=== PATIENT | female | born 1965 | race Caucasian/White ===

== ENCOUNTER → 2017-11-01 14:53 | Outpatient (CLI) | payer OTHER, SELFPAY ==
[2017-11-04 17:01] LABS: HPV APTIMA, High Risk Negative (Negative)
== END ==
PROVIDERS: Visit Provider Nurse Practitioner Women's Health
DX: Z12.4 Encounter for screening for malignant neoplasm of cervix (principal)
CPT/HCPCS: 88175; G0145

== ENCOUNTER → 2017-11-01 18:21 | Outpatient (CLI) | payer OTHER, SELFPAY | PROVIDERS: Family Provider Family Medicine; PCP Family Medicine; Visit Provider Nurse Practitioner Women's Health | DX: R30.0 Dysuria (principal) | CPT/HCPCS: 87086; 87088; 87186 ==

== ENCOUNTER → 2017-11-22 16:03 | Outpatient (CLI) | payer OTHER, SELFPAY ==
--- NOTE | 2017-11-22 16:06 | HPBI_ITS ---
MAMMOGRAPHY - BILATERAL SCREENING REASON FOR EXAM: Female, 52 years old. Routine annual screening examination. PERTINENT HISTORY: Non-contributory. TECHNIQUE: Digital bilateral breast whit (3D mammographic acquisition) in the CC and MLO projections. 2-D mediolateral oblique (MLO) and craniocaudad (CC) views of both breasts were obtained. CAD: Full Field Digital Mammography with Computer Added Detection was performed. COMPARISON: Comparison is made with prior outside examination dated March 26, 2016. FINDINGS: Breast Composition: The breasts are heterogeneously dense, which may obscure small masses. There are no dominant masses or suspicious calcifications. No other significant abnormalities are identified. There has been no significant change since the prior study. HPBI/SCREENING MAMM (CAD), BILAT IMPRESSION: Stable bilateral screening mammogram. Yearly follow-up mammogram recommended. (A) ASSESSMENT CATEGORY: BIRADS Category 1: Negative. A letter regarding these results will be sent to the patient by the facility within 30 days. Approximately 10% of breast cancers are not detected by mammography. A normal mammogram should not delay biopsy of a clinically suspicious abnormality. [id number] Electronically Signed: Nathaniel Burrell MD at 8:37 EDT Tel [phone], Service support ,
== END ==
PROVIDERS: Family Provider Family Medicine; PCP Family Medicine; Visit Provider Nurse Practitioner Women's Health
DX: Z12.31 Encounter for screening mammogram for malignant neoplasm of breast (principal)
CPT/HCPCS: 77063; 77067

== ENCOUNTER → 2018-08-19 | Outpatient (CLI) | payer OTHER, SELFPAY ==
[2018-07-28 16:22] VITALS: BMI 28.3
[2018-08-19 17:51] LABS: Absolute Neutrophil Count 3.9 X10^3/uL (2.0-7.7); Basophil# 0.04 X10^3/uL; Basophil% 0.6 % (0-1); Eosinophil# 0.51 X10^3/uL; Eosinophils% 7.3 % (0-5); Hematocrit 38.9 % (37-47); Hemoglobin 12.5 g/dl (12.0-15.0); Lymphocyte % 28.8 % (19-41); Mean Corp Hgb Conc 32.1 g/gl (32-36); Mean Corpuscular Hgb 28.3 pg (27.0-32.0); Mean Corpuscular Volume 88.2 fL (81-99); Mean Platelet Vol. 8.8 fl (6.2-12.0); Monocyte# 0.48 X10^3/uL; Monocyte% 6.9 % (0-10); Neutrophil # 3.91 X10^3/uL (2.7-7.7); Neutrophil % 56.4 % (47-70); Platelet Count 295 K/mm3 (150-450); RBC Distribution Width CV 12.6 % (11.6-14.6); RBC Distribution Width SD 40.2 fl (35.1-43.9); Red Blood Count 4.41 M/mm3 (4.2-5.4); White Blood Count 6.9 K/mm3 (4.4-11.0)
[2018-08-19 17:55] LABS: Vitamin D,25 Hydroxy 19.2 ng/mL (29.95-100.01)
[2018-08-19 17:58] LABS: ALB/GLOB Ratio 1.1 RATIO (0.9-2.4); AST(SGOT) 13 U/L (15-37); Alanine Aminotransfer ALT/SGPT 23 U/L (13-56); Albumin, Serum 3.9 g/dL (3.2-5.0); Alkaline Phosphatase 75 U/L (45-117); Anion Gap 6 (5-15); BUN 25 mg/dL (7-18); BUN/Creat Ratio 29.8 RATIO (10-20); Calcium,Total 8.8 mg/dL (8.5-10.1); Chloride 105 mmol/L (98-107); Creatinine, Serum 0.84 mg/dL (0.55-1.02); EST Glomerular Filtration Rate 76 mL/min (>60); Est Glom Filt Rate - Afr Amer 92 mL/min (>60); Globulin 3.5 g/dL (2.2-4.2); Glucose 93 mg/dL (74-106); Potassium 4.1 mmol/L (3.5-5.1); Protein, Total 7.4 g/dL (6.4-8.2); Sodium Level 141 mmol/L (136-145); Thyroid Stim Hormone (TSH) 0.96 uIU/mL (0.358-3.74)
[2018-08-19 18:02] LABS: POSITIVE COUNT NO; POSITIVE DIFFERENTIAL NO; POSITIVE MORPHOLOGY NO
== END | disposition home or self-care (01) ==
LOC: MTLAB 16:11
PROVIDERS: Family Provider Family Medicine; PCP Family Medicine; Referring Provider Family Medicine; Visit Provider Family Medicine
DX: R53.81 Other malaise (principal); R53.83 Other fatigue
CPT/HCPCS: 36415; 80053; 82306; 84443; 85025

== ENCOUNTER → 2019-03-20 09:59 | Outpatient (CLI) | payer OTHER, SELFPAY ==
[2018-07-28 16:22] VITALS: BMI 28.3
--- NOTE | 2019-03-20 10:03 | BI_ITS ---
MAMMOGRAPHY - BILATERAL SCREENING REASON FOR EXAM: Female, 53 years old. Routine annual screening examination. PERTINENT HISTORY: Non-contributory. TECHNIQUE: Digital bilateral breast dina (3D mammographic acquisition) in the CC and MLO projections. 2-D mediolateral oblique (MLO) and craniocaudad (CC) views of both breasts were obtained. CAD: Full Field Digital Mammography with Computer Added Detection was performed. COMPARISON: Comparison is made with prior study dated November 22, 2017. FINDINGS: Breast Composition: The breasts are heterogeneously dense, which may obscure small masses. There are no dominant masses or suspicious calcifications. No other significant abnormalities are identified. There has been no significant change since the prior study. BI/SCREEN MAMM (CAD) W/DINA BILAT IMPRESSION: Stable bilateral screening mammogram. Yearly follow-up mammogram recommended. (A) ASSESSMENT CATEGORY: BIRADS Category 1: Negative. A letter regarding these results will be sent to the patient by the facility within 30 days. Approximately 10% of breast cancers are not detected by mammography. A normal mammogram should not delay biopsy of a clinically suspicious abnormality. [id number] Electronically Signed: Nathaniel Burrell, at 11:19 EDT , Service support ,
== END ==
PROVIDERS: Family Provider Family Medicine; PCP Family Medicine; Referring Provider Nurse Practitioner Women's Health; Visit Provider Nurse Practitioner Women's Health
DX: Z12.31 Encounter for screening mammogram for malignant neoplasm of breast (principal)
CPT/HCPCS: 77063; 77067

== ENCOUNTER → 2020-04-10 15:20 | Outpatient (CLI) | payer OTHER, SELFPAY ==
[2018-07-28 16:22] VITALS: BMI 28.3
--- NOTE | 2020-04-10 15:25 | BI_ITS ---
MAMMOGRAPHY - BILATERAL SCREENING REASON FOR EXAM: Female, 54 years old. Routine annual screening examination. PERTINENT HISTORY: Non-contributory. TECHNIQUE: Digital bilateral breast dina (3D mammographic acquisition) in the CC and MLO projections. 2-D mediolateral oblique (MLO) and craniocaudad (CC) views of both breasts were obtained. CAD: Full Field Digital Mammography with Computer Added Detection was performed. COMPARISON: Comparison is made with prior examination dated 03/20/2019 and 11/22/2017. FINDINGS: Breast Composition: The breasts are heterogeneously dense, which may obscure small masses. There are no dominant masses or suspicious calcifications. No other significant abnormalities are identified. There has been no significant change since the prior study. BI/SCREEN MAMM (CAD) W/DINA BILAT IMPRESSION: Stable bilateral screening mammogram. Yearly follow-up mammogram recommended. (A) ASSESSMENT CATEGORY: BIRADS Category 1: Negative. A letter regarding these results will be sent to the patient by the facility within 30 days. Approximately 10% of breast cancers are not detected by mammography. A normal mammogram should not delay biopsy of a clinically suspicious abnormality. [id number] Electronically Signed: Nathaniel Burrell, at 8:28 EDT , Service support ,
== END ==
PROVIDERS: PCP Family Medicine; Referring Provider Nurse Practitioner Women's Health; Visit Provider Nurse Practitioner Women's Health
DX: Z12.31 Encounter for screening mammogram for malignant neoplasm of breast (principal)
CPT/HCPCS: 77063; 77067

== ENCOUNTER → 2020-05-27 09:31 | Outpatient (CLI) | payer OTHER, SELFPAY ==
[2020-05-27 08:52] VITALS: BMI 28.3
[2020-05-27 10:36] LABS: NATERA MAILED SPECIMEN
== END ==
PROVIDERS: PCP Family Medicine; Referring Provider Obstetrics & Gynecology; Visit Provider Obstetrics & Gynecology
DX: Z12.11 Encounter for screening for malignant neoplasm of colon (principal); Z83.71 Family history of colonic polyps
CPT/HCPCS: 36415

== ENCOUNTER → 2022-02-11 | Outpatient (CLI) | payer OTHER, SELFPAY ==
[2022-02-11 12:43] LABS: Vitamin D,25 Hydroxy 33.3 ng/mL
[2022-02-11 12:53] LABS: Anion Gap 7 (5-15); BUN 21 mg/dL (7-18); BUN/Creat Ratio 25.4 RATIO (10-20); Calcium,Total 9.2 mg/dL (8.5-10.1); Chloride 107 mmol/L (98-107); Cholesterol 209 mg/dL (200); Creatinine, Serum 0.83 mg/dL (0.55-1.02); EST Glomerular Filtration Rate 76 mL/min (>60); Est Glom Filt Rate - Afr Amer 92 mL/min (>60); Glucose 89 mg/dL (74-106); High Density Lipoprotein 74 mg/dL; Potassium 4.1 mmol/L (3.5-5.1); Sodium Level 140 mmol/L (136-145); Thyroid Stim Hormone (TSH) 0.75 uIU/mL (0.358-3.74); Triglycerides 53 mg/dL; Very Low Density Lipoprotein 11 mg/dL (5-40)
== END | disposition home or self-care (01) ==
LOC: MTLAB 09:39
PROVIDERS: PCP Family Medicine; Referring Provider Nurse Practitioner Family; Visit Provider Nurse Practitioner Family
DX: Z13.1 Encounter for screening for diabetes mellitus (principal); Z13.220 Encounter for screening for lipoid disorders; E55.9 Vitamin D deficiency, unspecified; R53.83 Other fatigue
CPT/HCPCS: 36415; 80048; 80061; 82306; 84443

== ENCOUNTER → 2022-02-13 | Outpatient (CLI) | payer OTHER, SELFPAY ==
--- NOTE | 2022-02-13 14:01 | BI_ITS ---
MAMMOGRAPHY - BILATERAL SCREENING REASON FOR EXAM: Female, 56 years old. Routine annual screening examination. PERTINENT HISTORY: Non-contributory. TECHNIQUE: Digital bilateral breast dina (3D mammographic acquisition) in the CC and MLO projections. 2-D mediolateral oblique (MLO) and craniocaudad (CC) views of both breasts were obtained. CAD: Full Field Digital Mammography with Computer Added Detection was performed. COMPARISON: Comparison is made with prior examination dated 04/10/2020 and 03/20/2019. FINDINGS: Breast Composition: The breasts are heterogeneously dense, which may obscure small masses. There are no dominant masses or suspicious calcifications. Stable small benign-appearing bilateral axillary lymph nodes. No other significant abnormalities are identified. There has been no significant change since the prior study. BI/SCRN MAMM (CAD)W/DINA BILAT IMPRESSION: Stable bilateral screening mammogram. Yearly follow-up mammogram recommended. (A) ASSESSMENT CATEGORY: BIRADS Category 2: Benign. A letter regarding these results will be sent to the patient by the facility within 30 days. Approximately 10% of breast cancers are not detected by mammography. A normal mammogram should not delay biopsy of a clinically suspicious abnormality. [id number] Electronically Signed: Nathaniel Burrell MD at 16:21 EDT ,
== END | disposition home or self-care (01) ==
LOC: OPBI 13:59
PROVIDERS: PCP Family Medicine; Referring Provider Nurse Practitioner Family; Visit Provider Nurse Practitioner Family
DX: Z12.31 Encounter for screening mammogram for malignant neoplasm of breast (principal)
CPT/HCPCS: 77063; 77067

== ENCOUNTER 2023-02-25 10:37 | Day surgery (SDC) | payer BC, SELFPAY ==
[2023-02-25] VITALS (7 sets, daily range): BP systolic 93–120; BP diastolic 60–73; PULSE 60–73; RESP 16; TEMP 36.6; O2SAT 94–100; BMI 27.7
[2023-02-25] MEDS: Lactated Ringers 1,000 ML 15 ML IV (10:55)
--- NOTE | 2023-02-25 11:31 | PCM.HP.STD ---
[facility] - General General Date of Admission: 02/25/23 Date of Service: 02/25/23 Chief Complaint: Screening colonoscopy HPI Narrative ELKIN AMBRIZ, is a 57 F who presents today for screening colonoscopy. She has a strong family history of colon cancer in her father and grandfather. She is never had a colonoscopy in the past. She is not a abdominal pain. No any cramping. Is not any chest pain or shortness of breath. She does not have any lower GI bleeding. All other 16 review systems are negative except as per body mentioned [facility]. [facility] Medical History Encounter for screening for malignant neoplasm of stomach Non-smoker Post-menopausal Smoker Home Medications multivitamin 1 tab PO DAILY 12/15/22 [History Last Taken Unknown] turmeric 400 mg capsule 400 mg PO DAILY 02/24/23 [History Last Taken Unknown] vitamin B complex 1 tab PO DAILY 02/24/23 [History Last Taken Unknown] Allergy/AdvReac Type Severity Reaction Status Date / Time No Known Allergies Allergy Verified 02/25/23 10:48 Family History (Updated 12/15/22 @ 09:56 by Jyoti Mata) Father Colon cancer Grandfather Colon cancer Surgical History (Updated 02/24/23 @ 09:07 by Lesly Paulson) History of meniscectomy of right knee Social History Smoking Status: Never smoker alcohol intake: never substance use type: does not use caffeine: Yes what type of physical activity do you participate in: walking frequency: 1-2 times per week seatbelt use: always do you feel safe at home: Yes additional social history: [facility] Review of Systems ROS Unobtainable: other Constitutional Constitutional: Denies fatigue, fever(s), poor appetite, weight gain or weight loss ENT HEENT: Denies mouth lesions Cardiovascular Cardiovascular: Denies abdominal bloating, abdominal edema or abdominal pain Respiratory/Chest Respiratory/Chest: Denies change in mental status, change in phlegm color, chest congestion or chest tightness Gastrointestinal Gastrointestinal: Denies belching, bloating, change in bowel habits, change in stool character, chewing difficulty, coffee ground emesis, constipation, cramping, diarrhea, dyspepsia, dysphagia, early satiety, excessive flatus, fecal incontinence, heartburn, hematemesis, hematochezia, hemorrhoids, loose stools, melena, nausea, odynophagia, rectal bleeding, tenesmus, vomiting or weight changes Genitourinary Genitourinary: Denies abdominal discomfort, burning urination or itching Musculoskeletal Musculoskeletal: Reports as per HPI; Denies muscle weakness or myalgias Integumentary Integumentary: Denies jaundice Neurologic Neurologic: Denies lack of coordination or weakness Psychiatric Psychiatric: Denies confusion, depression, memory loss, mood swings, paranoia or suicidal ideation Endocrine Endocrinology: Denies systems reviewed and no addt'l complaints, except as documented Hematologic/Lymphatic Hematologic/Lymphatic: Denies anemia, easy bleeding, easy bruising or lymphadenopathy Allergic/Immunologic Allergic/Immunologic: Denies systems reviewed and no addt'l complaints, except as documented Vital Signs Vital Signs Vital Signs: 02/25/23 10:49 02/25/23 10:49 Temperature 97.8 F Temperature Source Temporal Pulse Rate 73 Respiratory Rate 16 Respiratory Pattern Normal Blood Pressure 120/73 Blood Pressure Mean 88 Blood Pressure Source Monitor Blood Pressure Position Sitting Blood Pressure Location Left Arm Pulse Ox 99 Oxygen Delivery Method Room Air Weight Weight: 156 lb 8.451 oz Body Mass Index (BMI) 27.7 Physical Exam Const alert General Appearance: cooperative Orientation / Consciousness: oriented to person HEENT hearing grossly normal bilaterally Head and Scalp: normal to inspection Face and Sinus: face symmetric Nose: external nose normal Mouth: oral and palatal mucosa normal Eyes conjunctivae normal General Eye: normal appearance of both eyes Neck full ROM General: normal visual inspection Lymph Lymphatic: no lymphadenopathy noted Chest inspection of chest normal and palpation of chest normal Chest: symmetrical chest wall rise Resp normal respiratory effort Effort and Inspection: able to speak in complete sentences Cardio regular rate GI non-distended Percussion: normal to percussion Rectal Exam: deferred Neuro Speech: speech normal Gait (Neuro): normal gait Assessment & Plan Assessment/Plan (1) Family history of colon cancer requiring screening colonoscopy: PLAN: She was explained alternatives, risk, benefits clinically not withstanding bleeding, infection, sepsis, perforation, need for emergent surgery . She will have an ASA of 2.
--- NOTE | 2023-02-25 11:57 | OP.COLON_ITS ---
Patient Name: Christine Rachel Procedure Date: 02/25/2023 11:31 AM Date of : 1965 Age: 57 Procedure: Colonoscopy Indications: Screening for colorectal malignant neoplasm Providers: Jung Camarillo DO Referring MD: Didi Cueto Medicines: Monitored Anesthesia Care Patient Profile: This is a 57 year old female. Refer to note in patient chart for documentation of history and physical. Last Colonoscopy: none. The patient's first colonoscopy is today. Complications: No immediate complications. Procedure: Pre-Anesthesia Assessment: - Prior to the procedure, a History and Physical was performed, and patient medications and allergies were reviewed. The risks and benefits of the procedure and the sedation options and risks were discussed with the patient. All questions were answered and informed consent was obtained. Patient identification and proposed procedure were verified by the physician. Mental Status Examination: alert and oriented. Airway Examination: normal oropharyngeal airway and neck mobility. Respiratory Examination: clear to auscultation. CV Examination: normal. Prophylactic Antibiotics: The patient does not require prophylactic antibiotics. Prior Anticoagulants: The patient has taken no previous anticoagulant or antiplatelet agents. After reviewing the risks and benefits, the patient was deemed in satisfactory condition to undergo the procedure. The anesthesia plan was to use minimal sedation / analgesia (anxiolysis). Immediately prior to administration of medications, the patient was re-assessed for adequacy to receive sedatives. The heart rate, respiratory rate, oxygen saturations, blood pressure, adequacy of pulmonary ventilation, and response to care were monitored throughout the procedure. The physical status of the patient was re-assessed after the procedure. After I obtained informed consent, the scope was passed under direct vision. Throughout the procedure, the patient's blood pressure, pulse, and oxygen saturations were monitored continuously. The colonoscope was introduced through the anus and advanced to the cecum, identified by appendiceal orifice and ileocecal valve. The colonoscopy was performed without difficulty. The patient tolerated the procedure well. The quality of the bowel preparation was good. Scope In: 11:42:41 AM Scope Withdrawal Time 0 hours 7 minutes 3 seconds Scope Out: 11:53:01 AM Total Procedure Duration Time 0 hours 10 minutes 20 seconds Findings: Hemorrhoids were found on perianal exam. Non-bleeding internal hemorrhoids were found during retroflexion. The hemorrhoids were moderate and Grade II (internal hemorrhoids that prolapse but reduce spontaneously). The entire examined colon appeared normal on direct and retroflexion views. Impression: - Hemorrhoids found on perianal exam. - Non-bleeding internal hemorrhoids. - The entire examined colon is normal on direct and retroflexion views. - No specimens collected. Recommendation: - Discharge patient to home. - Resume previous diet. - Continue present medications. - Repeat colonoscopy in 5 years for surveillance. Procedure Code(s): --- Professional --- G0121, Colorectal cancer screening; colonoscopy on individual not meeting criteria for high risk CPT copyright 2017 [employer]. All rights reserved. The codes documented in this report are preliminary and upon inpatient coder review may be revised to meet current compliance requirements. Jung Camarillo DO 02/25/2023 11:56:58 AM This report has been signed electronically. Number of Addenda: 0 Note Initiated On: 02/25/2023 11:31 AM
--- NOTE | 2023-02-25 11:58 | OP.CCLET_ITS ---
02/25/2023 Didi Cueto [address] [place] [address] Re : Colonoscopy procedure for Christine Rachel Dear Dr. Cueto This procedure was performed on February. My impressions and recommendations are as follows: Impressions : - Hemorrhoids found on perianal exam. - Non-bleeding internal hemorrhoids. - The entire examined colon is normal on direct and retroflexion views. - No specimens collected. Recommendations : - Discharge patient to home. - Resume previous diet. - Continue present medications. - Repeat colonoscopy in 5 years for surveillance. My findings are described in the full procedure note, which is enclosed. If I can be of further assistance, please feel free to contact me at . Sincerely, Jung Camarillo, 02/25/2023 11:56:58 AM This report has been signed electronically.
== END 2023-02-25 12:34 | disposition home or self-care (01) ==
LOC: EN 10:41 → AC 10:41
PROVIDERS: PCP Family Medicine; Referring Provider Family Medicine; Visit Provider Internal Medicine Gastroenterology
PROC: 0DJD8ZZ Inspection of Lower Intestinal Tract, Via Natural or Artificial Opening Endoscopic (ICD-10-PCS; CPT 45378; principal; 2023-02-25 11:25)
DX: Z12.11 Encounter for screening for malignant neoplasm of colon (principal); K64.1 Second degree hemorrhoids; M99.03 Segmental and somatic dysfunction of lumbar region; M99.04 Segmental and somatic dysfunction of sacral region; Z80.0 Family history of malignant neoplasm of digestive organs
CPT/HCPCS: 45378; J7120; J2405

== ENCOUNTER → 2023-10-13 | Outpatient (CLI) | payer BC, SELFPAY ==
[2023-10-18 16:09] LABS: HPV APTIMA, High Risk Negative (Negative)
== END | disposition home or self-care (01) ==
LOC: LABSPEC 11:38
PROVIDERS: PCP Family Medicine; Referring Provider Nurse Practitioner Women's Health; Visit Provider Nurse Practitioner Women's Health
DX: Z12.4 Encounter for screening for malignant neoplasm of cervix (principal)
CPT/HCPCS: 87624; 88175; G0145

== ENCOUNTER → 2023-10-29 | Outpatient (CLI) | payer BC, SELFPAY ==
--- NOTE | 2023-10-29 10:10 | BI_ITS ---
MAMMOGRAPHY - BILATERAL SCREENING REASON FOR EXAM: Female, 57 years old. Routine annual screening examination. PERTINENT HISTORY: Non-contributory. TECHNIQUE: Digital bilateral breast dina (3D mammographic acquisition) in the CC and MLO projections. 2-D mediolateral oblique (MLO) and craniocaudad (CC) views of both breasts were obtained. CAD: Full Field Digital Mammography with Computer Added Detection was performed. COMPARISON: Comparison is made with prior study dated February 13, 2022 and April 10, 2020. FINDINGS: Breast Composition: The breasts are heterogeneously dense, which may obscure small masses. There are no dominant masses or suspicious calcifications. No other significant abnormalities are identified. There has been no significant change since the prior study. BI/SCRN MAMM (CAD)W/DINA BILAT IMPRESSION: Stable bilateral screening mammogram. Yearly follow-up mammogram recommended. (A) ASSESSMENT CATEGORY: BIRADS Category 1: Negative. A letter regarding these results will be sent to the patient by the facility within 30 days. Approximately 10% of breast cancers are not detected by mammography. A normal mammogram should not delay biopsy of a clinically suspicious abnormality. [id number] Electronically Signed: Nathaniel Burrell MD at 11:17 EST ,
--- OUTSIDE RECORDS SUMMARY | 2023-10-29 10:32 | XMS RPT_ITS | CCD ---
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 Name Role Phone Unavailable Primary Care Provider UnavailDIDI Verma Referring Unavailable DIDI JACQUES Attending Unavailable Problems Active Problems Problem Classification Problem Date Documented Da te Episodic/Chronic Malaise and fatigue (3 sources) Malaise and fatigue; Translations: [Other malaise] Onset: 07-02-2023 07-01-2023 Episodic Other bone disease and musculoskeletal deformities (1 source) Segmental and somatic dysfunction; Translations: [Segmental and somatic dysfunction of abdomen and other regions] Onset: 07-01-2023 07-01-2023 Episodic Other non-traumatic joint disorders (1 source) Pain in bilateral lower legs; Translations: [Pain in right knee] 07-01-2023 Episodic Other non-traumatic joint disorders (1 source) Pain in right knee; Translations: [Arthralgia of both lower legs] Onset: 07-02-2023 Episodic Other non-traumatic joint disorders (1 source) Pain in left knee; Translations: [Arthralgia of both lower legs] Onset: 07-02-2023 Episodic Other nutritional; endocrine; and metabolic disorders (1 source) Body mass index 25-29 - overweight; Translations: [Overweight] 07-01-2023 Episodic Other nutritional; endocrine; and metabolic disorders (1 source) Overweight; Translations: [Overweight (BMI 25.0-29.9)] Onset: 07-02-2023 Episodic Other screening for suspected conditions (not mental disorders or infectious disease) (10 sources) Patient encounter status; Translations: [Encounter for screening for nutritional disorder] Onset: 07-02-2023 07-01-2023 Episodic Past or Other Problems Problem Classification Problem Date Documented Da te Episodic/Chronic Residual codes; unclassified (1 source) Family history of cancer of colon; Translations: [Family history of malignant neoplasm of digestive organs] Onset: 03-24-2023 07-01-2023 Episodic Results Test Name Value Interpretation Reference Range Facil ity Vital Signs Date Time Vital Sign Value Performing Clinician James dawson 07-01-2023 08:00-0400 Body height 160.7 cm Didi Jacques APRN.CNP Work Phone: [facility] 07-01-2023 08:00-0400 Body weight 74.39 kg Didi Jacques APRN.SYSTEMATIC THEOLOGY PROFESSOR Work Phone: [facility] 07-01-2023 08:00-0400 Diastolic blood pressure 75 mm[Hg] Didi Jacques APRN.SYSTEMATIC THEOLOGY PROFESSOR Work Phone: [facility] 07-01-2023 08:00-0400 Heart rate 75 /min Didi Jacques APRN.SYSTEMATIC THEOLOGY PROFESSOR Work Phone: [facility] 07-01-2023 08:00-0400 Respiratory rate 16 /min Didi Jacques APRN.SYSTEMATIC THEOLOGY PROFESSOR Work Phone: [facility] 07-01-2023 08:00-0400 SaO2% (BldA) [Mass fraction] 98 % Didi Jacques APRN.SYSTEMATIC THEOLOGY PROFESSOR Work Phone: [facility] 07-01-2023 08:00-0400 Systolic blood pressure 110 mm[Hg] Didi Jacques APRN.SYSTEMATIC THEOLOGY PROFESSOR Work Phone: [facility] Encounters Encounter Date Encounter Type Care Provider Facility Start: 07-02-2023 End: 07-03-2023 ambulatory DIDI JACQUES Facility:[facility] Start: 07-01-2023 End: 07-01-2023 ambulatory DIDI JACQUES Facility:[facility] Start: 07-01-2023 End: 07-01-2023 Patient encounter procedure Didi Jacques APRN.CNP Work Phone: OB/Gynecology Procedures Date Procedure Procedure Detail Performing Clinician Start: 03-26-2016 Lipid 1996 panel - S sulaiman or Plasma Didi Jacques APRN.CNP Work Phone: Plan of Treatment Date Care Activity Detail Author Start: 07-01-2023 End: 09-30-2023 25-hydroxyvitamin D3 [Mass/volume] in Serum or Plasma VITAMIN D 25 HYDROXY Lab Routine Encounter for vitamin deficiency screening Overweight (BMI 25.0-29.9) Malaise and fatigue Expected: 07/01/2023, Expires: 09/30/2023 [facility] Work Phone: Payers Date Payer Category Payer Unknown [employer]IGHAT ELIZABETH PPO [id number] 2023-Present [phone] [address] [place] [address] PPO [id number] 2023 Unknown [id number] Social History Date Type Detail Facility Start: 03-23-2014 Tobacco smoking stat [facility] Never smoked tobacco [facility] Work Phone: Start: 03-23-2014 Tobacco use and exposure Smokeless tobacco non-user [facility] Work Phone: Start: 07-01-2023 Alcohol intake Current non-dr manager technology of alcohol (finding) [facility] Start: 07-01-2023 History of Social function [facility] Start: 07-01-2023 Tobacco use panel [facility] Start: 1965 Sex Assigned At Not on file [facility] Progress note 07-01-2023 Note Date & Type Note Facility 07-01-2023 Note HNO ID: [id number] Author: Didi Jacques APRN.SYSTEMATIC THEOLOGY PROFESSOR Service: ? Author Type: Nurse Practitioner Type: Progress Notes Filed: 07/01/2023 11:17 AM Note Text: Christine Rachel is a 57 year old female with obesity who presents for an initial evaluation of overweight/obesity to treat and prevent co-morbidities and is interested in behavioral . Motivation for seeking treatment for the disease of overweight/obesity : wants to feel better about self and health. Can not lose weight since menopause despite exercise modifying diet Goal weight: 140-145 Lowest recall weight: 140 Highest recall weight: 165 Patient identified barriers to weight loss: none Weight History: She reports no family history of obesity and late adulthood weight gain. She states her weight gain is related to the following factors, including onset of menopause about 7 years ago. - Last Wt 07/01/23 : 164 lb (74.4 kg) 5% weight loss = 156 lbs, 10% weight loss = 148 lbs WEIGHT GRAPH: Diet/Nutrition overview: Awake - 0600 0630 Macha green tea plain B - skip S - none L - 1200 16 oz coconut milk with protein shake mix or Chobani SFyogurt with berries S - after school 1600 cheese or pretzels or apple - grazes before dinner so she tries to go for walk instead D - 6-8 pm protein, vegetable good variety, sometimes starchy veg or rice. Dessert if eating out S - 8 pm if early dinner - popcorn or glass of semi-sweet red wine twice a month Fluids - coconut milk with protein powder, green tea, water with lemon, SF sparkling water Bedtime - 2300 Quality of diet: 24hr recall suggests healthy diet. Characterization of diet:Structured, evening snacking, and skip meals. Income Tax Expert of impaired eating habits:lack of satiety and boredom Eating Disorder no Cravings: cheese and sometimes sugary food but tries to limit to a few dark chocolate chips Sleep: Duration: 6-7 hours. MELLISSA NO ; CPAP NO Stress:yes , Cause:Work Obesity Related Comorbidities: Prior Weight Loss Surgery:No PAST MEDICAL HISTORY Diagnosis Date NEGATIVE MEDICAL HISTORY PAST SURGICAL HISTORY Procedure Laterality Date KNEE SURGERY HX Left 2019 LIG/TRNSXJ FLP TUBE ABDL/VAG APPR UNI/BI 09/13/1998 Tubal ligation FAMILY HISTORY Problem Relation Age of Onset Hypertension Mother Osteoporosis Mother Colon Polyps Father Colon Cancer Paternal Grandfather Social History Tobacco Use Smoking status: Never Smokeless tobacco: Never Vaping Use Vaping Use: Never used Substance Use Topics Alcohol use: No Drug use: No Medications: None Weight Promoting Medications: None Diet/weight loss History: Past weight loss attempts? commercial diets, self-directed, and exercise program. Atkins diet, Caloric restriction, Diet pills, Exercise/increased activity, Keto, Low Carbohydrate diet, MyFitnessPal, Noom, Self-directed diets such as fasting, and Weight watchers Exercise: Regular exercise: yes walks 4 miles a day Strength/resistance exercise:yes Barriers to regular exercise? 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 Weight Circumference: 35.75 in GENERAL: Female in NAD. Gluteo-femoral adiposity. SKIN: acanthosis nigricans no, Skin tags: yes Hirsutism: no HEENT: PERRL, No supraclavicular adiposity. No dorsal adiposity. RESPIRATORY: CBTA CARDIAC: RRR ABDOMEN: Protuberant ; EXTREMITIES: peripheral edema: no Results: reviewed with the patient Results Only on 06/01/2023 Component Date Value Ref Range Status Toy Designer 06/01/2023 In process Value:Provider VICKI your patient CHRISTINE RACHEL has been assigned their Jessica program. The date to complete this order is 07-01-2023 The Jessica program is: [facility] WHAT TO EXPECT AT YOUR APPOINTMENT The patient access code to view the Jessica program is: [id number] To view the Jessica program go to: [email or web address] Impression: Christine Rachel is a 57 year old Female with Overweight (Pre-obesity) (Body mass index is 28.82 kg/m?.) who has adult onset obesity with gradual weight gain despite several weight loss attempts. The causes of her obesity are multifactorial, biological, psychological and social and environmental. Specific factors include hormone changes (more content not included)... [facility] History of Present illness Narrative 07-01-2023 Didi Jacques, KALLIE.SYSTEMATIC THEOLOGY PROFESSOR - 07/01/2023 8:00 AM EDT Note Date & Type Note Facility 07-01-2023 History of Presen t illness Narrative Images from the original note were not included. Christine Rachel is a 57 year old female with obesity who presents for an initial evaluation of overweight/obesity to treat and prevent co-morbidities and is interested in behavioral . Motivation for seeking treatment for the disease of overweight/obesity : wants to feel better about self and health. Can not lose weight since menopause despite exercise modifying diet Goal weight: 140-145 Lowest recall weight: 140 Highest recall weight: 165 Patient identified barriers to weight loss: none Weight History: She reports no family history of obesity and late adulthood weight gain. She states her weight gain is related to the following factors, including onset of menopause about 7 years ago. - Last Wt 07/01/23 : 164 lb (74.4 kg) 5% weight loss = 156 lbs, 10% weight loss = 148 lbs WEIGHT GRAPH: Diet/Nutrition overview: Awake - 0600 0630 Macha green tea plain B - skip S - none L - 1200 16 oz coconut milk with protein shake mix or Chobani SFyogurt with berries S - after school 1600 cheese or pretzels or apple - grazes before dinner so she tries to go for walk instead D - 6-8 pm protein, vegetable good variety, sometimes starchy veg or rice. Dessert if eating out S - 8 pm if early dinner - popcorn or glass of semi-sweet red wine twice a month Fluids - coconut milk with protein powder, green tea, water with lemon, SF sparkling water Bedtime - 2300 Quality of diet: 24hr recall suggests healthy diet. Characterization of diet:Structured, evening snacking, and skip meals. Income Tax Expert of impaired eating habits:lack of satiety and boredom Eating Disorder no Cravings: cheese and sometimes sugary food but tries to limit to a few dark chocolate chips Sleep: Duration: 6-7 hours. MELLISSA NO ; CPAP NO Stress:yes , Cause:Work Obesity Related Comorbidities: Prior Weight Loss Surgery:No PAST MEDICAL HISTORY Diagnosis Date NEGATIVE MEDICAL HISTORY PAST SURGICAL HISTORY Procedure Laterality Date KNEE SURGERY HX Left 2019 LIG/TRNSXJ FLP TUBE ABDL/VAG APPR UNI/BI 09/13/1998 Tubal ligation FAMILY HISTORY Problem Relation Age of Onset Hypertension Mother Osteoporosis Mother Colon Polyps Father Colon Cancer Paternal Grandfather Social History Tobacco Use Smoking status: Never Smokeless tobacco: Never Vaping Use Vaping Use: Never used Substance Use Topics Alcohol use: No Drug use: No Medications: None Weight Promoting Medications: None Diet/weight loss History: Past weight loss attempts? commercial diets, self-directed, and exercise program. Atkins diet, Caloric restriction, Diet pills, Exercise/increased activity, Keto, Low Carbohydrate diet, MyFitnessPal, Noom, Self-directed diets such as fasting, and Weight watchers Exercise: Regular exercise: yes walks 4 miles a day Strength/resistance exercise:yes Barriers to regular exercise? 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 Obesity ROS/ FHx GEN: Fatigue:no CV: h/o palpitations/cardiac arrhythmia, Chest pain: no HTN: no PULM: Asthma:no GI: GERD:no ; Gallstones:no ; Fatty liver disease:no Pancreatitis: no MSK: Joint Pain:yes : Nephrolithiasis: no Symptoms of PCOS: no NEURO: Migraines/OLIVARES: no; H/o seizures: no Glaucoma:no; Cataracts no Symptoms of or History of pseudotumor cerebri:no Family or personal History of MEN2 or Medullary thyroid cancer: no PE BP 110/75 Pulse 75 Resp 16 Ht 5' 3.25 (1.607 m) Wt 164 lb (74.4 kg) LMP 01/22/2016 (Within Days) SpO2 98% BMI 28.82 kg/m Weight Circumference: 35.75 in GENERAL: Female in NAD. Gluteo-femoral adiposity. SKIN: acanthosis nigricans no, Skin tags: yes Hirsutism: no HEENT: PERRL, No supraclavicular adiposity. No dorsal adiposity. RESPIRATORY: CBTA CARDIAC: RRR ABDOMEN: Protuberant ; EXTREMITIES: peripheral edema: no Results: reviewed with the patient Results Only on 06/01/2023 Component Date Value Ref Range Status Toy Designer 06/01/2023 In process Value:Provider VICKI your patient CHRISTINE RACHEL has been assigned their Jessica program. The date to complete this order is 07-01-2023 The Jessica program is: [facility] WHAT TO EXPECT AT YOUR APPOINTMENT The patient access code to view the Jessica program is: [id number] To view the Jessica program go to: [email or web address] Impression: Christine Rachel is a 57 year old Female with Overweight (Pre-obesity) (Body mass index is 28.82 kg/m .) who has adult onset obesity with gradual weight gain despite several weight loss attempts. The causes of her obesity are multifactorial, biological, psychological and social and environmental. Specific factors include hormone changes with menopause and sluggish metabolism. She has no significant weight-related medical comorbidities which increase her cardiovascular mortality risk. There are no additional metabolic obesity complications. Regarding her lifestyle, as above, she has no significant behavioral contributors; her physical activity is regular. Overall, it is clear that her quality of life is mildly compromised by her weight. It is likely a combination of weight loss therapies will be needed. She appears motivated today. 1. Malaise and fatigue - ICD9: 780.79, ICD10: R53.81, R53.83 (primary diagnosis) - VITAMIN D 25 HYDROXY - CBC - TSH BLD 2. Arthralgia of both lower legs - ICD9: 719.46, ICD10: M25.561, M25.562 - COMP METABOLIC PANEL - CBC 3. Encounter for vitamin deficiency screening - ICD9: V77.99, ICD10: Z13.21 - VITAMIN D 25 HYDROXY 4. Screening for diabetes mellitus - ICD9: V77.1, ICD10: Z13.1 - INSULIN ASSAY BLOOD - HGB A1C 5. Screening for deficiency anemia - ICD9: V78.1, ICD10: Z13.0 - CBC - COMP METABOLIC PANEL 6. Screening cholesterol level - ICD9: V77.91, ICD10: Z13.220 - LIPID PANEL BASIC 7. Screening for thyroid disorder - ICD9: V77.0, ICD10: Z13.29 - TSH BLD 8. Overweight (BMI 25.0-29.9) - ICD9: 278.02, ICD10: E66.3 - VITAMIN D 25 HYDROXY - INSULIN ASSAY BLOOD - HGB A1C - CBC - LIPID PANEL BASIC - COMP METABOLIC PANEL - TSH BLD Plan: -- Based on the severity and resistance of the obesity/overweight with co-morbidities, I believe a behavioral intervention is the best and most appropriate director long term care therapeutic option. -- We discussed several strategies to track food intake and increase mindfulness around eating while will decrease calorie intake. She was counseled on the following: Eating primarily whole foods. Limit carbs, especially processed carbs. Do not drink your calories 30 grams of protein for breakfast decreases your hunger during the day by up to 40 % Premier Protein or generic 30 gm protein 1 gm sugar Walk for 15 minutes immediately a meal. - Recommended whole food low-carb diet with 30 g of protein 3 times a day and 30 g of carbs at lunch and dinner only. Given tracking log. - Given 15 gram carb whole food and protein suggestion list. - Given protein snack ideas -- Encouraged the patient to continue her physical activity. Although cardiovascular exercise is most beneficial for weight loss initially, we discussed healthy muscle from a combination of resistance training and cardiovascular exercise is the best jail plan. An overall goal of 150-200 minutes per week of exercise has been effective in weight loss and maintenance. -- Reviewed that monitoring weight daily and food intake can have a positive impact on overall weight loss and maintenance of weight loss. Activity tracking can be used to stay on target for exercise however should not be used to reward oneself -- follow-up visit in 4 weeks for management of above interventions Didi Jacques APRN.BETTINA I spent a total of 75 minutes on the date of the service which included preparing to see the patient, [id number] patient care, completing clinical documentation, obtaining and/or reviewing separately obtained history, performing a medically appropriate examination, counseling and educating the patient/family/caregiver, and ordering medications, tests, or procedures. documented in this encounter [facility] Instructions 07-01-2023 Patient Instructions Note Date & Type Note Facility 07-01-2023 Instructions Didi Jacques APRN.CNP - 07/01/2023 7:49 AM EDT Weight Management: You have taken the initiative to become a healthier version of yourself and to decrease the risks that come with the diagnosis of obesity or being overweight. We are happy to help you along this journey but know this is a lifetime commitment to yourself. Losing just 3-10 % of your body weight can decrease your risks of many other serious diseases like diabetes, heart disease, osteoarthritis, hypertension, cancer and so many others. During this time you will have triumphs, setbacks and plateaus- your body will fight against you but we are here to give you the tools and the resources to continue to reach your goals. We recommend during this time that you track your weight daily or at least five times per week as well as tracking your nutrition. You may track your activity but do not use hitting your fitness goals as a reward system as this can derail your success. We recommend weekly physical activity of 150-200 min/week-although physical exercise can help with maintaining weight loss it adds only a little benefit for jail weight loss success. However, exercise can have many other benefits including improving mental health and cardiovascular health. Do not feel overwhelmed- we will discuss this more at your visits. Our time will be limited with each visit but we will try to touch on factors that are important to you and to your overall goals. We will try to set a goal at the end of each visit and then decide on what we want to accomplish with your upcoming visits. On your After Visit Summary (AVS), we will provide you with information that may be useful during this journey so please remember to read the information given. Check your AVS a few days after your appointment because we may have added more information specifically for you. Remember that if you are placed on medications, they are tools that can help you succeed but you must put in the work. Your nutrition will be the main factor. There are medications that work well for some and not for others- so it may take time to find the right combination for your body's needs. Please remember that factors such as other health co-morbidities one might have, as well as insurance coverage, will play a factor in determining which medications you can take. Most of the newer medications that are all the craze ,injectables, may not be covered or will only be covered if you fail months of oral medications- so please be patient with the process. It would be beneficial for you to determine what your insurance covers as far as Anti-Obesity Medications (AOMs), Nutritional Counseling, behavioral intervention and weight loss surgery. Please call your health insurance prior to your first appointment and write down coverage for each of those therapies. Most importantly, remember that ultimately our goal is to help you get to a healthier weight which will decrease your overall health risks. We will work together as a team and try to reach your personalized goals as well. We appreciate that you have entrusted us with your health and know that we are committed to this process with you. Obesity Obesity is a disease that affects nearly one-third of the adult [place] population (approximately 60 million). The number of overweight and obese Americans has continued to increase since 1959, a trend that is not slowing down. Today, 64.5 percent of adult Americans (about 127 million) are categorized as being overweight or obese. Each year, obesity causes at least 300,000 excess deaths in the [place] and healthcare costs of [place] adults with obesity amount to approximately $100 billion. (AOA) Obesity is a complex, multi-factorial chronic disease involving: Environmental (social and cultural) The tendency toward obesity is a result of our environment: lack of physical activity along with high-calorie, low-cost foods. Home, work, school, and even the community can inhibit a healthy lifestyle. Genetic (Hereditary plays a large role in determining how susceptible people are to overweight and obesity). Genes also influence how the body cristobal calories for energy and stores fat. Physiologic, metabolic, behavioral (eating too many calories while not getting enough exercise) and psychological components. It is the second leading cause of preventable in the [place] Behavioral changes brought on by economic development, modernization and urbanization have been linked to the rise in global obesity. Calculating BMI Body Mass Index (BMI) is a measurement tool used to determine excess body weight. Overweight is defined as a BMI of 25 or more, obesity is 30 or more, and severe obesity is 40 or more. You can visit www.nhlbi.nih.gov to estimate your BMI. Obesity Related Health Conditions The morbidity and mortality risk from being overweight is proportional to its degree. Individuals with morbid obesity, therefore, have the highest risk for developing numerous illnesses that often reduce mobility and quality of life due to their excess weight. In particular, type 2 diabetes, gallbladder disease and osteoarthritis have been found to increase concurrently with higher BMI. Premature , a 20-year shorter life span, has also been found in individuals with morbid obesity. All of the systems that make the body function are affected by morbid obesity. Type 2 diabetes Gallbladder disease and gallstones Liver disease Osteoarthritis, a disease in which the joints deteriorate. This is possibly the result of excess weight on the joints. Gout, another disease affecting the joints Pulmonary (breathing) problems, including sleep apnea in which a person can stop breathing for a short time during sleep Reproductive problems in women, including menstrual irregularities and infertility Gastroesophageal reflux/heartburn Hypertension Heart Disease Depression Psychological disorders/social impairments Urinary Stress Incontinence Obesity is also linked to higher rates of certain types of cancer. Obese men are more likely than non-obese men to from cancer of the colon, rectum, or prostate. Obese women are more likely than non-obese women to from cancer of the gallbladder, breast, uterus, cervix, or ovaries [email or web address] Nutrition - Eat primarily whole foods. Limit carbs, especially processed carbs. - Do not drink your calories - 30 grams of protein for breakfast decreases your hunger during the day by up to 40 % Premier Protein or generic 30 gm protein 1 gm sugar - Walk for 15 minutes immediately a meal. Sincerely, Ngozi Hernandez MD, FACOG & Didi Jacques CNP - Whole food low-carb diet with 30 g of protein 3 times a day and 30 g of carbs at lunch and dinner only. Meals - protein is a goal and carbohydrates are a limit. Snacks - all protein or more protein than carbs Use tracking log as a worksheet and bring with you to your next appointment. Protein - no carbs Egg 1 large - 6g Egg white 1 large 3.6g 3 oz is approximately the size of a deck of cards and equals 21 g protein Beef, Chicken, [place], Pork, Lock 1 oz 7g Fish, Tuna Fish 1 oz 7g Seafood (Crabmeat, Shrimp, Lobster) 1 oz 6g Protein shakes (read labels) Premier Protein or generic [employer] Equate, Aldi Elevate, Me[employer] High Performance- 30g protein & 1g carb - meal replacement Premier Protein plant protein powder - 25 gm protein, 0 suger/2 carb Vanilla and chocolate (not a meal replacement) Fairlife 30 gram protein - 30g protein & 3g carb BOOST Glucose Control Max 30g Protein Nutritional Drink - 30g protein & 1 carb - meal replacement Slimfast High Protein - 20g protein & 1g carb Ensure Max Protein Nutrition Shake 30g protein & 2 carb Protein AND carbs Beef/[place] Jerky 1 oz dried 10-15g protein - check carb count, can be high if sugar added Slim Vin - 6 gm protein and 4 net carb Great Value original turkey sausage sticks - 7 gm protein and 2 gm carb Imitation Crab Meat 1 oz - 2g protein & 4g carb Milk, skim 2% or 1% 8 oz - 8g protein & 12g carb Georgian yogurt Full Fat Georgian Yogurt 1 cup - 20.4g protein & 9.1g carb 2% Georgian Yogurt 1 cup - 22.7g protein & 9.1g carb 0% (fat-free) Georgian Yogurt - 1 cup 24g protein & 9.3g carb :ratio, KETO Friendly Dairy Snack 1 single svg - 15g protein & 2g carb :ratio Protein 1 single svg - 25g protein & 8g carb Dannon Light + Fit 1 single csvg - 12g protein & 9g carb Two Good Lowfat Georgian Yogurt, [place], Lower Sugar - 12g protein & 2g carb Oikos Triple Zero Georgian Nonfat Yogurt 1 single svg - 15g protein & 7g carb Cheese each oz Brie 5.9g protein & 0.1g carb Cheddar Cheese 7g protein & 0.4g carb Mozzarella Cheese 6.3g protein & 0.6g carb Hong Cheese 6.7g protein & 0.7g carb Parmesan Cheese 10g protein & 0.9g carb Cream Cheese 1.7g protein & 1.2g carb Feta 4g protein & 1.2g carb [place] Citizen Cheese 7.6g protein & 1.5g carb Tyler s Low Fat Cottage Cheese 1/2cup 12g protein & 4g carb Legumes Lentils cup 9g protein & 20g carb Webb beans cup 7g protein & 20g carb Kidney, Black, [place], Cannellini beans cup 8g protein & 20g carb Soybeans 1/2 c 14g protein & 8.5g carb Peanut butter, natural 2 Tbsp 7-8g protein & 4g net carbs, 190 calories [place] milk, unsweetened 8 oz 1g protein & 2g carb Soy milk 8 oz 3.5g protein & 1.6g carb Tofu 1/2 cup 10g protein & 2.3g carb Nuts and Seeds per oz Pumpkin Seeds - 6.9g protein & 5g carb Almonds - 5.9g protein & 6.1g carb [place] Seeds - 5.8g protein & 5.6g carb Pistachios - 5.8g protein & 7.8g carb Cashews - 5.1g protein & 9.2g carb Walnuts - 4.3g protein & 3.8g carb Hazelnuts - 4.2g protein & 4.7g carb Magazine Nuts - 4.0g protein & 3.4g carb Pecans - 2.6g protein & 3.9g carb Peanuts - 7g protein & 4.6g carb <15 gram carb fruit options Berries have the lowest sugar content 1/2 cup diced honeydew melon - 8 carbs 1/2 cup diced watermelon - 6 carbs One half medium grapefruit - 10.5 carbs 1 medium orange -15.5 carbs 1 medium peach -14.5 carbs 1/2 cup fresh cranberries - 6.5 carbs 1 medium plum -7.5 carbs 1/2 cup raspberries -7.5 carbs 1 medium Cat -9 carbs 1/2 cup fresh pineapple -11 carbs 1 medium nectarine - 15 carbs 1/2 cup blueberries - 11 carbs - may actually help you lose weight 1 medium kiwi without skin - 11 carbs 1/2 cup fresh cherries -11 carbs 1 medium tangerine -12 carbs 1/2 cup sliced cheri -14 carbs 1/2 medium banana 1/2 c grapes 1/2 medium apple - 12.5 carbs 1/2 c strawberries - 12.7 carbs 5 (FIVE) gram carb vegetable options 1 cup raw OR cup cooked: Asparagus Cabbage Spinach Peppers Green beans Carrots Tomato [place] Posey sprouts Cauliflower Lettuce Snap peas Broccoli Eggplant Zucchini Turnips Spaghetti squash 15 gram carb vegetable options cup cooked green peas cup cooked corn or hominy corn on the cob, large (5 oz) cup cooked sweet potato, plain cup cooked potato, plain 1 small potato or sweet potato 1 cup winter squash (pumpkin, acorn, butternut) 1 cup marinara or pasta sauce - check label cup tomato juice cup tomato puree Beans, Seeds, Nuts cup cooked beans (kidney, mock, red, green, etc.) cup cooked lentils cup baked beans 4 tablespoons nut butter 30 High Protein Snack Ideas 1. Jerky 2. [place] mix without or minimal dried fruit 3. [place] roll-ups 4. Georgian yogurt 5. Veggies and yogurt dip 6. Tuna 7. Hard-boiled eggs 8. Peanut butter celery sticks 9. No-bake energy bites 10. Cheese slices/ Cheese Stick 11. Handful of almonds 12. Roasted chickpeas 13. Hummus and veggies 14. Cottage Cheese 15. Celery/fruit with peanut butter 16. Beef sticks (Grass-fed, natural ingredients) 17. Protein bars 18. Canned [place] 19. Alexandro pudding 20. Homemade granola - rolled oats, nuts, and a little sweetener - 1/4 cup serving 21. Pumpkin seeds 22. Nut butter 23. Protein shakes 24. Edamame 25. Avocado and chicken salad 26. Fruit and nut bars - natural ingredients without added sugar. 27. Lentil salad 28. Overnight oatmeal 29. Egg muffins 30. Leftover protein or lunch meat documented in this encounter [facility] Evaluation note Note Date & Type Note Facility documented in this encounter [facility] Summary Purpose Family History No Family History Records Found Advance Directives No Advanced Directives Records Found Additional Source Comments Source Comments (unrecognize d section and content) In the event this informatio n is protected by the Federal Confidentiality of Alcohol and Drug Abuse Patient Records regulations: The Federal rules restrict any use of the information to criminally investigate or prosecute any alcohol or drug abuse patient.[facility] Reason for Visit (unrecogniz ed section and content) INFORMATION SOURCE (unrecogn ized section and content) FOR RECORDS PERTAINING TO PATIENTS WHO ARE OR HAVE BEEN ENROLLED IN A CHEMICAL DEPENDENCY/SUBSTANCEABUSE PROGRAM, SOME INFORMATION MAY BE OMITTED. This clinical summary was aggregated from multiple sources. Caution should be exercised in using it in the provision of clinical care. This summary normalizes information from multiple sources, and as a consequence, information in this document may materially change the coding, format and clinical context of patient data. In addition, data may be omitted in some cases. CLINICAL DECISIONS SHOULD BE BASED ON THE PRIMARY CLINICAL RECORDS. [facility]. provides no warranty or guarantee of the accuracy or completeness of information in this document.
== END | disposition home or self-care (01) ==
LOC: OPBI 10:09
PROVIDERS: PCP Family Medicine; Referring Provider Nurse Practitioner Women's Health; Visit Provider Nurse Practitioner Women's Health
DX: Z12.31 Encounter for screening mammogram for malignant neoplasm of breast (principal)
CPT/HCPCS: 77063; 77067

== ENCOUNTER → 2023-11-29 | Outpatient (CLI) | payer BC, SELFPAY ==
--- NOTE | 2023-11-29 08:01 | VDLE_ITS ---
Reason For Study: BLE Pain RIGHT LEFT CFV is compressible, spontaneous, phasic, CFV is compressible, spontaneous, phasic, competent and demonstrates normal competent, and demonstrates normal augmentation. augmentation. FV is compressible, spontaneous, phasic, FV is compressible, spontaneous, phasic, competent and demonstrates normal competent and demonstrates normal augmentation. augmentation. POP V is compressible, spontaneous, phasic, POP V is compressible, spontaneous, phasic, competent and demonstrates normal competent and demonstrates normal augmentation. augmentation. T/P Trunk is compressible. T/P Trunk is compressible. PTV is compressible. PTV is compressible. RT PerV is compressible. LT PerV is compressible. SFJ is competent and measures 0.44 cm. SFJ is INCOMPETENT and measures 0.87 cm. GSV proximal thigh measures 0.32 x 0.31 cm. GSV proximal thigh measures 0.67 x 0.70 cm. GSV at knee measures 0.26 x 0.29 cm. GSV at knee measures 0.53 x 0.56 cm. GSV is competent throughout. GSV INCOMPETENT throughout for greater than SSV proximal calf is competent and measures 0.5 seconds. 0.23 x 0.22 cm. GSV appears to branch into varicosities at Procedure prox calf / knee. Exam performed in department. SSV proximal calf is competent and measures This is a venous duplex using B-mode, color 0.24 x 0.26 cm. flow and spectral Doppler. The exam was diagnostic. VL/Venous Duplex US - Rufino Extrem Interpretation Summary Deep veins of the bilateral lower extremities are patent and compressible segme ntally. There is no evidence of bilateral lower extremity deep vein thrombosis. The bilateral great saphenous veins appear patent and compressible segmentally. Positive for reflux in the left saphenofemoral junction, great saphenous vein t hroughout Ordering Physician: Pauline Vo Referring Physician: Didi An Performed By: Ludwin, Issac, RVT
== END | disposition home or self-care (01) ==
PROVIDERS: PCP Family Medicine; Referring Provider Physician Assistant; Visit Provider Physician Assistant
DX: I87.2 Venous insufficiency (chronic) (peripheral) (principal); I83.92 Asymptomatic varicose veins of left lower extremity
CPT/HCPCS: 93970

== ENCOUNTER → 2025-03-12 | Outpatient (CLI) | payer OTHER, SELFPAY ==
--- NOTE | 2025-03-12 13:45 | BI_ITS ---
EXAM: SCRN MAMM (CAD)W/DINA BILAT DATE: 03/12/2025 CLINICAL HISTORY: F, Age 59 y/o , BREAST CANCER SCREENING TECHNIQUE: SCRN MAMM (CAD)W/DINA BILAT COMPARISON: Prior exam(s) dated 10/29/2023, 02/13/2022, 04/10/2020. FINDINGS: TISSUE DENSITY: There are scattered areas of fibroglandular density. Bilateral Breast Mammographic Findings: No significant masses, calcifications or other abnormalities are identified. BI/SCRN MAMM (CAD)W/DINA BILAT IMPRESSION: There is no mammographic evidence of malignancy. OVERALL FINAL ASSESSMENT BI-RADS 1: NEGATIVE. RECOMMEND ANNUAL MAMMOGRAPHIC SCREENING. RECOMMENDATION: Routine annual follow-up in 1 Year A letter with findings and recommendations will be mailed to the patient. Reading Location: [id number]
== END | disposition home or self-care (01) ==
LOC: OPBI 13:44
PROVIDERS: PCP Family Medicine; Referring Provider Nurse Practitioner Women's Health; Visit Provider Nurse Practitioner Women's Health
DX: Z12.31 Encounter for screening mammogram for malignant neoplasm of breast (principal)
CPT/HCPCS: 77063; 77067

== ENCOUNTER 2025-04-19 09:30 | Day surgery (SDC) | payer OTHER, SELFPAY ==
[2025-04-18 11:55] VITALS: BMI 26.7
[2025-04-19 09:51] LABS: Hematocrit 38.8 % (37-47); Hemoglobin 12.9 g/dL (12.0-15.0); Mean Corp Hgb Conc 33.2 g/dL (32-36); Mean Corpuscular Volume 87.8 fL (81-99); Mean Platelet Vol. 8.3 fl (6.2-12.0); Platelet Count 287 K/mm3 (150-450); RBC Distribution Width CV 12.5 % (11.6-14.6); RBC Distribution Width SD 40.1 fl (35.1-43.9); Red Blood Count 4.42 M/mm3 (4.2-5.4); White Blood Count 5.6 K/mm3 (4.4-11.0)
--- NOTE | 2025-04-19 10:28 | HP.PCM_ITS ---
HPI - General HPI Narrative ELKIN AMBRIZ, is a 59 F who presents with painful left lower extremity varicose veins. She has had these left lower extremity varicose veins for a little over 30 years. She notes they started during one of her pregnancies and then just have continued to worsen over the years. The most prominent varicosity is on the medial lower leg and she states she has persistent aching and burning pain through this area. She also notes lower extremity edema in the left leg which is particularly bad at the end of the day and worse on warm days. 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 She has tried nonmeasured compression in the past without much benefit. She has never had any prior venous interventions. She denies any known VTE. She does not have any bothersome varicosities on the right leg, just some spider veins. She denies any pelvic, abdominal, buttock or varicosities, hematuria, dyspareunia. Otherwise, she has no significant medical history. [facility], [facility] Medical History Post-menopausal Smoker Non-smoker Encounter for screening for malignant neoplasm of stomach Home Medications ?Medication ?Instructions ?Recorded ?Last Taken ?Type multivitamin 1 tab PO DAILY 12/15/22 Unkn own History turmeric 400 mg capsule 400 mg PO DAILY 02/24/23 Unk nown History vitamin B complex 1 tab PO DAILY 02/24/23 Unkn own History ascorbic acid (vitamin C) 500 mg 500 mg PO QDAY Unknown History tablet cholecalciferol (vitamin D3) 125 125 mcg PO QDAY 03/06 Unknown History mcg (5,000 unit) capsule phentermine 37.5 mg capsule 37.5 mg PO QDAY 03/06/25 U nknown History Allergy/AdvReac Type Severity Reaction Status Date / Time No Known Allergies Allergy Verified 03/06/25 14:52 Family History Father Colon cancer Grandfather Colon cancer Other Asthma Cancer Surgical History History of meniscectomy of right knee Social History Smoking Status: Never smoker alcohol intake: never substance use type: does not use caffeine: Yes what type of physical activity do you participate in: walking frequency: 1-2 times per week seatbelt use: always do you feel safe at home: Yes additional social history: [employer] Constitutional Constitutional: Denies chills, fever(s), frequent falls, lethargy or weakness Eyes Eyes: Denies blind spots, change in vision or loss of vision ENT HEENT: Denies bleeding gums, hoarseness or sore throat Cardiovascular Cardiovascular: Denies abdominal pain, bluish discoloration of hand/feet, chest pain with activity, claudication, cold extremities, cyanosis, dyspnea on exertion, erythema on extremities, irregular heart rhythm, leg edema, leg ulcers, numbness in extremities or weakness in extremities Respiratory/Chest Respiratory/Chest: Denies cough, excessive phlegm production, shortness of breath at rest, shortness of breath with exertion or wheezing Gastrointestinal Gastrointestinal: Denies anorexia, change in stool character, constipation, diarrhea, melena or rectal bleeding Genitourinary Genitourinary: Denies dysuria or hematuria Musculoskeletal Musculoskeletal: Denies abnormal gait Integumentary Integumentary: Reports other Details: ; Denies erythema, non-healing lesions or wounds Neurologic Neurologic: Denies abnormal speech, focal weakness, headache(s), loss of vision, numbness, paresthesias or sensory deficit Hematologic/Lymphatic Hematologic/Lymphatic: Denies easy bleeding, easy bruising or lymphadenopathy Vital Signs Vital Signs Vital Signs: Weight Weight: 151 lb Body Mass Index (BMI) 26.7 Physical Exam Const alert, oriented x3, no apparent distress and healthy appearing General Appearance: cooperative; Negative for combative or lethargic Orientation / Consciousness: awake Exam Limitations: no limitations HEENT Head and Scalp: normocephalic and atraumatic Eyes EOMs intact bilaterally General Eye: normal appearance of both eyes Neck full ROM General: trachea midline Resp normal respiratory effort and no use of accessory muscles Effort and Inspection: Negative for labored, stridor or audible wheezes Cardio regular rate and regular rhythm Back/Spine Cervical Spine: cervical ROM normal Extremity full ROM, normal capillary refill and no clubbing, cyanosis or edema Skin no rashes or lesions noted and no wounds Neuro oriented x3, CN's II-XII intact bilaterally, no focal motor deficits and no sensory deficits noted Psych thought process normal, cooperative, affect normal, speech normal and activity/motor behavior normal Results Lab / Micro Data 04/19/25 09:34 04/19/25 09:34 Labs: Laboratory Results - last 24 hr 04/19/25 09:34: WBC 5.6, RBC 4.42, Hgb 12.9, Hct 38.8, MCV 87.8, MCH 29.2, MCHC 33.2, RDW Std Deviation 40.1, RDW Coeff of Karyn 12.5, Plt Count 287, MPV 8.3 Assessment & Plan Assessment/Plan (1) Varicose veins of left lower extremity with pain: PLAN: -GSV chemical ablation
[2025-04-19 10:42] LABS: Anion Gap 8 (5-15); BUN 22 mg/dL (4-19); BUN/Creat Ratio 27.0 RATIO (10-20); Calcium,Total 9.3 mg/dL (7.6-11.0); Carbon Dioxide 26.0 mmol/L (21.0-32.0); Chloride 107 mmol/L (98-108); Estimated Creatinine Clearance 72.06 ml/min (50-250); Glucose 97 mg/dL (70-99); Potassium 4.3 mmol/L (3.3-5.1)
--- OUTSIDE RECORDS SUMMARY | 2025-04-19 10:48 | XMS RPT_ITS | CCD ---
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 Didi Cueto Primary Care Provider Dr. Didi Cueto Referring Provider Hal DIRECTOR LIFE SALES, DIRECTOR LIFE SALES-C Tere Attending Provider [phone] CHAN Vo Attending Provider [phone] Didi Cueto Primary Care Provider Dr. Didi Cueto Referring Provider Hal DIRECTOR LIFE SALES, DIRECTOR LIFE SALES-C Tere Attending Provider [phone] CHAN Vo Attending Provider [phone] Brett White Attending Provider [phone] Didi Cueto Primary Care Provider Dr. Didi Cueto MD Primary Care Provider Dr. Didi Cueto MD Referring Provider Pauline Nagy Attending Provider [phone] DIDI CUETO Primary Care Unavailable JACQUES, DIDI Referring Unavailable JOLLIFF, DIDI SARAH Primary Care Unavailable JACQUES, DIDI Attending Unavailable JOLLIFF, DIDI SARAH Primary Care Unavailable JACQUES, DIDI Attending Unavailable JOLLIFF, DIDI SARAH Primary Care Unavailable JACQUES, DIDI Attending Unavailable JOLLIFF, DIDI SARAH Primary Care Unavailable JACQUES, DIDI Attending Unavailable JOLLIFF, DIDI SARAH Primary Care Unavailable JOLLIFF, DIDI SARAH Primary Care Unavailable JACQUES, DIDI Attending Unavailable Hal DIRECTOR LIFE SALES-C, Tere Attending Provider [phone] Hal DIRECTOR LIFE SALES-CTere Referring Provider Didi Cueto Referring Unavailable Didi Cueto Primary Care Unavailable Pauline Vo Attending Unavailable Tere Hong NP Referring Unavailable Tere Hong NP Attending Unavailable Didi Cueto Primary Care Unavailable Brett White Referring Unavailable Brett White Attending Unavailable Didi Cueto Primary Care Unavailable Medications Current Medications Medication Drug Class(es) Dates Sig (Normalized) Sig (Original) ascorbic acid/vit B12/zinc (VITAMIN C-VITAMIN P40-GJSB ORAL) (4 sources) ascorbic acid/vi t B12/zinc (VITAMIN C-VITAMIN Q05-CTRQ ORAL) Take by mouth once daily. Active Multivitamin preparation (3 sources) Start: 12-15-2022 take 1 tablet by mouth once daily Multivitamin Active 1 TABLET PO DAILY December 15, 2022 12:00am Start: 12-15-2022 take 1 tablet by erick th once daily Multivitamin Active 1 TABLET PO DAILY December 14, 2022 11:00pm Multivitamin tablet (2 sources) Start: 12-15-2022 Multivitamin t ablet Active 1 {tbl} PO DAILY December 15, 2022 12:00am Turmeric extract (9 sources) Start: 02-24-2023 take 1 capsule by mouth once daily Turmeric 400 mg Capsule Active 400 mg PO DAILY February 24, 2023 12:00am Start: 02-24-2023 take 400 mg by mouth once lili y Turmeric Active 400 MG PO DAILY February 24, 2023 12:00am Start: 02-24-2023 take 400 mg by mouth once lili y Turmeric Active 400 MG PO DAILY February 23, 2023 11:00pm TURMERIC ORAL Ta ke by mouth once daily. Active Vitamin B Complex (3 sources) Start: 02-24-2023 take 1 tablet by erick th once daily Vitamin B Complex Active 1 TABLET PO DAILY February 24, 2023 12:00am Start: 02-24-2023 take 1 tablet by mouth once da glen Vitamin B Complex Active 1 TABLET PO DAILY February 23, 2023 11:00pm VITAMIN B COMPLEX ORAL (8 sources) Start: 02-24-2023 VITAMIN B COMP ABELINO ORAL Take by mouth. 02/24/2023 Active Start: 02-24-2023 VITAMIN B COMP ABELINO ORAL Take by mouth. 0 02/24/2023 Active Comment on above: Take by mouth. Vitamin B Complex Tablet (2 sources) Start: 02-24-2023 Vitamin B Comp abelino Tablet Active 1 {tbl} PO DAILY February 24, 2023 12:00am Completed/Discontinued Medications Medication Drug Class(es) Dates Sig (Normalized) Sig (Original) ascorbic acid 500 mg oral tablet (2 sources) Vitamin C Start: 03-06-2025 take 1 tablet by mouth once daily Ascorbic Acid (Vitamin C) 500 mg tablet Discontinued 500 mg PO daily March 06, 2025 12:00am cholecalciferol 0.125 mg oral capsule (7 sources) Vitamin D Start: 03-06-2025 take 1 capsule by mouth once daily Cholecalciferol (Vitamin D3) 125 mcg (5,000 unit) capsule Discontinued 125 ug PO daily March 06, 2025 12:00am Cholecalciferol, Vitamin D3, (VITAMIN D-3) 50 mcg (2,000 unit) cap Take by mouth. Active phentermine hydrochloride 37.5 mg oral capsule (14 sources) Sympathomimetic Amine Anorectic Start: 03-06-2025 take 1 capsule by mouth once daily 30 minutes after breakfast Phentermine 37.5 mg capsule Discontinued 37.5 mg PO daily March 06, 2025 12:00am must administer 30 minutes before or 1-2 hours after breakfast Start: 06-15-2024 End: 06-09-2025 take 1 tablet by mouth once daily before breakfast Phentermine HCl 37.5 mg tablet Indications: IFG (impaired fasting glucose) , Elevated LDL cholesterol level , Overweight (BMI 25.0-29.9) Take 1 tablet by mouth daily before breakfast for 90 days. Patient should start on December 11, 2024. 90 tablet 12/11/2024 03/07/2025 Discontinued Start: 03-15-2024 End: 06-13-2024 take 1 tablet by mouth once daily before breakfast Phentermine HCl 37.5 mg tablet Indications: IFG (impaired fasting glucose) , Elevated LDL cholesterol level , Overweight (BMI 25.0-29.9) Take 1 tablet by mouth daily before breakfast for 90 days. 90 tablet 0 03/15/2024 06/13/2024 Active Start: 12-15-2023 End: 07-01-2024 take 1 tablet by mouth once daily before breakfast Phentermine HCl 37.5 mg tablet Indications: IFG (impaired fasting glucose) , Elevated LDL cholesterol level , Overweight (BMI 25.0-29.9) Take 1 tablet by mouth daily before breakfast for 60 days. 60 tablet 0 01/13/2024 03/13/2024 Active Comment on above: Take 1 tablet by erick th daily before breakfast for 30 days. sulfamethoxazole 800 mg / trimethoprim 160 mg oral tablet (5 sources) Dihydrofolate Reductase Inhibitor Antibacterial, Sulfonamide Antimicrobial Start: 11-02-2017 End: 11-07-2017 Sulfamethoxazole-Trime thoprim 800-160 mg tablet Discontinued 1 {tbl} PO TWICE A DAY 10 5 0 November 02, 2017 1:00am November 06, 2017 1:00am November 07, 2017 1:07am Start: 11-02-2017 End: 11-07-2017 take 1 tablet by mouth twice daily Sulfamethoxazole-Trimethoprim Discontinu ed 1 TABLET PO TWICE A DAY 10 5 November 02, 2017 1:00am November 07, 2017 1:07am Problems Active Problems Problem Classification Problem Date Documented Da te Episodic/Chronic Disorders of lipid metabolism (17 sources) Raised low density lipoprotein cholesterol; Translations: [Pure hypercholesterolemia , unspecified] Onset: 12-15-2023 12-15-2023 Chronic Malaise and fatigue (1 source) Malaise and fatigue; Translations: [Other malaise] 07-01-2023 Episodic Menopausal disorders (8 sources) Atrophic vaginitis; Translations: [Postmenopausal atrophic vaginitis] 10-13-2023 Chronic Comment on above: denies SX Other aftercare (2 sources) Surgical follow-up; Translations: [Encounter for surgical aftercare following surgery on the circulatory system] 12-21-2023 Episodic Other bone disease and musculoskeletal deformities (20 sources) Segmental and somatic dysfunction; Translations: [Segmental and somatic dysfunction of lumbar region] Onset: 07-01-2023 07-01-2023 Episodic Other diseases of veins and lymphatics (4 sources) Vascular insufficiency; Translations: [Venous insufficiency (chronic) (peripheral)] 11-02-2023 Episodic Other diseases of veins and lymphatics (2 sources) Venous insufficiency (chronic) (peripheral); Translations: [Venous (peripheral) insufficiency, unspecified] 11-02-2023 Episodic Other non-traumatic joint disorders (16 sources) Pain in bilateral lower legs; Translations: [Pain in right knee] Onset: 12-15-2023 07-01-2023 Episodic Other nutritional; endocrine; and metabolic disorders (17 sources) Body mass index 25-29 - overweight; Translations: [Overweight] Onset: 12-15-2023 07-01-2023 Episodic Other nutritional; endocrine; and metabolic disorders (1 source) Overweight in adulthood with body mass index of 25 or more but less than 30; Translations: [Body mass index (BMI) 28.0-28.9, adult] 09-12-2024 Episodic Other screening for suspected conditions (not mental disorders or infectious disease) (16 sources) Patient encounter status; Translations: [Encounter for screening for nutritional disorder] Onset: 03-14-2025 07-01-2023 Episodic Other upper respiratory infections (5 sources) Acute pharyngitis; Translations: [Acute pharyngitis, unspecified] 10-30-2022 Episodic Residual codes; unclassified (15 sources) Family history of cancer of colon; Translations: [Family history of malignant neoplasm of digestive organs] Onset: 03-24-2023 07-01-2023 Episodic Comment on above: negative Empower david ting Spondylosis; intervertebral disc disorders; other back problems (6 sources) Lumbar radiculitis; Translations: [Radiculopathy, lumbar region] 07-12-2018 Episodic Varicose veins of lower extremity (12 sources) Asymptomatic varicose veins of left lower extremity; Translations: [Varicose veins of left lower leg] Onset: 04-03-2025 10-13-2023 Episodic Past or Other Problems Problem Classification Problem Date Documented Da te Episodic/Chronic Diabetes mellitus without complication (17 sources) Impaired fasting glycemia; Translations: [Impaired fasting glucose] Onset: 12-15-2023 12-14-2023 Episodic Other non-traumatic joint disorders (1 source) Pain in right knee; Translations: [Arthralgia of both lower legs] Onset: 12-15-2023 Episodic Other non-traumatic joint disorders (1 source) Pain in left knee; Translations: [Arthralgia of both lower legs] Onset: 12-15-2023 Episodic Other nutritional; endocrine; and metabolic disorders (1 source) Body mass index (BMI) 28.0-28.9, adult; Translations: [Body mass index (BMI) of 28.0-28.9 in adult] Onset: 11-30-2024 Episodic Other nutritional; endocrine; and metabolic disorders (1 source) Overweight; Translations: [Overweight (BMI 25.0-29.9)] Onset: 12-15-2023 Episodic Results Test Name Value Interpretation Reference Range Facility Breast imaging reportOrdered By: Devora Urias on 03-12-2025 Study report [facility] Imaging Services [address] [place] [address] SCRN MAMM (CAD)W/DINA BILAT MR#: [id number] Acct: [id number] Name: CHRISTINE RACHEL Rep #: [id number] : 1965 F 59 From: Karin Urias MD PCP: Dr. Didi Cueto MD Status: [facility] Study:SCRN MAMM (CAD)W/DINA BILAT Date of Exa m: 03/12/25 Exam# [id number] Ordering Dr: Tere Hong DIRECTOR LIFE SALES DIRECTOR LIFE SALES-C EXAM: SCRN MAMM (CAD)W/DINA BILAT DATE: 03/12/2025 CLINICAL HISTORY: F, Age 59 y/o , BREAST CANCER SCREENING TECHNIQUE: SCRN MAMM (CAD)W/DINA BILAT COMPARISON: Prior exam(s) dated 10/29/2023, 02/13/2022, 04/10/2020. FINDINGS: TISSUE DENSITY: There are scattered areas of fibroglandular density. Bilateral Breast Mammographic Findings: No significant masses, calcifications or other abnormalities are identified. BI/SCRN MAMM (CAD)W/DINA BILAT IMPRESSION: There is no mammographic evidence of malignancy. OVERALL FINAL ASSESSMENT BI-RADS 1: NEGATIVE. RECOMMEND ANNUAL MAMMOGRAPHIC SCREENING. RECOMMENDATION: Routine annual follow-up in 1 Year A letter with findings and recommendations will be mailed to the patient. Reading Location: [id number] CC: DIRECTOR LIFE SALES-C Tere Hong; Dr. Didi Cueto MD ~ Sales Representative [employer] Service: Signed [facility] SCRN MAMM (CAD)W/DINA BILATo n 03-12-2025 SCRN MAMM (CAD)W/DINA BILAT [facility] Imaging Services [address] [address] SCRN MAMM (CAD)W/DINA BILAT MR#: [id number] Acct: [id number] Name: CHRISTINE RACHEL Rep #: [id number] : 1965 F 59 From: Devora Urias MD PCP: Dr. Didi Cueto MD Status: REG CLI Study: SCRN MAMM (CAD)W/DINA BILAT Date of Exam: 02/13 Exam# [id number] Ordering Dr: Tere Hong NP DIRECTOR LIFE SALES -C EXAM: SCRN MAMM (CAD)W/DINA BILAT DATE: 03/12/2025 CLINICAL HISTORY: F, Age 59 y/o , BREAST CANCER SCREENING TECHNIQUE: SCRN MAMM (CAD)W/DINA BILAT COMPARISON: Prior exam(s) dated 10/29/2023, 02/13/2022, 04/10/2020. FINDINGS: TISSUE DENSITY: There are scattered areas of fibroglandular density. Bilateral Breast Mammographic Findings: No significant masses, calcifications or other abnormalities are identified. BI/SCRN MAMM (CAD)W/DINA BILAT IMPRESSION: There is no mammographic evidence of malignancy. OVERALL FINAL ASSESSMENT BI-RADS 1: NEGATIVE. RECOMMEND ANNUAL MAMMOGRAPHIC SCREENING. RECOMMENDATION: Routine annual follow-up in 1 Year A letter with findings and recommendations will be mailed to the patient. Reading Location: [facility] CC: STACEY Hong; Dr. Didi Cueto MD Sales Representative [employer] Service: Signed Normal [facility] CNOVon 03-08-2025 CNOV Office Visit (OBGYWM ) KATINACHRISTINE ([id number]) 1965 F Date Time Provider Department 03/08/25 11:00 AM DIDI JACQUES During your visit today, we recorded the following information about you: Pulse Blood pressure Weight 90/minute 102/76 67.1 kg Didi Jacques APRN.[facility] 03/08/2025 11:47 AM Addendum - Continue phentermine 37.5 mg once daily: take the full dose at 9 AM on an empty stomach; prescription has been sent to your pharmacy. - Aim to eat dinner by 6 PM to reduce late-night hunger. - When you have a snack like a half banana or a sugar-free popsicle, include at least 15 grams of complete protein to balance the carbs. Good options are: Half a protein shake (~15 g protein) A protein bar with >=15 g protein (e.g., a [place] bar) Roasted soybeans snack or hemp seeds (3 Tbsp = 10 g complete protein) - Keep [id number] proteins in your fridge--hard-boiled eggs, cottage cheese, high-protein yogurts, cheese sticks, or cube cheese. - Continue your morning routine: walking 4 miles at least 5 days a week and drinking your matcha-protein shake breakfast to stay full. - Plan to resume kettlebell or other strength/resistance training soon to help maintain muscle mass as you age. - Drink plenty of water throughout the day--especially when working outside--to stay well hydrated. - Aim for at least 7 hours of sleep each night. - Labs and vital signs reviewed: 03/05 fasting labs: glucose 93 mg/dL, BUN 25 mg/dL (likely from dehydration), creatinine 0.78 mg/dL, eGFR 89 mL/min Today?s blood pressure 102/76 mm Hg, heart rate 90 bpm - Before your next visit, repeat a fasting basic metabolic panel while well hydrated to recheck kidney function. - Follow up in 3 months to assess phentermine results, review updated labs, and discuss adding topiramate if cravings persist. - Whole food balanced protein, controlled carbohydrate nutrition plan - 30 g of protein 3 times a day and up to 30 g of carbs at lunch and dinner only. 1st meal of the day- 30g protein with limit of 2 gm carbohydrates. Premier Protein or generic 30 gm protein 1 gm sugar 2. 2-3 eggs and some unbreaded meat and/or cheese. 3. 2-3 eggs and 1/2 of protein shake or one of the yogurts below: :ratio, KETO Friendly Dairy Snack 1 single svg - 15g protein AND 2g carb Two Good Lowfat Surinamese Yogurt, Lower Sugar - 12g protein AND 2g carb No fruit, vegetables, bread, grain, other brands of yogurt, Smoothies, etc. Lunch and dinner - 30 gm protein is the goal with less than 30 gm carbohydrates All snacks and meals - all protein or more protein than carbs Protein - no carbs Egg 1 large - 6g Egg white 1 large 3.6g 3 oz is approximately the size of a deck of cards and equals 21 g protein so 4 oz is 28 gm protein Beef, Chicken, Pruden, Pork, Lock 1 oz 7g Fish, Tuna Fish 1 oz 7g (Starkist tuna packet 2.6 oz 17 gm protein) Seafood (Crabmeat, Shrimp, Lobster) 1 oz 6g Protein shakes (read labels) Premier Protein or generic [employer] Equate, Me[employer] High Performance- 30g protein AND 1g carb - meal replacement Premier Protein powder or generic- 30 g protein, 1g carb Fairlife 30 gram protein - 30g protein AND 3g carb BOOST Glucose Control Max 30g Protein Nutritional Drink - 30g protein AND 1 carb - meal replacement Slimfast High Protein - 20g protein AND 1g carb Ensure Max Protein Nutrition Shake 30g protein AND 2 carb OWYN plant based 100 % vegan no dairy, soy, wheat/gluten 32g protein 0 net carb (not a meal replacement) Premier Protein plant protein powder - 25g protein, 0 sugar/2g carb Vanilla and chocolate (not a meal replacement) Protein AND carbs Beef/Pruden Jerky 1 oz dried 10-15g protein - check carb count, can be high if sugar added Slim Vin - 6 gm protein and 4 net carb Great Value original turkey sausage sticks - 7 gm protein and 2 gm carb [place] (at [facility]) Original smoked sausage sticks - 8 gm protein and 0 carb Imitation Crab Meat 1 oz - 2g protein AND 4g carb Milk, skim 2% or 1% 8 oz - 8g protein AND 12g carb Fairlife 2% milk 8 oz -13g protein AND 6g carb Surinamese yogurt Full Fat Surinamese Yogurt 1 cup - 20.4g protein AND 9.1g carb 2% Surinamese Yogurt 1 cup - 22.7g protein AND 9.1g carb 0% (fat-free) Surinamese Yogurt - 1 cup 24g protein AND 9.3g carb Aldi Protein Surinamese yogurt single svg - 13/g15g protein AND 7g carb Chobani Zero Sugar single svg: - 12g protein AND 5g carb Dannon Surinamese Light + Fit 1 single svg - 12g protein AND 9g carb Oikos Pro single svg - 20g protein AND 8g carb Oikos Triple Zero Surinamese Nonfat Yogurt 1 single svg - 15g protein AND 7g carb :ratio, KETO Friendly Dairy Snack 1 single svg - 15g protein AND 2g carb :ratio Protein 1 single svg - 25g protein AND 8g carb Two Good Lowfat Surinamese Yogurt, Peterson, Lower Sugar - 12g protein AND 2g carb Yoplait Protein (more content not included)... Normal [facility] MR/BMS.Seun 03-06-2025 MR/BMS.Ruthy [facility] Vascular Surgery [address] [place] [address] OFFICE VISIT Date of Service: 03/06/25 MR#: [id number] Acct: [id number] Name: CHRISTINE RACHEL Rep #: [id number] : 1965 Provider: CHAN Anderson Age/Sex: 59/F Location: [facility] Status: Signed Intake Vital Signs 10/13/23 09:08 03/06/25 14:51 Height 5 ft 3 in Weight: 151 lb BP 116/77 Blood Pressure Location Lt brachial Position Sitting Respiration 16 Pulse 77 Pulse Source Monitor Temp 98.6 F Temp Source Temporal Pulse Oximetry (%) 99 Oxygen Delivery Method room air Intake Visit Reasons: 1 Y FU Chief Complaint: varicose vein Is patient in pain?: No Allergies No Known Allergies Allergy (Verified 03/06/25 14:52) Medications ???Medication ???Instructions ???Recorded ???Confirmed ???Type multivitamin 1 tab PO DAILY 12/15/22 03/06/25 H istory turmeric 400 mg capsule 400 mg PO DAILY 02/24/23 03/06/25 History vitamin B complex 1 tab PO DAILY 02/24/23 03/06/25 H istory ascorbic acid (vitamin C) 500 mg 500 mg PO QDAY 03/06/25 03/06/25 H istory tablet cholecalciferol (vitamin D3) 125 125 mcg PO QDAY 03/06/25 03/06/25 History mcg (5,000 unit) capsule phentermine 37.5 mg capsule 37.5 mg PO QDAY 03/06/25 03/06/25 History Is last menstrual period known: No Post menopausal: Yes Patient : No Have you fallen in the past year?: Yes PFSH Medical History Post-menopausal Smoker Non-smoker Encounter for screening for malignant neoplasm of stomach Surgical History History of meniscectomy of right knee Family History Father Colon cancer Grandfather Colon cancer Other Asthma Cancer Social History Smoking Status: Never smoker alcohol intake: never substance use type: does not use caffeine: Yes what type of physical activity do you participate in: walking frequency: 1-2 times per week seatbelt use: always do you feel safe at home: Yes additional [place] [facility] [place] HPI HPI: CHRISTINE RACHEL, is a 59 F who presents to the office today for follow-up regarding painful varicose veins of her LLE which have in the past been refractory to conservative management measures including measured compression, leg elevation at times of rest, and routine exercise. Last year, we had planned for chemical adhesive ablation of her L saphenous vein; however, her insurance at the time denied to cover this procedure so did not proceed. She returns now to reconsider procedure, she has new insurance coverage. She reports continued and worsening symptoms of aching, burning pain along her LLE varicosities; she feels she has a few new varicosities as well. She has continued to wear her compression stockings, remains quite active, and does try to elevate her legs as much as possible when resting but these symptoms persist. She has had an episode of what sounds like phlebitis more recently as well. No prior known history of VTE. She denies any other significant changes to her health in the interval since her last visit. ROS General General: Yes weight change; No appetite, fatigue, colon cancer, breast cancer or weakness HEENT HEENT: No difficulty swallowing, eye injury, eye surgery, swollen glands or hoarseness Endo Endocrine: No thyroid disease, diabetes mellitus, thyroid cancer, Hair loss, heat intolerance or cold intolerance Skin Skin: No rash or changing moles Musc Musculoskeletal: No back problems, arthritis, rheumatoid arthritis, gout or joint pain Cardio Cardiovascular: No murmur, pacemaker, heart disease, atrial fibrillation, high blood pressure, heart attack, heart stent, palpitations, shortness of breath with exertion or chest pain Psych Psychiatric: No depression, anxiety or hearing voices Resp Respiratory: No shortness of breath, No sleep apnea, No cough, No COPD, No asthma, No emphysema and No wheezing Gastro Gastrointestinal: No abdominal pain, No nausea or vomiting, No diarrhea, No constipation, No blood in stool, No acid reflux, No hemorrhoids, No ulcers, No gallbladder problem and No black,tarry stools Lobito Hematologic: No blood thinners, No blood disorders, No bleeding, No anemia and No blood clots Neuro Neurologic: No system reviewed and no additional complaints, except as documented, No as per HPI, No abnormal gait, No abnormal hearing, No abnormal movements, No abnormal speech, No behavioral changes, Yes burning sensations, No confusion, No convulsions, No disequilibrium, No dizziness, No localized weakness, No frequent falls, No headache(s), No lack (more content not included)... Normal [facility] Comprehensive metabolic 2000 panelOrdered By: Lorene Loyola on 03-05-2025 Albumin [Mass/Vol] 4.3 g/dL 3.9 - 4.9 g/dL [facility] ALP [Catalytic activity/Vol] 80 U/L 34 - 123 U/L [facility] ALT [Catalytic activity/Vol] 11 U/L 7 - 38 U/L [facility] Anion gap [Moles/Vol] 13 mmol/L 8 - 15 mmol/L [facility] AST [Catalytic activity/Vol] 15 U/L 13 - 35 U/L [facility] Bilirubin [Mass/Vol] 0.4 mg/dL 0.2 - 1 .3 mg/dL [facility] Calcium [Mass/Vol] 9.4 mg/dL 8.5 - 10. 2 mg/dL [facility] Chloride [Moles/Vol] 105 mmol/L 98 - 10 7 mmol/L [facility] CO2 [Moles/Vol] 23 mmol/L 22 - 30 mmol/L [facility] Creatinine [Mass/Vol] 0.78 mg/dL 0.58 - 0.96 mg/dL [facility] GFR/1.73 sq M.predicted among non-blacks MDRD (S/P/Bld) [Vol rate/Area] 89 mL/min/{1.73_m2} - PINF [facility] Comment on above: Estimated Glomerular Filtration Rate (eGFR) is calculated using the 2020 CKD-EPI creatinine equation. This equation utilizes serum creatinine, sex, and age as parameters. The creatinine assay has traceable calibration to isotope dilution-mass spectrometry. Refer to KDIGO guidelines for clinical interpretation. In patients with unstable renal function, e.g. those with acute kidney injury, the eGFR may not accurately reflect actual GFR. Glucose [Mass/Vol] 93 mg/dL 74 - 99 mg/dL [facility] Comment on above: The [place] Di[employer] s Association (ADA) provides guidance for cutoff values for fasting glucose and random glucose. The ADA defines fasting as no caloric intake for at least 8 hours. Fasting plasma glucose results between 100 to 125 mg/dL indicate increased risk for diabetes (prediabetes). Fasting plasma glucose results greater than or equal to 126 mg/dL meet the criteria for diagnosis of diabetes. In the absence of unequivocal hyperglycemia, results should be confirmed by repeat testing. In a patient with classic symptoms of hyperglycemia or hyperglycemic crisis, random plasma glucose results greater than or equal to 200 mg/dL meet the criteria for diagnosis of diabetes. Reference: Standards of Medical Care in Diabetes 2016, [place] [employer]. Diabetes Care. 2016.39(Suppl 1). Interpretation and review of laboratory results Abnormal [facility] Potassium [Moles/Vol] 4.4 mmol/L 3.7 - 5.1 mmol/L [facility] Protein [Mass/Vol] 7 g/dL 6.3 - 8.0 g/dL [facility] Sodium [Moles/Vol] 141 mmol/L 136 - 144 mmol/L [facility] Urea nitrogen [Mass/Vol] 25 mg/dL High 7 - 21 mg/dL [facility] Comprehensive metabolic 2000 panelon 03-05-2025 Albumin [Mass/Vol] 4.3 g/dL Normal 3.9-4.9 [facility] Comment on above: Order Comment: Speci men Type: BLOOD SPECIMENOrdering Facility: [facility] Address: [address] [place] [address] Performed By: #### 2 4323-8 ####[facility] [id number] [place] [address] [place] ALP [Catalytic activity/Vol] 80 U/L Normal 34-123 [facility] Comment on above: Order Comment: Speci men Type: BLOOD SPECIMENOrdering Facility: [facility] Address: [address] [place] [address] Performed By: #### 2 4323-8 ####[facility] [id number] [place] [address] [place] ALT [Catalytic activity/Vol] 11 U/L Normal 7-38 [facility] Comment on above: Order Comment: Speci men Type: BLOOD SPECIMENOrdering Facility: [facility] Address: [address] [place] [address] Performed By: #### 2 4323-8 ####[facility] [id number] [place] [address] [place] Anion gap [Moles/Vol] 13 mmol/L Normal 8-15 [facility] Comment on above: Order Comment: Speci men Type: BLOOD SPECIMENOrdering Facility: [facility] Address: [address] [id number] Performed By: #### 2 4323-8 ####[facility] ILSA MILLTOWNCLIA [id number] [place] [address] [place] AST [Catalytic activity/Vol] 15 U/L Normal 13-35 [facility] Comment on above: Order Comment: Speci men Type: BLOOD SPECIMENOrdering Facility: [facility] Address: [address] [place] [address] Performed By: #### 2 4323-8 ####[facility] [id number] [place] [address] [place] Bilirubin [Mass/Vol] 0.4 mg/dL Normal 0.2-1.3 [facility] Comment on above: Order Comment: Speci men Type: BLOOD SPECIMENOrdering Facility: [facility] Address: [address] [place] [address] Performed By: #### 2 4323-8 ####[facility] SYSTEM[facility]CL[facility] [id number] [place] [address] [place] Calcium [Mass/Vol] 9.4 mg/dL Normal 8.5-10.2 [facility] Comment on above: Order Comment: Speci men Type: BLOOD SPECIMENOrdering Facility: [facility] Address: [address] [place] [address] Performed By: #### 2 4323-8 ####[facility] MILLTOWNCLIA [id number] [place] [address] [place] Chloride [Moles/Vol] 105 mmol/L Normal 98-107 [facility] Comment on above: Order Comment: Speci men Type: BLOOD SPECIMENOrdering Facility: [facility] Address: [address] [place] [address] Performed By: #### 2 4323-8 ####[facility] MILLWNCLIA [id number] [place] [address] [place] CO2 [Moles/Vol] 23 mmol/L Normal 22-30 [facility] Comment on above: Order Comment: Julieti men Type: BLOOD SPECIMENOrdering Facility: [facility] Address: [address] [place] [address] Performed By: #### 2 4323-8 ####[facility] [id number] [place] [address] [place] Creatinine [Mass/Vol] 0.78 mg/dL Normal 0.58-0.96 [facility] Comment on above: Order Comment: Speci men Type: BLOOD SPECIMENOrdering Facility: [facility] Address: [address] [place] [address] Performed By: #### 2 4323-8 ####[facility] [id number] [place] [address] [place] Creatinine and Glomerular filtration rate.predicted panel (S/P/Bld) 89 mL/min/1.73m??? Normal >=60 [facility] Comment on above: Order Comment: Julieti amparo Type: BLOOD SPECIMENOrdering Facility: [facility] Address: [address] [place] [address] Result Comment: Elodia mated Glomerular Filtration Rate (eGFR) is calculated using the 2020 CKD-EPI creatinine equation. This equation utilizes serum creatinine, sex, and age as parameters. The creatinine assay has traceable calibration to isotope dilution-mass spectrometry. Refer to KDIGO guidelines for clinical interpretation. In patients with unstable renal function, e.g. those with acute kidney injury, the eGFR may not accurately reflect actual GFR. Performed By: #### 2 4323-8 ####[facility] JACKSONVILLENCLIA [id number] [place] [address] [place] Glucose [Mass/Vol] 93 mg/dL Normal 74-99 [facility] Comment on above: Order Comment: Julieti men Type: BLOOD SPECIMENOrdering Facility: [facility] Address: [address] [id number] Result Comment: The [place] Diabetes Association (ADA) provides guidance for cutoff values for fasting glucose and random glucose. The ADA defines fasting as no caloric intake for at least 8 hours. Fasting plasma glucose results between 100 to 125 mg/dL indicate increased risk for diabetes (prediabetes). Fasting plasma glucose results greater than or equal to 126 mg/dL meet the criteria for diagnosis of diabetes. In the absence of unequivocal hyperglycemia, results should be confirmed by repeat testing. In a patient with classic symptoms of hyperglycemia or hyperglycemic crisis, random plasma glucose results greater than or equal to 200 mg/dL meet the criteria for diagnosis of diabetes. Reference: Standards of Medical Care in Diabetes 2016, [place] [employer]. Diabetes Care. 2016.39(Suppl 1). Performed By: #### 2 4323-8 ####[facility] [id number] [place] [address] [place] Potassium [Moles/Vol] 4.4 mmol/L Normal 3.7-5.1 [facility] Comment on above: Order Comment: Speci men Type: BLOOD SPECIMENOrdering Facility: [facility] Address: [address] [place] [address] Performed By: #### 2 4323-8 ####[facility] [id number] [place] [address] [place] Protein [Mass/Vol] 7.0 g/dL Normal 6.3-8.0 [facility] Comment on above: Order Comment: Speci men Type: BLOOD SPECIMENOrdering Facility: [facility] Address: [address] [id number] Performed By: #### 2 4323-8 ####[facility] [id number] [place] [address] [place] Sodium [Moles/Vol] 141 mmol/L Normal 136-144 [facility] Comment on above: Order Comment: Speci men Type: BLOOD SPECIMENOrdering Facility: [facility] Address: [address] [id number] Performed By: #### 2 4323-8 ####[facility] ILSA CHAWLAWNCARNALDOA [id number] [address] [place] Urea nitrogen [Mass/Vol] 25 mg/dL High 7-21 [facility] Comment on above: Order Comment: Speci men Type: BLOOD SPECIMENOrdering Facility: [facility] Address: [address] [place] [address] Performed By: #### 2 4323-8 ####[facility] ILSA KIMBALLNCLIA [id number] [address] [facility] CNOVon 11-30-2024 CNOV Office Visit (OBGYWM ) CHRISTINE RACHEL ([id number]) 1965 F Date Time Provider Department 11/30/24 3:30 PM DIDI JACQUES During your visit today, we recorded the following information about you: Pulse Blood pressure Weight 76/minute 121/79 67.6 kg Didi Jacques APRN.SPLITTING MACHINE OPERATOR 11/30/2024 7:41 PM Signed Some documentation from previous visit of 10/24/2024 was copied and pasted, documentation has been reviewed and edited as necessary for today's visit. Patient Summary: Christine is a 59 year old Female who presents for follow-up evaluation of obesity/weight management to treat and prevent related co-morbidities. In our previous visits we have discussed lifestyle intervention including a nutrition recommendations and physical activity optimization. Her last office visit was 5 weeks ago. Assessment/plan from last visit: - Phentermine 37.5 mg - 1/2 am and 1/2 around 10 CMP - did not have drawn Interval History PT specifies the following items as new or significant updates since the last appointment: Still at [employer] - getting frustrated Weight loss since last visit 2 lbs for total of 15 lbs Date: Weight: BMI: Medications: 11/30/2024 149 lb 26.19 10/24/2024 151 lb 26.54 06/15/2024 147 lb 25.83 03/15/2024 148 lb 26.01 Loss of 10% 01/13/2024 152 lb 26.71 12/15/2023 161 lb 28.44 phentermine 37.5 mg 07/01/2023 164 lb 28.82 WC 35.75 in [place] body weight: 116 lb 12.6 oz (53 kg) Adjusted ideal body weight: 130 lb 14 oz (59.4 kg) Weight promoting medications: None AOM med Phentermine 37.5 mg Benefit: decreased hunger and increased fullness SE: wakes up sometimes during the night, dry mouth Previous Diet (initial appointment): Awake - 0600 0630 Macha green tea plain B - skip S - none L - 1200 16 oz coconut milk with protein shake mix or Chobani SF yogurt with berries S - after school 1600 [...] lemon, SF sparkling water Bedtime - 2300 Dietary changes: Awake - 0600 0630 Macha green tea plain B - SKIP L - 11 am 30 gm protein shake S- 1530-4 pm 3-4 days a week -Protein bar IQ bar 12 gm protein and cheese OR almonds OR meat and/or cheese and/or berries D - 8 pm protein, veg - asparagus, broccoli or salad with oil and vinegar dressing S - 2130-10 pm occasional Protein pudding or occasional SF dark chocolate and/or almonds Fluids - all SF Bedtime - 2300 Current Barriers: stress eating and grazing if at home Exercise: slightly decreased walks - walks 4-5 days/week, [employer] classes when in session Stress: increased, 2 kids getting next year, one in [place] and one in [place] ; 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 PAST MEDICAL HISTORY Diagnosis Date Arthralgia of both lower legs 12/15/2023 Elevated LDL cholesterol level 12/15/2023 Family history of malignant neoplasm of colon 03/24/2023 IFG (impaired fasting glucose) 12/15/2023 Segmental and somatic dysfunction 07/01/2023 Current Outpatient Medications Medication Sig Dispense Refill ascorbic acid/vit B12/zinc (VITAMIN C-VITAMIN O83-PYSP ORAL) Take by mouth once daily. Phentermine HCl 37.5 mg tablet Take 1 tablet by mouth daily before breakfast for 90 days. 90 tablet 0 TURMERIC ORAL Take by mouth once daily. Cholecalciferol, Vitamin D3, (VITAMIN D-3) 50 mcg (2,000 unit) cap Take by mouth. VITAMIN B COMPLEX ORAL Take by mouth. No current facility-administered medications for this visit. 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 Results: recent labs reviewed with the patient. Latest Ref Rng AND Units 07/02/2023 CMP Sodium 136 - 144 mmol/L 138 Potassium 3.7 - 5.1 mmol/L 4.1 Chloride 97 - 105 mmol/L 106 CO2 22 - 30 mmol/L 24 Glucose 74 - 99 mg/dL 100 BUN 7 - 21 mg/dL 23 Creatinine 0.58 - 0.96 mg/dL 0.77 EGFR >=60 mL/min/1.73m? 91 Protein, Total 6.3 - 8.0 g/dL 6.4 Albumin 3.9 - 4.9 g/dL 4.3 Calcium 8.5 - 10.2 mg/dL 9.1 Bilirubin, Total 0.2 - 1.3 mg/dL 0.2 AST 13 - 35 U/L 13 ALT 7 - 38 U/L 11 Alkaline Phosphatase 34 - 123 U/L 82 Latest Ref Rng AND Units 07/02/2023 CBC WBC 3.70 - 11.00 k/uL 5.33 RBC 3.90 - 5.20 m/uL 4.46 Hemoglobin 11.5 - 15.5 g (more content not included)... Normal [facility] CNOVon 10-24-2024 CNOV Office Visit (OBGYWM ) CHRISTINE RACHEL ([id number]) 1965 F Date Time Provider Department 10/24/24 4:00 PM DIDI JACQUES During your visit today, we recorded the following information about you: Pulse Blood pressure Weight 82/minute 120/81 68.5 kg Didi Jacques APRN.SPLITTING MACHINE OPERATOR 10/24/2024 5:07 PM Signed Some documentation from previous visit of 06/15/2024 was copied and pasted, documentation has been reviewed and edited as necessary for today's visit. Patient Summary: Christine is a 58 year old Female who presents for follow-up evaluation of obesity/weight management to treat and prevent related co-morbidities. In our previous visits we have discussed lifestyle intervention including a nutrition recommendations and physical activity optimization. Her last office visit was 4 months ago. Assessment/plan from last visit: - Phentermine 37.5 mg - 09/14 am and 09/14 around 10 Interval History PT specifies the following items as new or significant updates since the last appointment: Fell off a little around Janes with holiday eating - weight 152 lbs after [place]. Able to get back to balanced protein eating plan easily but unable to lose weight. Weight loss since last visit +4 lbs Date: Weight: BMI: Medications: 10/24/2024 151 lb 26.54 06/15/2024 147 lb 25.83 03/15/2024 148 lb 26.01 Loss of 10% 01/13/2024 152 lb 26.71 12/15/2023 161 lb 28.44 phentermine 37.5 mg 07/01/2023 164 lb 28.82 WC 35.75 in [place] body weight: 116 lb 12.6 oz (53 kg) Adjusted ideal body weight: 130 lb 14 oz (59.4 kg) Weight promoting medications: None AOM med Phentermine 37.5 mg Benefit: decreased hunger and increased fullness SE: wakes up sometimes during the night, dry mouth Previous Diet (initial appointment): Awake - 0600 0630 [place]a green tea plain B - skip S - none L - 1200 16 oz coconut milk with protein shake mix or Chobani SF yogurt with berries S - after school 1600 [...] lemon, SF sparkling water Bedtime - 2300 Dietary changes: Awake - 0600 0630 [place]a green tea plain B - SKIP S - 11 am 30 gm protein shake L - 1:30 pm Protein bar IQ bar 12 gm protein or sometimes meat/cheese sometimes in low-carb wrap or lettuce S - sometimes meat and cheese and sometimes berries D - 6-8 pm protein, veg - asparagus, broccoli or salad with oil and vinegar dressing S - 9 pm Protein pudding or occasional dark chocolate and/or almonds Fluids - all SF Bedtime - 2300 Current Barriers: grazing/irregular meal patterns and inadequate sleep duration Exercise: slightly decreased walks - walks 2-3 days/week, [employer] classes again 2 days/wk Stress: increased, 2 kids getting next year, one in [place] and one in [place] ; 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 PAST MEDICAL HISTORY Diagnosis Date Arthralgia of both lower legs 12/15/2023 Elevated LDL cholesterol level 12/15/2023 Family history of malignant neoplasm of colon 03/24/2023 IFG (impaired fasting glucose) 12/15/2023 Segmental and somatic dysfunction 07/01/2023 Current Outpatient Medications Medication Sig Dispense Refill ascorbic acid/vit B12/zinc (VITAMIN C-VITAMIN G69-TTOP ORAL) Take by mouth once daily. Phentermine HCl 37.5 mg tablet Take 1 tablet by mouth daily before breakfast for 90 days. 90 tablet 0 TURMERIC ORAL Take by mouth once daily. Cholecalciferol, Vitamin D3, (VITAMIN D-3) 50 mcg (2,000 unit) cap Take by mouth. VITAMIN B COMPLEX ORAL Take by mouth. No current facility-administered medications for this visit. 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 Results: recent labs reviewed with the patient. Latest Ref Rng AND Units 07/02/2023 CMP Sodium 136 - 144 mmol/L 138 Potassium 3.7 - 5.1 mmol/L 4.1 Chloride 97 - 105 mmol/L 106 CO2 22 - 30 mmol/L 24 Glucose 74 - 99 mg/dL 100 BUN 7 - 21 mg/dL 23 Creatinine 0.58 - 0.96 mg/dL 0.77 EGFR >=60 mL/min/1.73m? 91 Protein, Total 6.3 - 8.0 g/dL 6.4 Albumin 3.9 - 4.9 g/dL 4.3 Calcium 8.5 - 10.2 mg/dL 9.1 Bilirubin, Total 0.2 - 1.3 mg/dL 0.2 AST 13 - 35 U/L 13 ALT 7 - 38 U/L 11 Alkaline Phosphatase 34 - 123 U/ (more content not included)... Normal [facility] 09-12-2024 CNNURSE Nurse Visit (OBGYWM) CHRISTINE RACHEL ([id number]) 1965 F Date Time Provider Department 09/12/24 11:00 AM NURSE NIGHT CLERK AUDITOR [facility] OBGYWM During your visit today, we recorded the following information about you: Pulse Blood pressure Weight 90/minute 114/74 69.4 kg Val Guadalupe RN 09/12/2024 12:57 PM Signed Patient presents for weight and BP check for Phentermine refill. See vital tab for results. Denies any unwanted side effects. Next weight management appointment is on 10/24/24. KEDAR Chang Deidre, MD 09/12/2024 12:57 PM Signed Pt has met requirement to stay on phentermine. Pt to follow up with AG upon her return. Allergies As of Date: 09/12/2024 (No Known Allergies) Date Reviewed: 09/12/2024 Reviewed by: Val Guadalupe RN - Fully Assessed Reason for Visit: Weight Check [196] BP Check [142] Cmt: Primary Visit Diagnosis:Body mass index (BMI) of 28.0-28.9 in adult [Z68.28] Other Visit Diagnoses:IFG (impaired fasting glucose) [R73.01] Elevated LDL cholesterol level [E78.00] Overweight (BMI 25.0-29.9) [E66.3] Order(s):Phentermine HCl 37.5 mg tabletTake 1 tablet by mouth daily before breakfast for 90 days.Disp: 90 tabletRfl: 0 Prescriptions as of 09/12/2024 - ascorbic acid/vit B12/zinc (VITAMIN C-VITAMIN U62-JHFW ORAL) Take by mouth once daily. - Phentermine HCl 37.5 mg tablet Take 1 tablet by mouth daily before breakfast for 90 days. - TURMERIC ORAL Take by mouth once daily. - Cholecalciferol, Vitamin D3, (VITAMIN D-3) 50 mcg (2,000 unit) cap Take by mouth. - VITAMIN B COMPLEX ORAL Take by mouth. Problem List As Of Date 09/12/2024 Noted Resolved Segmental and somatic dysfunction [M99.09] 07/01/2023 Diagnosed: 07/01/2023 Family history of malignant neoplasm of colon [*03/24/2023 Diagnosed: 07/01/2023 IFG (impaired fasting glucose) [R73.01] 12/15/2023 Elevated LDL cholesterol level [E78.00] 12/15/2023 Arthralgia of both lower legs [M25.561, M25.562]12/15/2023 Overweight (BMI 25.0-29.9) [E66.3] 12/15/2023 Prescriptions ordered this encounter Disp Refills Start End PHENTERMINE 37.5 MG TABLET 90 t* 0 09/12/2024 12/11/2024 Cmt: BMI 26.89 Route: ORAL Sig: Take 1 tablet by mouth daily before breakfast for 90 days. Medications Discontinued During This Encounter Prescriptions - Phentermine HCl 37.5 mg tablet (Discontinued) Take 1 tablet by mouth daily before breakfast for 90 days. Encounter Status:Closed by NGOZI CAICEDO on 09/12/24 [facility] ANNETTAOValexandra 06-15-2024 [facility] Office Visit (DIMASGYWM ) TREY RACHELIE Kimmie ([id number]) 1965 F Date Time Provider Department 06/15/24 4:00 PM DIDI JACQUES During your visit today, we recorded the following information about you: Pulse Respiration Blood pressure Weight 89/minute 16/minute 128/64 66.7 kg Didi Jacques APRN.CNP 06/15/2024 7:37 PM Signed Some documentation from previous visit of 03/15/2024 was copied and pasted, documentation has been reviewed and edited as necessary for today's visit. Patient Summary: Christine is a 58 year old Female who presents for follow-up evaluation of obesity/weight management to treat and prevent related co-morbidities. In our previous visits we have discussed lifestyle intervention including a nutrition recommendations and physical activity optimization. Her last office visit was 3 months ago. Assessment/plan from last visit: - Phentermine 37.5 mg at 07 Interval History PT specifies the following items as new or significant updates since the last appointment: Was at [place]-[employer] for a few weeks and then gained a couple of pounds when she started [employer] classes again - Hungrier in the evenings Weight loss since last visit 1 lbs for total of 17 lbs Date: Weight: BMI: 06/15/2024 147 lb 25.83 03/15/2024 148 lb 26.01 Loss of 10% 01/13/2024 152 lb 26.71 12/15/2023 161 lb 28.44 phentermine 37.5 mg 07/01/2023 164 lb 28.82 WC 35.75 in [place] body weight: 116 lb 12.6 oz (53 kg) Adjusted ideal body weight: 130 lb 14 oz (59.4 kg) Weight promoting medications: None AOM med Phentermine 37.5 mg Benefit: decreased hunger and increased fullness SE: wakes up sometimes during the night, dry mouth Previous Diet (initial appointment): Awake - 599 0630 [place]a green tea plain B - skip S - none L - 1200 16 oz coconut milk with protein shake mix or Chobani SF yogurt with berries S - after school 1600 [...] lemon, SF sparkling water Bedtime - 2300 Dietary changes: Awake - 0600 0630 Macha green tea plain B - 8-9 am 30 gm protein shake S - none WE - sometimes cheese or turkey stick L - 1130-during week/1-2 pm WE- meat/cheese sometimes in low-carb wrap or lettuce S - none D - 6-8 pm protein, veg - asparagus, broccoli or salad with oil and vinegar dressing S - 9 pm Protein pudding or occasional dark chocolate and/or pistachios Fluids - all SF Bedtime - 2300 Current Barriers: food cravings - chocolate but less so Exercise: increased walks - walks 4 miles a day or classes, started [employer] classes again 2 days/wk Stress: increased, 2 kids getting next year, one in [place] and one in [place] ; 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 CrCl cannot be calculated (Patient's most recent lab result is older than the maximum 180 days allowed.). PAST MEDICAL HISTORY Diagnosis Date Arthralgia of both lower legs 12/15/2023 Elevated LDL cholesterol level 12/15/2023 Family history of malignant neoplasm of colon 03/24/2023 IFG (impaired fasting glucose) 12/15/2023 Segmental and somatic dysfunction 07/01/2023 Current Outpatient Medications Medication Sig Dispense Refill Phentermine HCl 37.5 mg tablet Take 1 tablet by mouth daily before breakfast for 90 days. 90 tablet 0 VITAMIN B COMPLEX ORAL Take by mouth. No current facility-administered medications for this visit. 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 Results: recent labs reviewed with the patient. Latest Ref Rng AND Units 07/02/2023 CMP Sodium 136 - 144 mmol/L 138 Potassium 3.7 - 5.1 mmol/L 4.1 Chloride 97 - 105 mmol/L 106 CO2 22 - 30 mmol/L 24 Glucose 74 - 99 mg/dL 100 BUN 7 - 21 mg/dL 23 Creatinine 0.58 - 0.96 mg/dL 0.77 EGFR >=60 mL/min/1.73m? 91 Protein, Total 6.3 - 8.0 g/dL 6.4 Albumin 3.9 - 4.9 g/dL 4.3 Calcium 8.5 - 10.2 mg/dL 9.1 Bilirubin, Total 0.2 - 1.3 mg/dL 0.2 AST 13 - 35 U/L 13 ALT 7 - 38 U/L 11 Alkaline Phosphatase 34 - 123 U/L 82 Latest Ref Rng AND Units 07/02/2023 CBC WBC 3.70 - 11.00 k/uL 5.33 RBC 3.90 - 5.20 m/uL 4.46 Hemoglobin 11.5 - 15.5 g/dL 12.9 Hematocrit 36.0 - 46.0 % 38.3 MCV 80.0 - 100.0 fL 85.9 MCH 26.0 - 34.0 pg 28.9 MCHC 30.5 - 36.0 g/dL 33.7 RDW-CV 11.5 - 15.0 % 12.2 Platelet Count 150 - 400 k/uL 267 MPV 9.0 - 12.7 fL 8.5 Cholesterol, Total (mg/dL) Date Value 07/02/2023 1 (more content not included)... Normal [facility] CNOVon 03-15-2024 CNOV Office Visit (OBGYWM ) CHRISTINE RACHEL ([id number]) 1965 F Date Time Provider Department 03/15/24 9:30 AM DIDI JACQUES During your visit today, we recorded the following information about you: Pulse Blood pressure Weight 83/minute 100/60 67.1 kg Didi Jacques APRN.CNP 03/15/2024 11:07 AM Signed Some documentation from previous visit of 01/13/2024 was copied and pasted, documentation has been reviewed and edited as necessary for today's visit. Patient Summary: Christine is a 58 year old Female who presents for follow-up evaluation of obesity/weight management to treat and prevent related co-morbidities. In our previous visits we have discussed lifestyle intervention including a nutrition recommendations and physical activity optimization. Her last office visit was 2 months ago. Assessment/plan from last visit: Whole food balanced protein low-carb nutrition Phentermine 37.5 mg at 07 Interval History PT specifies the following items as new or significant updates since the last appointment: Feeling good but wishes she would lose weight faster Set-point for 3 weeks Weight loss since last visit 4 lbs for total of 16 lbs 03/15/2024 148 lb BMI 26.01 Loss of 10% 01/13/2024 152 lb BMI 26.71 12/15/2023 161 lb BMI 28.44 phentermine 37.5 mg 07/01/2023 164 lb BMI 28.82 WC 35.75 in [place] body weight: 116 lb 12.6 oz (53 kg) Adjusted ideal body weight: 130 lb 14 oz (59.4 kg) Weight promoting medications: None AOM med Phentermine 37.5 mg Benefit: decreased hunger and increased fullness SE: wakes up sometimes during the night, dry mouth Previous Diet (initial appointment): Awake - 0600 0630 [place] green tea plain B - skip S - none L - 1200 16 oz coconut milk with protein shake mix or Chobani SF yogurt with berries S - after school 1600 [...] lemon, SF sparkling water Bedtime - 2300 Dietary changes: Awake - 0600 0630 [place]a green tea plain B - 8-9 am 30 gm protein shake S - none L - 1 pm - meat/cheese sometimes in low-carb wrap or lettuce and watermelon eating over 1-2 hours S - none D - 6-8 pm protein, veg - asparagus, broccoli or salad with oil and vinegar dressing S - popcorn or pistachios Fluids - all SF Bedtime - 2300 Current Barriers:salty crunchy craving, snack in evenings Exercise: stable walks - walks 4 miles a day or classes Stress: increased, 2 kids getting next year, one in [place] and one in [place] ; 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 CrCl cannot be calculated (Patient's most recent lab result is older than the maximum 180 days allowed.). PAST MEDICAL HISTORY Diagnosis Date Arthralgia of both lower legs 12/15/2023 Elevated LDL cholesterol level 12/15/2023 Family history of malignant neoplasm of colon 03/24/2023 IFG (impaired fasting glucose) 12/15/2023 Segmental and somatic dysfunction 07/01/2023 Current Outpatient Medications Medication Sig Dispense Refill VITAMIN B COMPLEX ORAL Take by mouth. No current facility-administered medications for this visit. 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 Results: recent labs reviewed with the patient. Latest Ref Rng AND Units 07/02/2023 CMP Sodium 136 - 144 mmol/L 138 Potassium 3.7 - 5.1 mmol/L 4.1 Chloride 97 - 105 mmol/L 106 CO2 22 - 30 mmol/L 24 Glucose 74 - 99 mg/dL 100 BUN 7 - 21 mg/dL 23 Creatinine 0.58 - 0.96 mg/dL 0.77 EGFR >=60 mL/min/1.73m? 91 Protein, Total 6.3 - 8.0 g/dL 6.4 Albumin 3.9 - 4.9 g/dL 4.3 Calcium 8.5 - 10.2 mg/dL 9.1 Bilirubin, Total 0.2 - 1.3 mg/dL 0.2 AST 13 - 35 U/L 13 ALT 7 - 38 U/L 11 Alkaline Phosphatase 34 - 123 U/L 82 Latest Ref Rng AND Units 07/02/2023 CBC WBC 3.70 - 11.00 k/uL 5.33 RBC 3.90 - 5.20 m/uL 4.46 Hemoglobin 11.5 - 15.5 g/dL 12.9 Hematocrit 36.0 - 46.0 % 38.3 MCV 80.0 - 100.0 fL 85.9 MCH 26.0 - 34.0 pg 28.9 MCHC 30.5 - 36.0 g/dL 33.7 RDW-CV 11.5 - 15.0 % 12.2 Platelet Count 150 - 400 k/uL 267 MPV 9.0 - 12.7 fL 8.5 Cholesterol, Total (mg/dL) Date Value 07/02/2023 188 03/26/2016 188 HDL Cholesterol (mg/dL) Date Value 07/02/2023 71 03/26/2016 75 LDL Cholesterol (mg/dL) Date Value 07/02/2023 108 03/26/2016 102 Triglyceride (mg/dL) Date Value 07/02/2023 43 03/26/2016 55 CrCl cannot be calculated (Patient's most recent lab result is older than the (more content not included)... Normal [facility] Cervical or vaginal specimen microscopic examination by liquid based cytology (reportOrdered By: Tere Hong on 10-13-2023 Cytology report Cyto stain.thin prep Doc (Cvx/Vag) Comment . [facility] Comment on above: Criteria not met, HP V Genotype not performed.Performed at: [facility] [id number] [place], [place] [id number] Director: Serg Escamilla MD, Phone: [phone] at: [address] [id number] Director: Veronica Garcia MD, Phone: [phone] at: =[address] [id number] Director: Veronica aGrcia MD, Phone: [phone] Cervical or vagninal specime n microscopic examination by cytology stain (reported asOrdered By: Tere Hong on 10-13-2023 Cytology report Cyto stain Doc (Cvx/Vag) Comment . [facility] Comment on above: The Pap smear is a s creening test designed to aid in thedetection of premalignant and malignant conditions of theuterine cervix. It is not a diagnostic procedure andshould not be used as the sole means of detecting cervicalcancer. Both false-positive and false-negative reports dooccur. Detection in cervical specim en of any of human papilloma virus (HPV) 16, 18, 31, 33,Ordered By: Tere Hong on 10-13-2023 HPV 16+18+31+33+35+39+45+51 +52+56+58+59+66+68 DNA Probe+sig amp Ql (Cvx) Negative Negative [facility] Comment on above: This nucleic acid am plification test detects fourteen high-risk HPV types (16,18,31,33,35,39,45,51,52,56,58,59,66,68)without differentiation. Laboratory - CytologyOrdered By: Tere Hong on 10-13-2023 Solutions Analyst Cyto stain Nom (Cvx/Vag) [ID] Comment . [facility] Comment on above: Concepcion Simon, Cytotec hnologist ([facility]) Laboratory - Miscellaneous t estsOrdered By: Tere Hong on 10-13-2023 Service comment (Unsp spec) [Interp] . . [facility] No Panel InformationOrdered By: Tere Hong on 10-13-2023 Pap Smear QC Review Comment . [facility] Comment on above: Dank Albarado totechnologist ([facility]) Thin prep Papanicolaou smear with manual screeningOrdered By: Tere Hong on 10-13-2023 Thin prep Papanicolaou smear with manual screening Comment . [facility] Comment on above: NEGATIVE FOR INTRAEP ITHELIAL LESION OR MALIGNANCY.THIS SPECIMEN WAS RESCREENED PART OF OUR LABORATORY SPECIALIST PROGRAM. This liquid based Th inPrep(R) pap test was screened withthe use of an image guided system. Basophil percentageon 2021 Chloride [Moles/Vol] 107 mmol/L 98-107 [facility] Work Phone: Cholesterol [Mass/Vol] 209 mg/dL <200 [facility] Work Phone: Comment on above: <200 mg/dL Desirable 200-240 mg/dL Borderline >240 mg/dL High Risk Glucose [Mass/Vol] 89 mg/dL 74-106 [facility] Work Phone: Potassium [Moles/Vol] 4.1 mmol/L 3.5-5.1 [facility] Work Phone: Sodium [Moles/Vol] 140 mmol/L 136-145 [facility] Work Phone: Triglyceride [Mass/Vol] 53 mg/dL [facility] Work Phone: Comment on above: The drugs N-Acetylcy steine and Metamizole may falsely depress this assay.Serum Triglycerides Reference Interval Normal <150 mg/dL Borderline high 150 - 199 mg/dL High 200 - 499 mg/dL Very High > or = 500 mg/dL Laboratory - Chemistry and C hemistry - challengeon 02-11-2022 CO2 [Moles/Vol] 26.0 mmol/L 21.0-32.0 [facility] Work Phone: Urea nitrogen/Creatinine [Mass ratio] 25.4 mg/mg 10-20 [facility] Work Phone: No Panel Informationon 02-11 Estimated GFR (MDRD) Amer 92 mL/min >60 [facility] Work Phone: Comment on above: GFR Calc Estimated GFR (MDRD) Non-Af Amer 76 mL/min >60 [facility] Work Phone: Comment on above: Non- GFR Calc Thyroid Stimulating Hormone (TSH) 0.75 uIU/mL 0.358-3.74 [facility] Work Phone: Vitamin D 25-Hydroxy 33.3 ng/mL [facility] Work Phone: Comment on above: Vitamin D 25(OH) Sta tus Range Deficiency <20 ng/mL (50nmol/L) Insufficiency 20 - 30 ng/mL (50 - 75 nmol/L) Sufficiency 30 - 100 ng/mL (75 - 250 nmol/L) Toxicity >100 ng/mL (>250 nmol/L) Serum or plasma calcium andressa urement (mass/volume)on 02-11-2022 Calcium [Mass/Vol] 9.2 mg/dL 8.5-10.1 [facility] Work Phone: Serum or plasma cholesterol in HDL measurement (mass/volume)on 02-11-2022 Cholesterol in HDL [Mass/Vol] 74 mg/dL [facility] Work Phone: Comment on above: The drugs N-Acetylcy steine and Metamizole may falsely depress this assay. Reference Range HDL <40 mg/dL Low HDL Cholesterol HDL >or= 60 mg/dL High HDL Cholesterol Serum or plasma cholesterol in VLDL measurement (mass/volume)on 02-11-2022 Cholesterol in VLDL [Mass/Vol] 11 mg/dL 5-40 [facility] Work Phone: Serum or plasma creatinine m easurement (mass/volume)on 02-11-2022 Creatinine [Mass/Vol] 0.83 mg/dL 0.55-1.02 [facility] Work Phone: Comment on above: The validity of the calculated GFR & GFRAA in patients over 70 years has not been determined. Clinical correlation is essential. Serum or plasma low density lipoprotein (LDL) cholesterol measurement (mass/volume)on 02-11-2022 Cholesterol in LDL [Mass/Vol] 124 mg/dL 0-130 [facility] Work Phone: Serum or plasma urea nitroge n measurement (mass/volume)on 02-11-2022 Urea nitrogen [Mass/Vol] 21 mg/dL 7-18 [facility] Work Phone: Thin prep Papanicolaou smear with manual screeningon 02-11-2022 Thin prep Papanicolaou smear with manual screening 7 5-15 [facility] Work Phone: Vital Signs Date Time Vital Sign Value Performing Clinician James dawson 03-08-2025 10:54-0400 Body mass index (BMI) [Ratio] 26.01 kg/m2 Didi Jacques APRN.[facility] Work Phone: [facility] 03-08-2025 10:54-0400 Body weight 67.13 kg Didi Jacques APRN.SPLITTING MACHINE OPERATOR Work Phone: [facility] 03-08-2025 10:54-0400 Diastolic blood pressure 76 mm[Hg] Didi Jacques APRN.SPLITTING MACHINE OPERATOR Work Phone: [facility] 03-08-2025 10:54-0400 Heart rate 90 /min Didi Jacques APRN.SPLITTING MACHINE OPERATOR Work Phone: [facility] 03-08-2025 10:54-0400 SaO2% (BldA) [Mass fraction] 98 % Didi Jacques APRN.[facility] Work Phone: [facility] 03-08-2025 10:54-0400 Systolic blood pressure 102 mm[Hg] Didi Jacques APRN.SPLITTING MACHINE OPERATOR Work Phone: [facility] 03-06-2025 14:51-0400 Body temperature 98.6 [degF] Dr. Didi Cueto MD Work Phone: [facility] 03-06-2025 14:51-0400 Body weight 68.[address] Didi Cueto MD Work Phone: [facility] 03-06-2025 14:51-0400 Diastolic blood pressure 77 mm[Hg] Dr. iDdi Cueto MD Work Phone: [facility] 03-06-2025 14:51-0400 Heart rate 77 /min Dr. Didi Cueto MD Work Phone: [facility] 03-06-2025 14:51-0400 Respiratory rate 16 /min Dr. Didi Cueto MD Work Phone: [facility] 03-06-2025 14:51-0400 SaO2% (BldA) [Mass fraction] 99 % Dr. Didi Cueto MD Work Phone: [facility] 03-06-2025 14:51-0400 Systolic blood pressure 116 mm[Hg] Dr. Didi Cueto MD Work Phone: [facility] 11-30-2024 15:39-0400 Body mass index (BMI) [Ratio] 26.19 kg/m2 Didi Jacques APRN.SPLITTING MACHINE OPERATOR Work Phone: [facility] 11-30-2024 15:39-0400 Body weight 67.59 kg Didi Jacques APRN.SPLITTING MACHINE OPERATOR Work Phone: [facility] 11-30-2024 15:39-0400 Diastolic blood pressure 79 mm[Hg] Didi Jacques APRN.SPLITTING MACHINE OPERATOR Work Phone: [facility] 11-30-2024 15:39-0400 Heart rate 76 /min Didi Jacques APRN.SPLITTING MACHINE OPERATOR Work Phone: [facility] 11-30-2024 15:39-0400 SaO2% (BldA) [Mass fraction] 98 % Didi Jacques APRN.SPLITTING MACHINE OPERATOR Work Phone: [facility] 11-30-2024 15:39-0400 Systolic blood pressure 121 mm[Hg] Didi Jacques APRN.SPLITTING MACHINE OPERATOR Work Phone: [facility] 10-24-2024 15:55-0500 Body mass index (BMI) [Ratio] 26.54 kg/m2 Didi Jacques APRN.SPLITTING MACHINE OPERATOR Work Phone: [facility] 10-24-2024 15:55-0500 Body weight 68.49 kg Didi Jacques APRN.SPLITTING MACHINE OPERATOR Work Phone: [facility] 10-24-2024 15:55-0500 Diastolic blood pressure 81 mm[Hg] Didi Jacques APRN.SPLITTING MACHINE OPERATOR Work Phone: [facility] 10-24-2024 15:55-0500 Heart rate 82 /min Didi Jacques APRN.SPLITTING MACHINE OPERATOR Work Phone: [facility] 10-24-2024 15:55-0500 SaO2% (BldA) [Mass fraction] 99 % Didi Jacques APRN.SPLITTING MACHINE OPERATOR Work Phone: [facility] 10-24-2024 15:55-0500 Systolic blood pressure 120 mm[Hg] Didi Jacques APRN.SPLITTING MACHINE OPERATOR Work Phone: [facility] 09-12-2024 11:11-0500 Body mass index (BMI) [Ratio] 26.89 kg/m2 Nurse Wstr Work Phone: [facility] 09-12-2024 11:11-0500 Body weight 69.4 kg Nurse Wstr Work Phone: [facility] 09-12-2024 11:11-0500 Diastolic blood pressure 74 mm[Hg] Nurse Wstr Work Phone: [facility] 09-12-2024 11:11-0500 Heart rate 90 /min Nurse Wstr Work Phone: [facility] 09-12-2024 11:11-0500 SaO2% (BldA) [Mass fraction] 97 % Nurse Wstr Work Phone: [facility] 09-12-2024 11:11-0500 Systolic blood pressure 114 mm[Hg] Nurse Wstr Work Phone: [facility] 06-15-2024 15:56-0400 Body mass index (BMI) [Ratio] 25.83 kg/m2 Didi Jacques APRN.SPLITTING MACHINE OPERATOR Work Phone: [facility] 06-15-2024 15:56-0400 Body weight 66.68 kg Didi Jacques APRN.SPLITTING MACHINE OPERATOR Work Phone: [facility] 06-15-2024 15:56-0400 Diastolic blood pressure 64 mm[Hg] Didi Jacques APRN.SPLITTING MACHINE OPERATOR Work Phone: [facility] 06-15-2024 15:56-0400 Heart rate 89 /min Didi Jacques APRN.SPLITTING MACHINE OPERATOR Work Phone: [facility] 06-15-2024 15:56-0400 Respiratory rate 16 /min Didi Jacques APRN.SPLITTING MACHINE OPERATOR Work Phone: [facility] 06-15-2024 15:56-0400 SaO2% (BldA) [Mass fraction] 97 % Didi Jacques APRN.SPLITTING MACHINE OPERATOR Work Phone: [facility] 06-15-2024 15:56-0400 Systolic blood pressure 128 mm[Hg] Didi Jacques APRN.SPLITTING MACHINE OPERATOR Work Phone: [facility] 03-15-2024 09:32-0400 Body mass index (BMI) [Ratio] 26.01 kg/m2 Didi Jacques APRN.SPLITTING MACHINE OPERATOR Work Phone: [facility] 03-15-2024 09:32-0400 Body weight 67.13 kg Didi Jacques APRN.SPLITTING MACHINE OPERATOR Work Phone: [facility] 03-15-2024 09:32-0400 Diastolic blood pressure 60 mm[Hg] Didi Jacques APRN.SPLITTING MACHINE OPERATOR Work Phone: [facility] 03-15-2024 09:32-0400 Heart rate 83 /min Didi Jacques APRN.SPLITTING MACHINE OPERATOR Work Phone: [facility] 03-15-2024 09:32-0400 SaO2% (BldA) [Mass fraction] 97 % Didi Jacques APRN.SPLITTING MACHINE OPERATOR Work Phone: [facility] 03-15-2024 09:32-0400 Systolic blood pressure 100 mm[Hg] Didi Jacques APRN.SPLITTING MACHINE OPERATOR Work Phone: [facility] 01-13-2024 16:02-0400 Body mass index (BMI) [Ratio] 26.71 kg/m2 Didi Jacques APRN.SPLITTING MACHINE OPERATOR Work Phone: [facility] 01-13-2024 16:02-0400 Body weight 68.95 kg Didi Jacques APRN.SPLITTING MACHINE OPERATOR Work Phone: [facility] 01-13-2024 16:02-0400 Diastolic blood pressure 70 mm[Hg] Didi Jacques APRN.SPLITTING MACHINE OPERATOR Work Phone: [facility] 01-13-2024 16:02-0400 Heart rate 72 /min Didi Jacques APRN.SPLITTING MACHINE OPERATOR Work Phone: [facility] 01-13-2024 16:02-0400 SaO2% (BldA) [Mass fraction] 96 % Didi Jacques APRN.SPLITTING MACHINE OPERATOR Work Phone: [facility] 01-13-2024 16:02-0400 Systolic blood pressure 92 mm[Hg] Didi Jacques APRN.SPLITTING MACHINE OPERATOR Work Phone: [facility] 12-15-2023 09:34-0400 Body weight 73.39 kg Didi Jacques APRN.SPLITTING MACHINE OPERATOR Work Phone: [facility] 12-15-2023 09:34-0400 Diastolic blood pressure 82 mm[Hg] Didi Jacques APRN.SPLITTING MACHINE OPERATOR Work Phone: [facility] 12-15-2023 09:34-0400 Heart rate 70 /min Didi Jacques APRN.SPLITTING MACHINE OPERATOR Work Phone: [facility] 12-15-2023 09:34-0400 SaO2% (BldA) [Mass fraction] 96 % Didi Jacques APRN.SPLITTING MACHINE OPERATOR Work Phone: [facility] 12-15-2023 09:34-0400 Systolic blood pressure 120 mm[Hg] Didi Jacques APRN.SPLITTING MACHINE OPERATOR Work Phone: [facility] 11-02-2023 15:19-0500 Body temperature 98.4 [degF] Dr. Didi Cueto Work Phone: [facility] 11-02-2023 15:19-0500 Body weight 75.[address] Didi Cueto Work Phone: [facility] 11-02-2023 15:19-0500 Diastolic blood pressure 74 mm[Hg] Dr. Didi Cueto Work Phone: [facility] 11-02-2023 15:19-0500 Heart rate 82 /min Dr. Didi Cueto Work Phone: [facility] 11-02-2023 15:19-0500 Respiratory rate 16 /min Dr. Didi Cueto Work Phone: [facility] 11-02-2023 15:19-0500 SaO2% (BldA) [Mass fraction] 96 % Dr. Didi Cueto Work Phone: [facility] 11-02-2023 15:19-0500 Systolic blood pressure 110 mm[Hg] Dr. Didi Cueto Work Phone: [facility] 10-13-2023 09:08-0500 Body height 160.[address] Didi Cueto Work Phone: [facility] 10-13-2023 09:02-0500 Body mass index (BMI) [Ratio] 29 kg/m2 Dr. Didi Cueto Work Phone: [facility] 10-13-2023 09:02-0500 Body weight 74.[address] Didi Cueto Work Phone: [facility] 10-13-2023 09:02-0500 Diastolic blood pressure 72 mm[Hg] Dr. Didi Cueto Work Phone: [facility] 10-13-2023 09:02-0500 Systolic blood pressure 112 mm[Hg] Dr. Didi Cueto Work Phone: [facility] 07-01-2023 08:00-0400 Body height 160.7 cm Didi Jacques APRN.SPLITTING MACHINE OPERATOR Work Phone: [facility] 07-01-2023 08:00-0400 Body weight 74.39 kg Didi Jacques APRN.SPLITTING MACHINE OPERATOR Work Phone: [facility] 07-01-2023 08:00-0400 Diastolic blood pressure 75 mm[Hg] Didi Jacques APRN.SPLITTING MACHINE OPERATOR Work Phone: [facility] 07-01-2023 08:00-0400 Heart rate 75 /min Didi Jacques APRN.SPLITTING MACHINE OPERATOR Work Phone: [facility] 07-01-2023 08:00-0400 Respiratory rate 16 /min Didi Jacques APRN.SPLITTING MACHINE OPERATOR Work Phone: [facility] 07-01-2023 08:00-0400 SaO2% (BldA) [Mass fraction] 98 % Didi Jacques APRN.SPLITTING MACHINE OPERATOR Work Phone: [facility] 07-01-2023 08:00-0400 Systolic blood pressure 110 mm[Hg] Didi Jacques APRN.SPLITTING MACHINE OPERATOR Work Phone: [facility] Encounters Encounter Date Encounter Type Care Provider Facility Start: 03-12-2025 End: 03-12-[address] Didi Cueto MD Work Phone: -[facility]patient [facility] Start: 03-12-2025 End: 03-12-2025 Patient encounter procedure Tere Hong DIRECTOR [employer] -[facility] Work Phone: Start: 03-12-2025 End: 03-12-2025 ambulatory Tere Hong DIRECTOR [employer] Facility:[facility] Start: 03-08-2025 End: 03-08-2025 Patient encounter procedure Didi Jacques APRN.SPLITTING MACHINE OPERATOR Work Phone: OB/Gynecology Comment on above: IFG (impaired fastin g glucose) (Primary Dx); Elevated LDL cholesterol level; Arthralgia of both lower legs; Overweight (BMI 25.0-29.9) Start: 03-08-2025 End: 03-08-2025 ambulatory DIDI CUETO Facility:[facility] Start: 03-06-2025 End: 03-06-2025 Patient encounter procedure Pauline GILES -[facility] Work Phone: Start: 03-06-2025 End: 03-06-[address] Didi Cueto MD Work Phone: [facility] Work Phone: Start: 03-05-2025 End: 03-05-2025 ambulatory DIDI CUETO Facility:[facility] Start: 11-30-2024 End: 11-30-2024 ambulatory DIDI JACQUES Facility:[facility] Start: 11-30-2024 End: 11-30-2024 Patient encounter procedure Didi Jacques APRN.SPLITTING MACHINE OPERATOR Work Phone: OB/Gynecology Comment on above: IFG (impaired fastin g glucose) (Primary Dx); Elevated LDL cholesterol level; Arthralgia of both lower legs; Overweight (BMI 25.0-29.9) Start: 10-24-2024 End: 10-24-2024 ambulatory DIDI JACQUES Facility:[facility] Start: 10-24-2024 End: 10-24-2024 Patient encounter procedure Didi Jacques APRN.SPLITTING MACHINE OPERATOR Work Phone: OB/Gynecology Comment on above: IFG (impaired fastin g glucose) (Primary Dx); Elevated LDL cholesterol level; Arthralgia of both lower legs; Overweight (BMI 25.0-29.9) Start: 09-12-2024 End: 09-12-2024 ambulatory DIDI CUETO Facility:[facility] Start: 09-12-2024 End: 09-12-2024 Nursing evaluation of patient and report Nurse As[address] [facility] Work Phone: OB/Gynecology Comment on above: Body mass index (BMI ) of 28.0-28.9 in adult (Primary Dx); IFG (impaired fasting glucose); Elevated LDL cholesterol level; Overweight (BMI 25.0-29.9) Start: 06-15-2024 End: 06-15-2024 ambulatory DIDI JACQUES Facility:[facility] Start: 06-15-2024 End: 06-15-2024 Patient encounter procedure Didi Jacques APRN.CNP Work Phone: OB/Gynecology Comment on above: IFG (impaired fastin g glucose) (Primary Dx); Elevated LDL cholesterol level; Arthralgia of both lower legs; Overweight (BMI 25.0-29.9) Start: 03-15-2024 End: 03-15-2024 ambulatory DIDI JACQUES Facility:[facility] Start: 03-15-2024 End: 03-15-2024 Office outpatient visit 25 minutes Didi Jacques APRN.CNP Work Phone: OB/Gynecology Comment on above: IFG (impaired fastin g glucose) (Primary Dx); Elevated LDL cholesterol level; Arthralgia of both lower legs; Overweight (BMI 25.0-29.9) Start: 01-13-2024 End: 01-13-2024 Office outpatient visit 25 minutes Didi Jacques APRN.CNP Work Phone: OB/Gynecology Comment on above: IFG (impaired fastin g glucose) (Primary Dx); Elevated LDL cholesterol level; Arthralgia of both lower legs; Overweight (BMI 25.0-29.9) Start: 12-15-2023 End: 12-15-2023 Patient encounter procedure Didi Jacques APRN.CNP Work Phone: OB/Gynecology Comment on above: IFG (impaired fastin g glucose) (Primary Dx); Elevated LDL cholesterol level; Arthralgia of both lower legs; Overweight (BMI 25.0-29.9) Start: 11-29-2023 Non-patient / Non-visit Dr. Adonis Cueto Work Phone: [facility] [place] Start: 11-29-2023 End: 11-29-[address] Didi Cueto Work Phone: [facility] Work Phone: Start: 11-29-2023 End: 11-29-[address] Didi Cueto Work Phone: [facility]Cardiovascular Services Work Phone: Start: 11-02-2023 End: 11-02-[address] Didi Cueto Work Phone: [facility] Work Phone: Start: 10-29-2023 End: 10-29-[address] Didi Cueto Work Phone: [facility] Work Phone: Start: 10-29-2023 End: 10-29-[address] Didi Cueto Work Phone: [facility]-Outpatient Breast Imaging Work Phone: Start: 10-13-2023 End: 10-13-[address] Didi Cueto Work Phone: [facility] Work Phone: Start: 10-13-2023 End: 10-13-[address] Didi Cueto Work Phone: [facility]-Laboratory, Specimen Work Phone: Start: 10-13-2023 End: 10-13-[address] Didi Cueto Work Phone: [facility] Work Phone: Start: 07-01-2023 End: 07-01-2023 Patient encounter procedure Didi Jacques APRN.SPLITTING MACHINE OPERATOR Work Phone: OB/Gynecology Comment on above: Malaise and fatigue (Primary Dx); Arthralgia of both lower legs; Encounter for vitamin deficiency screening; Screening for diabetes mellitus; Screening for deficiency anemia; Screening cholesterol level; Screening for thyroid disorder; Overweight (BMI 25.0-29.9) Start: 02-13-2022 End: 02-13-2022 Patient encounter procedure [facility] Start: 02-11-2022 End: 02-11-2022 Patient encounter procedure [facility] [place] Procedures Date Procedure Procedure Detail Performing Clinician Start: 03-12-2025 Screening mammography Cuba Cueto MD Work Phone: Start: 10-29-2023 Screening mammography Cuba Cueto Work Phone: Start: 07-02-2023 Lipid 1996 panel - S sulaiman or Plasma Didi Jacques APRN.SPLITTING MACHINE OPERATOR Work Phone: Start: 02-13-2022 Screening mammography Start: 03-26-2016 Lipid 1996 panel - S sulaiman or Plasma Didi Jacques APRN.SPLITTING MACHINE OPERATOR Work Phone: Plan of Treatment Date Care Activity Detail Author Start: 07-02-2028 Lipid panel Lipid Screening [facility] Start: 03-05-2028 Diabetes Screening Diabetes Screenin [facility] Start: 07-02-2026 Diabetes Screening Diabetes Screenin [facility] Start: 06-08-2025 End: 06-08-2025 Patient encounter procedure 06/08/2025 11:00 AM EDT Office Visit OB/Gynecology [address] [place] [id number] Didi Jacques APRN.[facility] [address] [place] [address] WT MGT OB/Gynecology Comment on above: WT MGT Start: 05-14-2025 Influenza vaccination Influenz a Vaccine (Season Ended) [facility] Start: 04-19-2025 ambulatory Ambulatory Facility:[facility] Start: 03-08-2025 End: 03-08-2025 Patient encounter procedure 03/08/2025 11:00 AM EDT Office Visit OB/Gynecology [address] [place] [id number] Jacques, Didi, SUPERVISOR [employer].SPLITTING MACHINE OPERATOR [address] [place] [address] WT MGT 3 MONTH FOLLOW UP OB/Gynecology Comment on above: WT MGT 3 MONTH FOLLO W UP Start: 11-30-2024 End: 11-30-2024 Patient encounter procedure 11/30/2024 3:30 PM EDT Office Visit OB/Gynecology [address] [place] [address] Didi Jacques SUPERVISOR [employer].SPLITTING MACHINE OPERATOR [address] [place] [address] WT MGMT f/up OB/Gynecology Comment on above: WT MGMT f/up Start: 10-24-2024 End: 10-24-2024 Patient encounter procedure 10/24/2024 4:00 PM EST Office Visit OB/Gynecology [address] [place] [address] Didi Jacques, SUPERVISOR [employer].SPLITTING MACHINE OPERATOR [address] [place] [address] WT MGMT f/up OB/Gynecology Comment on above: WT MGMT f/up Start: 10-24-2024 End: 01-23-2025 Comprehensive metabolic 2000 panel - Serum or Plasma COMPREHENSIVE METABOLIC PANEL Lab Routine IFG (impaired fasting glucose) Overweight (BMI 25.0-29.9) Expected: 10/24/2024, Expires: 01/23/2025 [facility] Work Phone: Comment on above: Expected: 10/24/2024 , Expires: 01/23/2025 Start: 09-07-2024 End: 09-07-2024 Nursing evaluation of patient and report 09/07/2024 9:00 AM EST Nurse Visit OB/Gynecology [address] [place], [place] [id number] Wstr, Nurse As[address] [facility] [address] [place] [id number] Phentermine OB/Gynecology Comment on above: Phentermine Start: 06-15-2024 End: 06-15-2024 Patient encounter procedure 06/15/2024 4:00 PM EDT Office Visit OB/Gynecology [address] [place] [address] Didi Jacques APRN.SPLITTING MACHINE OPERATOR [address] [place] [address] wt mgmt f/u OB/Gynecology Comment on above: wt mgmt f/u Start: 05-14-2024 Covid-19 Vaccine ( season) Covid-19 Vaccine () [facility] Start: 05-14-2024 Influenza vaccination [facility] Start: 03-15-2024 End: 03-15-2024 Patient encounter procedure 03/15/2024 9:30 AM EDT Office Visit OB/Gynecology [address] [place] [address] Didi Jacques, SUPERVISOR [employer].SPLITTING MACHINE OPERATOR [address] [place] [address] 2 month follow up OB/Gynecology Comment on above: 2 month follow up Start: 10-13-2023 Patient referral [facility] Work Phone: Start: 10-13-2023 Liquid based cervica l cytology screening [facility] Start: 09-13-2023 Behavioral Health Screening Behavioral Health Screening [facility] Start: 07-01-2023 End: 09-30-2023 25-hydroxyvitamin D3 [Mass/volume] in Serum or Plasma VITAMIN D 25 HYDROXY Lab Routine Encounter for vitamin deficiency screening Overweight (BMI 25.0-29.9) Malaise and fatigue Expected: 07/01/2023, Expires: 09/30/2023 [facility] Work Phone: Comment on above: Expected: 07/01/2023 , Expires: 09/30/2023 Start: 07-01-2023 End: 09-30-2023 CBC panel - Blood by Automated count CBC Lab Routine Screening for deficiency anemia Overweight (BMI 25.0-29.9) Malaise and fatigue Arthralgia of both lower legs Expected: 07/01/2023, Expires: 09/30/2023 [facility] Work Phone: Comment on above: Expected: 07/01/2023 , Expires: 09/30/2023 Start: 07-01-2023 End: 09-30-2023 Comprehensive metabolic 2000 panel - Serum or Plasma COMP METABOLIC PANEL Lab Routine Screening for deficiency anemia Overweight (BMI 25.0-29.9) Arthralgia of both lower legs Expected: 07/01/2023, Expires: 09/30/2023 [facility] Work Phone: Comment on above: Expected: 07/01/2023 , Expires: 09/30/2023 Start: 07-01-2023 End: 09-30-2023 Hemoglobin A1c in Blood HGB A1C Lab Routine Screening for diabetes mellitus Overweight (BMI 25.0-29.9) Expected: 07/01/2023, Expires: 09/30/2023 [facility] Work Phone: Comment on above: Expected: 07/01/2023 , Expires: 09/30/2023 Start: 07-01-2023 End: 09-30-2023 Insulin [Units/volume] in Serum or Plasma INSULIN ASSAY BLOOD Lab Routine Screening for diabetes mellitus Overweight (BMI 25.0-29.9) Expected: 07/01/2023, Expires: 09/30/2023 [facility] Work Phone: Comment on above: Expected: 07/01/2023 , Expires: 09/30/2023 Start: 07-01-2023 End: 09-30-2023 Lipid 1996 panel - Serum or Plasma LIPID PANEL BASIC Lab Routine Screening cholesterol level Overweight (BMI 25.0-29.9) Expected: 07/01/2023, Expires: 09/30/2023 [facility] Work Phone: Comment on above: Expected: 07/01/2023 , Expires: 09/30/2023 Start: 07-01-2023 End: 09-30-2023 Thyrotropin [Units/volume] in Serum or Plasma TSH BLD Lab Routine Screening for thyroid disorder Overweight (BMI 25.0-29.9) Malaise and fatigue Expected: 07/01/2023, Expires: 09/30/2023 [facility] Work Phone: Comment on above: Expected: 07/01/2023 , Expires: 09/30/2023 Start: 05-14-2023 Covid-19 Vaccine () Covid-19 Vaccine () [facility] Start: 05-14-2023 Influenza vaccination Influenza Vacc ine (#1) [facility] Start: 09-13-2022 Depression Assessment Depression Ass essment [facility] Start: 03-26-2021 Lipid 1996 panel - S sulaiman or Plasma Lipid Screening [facility] Start: 03-26-2019 Diabetes Screening Diabetes Screenin g [facility] Start: 03-23-2019 HPV Testing HPV Testing [facility] Start: 03-23-2019 Pap Testing Pap Testing [facility] Start: 03-23-2019 Screening for malign ant neoplasm of cervix [facility] Start: 11-15-2017 Pneumococcal Vaccine : 50+ (1 of 1 - PCV) Pneumococcal Vaccine: 50+ (1 of 1 - PCV) [facility] Start: 11-15-2017 Shingrix Vaccine (1 of 2) Shingrix Vaccine (1 of 2) [facility] Start: 03-26-2017 Mammography Mammogram Screening [facility] Start: 03-26-2017 Screening for malign ant neoplasm of breast Mammogram Screening [facility] Start: 11-15-2012 Cologuard (FIT-DNA) Cologuard (FIT-D NA) [facility] Start: 11-15-2012 Colonoscopy Colonoscopy [facility] Start: 11-15-2012 Colorectal Cancer Screening Colorectal Cancer Screening [facility] Start: 11-15-[address] [facility] Start: 11-15-2012 Fecal Occult Blood Fecal Occult Bloo d [facility] Start: 11-15-2012 Screening for malign ant neoplasm of colon [facility] Start: 11-15-2012 Sigmoidoscopy Sigmoidoscopy [facility] Start: 11-15-1986 Hepatitis B Vaccine (1 of 3 - + 3-dose series) Hepatitis B Vaccine (1 of 3 - 19+ 3-dose series) [facility] Start: 11-15-1986 Urine microalbumin profile DTaP,Tdap,Td Vaccine (1 - Tdap) [facility] Start: 11-15-1985 Anxiety Screening Anxiety Screening [facility] Start: 11-15-1985 Depression Screening Depression Scre ening [facility] Start: 11-15-1985 Hepatitis C Screening Hepatitis C [facility] Start: 11-15-1985 Hepatitis C screening Hepatitis C [facility] Start: 11-15-1985 HIV Screening HIV Screening [facility] Start: 11-15-1985 HIV screening HIV Screening [facility] Start: 05-18-1968 Covid-19 Vaccine (#1) Covid-19 Vacci ne (#1) [facility] Start: 1965 Hepatitis B Vaccine (1 of 3 - 3-dose series) Hepatitis B Vaccine (1 of 3 - 3-dose series) [facility] MG Breast - bilatera l Screening [facility] Path report.final Dx Spec [facility] Patient referral [facility] Work Phone: US.doppler Lower extremity vein [facility] US.doppler Lower extremity vessels [facility] Payers Date Payer Category Payer Self-pay [id number] 2025 Private Health Insurance MMO SUP [employer] PPO [id number] 2025 Unknown [id number] 2023 Blue Cross Blue Shield BLUE ACCE PPO [id number] 2023 Unknown NIGHAT DELACRUZ ACCE SS PPO [id number] 2023-Present [phone] [id number] [place] [id number] PPO [id number] 2023 Unknown [id number] Private Health Insurance 0 Unknown SELF PAY INSURANCE [id number] Unknown [id number] Unknown [id number] Unknown [id number] Social History Date Type Detail Facility Start: 05-27-2020 End: 11-02-2023 Tobacco smoking status NHIS Unknown if ever smoked [facility] Start: 1965 Sex Assigned At Female W [facility] Start: 03-23-2014 End: 12-14-2023 Tobacco smoking status NHIS Never smoked tobacco [facility] Work Phone: Start: 03-23-2014 Tobacco use and exposure Smokeless tobacco non-user [facility] Work Phone: Start: 07-01-2023 End: 03-08-2025 Alcohol intake Current non-drinker of alcohol (finding) [facility] Start: 07-01-2023 End: 12-15-2023 History of Social function [facility] Start: 07-01-2023 End: 12-15-2023 Tobacco use panel [facility] Start: 1965 Sex Assigned At Not on file C [facility] National Score (1-100), lower number is lower risk 61 [facility] Goals Date Patient Goal Desired Activity /State Functional Status Date Assessment Result Facility 03-23-2014 Are you deaf, or do you have serious difficulty hearing No 03/23/2014 1:56 PM Deborah Miller Ma [facility] 03-23-2014 Are you blind, or do you have serious difficulty seeing, even when wearing glasses No 03/23/2014 1:56 PM Deborah Miller Ma [facility] 03-23-2014 Do you have serious difficulty walking or climbing stairs No 03/23/2014 1:56 PM Deborah Miller Ma [facility] 03-23-2014 Do you have difficul ty dressing or bathing No 03/23/2014 1:56 PM Deborah Miller Ma [facility] 03-23-2014 Because of a physica l, mental, or emotional condition, do you have difficulty doing errands alone such as visiting a physician's office or shopping No 03/23/2014 1:56 PM Deborah Miller Ma [facility] Mental Status Date Assessment Result Facility 03-23-2014 Because of a physica l, mental, or emotional condition, do you have serious difficulty concentrating, remembering, or making decisions No 03/23/2014 1:56 PM Deborah Miller Ma [facility] Clinical Notes 07-01-2023 to 03-08-2025 Didi Jacques APRN.SPLITTING MACHINE OPERATOR - 03/08/2025 11:00 AM EDTPatient Instructions Note Date & Type Note Facility 03-08-2025 History of Present illness Narrative Images from the original note were not included. Some documentation from previous visit of 11/30/2024 was copied and pasted, documentation has been reviewed and edited as necessary for today's visit. Patient Summary: Christine is a 59 year old Female who presents for follow-up evaluation of obesity/weight management to treat and prevent related co-morbidities. In our previous visits we have discussed lifestyle intervention including a nutrition recommendations and physical activity optimization. Her last office visit was 3 months ago. Assessment/plan from last visit: - Phentermine 37.5 mg - 04-21 effective in controlling appetite throughout the day. Interval History PT specifies the following items as new or significant updates since the last appointment: - Experienced a temporary weight gain to 151-152 lbs after a wedding on January 20 due to relaxed eating habits and increased snacking, particularly in the evenings. - Has since resumed her weight loss regimen and is back on track with her diet and exercise. - Reports that snacking between meals increased her cravings for food. - Denies waking up hungry in the morning. - Interested in exploring additional medication options for weight management, such as topiramate. Weight loss since last visit 1 lbs for total of 16 lbs Date: Weight: BMI: Medications: 03/08/2025 148 lb 26.01 11/30/2024 149 lb 26.19 10/24/2024 151 lb 26.54 06/15/2024 147 lb 25.83 03/15/2024 148 lb 26.01 Loss of 10% 01/13/2024 152 lb 26.71 12/15/2023 161 lb 28.44 phentermine 37.5 mg 07/01/2023 164 lb 28.82 WC 35.75 in [place] body weight: 116 lb 12.6 oz (53 kg) Adjusted ideal body weight: 130 lb 14 oz (59.4 kg) Weight promoting medications: None AOM med Phentermine 37.5 mg Benefit: decreased hunger and increased fullness SE: wakes up sometimes during the night, dry mouth Previous Diet (initial appointment): Awake - 0600 0630 Macha green tea plain B - skip S - none L - 1200 16 oz coconut milk with protein shake mix or Chobani SF yogurt with berries S - after school 1600 [...] lemon, SF sparkling water Bedtime - 2300 Dietary changes: Awake - 0630 - Breakfast: Matcha green tea with a 30g vanilla protein shake around 9 AM. - Lunch: Rolled-up turkey and cheese with watermelon around 1 PM. - Afternoon Snack: Cheese and fruit (watermelon, blueberries, raspberries, cantaloupe) around 4 PM. - Dinner: Meat and low-carb vegetables (zucchini, broccoli, salad) around 6 PM; occasionally includes potatoes or brown rice. - Evening Snack: Sugar-free popsicle or half a frozen banana with nuts (almonds, walnuts, pumpkin seeds) around 8-9 PM. - Reports that adding protein to snacks helps curb cravings. - Interested in incorporating more protein-rich foods into her diet, such as hard-boiled eggs and high-protein yogurt. Fluids - all SF Bedtime - 2300 Current Barriers: early dinners Exercise - Walks 4 miles every morning, 5-7 days a week. - Engages in gardening activities, including weeding and hoeing. - Not currently participating in kettlebell classes but plans to resume in the future. - Reports taking 12,000-15,000 steps per day. Stress - Reports a temporary decrease in stress levels after completing a wedding and cleaning out her room. - Anticipates an increase in stress levels due to an upcoming wedding in April, for which she is responsible for the mccarthy. 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 Sleep - Reports getting 6 hours of sleep per night, with occasional nights of disrupted sleep. - Generally feels well-rested in the morning. CrCl cannot be calculated (Unknown ideal weight.). PAST MEDICAL HISTORY Diagnosis Date Arthralgia of both lower legs 12/15/2023 Elevated LDL cholesterol level 12/15/2023 Family history of malignant neoplasm of colon 03/24/2023 IFG (impaired fasting glucose) 12/15/2023 Segmental and somatic dysfunction 07/01/2023 Current Outpatient Medications Medication Sig Dispense Refill Phentermine HCl 37.5 mg tablet Take 1 tablet by mouth daily before breakfast for 90 days. Patient should start on December 11, 2024. 90 tablet 0 ascorbic acid/vit B12/zinc (VITAMIN C-VITAMIN X43-BTQU ORAL) Take by mouth once daily. TURMERIC ORAL Take by mouth once daily. Cholecalciferol, Vitamin D3, (VITAMIN D-3) 50 mcg (2,000 unit) cap Take by mouth. VITAMIN B COMPLEX ORAL Take by mouth. No current facility-administered medications for this visit. 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 Latest Ref Rng & Units 07/02/2023 03/05/2025 CMP Sodium 136 - 144 mmol/L 138 141 Potassium 3.7 - 5.1 mmol/L 4.1 4.4 Chloride 98 - 107 mmol/L 106 105 CO2 22 - 30 mmol/L 24 23 Glucose 74 - 99 mg/dL 100 93 BUN 7 - 21 mg/dL 23 25 Creatinine 0.58 - 0.96 mg/dL 0.77 0.78 EGFR >=60 mL/min/1.73m 91 89 Protein, Total 6.3 - 8.0 g/dL 6.4 7.0 Albumin 3.9 - 4.9 g/dL 4.3 4.3 Calcium 8.5 - 10.2 mg/dL 9.1 9.4 Bilirubin, Total 0.2 - 1.3 mg/dL 0.2 0.4 AST 13 - 35 U/L 13 15 ALT 7 - 38 U/L 11 11 Alkaline Phosphatase 34 - 123 U/L 82 80 Latest Ref Rng & Units 07/02/2023 CBC WBC 3.70 - 11.00 k/uL 5.33 RBC 3.90 - 5.20 m/uL 4.46 Hemoglobin 11.5 - 15.5 g/dL 12.9 Hematocrit 36.0 - 46.0 % 38.3 MCV 80.0 - 100.0 fL 85.9 MCH 26.0 - 34.0 pg 28.9 MCHC 30.5 - 36.0 g/dL 33.7 RDW-CV 11.5 - 15.0 % 12.2 Platelet Count 150 - 400 k/uL 267 MPV 9.0 - 12.7 fL 8.5 Cholesterol, Total (mg/dL) Date Value 07/02/2023 188 03/26/2016 188 HDL Cholesterol (mg/dL) Date Value 07/02/2023 71 03/26/2016 75 LDL Cholesterol, Calculated (mg/dL) Date Value 07/02/2023 108 03/26/2016 102 Triglyceride (mg/dL) Date Value 07/02/2023 43 03/26/2016 55 CrCl cannot be calculated (Unknown ideal weight.). Hemoglobin A1C (%) Date Value 07/02/2023 5.3 Assessment/Plan: Christine Racehl is a 59 year old yo with Overweight (Pre-obesity) who presented today for follow up for supervised weight loss to treat and prevent related co-morbidities. 1. IFG (impaired fasting glucose) (R73.01) - Recent lab results show glucose level decreased from 100 mg/dL to 93 mg/dL. - Continue monitoring glucose levels; maintain current dietary and exercise regimen. 2. Elevated LDL cholesterol level (E78.00) - Emphasized the importance of whole foods in diet to help manage cholesterol levels. - Continue current dietary practices. 3. Arthralgia of both lower legs (M25.561) - No current complaints of pain. - Scheduled for vein treatment in March. 4. Overweight (BMI 25.0-29.9) (E66.3) - Current weight is 148 lbs with a BMI of 26.01, down from 164 lbs and a BMI of 28.82 in June 2023. - Continue phentermine 37.5 mg daily, taken around 9 AM. - Continue Whole food balanced protein low-carb nutrition. Given updated whole food lists - Discussed dietary habits; advised adding complete protein with evening snacks to manage cravings. - Educated on potential use of topiramate to decrease thoughts of food if late-night cravings persist; will consider after next visit in 3 months. - Encouraged continuation of current exercise routine: walking 4 miles, 5-7 days a week. - Advised to increase water intake to prevent dehydration. - CMP ordered to be drawn prior to next visit - PHENTERMINE 37.5 MG TABLET Patient has met the weight loss requirement of 5% TBW in initial 3 months using phentermine without any adverse side effects. Pt has responded well and would like to continue use for weight management. She understands that continued use is off label for salvage determiner management of weight control. The patient is currently enrolled in a diet and exercise program The patient has no known history of contraindications The patient is free from drug or ETHO abuse The patient is not or and is aware not to become while using this medication [place] was reviewed. PDMP website checked and validated. All prescriptions have been APPROPRIATELY filled. No suspicious activity was identified. Prescription instructions reviewed with patient as applicable. Potential red flag symptoms discussed with the patient. Reviewed appropriate action plan to take if red flag symptoms occur. Patient agreeable to treatment plan. Follow up 3 months Didi Jacques CNP Advanced Education from the [employer] Medical Decision Making: Problems: Moderate: 1+ chronic illnesses with change Data: Unique test(s) ordered: 1 Risk: Moderate: Drug management and Moderate risk from testing/treatment Medical Decision Making Level: 4 - Moderate documented in this encounter [facility] [facility] 03-08-2025 Note HNO ID: [id number] Author: DIDI JACQUES APRN.CNP Service: ? Author Type: Nurse Practitioner Type: Progress Notes Filed: 03/08/2025 19:09 Note Text: Some documentation from previous visit of 11/30/2024 was copied and pasted, documentation has been reviewed and edited as necessary for today's visit. Patient Summary: Christine is a 59 year old Female who presents for follow-up evaluation of obesity/weight management to treat and prevent related co-morbidities. In our previous visits we have discussed lifestyle intervention including a nutrition recommendations and physical activity optimization. Her last office visit was 3 months ago. Assessment/plan from last visit: - Phentermine 37.5 mg - 04-21 effective in controlling appetite throughout the day. Interval History PT specifies the following items as new or significant updates since the last appointment: - Experienced a temporary weight gain to 151-152 lbs after a wedding on January 20 due to relaxed eating habits and increased snacking, particularly in the evenings. - Has since resumed her weight loss regimen and is back on track with her diet and exercise. - Reports that snacking between meals increased her cravings for food. - Denies waking up hungry in the morning. - Interested in exploring additional medication options for weight management, such as topiramate. Weight loss since last visit 1 lbs for total of 16 lbs Date: Weight: BMI: Medications: 03/08/2025 148 lb 26.01 11/30/2024 149 lb 26.19 10/24/2024 151 lb 26.54 06/15/2024 147 lb 25.83 03/15/2024 148 lb 26.01 Loss of 10% 01/13/2024 152 lb 26.71 12/15/2023 161 lb 28.44 phentermine 37.5 mg 07/01/2023 164 lb 28.82 WC 35.75 in [place] body weight: 116 lb 12.6 oz (53 kg) Adjusted ideal body weight: 130 lb 14 oz (59.4 kg) Weight promoting medications: None AOM med Phentermine 37.5 mg Benefit: decreased hunger and increased fullness SE: wakes up sometimes during the night, dry mouth Previous Diet (initial appointment): Awake - 0600 0630 Macha green tea plain B - skip S - none L - 1200 16 oz coconut milk with protein shake mix or Chobani SF yogurt with berries S - after school 1600 [...] lemon, SF sparkling water Bedtime - 2300 Dietary changes: Awake - 0630 - Breakfast: Matcha green tea with a 30g vanilla protein shake around 9 AM. - Lunch: Rolled-up turkey and cheese with watermelon around 1 PM. - Afternoon Snack: Cheese and fruit (watermelon, blueberries, raspberries, cantaloupe) around 4 PM. - Dinner: Meat and low-carb vegetables (zucchini, broccoli, salad) around 6 PM; occasionally includes potatoes or brown rice. - Evening Snack: Sugar-free popsicle or half a frozen banana with nuts (almonds, walnuts, pumpkin seeds) around 8-9 PM. - Reports that adding protein to snacks helps curb cravings. - Interested in incorporating more protein-rich foods into her diet, such as hard-boiled eggs and high-protein yogurt. Fluids - all SF Bedtime - 2300 Current Barriers: early dinners Exercise - Walks 4 miles every morning, 5-7 days a week. - Engages in gardening activities, including weeding and hoeing. - Not currently participating in [employer] classes but plans to resume in the future. - Reports taking 12,000-15,000 steps per day. Stress - Reports a temporary decrease in stress levels after completing a wedding and cleaning out her room. - Anticipates an increase in stress levels due to an upcoming wedding in April, for which she is responsible for the mccarthy. 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 Sleep - Reports getting 6 hours of sleep per night, with occasional nights of disrupted sleep. - Generally feels well-rested in the morning. CrCl cannot be calculated (Unknown ideal weight.). PAST MEDICAL HISTORY Diagnosis Date Arthralgia of both lower legs 12/15/2023 Elevated LDL cholesterol level 12/15/2023 Family history of malignant neoplasm of colon 03/24/2023 IFG (impaired fasting glucose) 12/15/2023 Segmental and somatic dysfunction 07/01/2023 Current Outpatient Medications Medication Sig Dispense Refill Phentermine HCl 37.5 mg tablet Take 1 tablet by mouth daily before breakfast for 90 days. Patient should start on December 11, 2024. 90 tablet 0 ascorbic acid/vit B12/zinc (VITAMIN C-VITAMIN Y01-HHNT ORAL) Take by mouth once daily. TURMERIC ORAL Take by mouth once daily. Cholecalciferol, Vitamin D3, (VITAMIN D-3) 50 mcg (2,000 unit) cap Take by mouth. VITAMIN B COMPLEX ORAL Take by mouth. No (more content not included)... [facility] 03-07-2025 Instructions Didi Jacques APRN.SPLITTING MACHINE OPERATOR - 03/07/2025 8:06 PM EDT - Continue phentermine 37.5 mg once daily: take the full dose at 9 AM on an empty stomach; prescription has been sent to your pharmacy. - Aim to eat dinner by 6 PM to reduce late-night hunger. - When you have a snack like a half banana or a sugar-free popsicle, include at least 15 grams of complete protein to balance the carbs. Good options are: Half a protein shake (~15 g protein) A protein bar with >=15 g protein (e.g., a [place] bar) Roasted soybeans snack or hemp seeds (3 Tbsp = 10 g complete protein) - Keep [id number] proteins in your fridge--hard-boiled eggs, cottage cheese, high-protein yogurts, cheese sticks, or cube cheese. - Continue your morning routine: walking 4 miles at least 5 days a week and drinking your matcha-protein shake breakfast to stay full. - Plan to resume kettlebell or other strength/resistance training soon to help maintain muscle mass as you age. - Drink plenty of water throughout the day--especially when working outside--to stay well hydrated. - Aim for at least 7 hours of sleep each night. - Labs and vital signs reviewed: 03/05 fasting labs: glucose 93 mg/dL, BUN 25 mg/dL (likely from dehydration), creatinine 0.78 mg/dL, eGFR 89 mL/min Today s blood pressure 102/76 mm Hg, heart rate 90 bpm - Before your next visit, repeat a fasting basic metabolic panel while well hydrated to recheck kidney function. - Follow up in 3 months to assess phentermine results, review updated labs, and discuss adding topiramate if cravings persist. - Whole food balanced protein, controlled carbohydrate nutrition plan - 30 g of protein 3 times a day and up to 30 g of carbs at lunch and dinner only. 1st meal of the day- 30g protein with limit of 2 gm carbohydrates. Premier Protein or generic 30 gm protein 1 gm sugar 2. 2-3 eggs and some unbreaded meat and/or cheese. 3. 2-3 eggs and 1/2 of protein shake or one of the yogurts below: :ratio, KETO Friendly Dairy Snack 1 single svg - 15g protein & 2g carb Two Good Lowfat [place]e Yogurt, Lower Sugar - 12g protein & 2g carb No fruit, vegetables, bread, grain, other brands of yogurt, Smoothies, etc. Lunch and dinner - 30 gm protein is the goal with less than 30 gm carbohydrates All snacks and meals - all protein or more protein than carbs Protein - no carbs Egg 1 large - 6g Egg white 1 large 3.6g 3 oz is approximately the size of a deck of cards and equals 21 g protein so 4 oz is 28 gm protein Beef, Chicken, Pruden, Pork, Lock 1 oz 7g Fish, Tuna Fish 1 oz 7g (Starkist tuna packet 2.6 oz 17 gm protein) Seafood (Crabmeat, Shrimp, Lobster) 1 oz 6g Protein shakes (read labels) Premier Protein or generic [employer] Equate, [employer] High Performance- 30g protein & 1g carb - meal replacement Premier Protein powder or generic- 30 g protein, 1g carb Fairlife 30 gram protein - 30g protein & 3g carb BOOST Glucose Control Max 30g Protein Nutritional Drink - 30g protein & 1 carb - meal replacement Slimfast High Protein - 20g protein & 1g carb Ensure Max Protein Nutrition Shake 30g protein & 2 carb OWYN plant based 100 % vegan no dairy, soy, wheat/gluten 32g protein 0 net carb (not a meal replacement) Premier Protein plant protein powder - 25g protein, 0 sugar/2g carb Vanilla and chocolate (not a meal replacement) Protein AND carbs Beef/Pruden Jerky 1 oz dried 10-15g protein - check carb count, can be high if sugar added Slim Vin - 6 gm protein and 4 net carb Great Value original turkey sausage sticks - 7 gm protein and 2 gm carb Ruddy & Neri (at [facility]) Original smoked sausage sticks - 8 gm protein and 0 carb Imitation Crab Meat 1 oz - 2g protein & 4g carb Milk, skim 2% or 1% 8 oz - 8g protein & 12g carb Fairlife 2% milk 8 oz -13g protein & 6g carb Surinamese yogurt Full Fat [place] Yogurt 1 cup - 20.4g protein & 9.1g carb 2% Sur[place]amese Yogurt 1 cup - 22.7g protein & 9.1g carb 0% (fat-free) Surinamese Yogurt - 1 cup 24g protein & 9.3g carb Aldi Protein Surinamese yogurt single svg - 13/g15g protein & 7g carb Chobani Zero Sugar single svg: - 12g protein & 5g carb Dannon Surinamese Light + Fit 1 single svg - 12g protein & 9g carb Oikos Pro single svg - 20g protein & 8g carb Oikos Triple Zero Surinamese Nonfat Yogurt 1 single svg - 15g protein & 7g carb :ratio, KETO Friendly Dairy Snack 1 single svg - 15g protein & 2g carb :ratio Protein 1 single svg - 25g protein & 8g carb Two Good Lowfat [place]e Yogurt, Peterson, Lower Sugar - 12g protein & 2g carb Yoplait Protein 1 single svg 15g protein & 5g carb Dairy Free - [place] unsweetened [place]e almond/soy 15g protein & 3g carb Dairy Free - True Goodness by [facility] coconut-based yogurt alternative 1 g protein 1 g net carb 180 nick Drinkable yogurts: Chobani drinkable 15g, 20g and 30g protein & 18 carb (too many carbs for breakfast) Chobani Zero Sugar 10g protein 6g carbs 50 calories Oikos Pro drinkable yogurt 1 single svg - 23g protein & 8g carb :ratio Protein 26g protein 9g carb Cheese each oz Brie 5.9g protein & 0.1g carb Cheddar 7g protein & 0.4g carb Hong 6.7g protein & 0.7g carb Cream Cheese 1.7g protein & 1.2g carb [employer] Farms whipped Surinamese cream cheese (WM) 2 T 3g protein 2g carb Feta 4g protein & 1.2g carb Mozzarella 6.3g protein & 0.6g carb Parmesan 10g protein & 0.9g carb Australian 7.6g protein & 1.5g carb Cottage Cheese 1/2 c Breakstone 2% 13g protein 7g carb Whitney 2% 13g protein 5 g carb Good Culture 2% 14g protein 3g carb Lactaid 13g protein 5g carb Tyler s Low Fat 12g protein & 4g carb Legumes Lentils cup 9g protein & 20g carb Devine beans cup 7g protein & 20g carb Kidney, Black, [place], Cannellini beans cup 8g protein & 20g carb Chickpeas 1/2 c 6g protein & 15g carb Soybeans 1/2 c 14g complete protein & 8.5g carb [place] milk, unsweetened 8 oz 1g protein & 2g carb Soy milk 8 oz 3.5g protein & 1.6g carb Tofu 1/2 cup 10g protein & 2.3g carb Peanut butter, natural 2 Tbsp 7-8g protein & 4g net carbs, 190 calories PB2 powder 2 Tbsp 6g protein & 5g carb Nuts and Seeds per oz Almonds - 5.9g protein & 6.1g carb [place] Nuts - 4.0g protein & 3.4g carb Cashews - 5.1g protein & 9.2g carb Hazelnuts - 4.2g protein & 4.7g carb Hemp seeds/hearts 3 T/30 gms - 9.5 gm complete protein and 2.5 gm carb Peanuts - 7g protein & 4.6g carb Pecans - 2.6g protein & 3.9g carb Pistachios - 5.8g protein & 7.8g carb Pumpkin Seeds - 6.9g protein & 5g carb [place] Seeds - 5.8g protein & 5.6g carb Walnuts - 4.3g protein & 3.8g carb Edamame Beans (soybean) snack 1 pack 11 gm complete protein 2 carb 5 (FIVE) gram carb vegetable options 1 cup raw OR cup cooked: Asparagus Posey sprouts Beets Broccoli Brussel sprouts Cabbage Carrots Cauliflower Celery [place] Eggplant Green beans Lettuce Peppers Snap peas Spaghetti squash Spinach Tomato Turnips Zucchini 15 gram carb vegetable options cup cooked corn or hominy corn on the cob, large (5 oz) cup cooked green peas 4.3 gm complete protein cup cooked devine beans 1 small potato or sweet potato cup cooked potato, plain cup cooked sweet potato, plain 1 cup winter squash (pumpkin, acorn, butternut) 1 cup marinara or pasta sauce - check label cup tomato juice cup tomato puree Beans, Seeds, Nuts cup cooked beans (kidney, mock, red, green, etc.) cup cooked lentils cup baked beans 4 tablespoons nut butter <15 gram carb fruit options Berries have the lowest sugar content 1/2 medium apple - 12.5 carbs 1/2 medium avocado - 6.5 gm carbs 1/2 medium banana - 15 carbs 1/2 cup blueberries - 11 carbs - may actually help you lose weight 1/2 cup fresh cherries -11 carbs 1 medium Cat -9 carbs 1/2 cup fresh cranberries - 6.5 carbs 1/2 c grapes - 15 carbs 1/2 medium grapefruit - 10.5 carbs 1/2 cup diced honeydew melon - 8 carbs 1 medium kiwi without skin - 11 carbs 1/2 cup sliced cheri -14 carbs 1 medium nectarine - 15 carbs 1 medium orange -15.5 carbs 1 medium peach -14.5 carbs 1/2 cup fresh pineapple -11 carbs 1 medium plum -7.5 carbs 1 prune - 6 carbs 1/4 c raisins - 31.25 carbs 1/2 cup raspberries -7.5 carbs 1/2 c strawberries - 12.7 carbs 1 medium tangerine -12 carbs 1/2 cup diced watermelon - 6 carbs Grains Brown rice 1/2 c 5.5g protein 24 carb White long-grain rice 1/2 c 2g protein 22.5 carb Quinoa 1/2 c 4 gm complete protein 25 carb Oatmeal, old fashioned 1/2 c 5g protein 27g carb High Protein Snack Ideas 1. Jerky 2. Whiting mix without dried fruit 3. Pruden roll-ups 4. Surinamese yogurt 5. Veggies and yogurt dip 6. Tuna 7. Hard-boiled eggs 8. Peanut butter with celery 9. Cheese slices/ Cheese Stick 10. Handful of almonds, peanuts or walnuts 11. Cottage Cheese 12. Beef sticks 13. Protein bars 14. Canned Nitro 15. Pumpkin seeds 16. Nut butter 17. Protein shake or protein bar 18. Avocado and chicken salad 19. Egg muffins 20. Leftover protein or lunch meat 21. 1/2 c blended cottage cheese or Surinamese yogurt with dry ranch/Mrs. Dash/herb seasoning mix to make protein dip- add raw veg 22. 1/2 c blended cottage cheese with 1 Tbsp sugar-free dry cheesecake pudding mix 12g protein 10 carb 23. Pudding - 1 30 gm protein shake with 1/2 pkg sugar-free pudding 4 svgs - 7.8 gm protein, 5 carb each svg 24. SF Sunkist or Root Beer with 1-2 Tablespoons heavy whipping cream 25. Mini frozen dessert bites - layer protein yogurt, skinny syrup and crushed nuts and freeze 26. Edamame Beans (soybean) snack 1 pack (O Beans) 11 gm complete protein 2 carb documented in this encounter [facility] 03-06-2025 Evaluation note Diagnosis Onset Date Resolution Varicose veins of left lower extremity with pain acute March 06, 2025 2:32pm [facility] Work Phone: 1([phone]) 965-240303-20-2025 Instructions* Patient Instructions* Didi Jacques APRN.CNP - 11/30/2024 4:05 PM EDT Breakfast - casserole 9 x13 eggs, meat cheese Other meals - get more creative with veg/carbs - Whole food balanced protein, controlled carbohydrate nutrition plan - 30 g of protein 3 times a day and up to 30 g of carbs at lunch and dinner only. Breakfast - 30 gm protein with limit of 2 gm carbohydrates. Options include: Premier Protein or generic 30 gm protein 1 gm sugar or 5 eggs or 2-3 eggs and some unbreaded meat and/or cheese. No fruit,vegetables, bread, grain, yogurt, Smoothies, etc. Lunch and dinner - 30 gm protein is the goal with less than 30 gm carbohydrates Snacks - all protein or more protein than carbs Protein - no carbs Egg 1 large - 6g Egg white 1 large 3.6g 3 oz is approximately the size of a deck of cards and equals 21 g protein so 4 oz is 28 gm protein Beef, Chicken, Pruden, Pork, Lock 1 oz 7g Fish, Tuna Fish 1 oz 7g (Starkist tuna packet 2.6 oz 17 gm protein) Seafood (Crabmeat, Shrimp, Lobster) 1 oz 6g Protein shakes (read labels) Premier Protein or generic [employer] Equate, [employer] High Performance- 30g protein & 1g carb - meal replacement Premier Protein powder or generic- 30 gm protein, 1g carb Premier Protein plant protein powder - 25 gm protein, 0 sugar/2 carb Vanilla and chocolate (not a meal replacement) Fairlife 30 gram protein - 30g protein & 3g carb BOOST Glucose Control Max 30g Protein Nutritional Drink - 30g protein & 1 carb - meal replacement Slimfast High Protein - 20g protein & 1g carb Ensure Max Protein Nutrition Shake 30g protein & 2 carb Protein AND carbs Beef/Pruden Jerky 1 oz dried 10-15g protein - check carb count, can be high if sugar added Slim Vin - 6 gm protein and 4 net carb Great Value original turkey sausage sticks - 7 gm protein and 2 gm carb Ruddy [employer] Neri (at [employer]) Original smoked sausage sticks - 8 gm protein and 0 carb Imitation Crab Meat 1 oz - 2g protein & 4g carb Milk, skim 2% or 1% 8 oz - 8g protein & 12g carb Fairlife 2% milk 8 oz -13 g protein & 6g carb Surinamese yogurt Full Fat [place]e Yogurt 1 cup - 20.4g protein & 9.1g carb 2% [place]e Yogurt 1 cup - 22.7g protein & 9.1g carb 0% (fat-free) Surinamese Yogurt - 1 cup 24g protein & 9.3g carb Aldi Protein Sur[place]amese yogurt single svg - 13/g15g protein & 7g carb Chobani Zero Sugar single svg: - 12g protein & 5g carb Dannon Sur[place]e Light + Fit 1 single svg - 12g protein & 9g carb Oikos Pro single svg - 20g protein & 8g carb Oikos Triple Zero [place]e Nonfat Yogurt 1 single svg - 15g protein & 7g carb Oikos Pro drinkable yogurt 1 single svg - 23 g protein & 8 g carb :ratio, KETO Friendly Dairy Snack 1 single svg - 15g protein & 2g carb :ratio Protein 1 single svg - 25g protein & 8g carb Two Good Lowfat [place]e Yogurt, Peterson, Lower Sugar - 12g protein & 2g carb Yoplait Protein 1 single svg 15gm protein & 5gm carb Dairy Free - [place] unsweetened [place] almond/soy 15 gm protein & 3 gm carb Dairy Free - True Goodness by [employer] coconut-based yogurt alternative 1 gm protein 1 gm net carb 180 nick Cheese each oz Brie 5.9g protein & 0.1g carb Cheddar 7g protein & 0.4g carb Hong 6.7g protein & 0.7g carb Cream Cheese 1.7g protein & 1.2g carb Feta 4g protein & 1.2g carb Mozzarella 6.3g protein & 0.6g carb Parmesan 10g protein & 0.9g carb Australian 7.6g protein & 1.5g carb Cottage Cheese 1/2 c Breakstone 2% 13g protein 7g carb Whitney 2% 13g protein 5 g carb Good Culture 2% 14g protein 3g carb Tyler s Low Fat 12g protein & 4g carb Legumes Lentils cup 9g protein & 20g carb Devine beans cup 7g protein & 20g carb Kidney, Black, [place], Cannellini beans cup 8g protein & 20g carb Soybeans 1/2 c 14g complete protein & 8.5g carb [place] milk, unsweetened 8 oz 1g protein & 2g carb Soy milk 8 oz 3.5g protein & 1.6g carb Tofu 1/2 cup 10g protein & 2.3g carb Peanut butter, natural 2 Tbsp 7-8g protein & 4g net carbs, 190 calories PB2 powder 2 Tbsp 6g protein & 5g carb Nuts and Seeds per oz Almonds - 5.9g protein & 6.1g carb [place] Nuts - 4.0g protein & 3.4g carb Cashews - 5.1g protein & 9.2g carb Hazelnuts - 4.2g protein & 4.7g carb Hemp seeds/hearts 3 T/30 gms - 9.5 gm complete protein and 2.5 gm carb Peanuts - 7g protein & 4.6g carb Pecans - 2.6g protein & 3.9g carb Pistachios - 5.8g protein & 7.8g carb Pumpkin Seeds - 6.9g protein & 5g carb Hendry Seeds - 5.8g protein & 5.6g carb Walnuts - 4.3g protein & 3.8g carb Edamame Beans (soybean) snack 1 pack 11 gm complete protein 2 carb 5 (FIVE) gram carb vegetable options 1 cup raw OR cup cooked: Asparagus Posey sprouts Beets Broccoli Brussel sprouts Cabbage Carrots Cauliflower Celery [place] Eggplant Green beans Lettuce Peppers Snap peas Spaghetti squash Spinach Tomato Turnips Zucchini 15 gram carb vegetable options cup cooked corn or hominy corn on the cob, large (5 oz) cup cooked green peas 4.3 gm complete protein cup cooked devine beans 1 small potato or sweet potato cup cooked potato, plain cup cooked sweet potato, plain 1 cup winter squash (pumpkin, acorn, butternut) 1 cup marinara or pasta sauce - check label cup tomato juice cup tomato puree Beans, Seeds, Nuts cup cooked beans (kidney, mock, red, green, etc.) cup cooked lentils cup baked beans 4 tablespoons nut butter <15 gram carb fruit options Berries have the lowest sugar content 1/2 medium apple - 12.5 carbs 1/2 medium avocado - 6.5 gm carbs 1/2 medium banana - 15 carbs 1/2 cup blueberries - 11 carbs - may actually help you lose weight 1/2 cup fresh cherries -11 carbs 1 medium Cat -9 carbs 1/2 cup fresh cranberries - 6.5 carbs 1/2 c grapes - 15 carbs 1/2 medium grapefruit - 10.5 carbs 1/2 cup diced honeydew melon - 8 carbs 1 medium kiwi without skin - 11 carbs 1/2 cup sliced cheri -14 carbs 1 medium nectarine - 15 carbs 1 medium orange -15.5 carbs 1 medium peach -14.5 carbs 1/2 cup fresh pineapple -11 carbs 1 medium plum -7.5 carbs 1 prune - 6 carbs 1/4 c raisins - 31.25 carbs 1/2 cup raspberries -7.5 carbs 1/2 c strawberries - 12.7 carbs 1 medium tangerine -12 carbs 1/2 cup diced watermelon - 6 carbs Grains Brown rice 1/2 c 5.5g protein 24 carb White long-grain rice 1/2 c 2g protein 22.5 carb Quinoa 1/2 c 4 gm complete protein 25 carb Oatmeal, old fashioned 1/2 c 5g protein 27g carb High Protein Snack Ideas 1. Jerky 2. Whiting mix without dried fruit 3. Pruden roll-ups 4. Surinamese yogurt 5. Veggies and yogurt dip 6. Tuna 7. Hard-boiled eggs 8. Peanut butter with celery 9. Cheese slices/ Cheese Stick 10. Handful of almonds, peanuts or walnuts 11. Cottage Cheese 12. Beef sticks 13. Protein bars 14. Canned Nitro 15. Pumpkin seeds 16. Nut butter 17. Protein shakes 18. Avocado and chicken salad 19. Egg muffins 20. Leftover protein or lunch meat 21. 1/2 c blended cottage cheese or [place]inamese yogurt with dry ranch/Mrs. Dash/herb seasoning mix to make protein dip 22. 1/2 c blended cottage cheese with 1 Tbsp sugar-free dry cheesecake pudding mix 12g protein 10 carb 23. Pudding - 1 30 gm protein shake with 1/2 pkg sugar-free pudding 4 svgs - 7.8 gm protein, 5 carbeach svg 24. SF Sunkist or Root Beer with 1-2 Tablespoons heavy whipping cream 25. Mini frozen dessert bites - layer protein yogurt, skinny syrup and crushed nuts and freeze [facility] History of Present illness Narrative* Didi Jacques APRN.CNP - 11/30/2024 3:30 PM EDT Images from the original note were not included. Some documentation from previous visit of 10/24/2024 was copied and pasted, documentation has been reviewed and edited as necessary for today's visit. Patient Summary: Christine is a 59 year old Female who presents for follow-up evaluation of obesity/weight management to treat and prevent related co- morbidities. In our previous visits we have discussedlifestyle intervention including a nutrition recommendations and physical activity optimization. Her last office visit was 5 weeks ago. Assessment/plan from last visit: - Phentermine 37.5 mg - /2 am and 09/14 around 10 CMP - did not have drawn Interval History PT specifies the following items as new or significant updates since the last appointment: Still at set-point - getting frustrated Weight loss since last visit 2 lbs for total of 15 lbs Date: Weight: BMI: Medications: 11/30/2024 149 lb 26.19 10/24/2024 151 lb 26.54 06/15/2024 147 lb 25.83 03/15/2024 148 lb 26.01 Loss of 10% 01/13/2024 152 lb 26.71 12/15/2023 161 lb 28.44 phentermine 37.5 mg 07/01/2023 164 lb 28.82 WC 35.75 in [place] body weight: 116 lb 12.6 oz (53 kg) Adjusted ideal body weight: 130 lb 14 oz (59.4 kg) Weight promoting medications: None AOM med Phentermine 37.5 mg Benefit: decreased hunger and increased fullness SE: wakes up sometimes during the night, dry mouth Previous Diet (initial appointment): Awake - 0600 0630 [place] green tea plain B - skip S - none L - 1200 16 oz coconut milk with protein shake mix or Chobani SF yogurt with berries S - after school 1600 [...] lemon, SF sparkling water Bedtime - 2300 Dietary changes: Awake - 0600 0630 [place] green tea plain B - SKIP L - 11 am 30 gm protein shake S- 1530-4 pm 3-4 days a week -Protein bar IQ bar 12 gm protein and cheese OR almonds OR meat and/orcheese and/or berries D - 8 pm protein, veg - asparagus, broccoli or salad with oil and vinegar dressing S - 2130-10 pm occasional Protein pudding or occasional SF dark chocolate and/or almonds Fluids - all SF Bedtime - 2300 Current Barriers: stress eating and grazing if at home Exercise: slightly decreased walks - walks 4-5 days/week, kettle kaur classes when in session Stress: increased, 2 kids getting next year, one in [place] and one in [place] ; 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 PAST MEDICAL HISTORY Diagnosis Date Arthralgia of both lower legs 12/15/2023 Elevated LDL cholesterol level 12/15/2023 Family history of malignant neoplasm of colon 03/24/2023 IFG (impaired fasting glucose) 12/15/2023 Segmental and somatic dysfunction 07/01/2023 Current Outpatient Medications Medication Sig Dispense Refill ascorbic acid/vit B12/zinc (VITAMIN C-VITAMIN P09-UIMN ORAL) Take by mouth once daily. Phentermine HCl 37.5 mg tablet Take 1 tablet by mouth daily before breakfast for 90 days. 90 tablet0 TURMERIC ORAL Take by mouth once daily. Cholecalciferol, Vitamin D3, (VITAMIN D-3) 50 mcg (2,000 unit) cap Take by mouth. VITAMIN B COMPLEX ORAL Take by mouth. No current facility-administered medications for this visit. 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 Latest Ref Rng & Units 07/02/2023 CMP Sodium 136 - 144 mmol/L 138 Potassium 3.7 - 5.1 mmol/L 4.1 Chloride 97 - 105 mmol/L 106 CO2 22 - 30 mmol/L 24 Glucose 74 - 99 mg/dL 100 BUN 7 - 21 mg/dL 23 Creatinine 0.58 - 0.96 mg/dL 0.77 EGFR >=60 mL/min/1.73m 91 Protein, Total 6.3 - 8.0 g/dL 6.4 Albumin 3.9 - 4.9 g/dL 4.3 Calcium 8.5 - 10.2 mg/dL 9.1 Bilirubin, Total 0.2 - 1.3 mg/dL 0.2 AST 13 - 35 U/L 13 ALT 7 - 38 U/L 11 Alkaline Phosphatase 34 - 123 U/L 82 Latest Ref Rng & Units 07/02/2023 CBC WBC 3.70 - 11.00 k/uL 5.33 RBC 3.90 - 5.20 m/uL 4.46 Hemoglobin 11.5 - 15.5 g/dL 12.9 Hematocrit 36.0 - 46.0 % 38.3 MCV 80.0 - 100.0 fL 85.9 MCH 26.0 - 34.0 pg 28.9 MCHC 30.5 - 36.0 g/dL 33.7 RDW-CV 11.5 - 15.0 % 12.2 Platelet Count 150 - 400 k/uL 267 MPV 9.0 - 12.7 fL 8.5 Cholesterol, Total (mg/dL) Date Value 07/02/2023 188 03/26/2016 188 HDL Cholesterol (mg/dL) Date Value 07/02/2023 71 03/26/2016 75 LDL Cholesterol (mg/dL) Date Value 07/02/2023 108 03/26/2016 102 Triglyceride (mg/dL) Date Value 07/02/2023 43 03/26/2016 55 CrCl cannot be calculated (Patient's most recent lab result is older than the maximum 180 days allowed.). Hemoglobin A1C (%) Date Value 07/02/2023 5.3 Computed FIB-4 Calculation unavailable. One or more values for this score either were not found within the given timeframe or did not fit some other criterion. Assessment/Plan: Christine Rachel is a 59 year old yo with Overweight (Pre-obesity) who presented today for follow up for supervised weight loss to treat and prevent related co-morbidities. 1. IFG (impaired fasting glucose) - ICD9: 790.21, ICD10: R73.01 (primary diagnosis) - Whole food balanced protein low-carb nutrition - PHENTERMINE 37.5 MG TABLET 2. Elevated LDL cholesterol level - ICD9: 272.0, ICD10: E78.00 - Whole food balanced protein low-carb nutrition - PHENTERMINE 37.5 MG TABLET 3. Arthralgia of both lower legs - ICD9: 719.46, ICD10: M25.561, M25.562 - improving with weight loss - Whole food balanced protein low-carb nutrition 4. Overweight (BMI 25.0-29.9) - ICD9: 278.02, ICD10: E66.3 - Weight decreased - PHENTERMINE 37.5 MG TABLET Patient has met the weight loss requirement of 5% TBW in initial 3 months using phentermine withoutany adverse side effects. Pt has responded well and would like to continue use for weight management. She understands that continued use is off label for long-term management of weight control. The patient is currently enrolled in a diet and exercise program The patient has no known history of contraindications The patient is free from drug or ETHO abuse The patient is not or and is aware not to become while using this medication OARS was reviewed. PDMP website checked and validated. All prescriptions have been APPROPRIATELY filled. No suspicious activity was identified. - Continue Whole food balanced protein low-carb nutrition. Given updated whole food lists and snackidea list and discussed whole food options for snacking. Given ideas for whole food breakfast. - Continue to increase exercise and activity with a goal of 200 minutes/week. Add resistance training. Prescription instructions reviewed with patient as applicable. Potential red flag symptoms discussed with the patient. Reviewed appropriate action plan to take ifred flag symptoms occur. Patient agreeable to treatment plan. Follow up 3 months Didi Jacques CNP Advanced Education from the Obesity [employer] Medical Decision Making: Problems: Moderate: 1+ chronic illnesses with change Risk: Moderate: Drug management and Moderate risk from testing/treatment Medical Decision Making Level: 4 - Moderate documented in this encounterC[facility] NoteHNO ID: [id number] Author: DIDI JACQUES APRN.CNP Service: ? Author Type: Nurse Practitioner Type: Progress Notes Filed: 11/30/2024 19:41 Note Text: Some documentation from previous visit of 10/24/2024 was copied and pasted, documentation has been reviewed and edited as necessary for today's visit. Patient Summary: Christine is a 59 year old Female who presents for follow-up evaluation of obesity/weight management to treat and prevent related co-morbidities. In our previous visits we have discussed lifestyle intervention including a nutrition recommendations and physical activity optimization. Her last office visit was 5 weeks ago. Assessment/plan from last visit: - Phentermine 37.5 mg - / am and 09/14 around 10 CMP - did not have drawn Interval History PT specifies the following items as new or significant updates since the last appointment: Still at set-point - getting frustrated Weight loss since last visit 2 lbs for total of 15 lbs Date: Weight: BMI: Medications: 11/30/2024 149 lb 26.19 10/24/2024 151 lb 26.54 06/15/2024 147 lb 25.83 03/15/2024 148 lb 26.01 Loss of 10% 01/13/2024 152 lb 26.71 12/15/2023 161 lb 28.44 phentermine 37.5 mg 07/01/2023 164 lb 28.82 WC 35.75 in [place] body weight: 116 lb 12.6 oz (53 kg) Adjusted ideal body weight: 130 lb 14 oz (59.4 kg) Weight promoting medications: None AOM med Phentermine 37.5 mg Benefit: decreased hunger and increased fullness SE: wakes up sometimes during the night, dry mouth Previous Diet (initial appointment): Awake - 0600 0630 [place] green tea plain B - skip S - none L - 1200 16 oz coconut milk with protein shake mix or Chobani SF yogurt with berries S - after school 1600 [...] lemon, SF sparkling water Bedtime - 2300 Dietary changes: Awake - 0600 0630 [place] green tea plain B - SKIP L - 11 am 30 gm protein shake S- 1530-4 pm 3-4 days a week -Protein bar IQ bar 12 gm protein and cheese OR almonds OR meat and/or cheese and/or berries D - 8 pm protein, veg - asparagus, broccoli or salad with oil and vinegar dressing S - 2130-10 pm occasional Protein pudding or occasional SF dark chocolate and/or almonds Fluids - all SF Bedtime - 2300 Current Barriers: stress eating and grazing if at home Exercise: slightly decreased walks - walks 4-5 days/week, kettle kaur classes when in session Stress: increased, 2 kids getting next year, one in [place] and one in [place] ; 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 PAST MEDICAL HISTORY Diagnosis Date Arthralgia of both lower legs 12/15/2023 Elevated LDL cholesterol level 12/15/2023 Family history of malignant neoplasm of colon 03/24/2023 IFG (impaired fasting glucose) 12/15/2023 Segmental and somatic dysfunction 07/01/2023 Current Outpatient Medications Medication Sig Dispense Refill ascorbic acid/vit B12/zinc (VITAMIN C-VITAMIN L54-RYNX ORAL) Take by mouth once daily. Phentermine HCl 37.5 mg tablet Take 1 tablet by mouth daily before breakfast for 90 days. 90 tablet 0 TURMERIC ORAL Take by mouth once daily. Cholecalciferol, Vitamin D3, (VITAMIN D-3) 50 mcg (2,000 unit) cap Take by mouth. VITAMIN B COMPLEX ORAL Take by mouth. No current facility-administered medications for this visit. 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 Results: recent labs reviewed with the patient. Latest Ref Rng AND Units 07/02/2023 CMP Sodium 136 - 144 mmol/L 138 Potassium 3.7 - 5.1 mmol/L 4.1 Chloride 97 - 105 mmol/L 106 CO2 22 - 30 mmol/L 24 Glucose 74 - 99 mg/dL 100 BUN 7 - 21 mg/dL 23 Creatinine 0.58 - 0.96 mg/dL 0.77 EGFR >=60 mL/min/1.73m? 91 Protein, Total 6.3 - 8.0 g/dL 6.4 Albumin 3.9 - 4.9 g/dL 4.3 Calcium 8.5 - 10.2 mg/dL 9.1 Bilirubin, Total 0.2 - 1.3 mg/dL 0.2 AST 13 - 35 U/L 13 ALT 7 - 38 U/L 11 Alkaline Phosphatase 34 - 123 U/L 82 Latest Ref Rng AND Units 07/02/2023 CBC WBC 3.70 - 11.00 k/uL 5.33 RBC 3.90 - 5.20 m/uL 4.46 Hemoglobin 11.5 - 15.5 g/dL 12.9 Hematocrit 36.0 - 46.0 % 38.3 MCV 80.0 - 100.0 fL 85.9 MCH 26.0 - 34.0 pg 28.9 MCHC 30.5 - 36.0 g/dL 33.7 RDW-CV 11.5 - 15.0 % 12.2 Platelet Count 150 - 400 k/uL 267 MPV 9.0 - 12.7 fL 8.5 Cholesterol, Total (mg/ (more content not included)...[facility] 10-24-2024 Instructions* Patient Instructions* Didi Jacques APRN.SPLITTING MACHINE OPERATOR - 10/24/2024 4:30 PM EST [place] Protein Bar 28 gm protein 1 gm carb 150 calories - Whole food balanced protein, controlled carbohydrate nutrition plan - 30 g of protein 3 times a day and up to 30 g of carbs at lunch and dinner only. Breakfast - 30 gm protein with limit of 2 gm carbohydrates. Options include: Premier Protein or generic 30 gm protein 1 gm sugar or 5 eggs or 2-3 eggs and some unbreaded meat and/or cheese. No fruit,vegetables, bread, grain, yogurt, Smoothies, etc. Lunch and dinner - 30 gm protein is the goal with less than 30 gm carbohydrates Snacks - all protein or more protein than carbs Protein - no carbs Egg 1 large - 6g Egg white 1 large 3.6g 3 oz is approximately the size of a deck of cards and equals 21 g protein so 4 oz is 28 gm protein Beef, Chicken, Pruden, Pork, Lock 1 oz 7g Fish, Tuna Fish 1 oz 7g (Starkist tuna packet 2.6 oz 17 gm protein) Seafood (Crabmeat, Shrimp, Lobster) 1 oz 6g Protein shakes (read labels) Premier Protein or generic [facility] Equate, [facility] High Performance- 30g protein & 1g carb - meal replacement Premier Protein powder or generic- 30 gm protein, 1g carb Premier Protein plant protein powder - 25 gm protein, 0 sugar/2 carb Vanilla and chocolate (not a meal replacement) Fairlife 30 gram protein - 30g protein & 3g carb BOOST Glucose Control Max 30g Protein Nutritional Drink - 30g protein & 1 carb - meal replacement Slimfast High Protein - 20g protein & 1g carb Ensure Max Protein Nutrition Shake 30g protein & 2 carb Protein AND carbs Beef/Pruden Jerky 1 oz dried 10-15g protein - check carb count, can be high if sugar added Slim Vin - 6 gm protein and 4 net carb Great Value original turkey sausage sticks - 7 gm protein and 2 gm carb Ruddy [employer] Neri (at [employer]) Original smoked sausage sticks - 8 gm protein and 0 carb Imitation Crab Meat 1 oz - 2g protein & 4g carb Milk, skim 2% or 1% 8 oz - 8g protein & 12g carb Fairlife 2% milk 8 oz -13 g protein & 6g carb Surinamese yogurt Full Fat [place]amese Yogurt 1 cup - 20.4g protein & 9.1g carb 2% Surinamese Yogurt 1 cup - 22.7g protein & 9.1g carb 0% (fat-free) Surinamese Yogurt - 1 cup 24g protein & 9.3g carb Aldi Protein Surinamese yogurt single svg - 15g protein & 7g carb Chobani Zero Sugar single svg: - 12g protein & 5g carb Dannon Surinamese Light + Fit 1 single svg - 12g protein & 9g carb Oikos Pro single svg - 20g protein & 8g carb Oikos Triple Zero Sur[place]amese Nonfat Yogurt 1 single svg - 15g protein & 7g carb :ratio, KETO Friendly Dairy Snack 1 single svg - 15g protein & 2g carb :ratio Protein 1 single svg - 25g protein & 8g carb Two Good Lowfat [place]amese Yogurt, Peterson, Lower Sugar - 12g protein & 2g carb Yoplait Protein 1 single svg 15gm protein & 5gm carb Dairy Free - [place] unsweetened [place]e almond/soy 15 gm protein & 3 gm carb Dairy Free - True Goodness by [employer] coconut-based yogurt alternative 1 gm protein 1 gm net carb 180 nick Cheese each oz Brie 5.9g protein & 0.1g carb Cheddar 7g protein & 0.4g carb Hong 6.7g protein & 0.7g carb Cream Cheese 1.7g protein & 1.2g carb Feta 4g protein & 1.2g carb Mozzarella 6.3g protein & 0.6g carb Parmesan 10g protein & 0.9g carb Australian 7.6g protein & 1.5g carb Cottage Cheese 1/2 c Breakstone 2% 13g protein 7g carb Whitney 2% 13g protein 5 g carb Good Culture 2% 14g protein 3g carb Tyler s Low Fat 12g protein & 4g carb Legumes Lentils cup 9g protein & 20g carb Devine beans cup 7g protein & 20g carb Kidney, Black, [place], Cannellini beans cup 8g protein & 20g carb Soybeans 1/2 c 14g complete protein & 8.5g carb [place] milk, unsweetened 8 oz 1g protein & 2g carb Soy milk 8 oz 3.5g protein & 1.6g carb Tofu 1/2 cup 10g protein & 2.3g carb Peanut butter, natural 2 Tbsp 7-8g protein & 4g net carbs, 190 calories PB2 powder 2 Tbsp 6g protein & 5g carb Nuts and Seeds per oz Almonds - 5.9g protein & 6.1g carb [place] Nuts - 4.0g protein & 3.4g carb Cashews - 5.1g protein & 9.2g carb Hazelnuts - 4.2g protein & 4.7g carb Hemp seeds/hearts 3 T/30 gms - 9.5 gm complete protein and 2.5 gm carb Peanuts - 7g protein & 4.6g carb Pecans - 2.6g protein & 3.9g carb Pistachios - 5.8g protein & 7.8g carb Pumpkin Seeds - 6.9g protein & 5g carb Hendry Seeds - 5.8g protein & 5.6g carb Walnuts - 4.3g protein & 3.8g carb Edamame Beans (soybean) snack 1 pack 11 gm complete protein 2 carb 5 (FIVE) gram carb vegetable options 1 cup raw OR cup cooked: Asparagus Posey sprouts Beets Broccoli Brussel sprouts Cabbage Carrots Cauliflower Celery [place] Eggplant Green beans Lettuce Peppers Snap peas Spaghetti squash Spinach Tomato Turnips Zucchini 15 gram carb vegetable options cup cooked corn or hominy corn on the cob, large (5 oz) cup cooked green peas 4.3 gm complete protein cup cooked devine beans 1 small potato or sweet potato cup cooked potato, plain cup cooked sweet potato, plain 1 cup winter squash (pumpkin, acorn, butternut) 1 cup marinara or pasta sauce - check label cup tomato juice cup tomato puree Beans, Seeds, Nuts cup cooked beans (kidney, mock, red, green, etc.) cup cooked lentils cup baked beans 4 tablespoons nut butter <15 gram carb fruit options Berries have the lowest sugar content 1/2 medium apple - 12.5 carbs 1/2 medium avocado - 6.5 gm carbs 1/2 medium banana - 15 carbs 1/2 cup blueberries - 11 carbs - may actually help you lose weight 1/2 cup fresh cherries -11 carbs 1 medium Cat -9 carbs 1/2 cup fresh cranberries - 6.5 carbs 1/2 c grapes - 15 carbs 1/2 medium grapefruit - 10.5 carbs 1/2 cup diced honeydew melon - 8 carbs 1 medium kiwi without skin - 11 carbs 1/2 cup sliced cheri -14 carbs 1 medium nectarine - 15 carbs 1 medium orange -15.5 carbs 1 medium peach -14.5 carbs 1/2 cup fresh pineapple -11 carbs 1 medium plum -7.5 carbs 1 prune - 6 carbs 1/4 c raisins - 31.25 carbs 1/2 cup raspberries -7.5 carbs 1/2 c strawberries - 12.7 carbs 1 medium tangerine -12 carbs 1/2 cup diced watermelon - 6 carbs Grains Brown rice 1/2 c 5.5g protein 24 carb White long-grain rice 1/2 c 2g protein 22.5 carb Quinoa 1/2 c 4 gm complete protein 25 carb Oatmeal, old fashioned 1/2 c 5g protein 27g carb High Protein Snack Ideas 1. Jerky 2. Whiting mix without dried fruit 3. Pruden roll-ups 4. Surinamese yogurt 5. Veggies and yogurt dip 6. Tuna 7. Hard-boiled eggs 8. Peanut butter with celery 9. Cheese slices/ Cheese Stick 10. Handful of almonds, peanuts or walnuts 11. Cottage Cheese 12. Beef sticks 13. Protein bars 14. Canned Nitro 15. Pumpkin seeds 16. Nut butter 17. Protein shakes 18. Avocado and chicken salad 19. Egg muffins 20. Leftover protein or lunch meat 21. 1/2 c blended cottage cheese or Surinamese yogurt with dry ranch/Mrs. Dash/herb seasoning mix to make protein dip 22. 1/2 c blended cottage cheese with 1 Tbsp sugar-free dry cheesecake pudding mix 12g protein 10 carb 23. Pudding - 1 30 gm protein shake with 1/2 pkg sugar-free pudding 4 svgs - 7.8 gm protein, 5 carbeach svg 24. SF Sunkist or Root Beer with 1-2 Tablespoons heavy whipping cream 25. Mini frozen dessert bites - layer protein yogurt, skinny syrup and crushed nuts and freeze documented in this encounterC[facility]02-[facility] History of Present illness Narrative* Didi Jacques APRN.BETTINA - 10/24/2024 4:00 PM EST Images from the original note were not included. Some documentation from previous visit of 06/15/2024 was copied and pasted, documentation has been reviewed and edited as necessary for today's visit. Patient Summary: Christine is a 58 year old Female who presents for follow-up evaluation of obesity/weight management to treat and prevent related co- morbidities. In our previous visits we have discussedlifestyle intervention including a nutrition recommendations and physical activity optimization. Her last office visit was 4 months ago. Assessment/plan from last visit: - Phentermine 37.5 mg - 1/2 am and 1/2 around 10 Interval History PT specifies the following items as new or significant updates since the last appointment: Fell off a little around Jan[place] with holiday eating - weight 152 lbs after [place]. Able to get back to balanced protein eating plan easily but unable to lose weight. Weight loss since last visit +4 lbs Date: Weight: BMI: Medications: 10/24/2024 151 lb 26.54 06/15/2024 147 lb 25.83 03/15/2024 148 lb 26.01 Loss of 10% 01/13/2024 152 lb 26.71 12/15/2023 161 lb 28.44 phentermine 37.5 mg 07/01/2023 164 lb 28.82 WC 35.75 in [place] body weight: 116 lb 12.6 oz (53 kg) Adjusted ideal body weight: 130 lb 14 oz (59.4 kg) Weight promoting medications: None AOM med Phentermine 37.5 mg Benefit: decreased hunger and increased fullness SE: wakes up sometimes during the night, dry mouth Previous Diet (initial appointment): Awake - 0600 0630 [place] green tea plain B - skip S - none L - 1200 16 oz coconut milk with protein shake mix or Chobani SF yogurt with berries S - after school 1600 [...] lemon, SF sparkling water Bedtime - 2300 Dietary changes: Awake - 0600 0630 [place] green tea plain B - SKIP S - 11 am 30 gm protein shake L - 1:30 pm Protein bar IQ bar 12 gm protein or sometimes meat/cheese sometimes in low-carb wrap orlettuce S - sometimes meat and cheese and sometimes berries D - 6-8 pm protein, veg - asparagus, broccoli or salad with oil and vinegar dressing S - 9 pm Protein pudding or occasional dark chocolate and/or almonds Fluids - all SF Bedtime - 2300 Current Barriers: grazing/irregular meal patterns and inadequate sleep duration Exercise: slightly decreased walks - walks 2-3 days/week, kettle kaur classes again 2 days/wk Stress: increased, 2 kids getting next year, one in [place] and one in [place] ; 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 PAST MEDICAL HISTORY Diagnosis Date Arthralgia of both lower legs 12/15/2023 Elevated LDL cholesterol level 12/15/2023 Family history of malignant neoplasm of colon 03/24/2023 IFG (impaired fasting glucose) 12/15/2023 Segmental and somatic dysfunction 07/01/2023 Current Outpatient Medications Medication Sig Dispense Refill ascorbic acid/vit B12/zinc (VITAMIN C-VITAMIN H04-SSNM ORAL) Take by mouth once daily. Phentermine HCl 37.5 mg tablet Take 1 tablet by mouth daily before breakfast for 90 days. 90 tablet0 TURMERIC ORAL Take by mouth once daily. Cholecalciferol, Vitamin D3, (VITAMIN D-3) 50 mcg (2,000 unit) cap Take by mouth. VITAMIN B COMPLEX ORAL Take by mouth. No current facility-administered medications for this visit. 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 Latest Ref Rng & Units 07/02/2023 CMP Sodium 136 - 144 mmol/L 138 Potassium 3.7 - 5.1 mmol/L 4.1 Chloride 97 - 105 mmol/L 106 CO2 22 - 30 mmol/L 24 Glucose 74 - 99 mg/dL 100 BUN 7 - 21 mg/dL 23 Creatinine 0.58 - 0.96 mg/dL 0.77 EGFR >=60 mL/min/1.73m 91 Protein, Total 6.3 - 8.0 g/dL 6.4 Albumin 3.9 - 4.9 g/dL 4.3 Calcium 8.5 - 10.2 mg/dL 9.1 Bilirubin, Total 0.2 - 1.3 mg/dL 0.2 AST 13 - 35 U/L 13 ALT 7 - 38 U/L 11 Alkaline Phosphatase 34 - 123 U/L 82 Latest Ref Rng & Units 07/02/2023 CBC WBC 3.70 - 11.00 k/uL 5.33 RBC 3.90 - 5.20 m/uL 4.46 Hemoglobin 11.5 - 15.5 g/dL 12.9 Hematocrit 36.0 - 46.0 % 38.3 MCV 80.0 - 100.0 fL 85.9 MCH 26.0 - 34.0 pg 28.9 MCHC 30.5 - 36.0 g/dL 33.7 RDW-CV 11.5 - 15.0 % 12.2 Platelet Count 150 - 400 k/uL 267 MPV 9.0 - 12.7 fL 8.5 Cholesterol, Total (mg/dL) Date Value 07/02/2023 188 03/26/2016 188 HDL Cholesterol (mg/dL) Date Value 07/02/2023 71 03/26/2016 75 LDL Cholesterol (mg/dL) Date Value 07/02/2023 108 03/26/2016 102 Triglyceride (mg/dL) Date Value 07/02/2023 43 03/26/2016 55 CrCl cannot be calculated (Patient's most recent lab result is older than the maximum 180 days allowed.). Hemoglobin A1C (%) Date Value 07/02/2023 5.3 Computed FIB-4 Calculation unavailable. One or more values for this score either were not found within the given timeframe or did not fit some other criterion. Assessment/Plan: Christine Rachel is a 58 year old yo with Overweight (Pre-obesity) who presented today for follow up for supervised weight loss to treat and prevent related co-morbidities. 1. IFG (impaired fasting glucose) - ICD9: 790.21, ICD10: R73.01 (primary diagnosis) - Whole food balanced protein low-carb nutrition - PHENTERMINE 37.5 MG TABLET - CMP 2. Elevated LDL cholesterol level - ICD9: 272.0, ICD10: E78.00 - Whole food balanced protein low-carb nutrition - PHENTERMINE 37.5 MG TABLET 3. Arthralgia of both lower legs - ICD9: 719.46, ICD10: M25.561, M25.562 - improving with weight loss - Whole food balanced protein low-carb nutrition 4. Overweight (BMI 25.0-29.9) - ICD9: 278.02, ICD10: E66.3 - Weight increased - PHENTERMINE 37.5 MG TABLET - does not need refill Patient has met the weight loss requirement of 5% TBW in initial 3 months using phentermine withoutany adverse side effects. Pt has responded well and would like to continue use for weight management. She understands that continued use is off label for salvage determiner management of weight control. The patient is currently enrolled in a diet and exercise program The patient has no known history of contraindications The patient is free from drug or ETHO abuse The patient is not or and is aware not to become while using this medication OARS was reviewed. PDMP website checked and validated. All prescriptions have been APPROPRIATELY filled. No suspicious activity was identified. - CMP - Continue Whole food balanced protein low-carb nutrition. Given updated snack idea list and discussed whole food options for snacking. - Continue to increase exercise and activity with a goal of 200 minutes/week. Add resistance training. Prescription instructions reviewed with patient as applicable. Potential red flag symptoms discussed with the patient. Reviewed appropriate action plan to take ifred flag symptoms occur. Patient agreeable to treatment plan. Follow up 2 months Didi Jacques CNP Advanced Education from the Obesity [employer] Medical Decision Making: Problems: Moderate: 1+ chronic illnesses with change Data: Unique test(s) ordered: 1 Risk: Moderate: Moderate risk from testing/treatment Medical Decision Making Level: 4 - Moderate documented in this encounterC[facility] NoteHNO ID: [id number] Author: DIDI JACQUES APRN.CNP Service: ? Author Type: Nurse Practitioner Type: Progress Notes Filed: 10/24/2024 17:07 Note Text: Some documentation from previous visit of 06/15/2024 was copied and pasted, documentation has been reviewed and edited as necessary for today's visit. Patient Summary: Christine is a 58 year old Female who presents for follow-up evaluation of obesity/weight management to treat and prevent related co-morbidities. In our previous visits we have discussed lifestyle intervention including a nutrition recommendations and physical activity optimization. Her last office visit was 4 months ago. Assessment/plan from last visit: - Phentermine 37.5 mg - 1/2 am and /2 around 10 Interval History PT specifies the following items as new or significant updates since the last appointment: Fell off a little around [place] with holiday eating - weight 152 lbs after [place]. Able to get back to balanced protein eating plan easily but unable to lose weight. Weight loss since last visit +4 lbs Date: Weight: BMI: Medications: 10/24/2024 151 lb 26.54 06/15/2024 147 lb 25.83 03/15/2024 148 lb 26.01 Loss of 10% 01/13/2024 152 lb 26.71 12/15/2023 161 lb 28.44 phentermine 37.5 mg 07/01/2023 164 lb 28.82 WC 35.75 in [place] body weight: 116 lb 12.6 oz (53 kg) Adjusted ideal body weight: 130 lb 14 oz (59.4 kg) Weight promoting medications: None AOM med Phentermine 37.5 mg Benefit: decreased hunger and increased fullness SE: wakes up sometimes during the night, dry mouth Previous Diet (initial appointment): Awake - 0600 0630 [place] green tea plain B - skip S - none L - 1200 16 oz coconut milk with protein shake mix or Chobani SF yogurt with berries S - after school 1600 [...] lemon, SF sparkling water Bedtime - 2300 Dietary changes: Awake - 0600 0630 [place]a green tea plain B - SKIP S - 11 am 30 gm protein shake L - 1:30 pm Protein bar IQ bar 12 gm protein or sometimes meat/cheese sometimes in low-carb wrap or lettuce S - sometimes meat and cheese and sometimes berries D - 6-8 pm protein, veg - asparagus, broccoli or salad with oil and vinegar dressing S - 9 pm Protein pudding or occasional dark chocolate and/or almonds Fluids - all SF Bedtime - 2300 Current Barriers: grazing/irregular meal patterns and inadequate sleep duration Exercise: slightly decreased walks - walks 2-3 days/week, kettle kaur classes again 2 days/wk Stress: increased, 2 kids getting next year, one in [place] and one in [place] ; 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 PAST MEDICAL HISTORY Diagnosis Date Arthralgia of both lower legs 12/15/2023 Elevated LDL cholesterol level 12/15/2023 Family history of malignant neoplasm of colon 03/24/2023 IFG (impaired fasting glucose) 12/15/2023 Segmental and somatic dysfunction 07/01/2023 Current Outpatient Medications Medication Sig Dispense Refill ascorbic acid/vit B12/zinc (VITAMIN C-VITAMIN Y13-VWRR ORAL) Take by mouth once daily. Phentermine HCl 37.5 mg tablet Take 1 tablet by mouth daily before breakfast for 90 days. 90 tablet 0 TURMERIC ORAL Take by mouth once daily. Cholecalciferol, Vitamin D3, (VITAMIN D-3) 50 mcg (2,000 unit) cap Take by mouth. VITAMIN B COMPLEX ORAL Take by mouth. No current facility-administered medications for this visit. 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 Results: recent labs reviewed with the patient. Latest Ref Rng AND Units 07/02/2023 CMP Sodium 136 - 144 mmol/L 138 Potassium 3.7 - 5.1 mmol/L 4.1 Chloride 97 - 105 mmol/L 106 CO2 22 - 30 mmol/L 24 Glucose 74 - 99 mg/dL 100 BUN 7 - 21 mg/dL 23 Creatinine 0.58 - 0.96 mg/dL 0.77 EGFR >=60 mL/min/1.73m? 91 Protein, Total 6.3 - 8.0 g/dL 6.4 Albumin 3.9 - 4.9 g/dL 4.3 Calcium 8.5 - 10.2 mg/dL 9.1 Bilirubin, Total 0.2 - 1.3 mg/dL 0.2 AST 13 - 35 U/L 13 ALT 7 - 38 U/L 11 Alkaline Phosphatase 34 - 123 U/L 82 Latest Ref Rng AND Units 07/02/2023 CBC WBC 3.70 - 11.00 k/uL 5.33 RBC 3.90 - 5.20 m/uL 4.46 Hemoglobin 11.5 - 15.5 g/dL 12.9 Hematocrit 36.0 - 46.0 % 38.3 MCV 80.0 - 100.0 fL 85.9 MCH 26.0 - 34.0 pg 28.9 MCHC 30. (more content not included)...[facility]12-31-2024 Note HNO ID: [id number] Author: NGOZI MAYO MD Service: ? Author Type: Physician Type: Progress Notes Filed: 09/12/2024 12:57 Note Text: Pt has met requirement to stay on phentermine. Pt to follow up with AG upon her return.[facility]12-31-2024 History of Present illness Narrative * Ngozi Mayo MD - 09/12/2024 12:56 PM EST Pt has met requirement to stay on phentermine. Pt to follow up with AG upon her return. * Val Guadalupe RN - 09/12/2024 11:10 AM EST Patient presents for weight and BP check for Phentermine refill. See vital tab for results. Denies any unwanted side effects. Next weight management appointment is on 10/24/24. Val Guadalupe RN documented in this encounterC[facility] NoteHNO ID: [id number] Author: VAL GUADALUPE RN Service: ? Author Type: Registered Nurse Type: Progress Notes Filed: 09/12/2024 12:57 Note Text: Patient presents for weight and BP check for Phentermine refill. See vital tab for results. Denies any unwanted side effects. Next weight management appointment is on 10/24/24. Val Guadalupe RNSt[facility]10-[facility] Instructions* Patient Instructions* Didi Jacques APRN.SPLITTING MACHINE OPERATOR - 06/15/2024 4:46 PM EDT - Whole food low-carb diet with 30 g of protein 3 times a day and up to 30 g of carbs at lunch and dinner only. Meals - protein is a goal and carbohydrates are a limit Snacks - all protein or more protein than carbs Protein - no carbs Egg 1 large - 6g Egg white 1 large 3.6g 3 oz is approximately the size of a deck of cards and equals 21 g protein so 4 oz is 28 gm protein Beef, Chicken, Pruden, Pork, Lock 1 oz 7g Fish, Tuna Fish 1 oz 7g (Starkist tuna packet 2.6 oz 17 gm protein) Seafood (Crabmeat, Shrimp, Lobster) 1 oz 6g Protein shakes (read labels) Premier Protein or generic [employer] Equate, [employer] High Performance- 30g protein & 1g carb - meal replacement Premier Protein powder or generic- 30 gm protein, 1g carb Premier Protein plant protein powder - 25 [...] protein & 2 carb Protein AND carbs Beef/Pruden Jerky 1 oz dried 10-15g protein - check carb count, can be high if sugar added Slim Vin - 6 gm protein and 4 net carb Great Value original turkey sausage sticks - 7 gm protein and 2 gm carb Ruddy & Neri (at [employer]) Original smoked sausage sticks - 8 gm protein and 0 carb Imitation Crab Meat 1 oz - 2g protein & 4g carb Milk, skim 2% or 1% 8 oz - 8g protein & 12g carb Surinamese yogurt Full Fat Surinamese Yogurt 1 cup - 20.4g protein & 9.1g carb 2% Surinamese Yogurt 1 cup - 22.7g protein & 9.1g carb 0% (fat-free) Surinamese Yogurt - 1 cup 24g protein & 9.3g carb Aldi Protein Surinamese yogurt single svg - 15g protein & 7g carb Chobani Zero Sugar single svg: - 12g protein & 5g carb Dannon Surinamese Light + Fit 1 single svg - 12g protein & 9g carb Oikos Pro single svg - 20g protein & 8g carb Oikos Triple Zero Surinamese Nonfat Yogurt 1 single svg - 15g protein & 7g carb :ratio, KETO Friendly Dairy Snack 1 single svg - 15g protein & 2g carb :ratio Protein 1 single svg - 25g protein & 8g carb Two Good Lowfat [place]amese Yogurt, Peterson, Lower Sugar - 12g protein & 2g carb Yoplait Protein 1 single svg 15gm protein & 5gm carb Dairy Free - Gloria Chaparro unsweetened Surinamese almond/soy 15 gm protein & 3 gm carb Cheese each oz Brie 5.9g protein & 0.1g carb Cheddar 7g protein & 0.4g carb Hong 6.7g protein & 0.7g carb Cream Cheese 1.7g protein & 1.2g carb Feta 4g protein & 1.2g carb Mozzarella 6.3g protein & 0.6g carb Parmesan 10g protein & 0.9g carb Australian 7.6g protein & 1.5g carb Cottage Cheese 1/2 c Breakstone 2% 13g protein 7g carb Whitney 2% 13g protein 5 g carb Good Culture 2% 14g protein 3g carb Tyler s Low Fat 12g protein & 4g carb Legumes Lentils cup 9g protein & 20g carb Devine beans cup 7g protein & 20g carb Kidney, Black, [place], Cannellini beans cup 8g protein & 20g carb Soybeans 1/2 c 14g complete protein & 8.5g carb [place] milk, unsweetened 8 oz 1g protein & 2g carb Soy milk 8 oz 3.5g protein & 1.6g carb Tofu 1/2 cup 10g protein & 2.3g carb Peanut butter, natural 2 Tbsp 7-8g protein & 4g net carbs, 190 calories PB2 powder 2 Tbsp 6g protein & 5g carb Nuts and Seeds per oz Almonds - 5.9g protein & 6.1g carb [place] Nuts - 4.0g protein & 3.4g carb Cashews - 5.1g protein & 9.2g carb Hazelnuts - 4.2g protein & 4.7g carb Hemp seeds 3 T/30 gms - 9.5 gm complete protein and 2.5 gm carb Peanuts - 7g protein & 4.6g carb Pecans - 2.6g protein & 3.9g carb Pistachios - 5.8g protein & 7.8g carb Pumpkin Seeds - 6.9g protein & 5g carb Hendry Seeds - 5.8g protein & 5.6g carb Walnuts - 4.3g protein & 3.8g carb <15 gram carb fruit options Berries have the lowest sugar content 1/2 medium apple - 12.5 carbs 1/2 medium avocado - 6.5 gm carbs 1/2 medium banana - 15 carbs 1/2 cup blueberries - 11 carbs - may actually help you lose weight 1/2 cup fresh cherries -11 carbs 1 medium Cat -9 carbs 1/2 cup fresh cranberries - 6.5 carbs 1/2 c grapes - 15 carbs 1/2 medium grapefruit - 10.5 carbs 1/2 cup diced honeydew melon - 8 carbs 1 medium kiwi without skin - 11 carbs 1/2 cup sliced cheri -14 carbs 1 medium nectarine - 15 carbs 1 medium orange -15.5 carbs 1 medium peach -14.5 carbs 1/2 cup fresh pineapple -11 carbs 1 medium plum -7.5 carbs 1 prune - 6 carbs 1/4 c raisins - 31.25 carbs 1/2 cup raspberries -7.5 carbs 1/2 c strawberries - 12.7 carbs 1 medium tangerine -12 carbs 1/2 cup diced watermelon - 6 carbs 5 (FIVE) gram carb vegetable options 1 cup raw OR cup cooked: Asparagus Posey sprouts Beets Broccoli Brussel sprouts Cabbage Carrots Cauliflower Celery [place] Eggplant Green beans Lettuce Peppers Snap peas Spaghetti squash Spinach Tomato Turnips Zucchini 15 gram carb vegetable options cup cooked corn or hominy corn on the cob, large (5 oz) cup cooked green peas 4.3 gm complete protein cup cooked devine beans 1 small potato or sweet potato cup cooked potato, plain cup cooked sweet potato, plain 1 cup winter squash (pumpkin, acorn, butternut) 1 cup marinara or pasta sauce - check label cup tomato juice cup tomato puree Beans, Seeds, Nuts cup cooked beans (kidney, mock, red, green, etc.) cup cooked lentils cup baked beans 4 tablespoons nut butter Grains Brown rice 1/2 c 5.5g protein 24 carb White long-grain rice 1/2 c 2g protein 22.5 carb Quinoa 1/2 c 4 gm complete protein 25 carb Oatmeal, old fashioned 1/2 c 5g protein 27g carb High Protein Snack Ideas 1. Jerky 2. Whiting mix without dried fruit 3. Pruden roll-ups 4. Surinamese yogurt 5. Veggies and yogurt dip 6. Tuna 7. Hard-boiled eggs 8. Peanut butter with celery 9. Cheese slices/ Cheese Stick 10. Handful of almonds, peanuts or walnuts 11. Cottage Cheese 12. Beef sticks 13. Protein bars 14. Canned Nitro 15. Pumpkin seeds 16. Nut butter 17. Protein shakes 18. Avocado and chicken salad 19. Egg muffins 20. Leftover protein or lunch meat 21. 1/2 c blended cottage cheese or Surinamese yogurt with dry ranch/Mrs. Dash/herb seasoning mix to make protein dip 22. 1/2 c blended cottage cheese with 1 Tbsp sugar-free dry cheesecake pudding mix 12g protein 10 carb 23. Pudding - 1 30 gm protein shake with 1/2 pkg sugar-free pudding 4 svgs - 7.8 gm protein, 5 carbeach svg 24. SF Sunkist or Root Beer with 1-2 Tablespoons heavy whipping cream 25. Mini frozen dessert bites - layer protein yogurt, skinny syrup and crushed nuts and freeze none documented in this encounterC[facility]10-[facility] History of Present illness Narrative* Didi Jacques APRN.CNP - 06/15/2024 4:00 PM EDT Images from the original note were not included. Some documentation from previous visit of 03/15/2024 was copied and pasted, documentation has been reviewed and edited as necessary for today's visit. Patient Summary: Christine is a 58 year old Female who presents for follow-up evaluation of obesity/weight management to treat and prevent related co- morbidities. In our previous visits we have discussedlifestyle intervention including a nutrition recommendations and physical activity optimization. Her last office visit was 3 months ago. Assessment/plan from last visit: - Phentermine 37.5 mg at 07 Interval History PT specifies the following items as new or significant updates since the last appointment: Was at [employer] for a few weeks and then gained a couple of pounds when she started [employer]aur classes again - Hungrier in the evenings Weight loss since last visit 1 lbs for total of 17 lbs Date: Weight: BMI: 06/15/2024 147 lb 25.83 03/15/2024 148 lb 26.01 Loss of 10% 01/13/2024 152 lb 26.71 12/15/2023 161 lb 28.44 phentermine 37.5 mg 07/01/2023 164 lb 28.82 WC 35.75 in [place] body weight: 116 lb 12.6 oz (53 kg) Adjusted ideal body weight: 130 lb 14 oz (59.4 kg) Weight promoting medications: None AOM med Phentermine 37.5 mg Benefit: decreased hunger and increased fullness SE: wakes up sometimes during the night, dry mouth Previous Diet (initial appointment): Awake - 06 0630 [place] green tea plain B - skip S - none L - 1200 16 oz coconut milk with protein shake mix or Chobani SF yogurt with berries S - after school 1600 [...] lemon, SF sparkling water Bedtime - 2300 Dietary changes: Awake - 0600 0630 [place] green tea plain B - 8-9 am 30 gm protein shake S - none WE - sometimes cheese or turkey stick L - 1130-during week/1-2 pm WE- meat/cheese sometimes in low-carb wrap or lettuce S - none D - 6-8 pm protein, veg - asparagus, broccoli or salad with oil and vinegar dressing S - 9 pm Protein pudding or occasional dark chocolate and/or pistachios Fluids - all SF Bedtime - 2300 Current Barriers: food cravings - chocolate but less so Exercise: increased walks - walks 4 miles a day or classes, started [employer] classes again 2 days/wk Stress: increased, 2 kids getting next year, one in [place] and one in [place] ; 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 CrCl cannot be calculated (Patient's most recent lab result is older than the maximum 180 days allowed.). PAST MEDICAL HISTORY Diagnosis Date Arthralgia of both lower legs 12/15/2023 Elevated LDL cholesterol level 12/15/2023 Family history of malignant neoplasm of colon 03/24/2023 IFG (impaired fasting glucose) 12/15/2023 Segmental and somatic dysfunction 07/01/2023 Current Outpatient Medications Medication Sig Dispense Refill Phentermine HCl 37.5 mg tablet Take 1 tablet by mouth daily before breakfast for 90 days. 90 tablet0 VITAMIN B COMPLEX ORAL Take by mouth. No current facility-administered medications for this visit. 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 Latest Ref Rng & Units 07/02/2023 CMP Sodium 136 - 144 mmol/L 138 Potassium 3.7 - 5.1 mmol/L 4.1 Chloride 97 - 105 mmol/L 106 CO2 22 - 30 mmol/L 24 Glucose 74 - 99 mg/dL 100 BUN 7 - 21 mg/dL 23 Creatinine 0.58 - 0.96 mg/dL 0.77 EGFR >=60 mL/min/1.73m 91 Protein, Total 6.3 - 8.0 g/dL 6.4 Albumin 3.9 - 4.9 g/dL 4.3 Calcium 8.5 - 10.2 mg/dL 9.1 Bilirubin, Total 0.2 - 1.3 mg/dL 0.2 AST 13 - 35 U/L 13 ALT 7 - 38 U/L 11 Alkaline Phosphatase 34 - 123 U/L 82 Latest Ref Rng & Units 07/02/2023 CBC WBC 3.70 - 11.00 k/uL 5.33 RBC 3.90 - 5.20 m/uL 4.46 Hemoglobin 11.5 - 15.5 g/dL 12.9 Hematocrit 36.0 - 46.0 % 38.3 MCV 80.0 - 100.0 fL 85.9 MCH 26.0 - 34.0 pg 28.9 MCHC 30.5 - 36.0 g/dL 33.7 RDW-CV 11.5 - 15.0 % 12.2 Platelet Count 150 - 400 k/uL 267 MPV 9.0 - 12.7 fL 8.5 Cholesterol, Total (mg/dL) Date Value 07/02/2023 188 03/26/2016 188 HDL Cholesterol (mg/dL) Date Value 07/02/2023 71 03/26/2016 75 LDL Cholesterol (mg/dL) Date Value 07/02/2023 108 03/26/2016 102 Triglyceride (mg/dL) Date Value 07/02/2023 43 03/26/2016 55 CrCl cannot be calculated (Patient's most recent lab result is older than the maximum 180 days allowed.). Hemoglobin A1C (%) Date Value 07/02/2023 5.3 FIB-4 Calculation: 0.81 at 07/02/2023 7:30 AM Calculated from: SGOT/AST: 13 U/L at 07/02/2023 7:30 AM SGPT/ALT: 11 U/L at 07/02/2023 7:30 AM Platelets: 267 k/uL at 07/02/2023 7:30 AM Age: 57 years Assessment/Plan: Christine Rachel is a 58 year old yo with Overweight (Pre-obesity) who presented today for follow up for supervised weight loss to treat and prevent related co-morbidities. 1. IFG (impaired fasting glucose) - ICD9: 790.21, ICD10: R73.01 (primary diagnosis) - Whole food balanced protein low-carb nutrition - PHENTERMINE 37.5 MG TABLET 2. Elevated LDL cholesterol level - ICD9: 272.0, ICD10: E78.00 - Whole food balanced protein low-carb nutrition - PHENTERMINE 37.5 MG TABLET 3. Arthralgia of both lower legs - ICD9: 719.46, ICD10: M25.561, M25.562 - improving with weight loss - Whole food balanced protein low-carb nutrition 4. Overweight (BMI 25.0-29.9) - ICD9: 278.02, ICD10: E66.3 - BMI 26.01 - 10 % weight loss. Congratulated and given information on health benefits. - PHENTERMINE 37.5 MG TABLET -can try taking half first thing in the morning and half a couple of hours later or taking dose a few hours later. Patient has met the weight loss requirement of 5% TBW in initial 3 months using phentermine withoutany adverse side effects. Pt has responded well and would like to continue use for weight management. She understands that continued use is off label for long-term management of weight control. The patient is currently enrolled in a diet and exercise program The patient has no known history of contraindications The patient is free from drug or ETHO abuse The patient is not or and is aware not to become while using this medication [place] was reviewed. PDMP website checked and validated. All prescriptions have been APPROPRIATELY filled. No suspicious activity was identified. - Continue Whole food balanced protein low-carb nutrition. Given updated snack idea list and discussed whole food options for snacking. -Continue to increase exercise and activity with a goal of 200 minutes/week. Add resistance training. Prescription instructions reviewed with patient as applicable. Potential red flag symptoms discussed with the patient. Reviewed appropriate action plan to take ifred flag symptoms occur. Patient agreeable to treatment plan. Follow up in 3 months nurse visit phentermine refill due to provider SIMA Jacques CNP Advanced Education from the [employer] Medical Decision Making: Problems: Moderate: 2+ stable chronic illnesses and 1+ chronic illnesses with change Risk: Moderate: Drug management and Moderate risk from testing/treatment Medical Decision Making Level: 4 - Moderate documented in this encounterC[facility]10-[facility]24 NoteHNO ID: [id number] Author: DIDI JACQUES APRN.CNP Service: ? Author Type: Nurse Practitioner Type: Progress Notes Filed: 06/15/2024 19:37 Note Text: Some documentation from previous visit of 03/15/2024 was copied and pasted, documentation has been reviewed and edited as necessary for today's visit. Patient Summary: Christine is a 58 year old Female who presents for follow-up evaluation of obesity/weight management to treat and prevent related co-morbidities. In our previous visits we have discussed lifestyle intervention including a nutrition recommendations and physical activity optimization. Her last office visit was 3 months ago. Assessment/plan from last visit: - Phentermine 37.5 mg at 07 Interval History PT specifies the following items as new or significant updates since the last appointment: Was at [employer] for a few weeks and then gained a couple of pounds when she started [employer] classes again - Hungrier in the evenings Weight loss since last visit 1 lbs for total of 17 lbs Date: Weight: BMI: 06/15/2024 147 lb 25.83 03/15/2024 148 lb 26.01 Loss of 10% 01/13/2024 152 lb 26.71 12/15/2023 161 lb 28.44 phentermine 37.5 mg 07/01/2023 164 lb 28.82 WC 35.75 in [place] body weight: 116 lb 12.6 oz (53 kg) Adjusted ideal body weight: 130 lb 14 oz (59.4 kg) Weight promoting medications: None AOM med Phentermine 37.5 mg Benefit: decreased hunger and increased fullness SE: wakes up sometimes during the night, dry mouth Previous Diet (initial appointment): Awake - 0600 0630 [place] green tea plain B - skip S - none L - 1200 16 oz coconut milk with protein shake mix or Chobani SF yogurt with berries S - after school 1600 [...] lemon, SF sparkling water Bedtime - 2300 Dietary changes: Awake - 0600 0630 [place] green tea plain B - 8-9 am 30 gm protein shake S - none WE - sometimes cheese or turkey stick L - 1130-during week/1-2 pm WE- meat/cheese sometimes in low-carb wrap or lettuce S - none D - 6-8 pm protein, veg - asparagus, broccoli or salad with oil and vinegar dressing S - 9 pm Protein pudding or occasional dark chocolate and/or pistachios Fluids - all SF Bedtime - 2300 Current Barriers: food cravings - chocolate but less so Exercise: increased walks - walks 4 miles a day or classes, started [employer] classes again 2 days/wk Stress: increased, 2 kids getting next year, one in [place] and one in [place] ; 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 CrCl cannot be calculated (Patient's most recent lab result is older than the maximum 180 days allowed.). PAST MEDICAL HISTORY Diagnosis Date Arthralgia of both lower legs 12/15/2023 Elevated LDL cholesterol level 12/15/2023 Family history of malignant neoplasm of colon 03/24/2023 IFG (impaired fasting glucose) 12/15/2023 Segmental and somatic dysfunction 07/01/2023 Current Outpatient Medications Medication Sig Dispense Refill Phentermine HCl 37.5 mg tablet Take 1 tablet by mouth daily before breakfast for 90 days. 90 tablet 0 VITAMIN B COMPLEX ORAL Take by mouth. No current facility-administered medications for this visit. 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 Results: recent labs reviewed with the patient. Latest Ref Rng AND Units 07/02/2023 CMP Sodium 136 - 144 mmol/L 138 Potassium 3.7 - 5.1 mmol/L 4.1 Chloride 97 - 105 mmol/L 106 CO2 22 - 30 mmol/L 24 Glucose 74 - 99 mg/dL 100 BUN 7 - 21 mg/dL 23 Creatinine 0.58 - 0.96 mg/dL 0.77 EGFR >=60 mL/min/1.73m? 91 Protein, Total 6.3 - 8.0 g/dL 6.4 Albumin 3.9 - 4.9 g/dL 4.3 Calcium 8.5 - 10.2 mg/dL 9.1 Bilirubin, Total 0.2 - 1.3 mg/dL 0.2 AST 13 - 35 U/L 13 ALT 7 - 38 U/L 11 Alkaline Phosphatase 34 - 123 U/L 82 Latest Ref Rng AND Units 07/02/2023 CBC WBC 3.70 - 11.00 k/uL 5.33 RBC 3.90 - 5.20 m/uL 4.46 Hemoglobin 11.5 - 15.5 g/dL 12.9 Hematocrit 36.0 - 46.0 % 38.3 MCV 80.0 - 100.0 fL 85.9 MCH 26.0 - 34.0 pg 28.9 MCHC 30.5 - 36.0 g/dL 33.7 RDW-CV 11.5 - 15.0 % 12.2 Platelet Count 150 - 400 k/uL 267 MPV 9.0 - 12.7 fL 8.5 Cholesterol, Total (mg/dL) Date Value 07/02/2023 188 03/26/2016 188 HDL Cholesterol (mg/dL) Date Value 07/02/2023 71 03/26/2016 75 LDL Cholesterol (mg/dL) Date Value 07/02/2023 108 03/26/2016 102 Triglyceride (mg/dL) Date Value 07/02/2023 43 03/26/2016 55 CrCl cannot be calculate (more content not included)...[facility]07-03-[facility] Instructions* Patient Instructions* Didi Jacques APRN.SPLITTING MACHINE OPERATOR - 03/15/2024 9:44 AM EDT Protein needs currently - 80-100 g/day When thinking about weight-loss, one often has an ideal body weight in mind or an ultimate weight-loss goal. It s very common for people to think that unless they lose dozens of pounds, they will notbe any healthier. This is a misconception. Studies have shown that health benefits resulting from weight-loss are evident with a weight reduction as low as 5-10 percent. This means that an individual that weighs 200 pounds will benefit greatly from losing 10 to 20 pounds. A 5-10 percent weight-loss can result in: A five point increase in HDL cholesterol. Decrease triglycerides by an average of 40 mg/dl Decrease in blood pressure, both systolic and diastolic, by 5 mmHg on average. Decrease HgB A1C by half a point on average Significant decrease in insulin levels May improve sleep apnea and sometimes if the apnea was not very severe, one can be weaned from the CPAP breathing machine Decrease in levels of inflammatory substances circulating in the blood drop significantly and therefore the risk of vascular damage is reduced as well High Protein Snack Ideas 1. Jerky 2. Whiting mix without dried fruit 3. Pruden roll-ups 4. Surinamese yogurt 5. Veggies and yogurt dip 6. Tuna 7. Hard-boiled eggs 8. Peanut butter with celery 9. Cheese slices/ Cheese Stick 10. Handful of almonds, peanuts or walnuts 11. Cottage Cheese 12. Beef sticks 13. Protein bars 14. Canned Nitro 15. Pumpkin seeds 16. Nut butter 17. Protein shakes 18. Avocado and chicken salad 19. Egg muffins 20. Leftover protein or lunch meat 21. 1/2 c blended cottage cheese with 1 Tbsp sugar-free dry cheesecake pudding mix 12g protein 10 carb 22. Pudding - 1 30 gm protein shake with 1/2 pkg sugar-free pudding 4 svgs - 7.8 gm protein, 5 [place] svg documented in this encounterC[facility] History of Present illness Narrative* Didi Jacques APRN.BETTINA - 03/15/2024 9:30 AM EDT Images from the original note were not included. Some documentation from previous visit of 01/13/2024 was copied and pasted, documentation has been reviewed and edited as necessary for today's visit. Patient Summary: Christine is a 58 year old Female who presents for follow-up evaluation of obesity/weight management to treat and prevent related co- morbidities. In our previous visits we have discussedlifestyle intervention including a nutrition recommendations and physical activity optimization. Her last office visit was 2 months ago. Assessment/plan from last visit: Whole food balanced protein low-carb nutrition Phentermine 37.5 mg at 07 Interval History PT specifies the following items as new or significant updates since the last appointment: Feeling good but wishes she would lose weight faster Set-point for 3 weeks Weight loss since last visit 4 lbs for total of 16 lbs 03/15/2024 148 lb BMI 26.01 Loss of 10% 01/13/2024 152 lb BMI 26.71 12/15/2023 161 lb BMI 28.44 phentermine 37.5 mg 07/01/2023 164 lb BMI 28.82 WC 35.75 in [place] body weight: 116 lb 12.6 oz (53 kg) Adjusted ideal body weight: 130 lb 14 oz (59.4 kg) Weight promoting medications: None AOM med Phentermine 37.5 mg Benefit: decreased hunger and increased fullness SE: wakes up sometimes during the night, dry mouth Previous Diet (initial appointment): Awake - 0600 0630 [place] green tea plain B - skip S - none L - 1200 16 oz coconut milk with protein shake mix or Chobani SF yogurt with berries S - after school 1600 [...] lemon, SF sparkling water Bedtime - 2300 Dietary changes: Awake - 0600 0630 [place] green tea plain B - 8-9 am 30 gm protein shake S - none L - 1 pm - meat/cheese sometimes in low-carb wrap or lettuce and watermelon eating over 1-2 hours S - none D - 6-8 pm protein, veg - asparagus, broccoli or salad with oil and vinegar dressing S - popcorn or pistachios Fluids - all SF Bedtime - 2300 Current Barriers:salty crunchy craving, snack in evenings Exercise: stable walks - walks 4 miles a day or classes Stress: increased, 2 kids getting next year, one in [place] and one in [place] ; 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 CrCl cannot be calculated (Patient's most recent lab result is older than the maximum 180 days allowed.). PAST MEDICAL HISTORY Diagnosis Date Arthralgia of both lower legs 12/15/2023 Elevated LDL cholesterol level 12/15/2023 Family history of malignant neoplasm of colon 03/24/2023 IFG (impaired fasting glucose) 12/15/2023 Segmental and somatic dysfunction 07/01/2023 Current Outpatient Medications Medication Sig Dispense Refill VITAMIN B COMPLEX ORAL Take by mouth. No current facility-administered medications for this visit. 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 Latest Ref Rng & Units 07/02/2023 CMP Sodium 136 - 144 mmol/L 138 Potassium 3.7 - 5.1 mmol/L 4.1 Chloride 97 - 105 mmol/L 106 CO2 22 - 30 mmol/L 24 Glucose 74 - 99 mg/dL 100 BUN 7 - 21 mg/dL 23 Creatinine 0.58 - 0.96 mg/dL 0.77 EGFR >=60 mL/min/1.73m 91 Protein, Total 6.3 - 8.0 g/dL 6.4 Albumin 3.9 - 4.9 g/dL 4.3 Calcium 8.5 - 10.2 mg/dL 9.1 Bilirubin, Total 0.2 - 1.3 mg/dL 0.2 AST 13 - 35 U/L 13 ALT 7 - 38 U/L 11 Alkaline Phosphatase 34 - 123 U/L 82 Latest Ref Rng & Units 07/02/2023 CBC WBC 3.70 - 11.00 k/uL 5.33 RBC 3.90 - 5.20 m/uL 4.46 Hemoglobin 11.5 - 15.5 g/dL 12.9 Hematocrit 36.0 - 46.0 % 38.3 MCV 80.0 - 100.0 fL 85.9 MCH 26.0 - 34.0 pg 28.9 MCHC 30.5 - 36.0 g/dL 33.7 RDW-CV 11.5 - 15.0 % 12.2 Platelet Count 150 - 400 k/uL 267 MPV 9.0 - 12.7 fL 8.5 Cholesterol, Total (mg/dL) Date Value 07/02/2023 188 03/26/2016 188 HDL Cholesterol (mg/dL) Date Value 07/02/2023 71 03/26/2016 75 LDL Cholesterol (mg/dL) Date Value 07/02/2023 108 03/26/2016 102 Triglyceride (mg/dL) Date Value 07/02/2023 43 03/26/2016 55 CrCl cannot be calculated (Patient's most recent lab result is older than the maximum 180 days allowed.). Hemoglobin A1C (%) Date Value 07/02/2023 5.3 FIB-4 Calculation: 0.81 at 07/02/2023 7:30 AM Calculated from: SGOT/AST: 13 U/L at 07/02/2023 7:30 AM SGPT/ALT: 11 U/L at 07/02/2023 7:30 AM Platelets: 267 k/uL at 07/02/2023 7:30 AM Age: 57 years Assessment/Plan: Christine Rachel is a 58 year old yo with Overweight (Pre-obesity) who presented today for follow up for supervised weight loss to treat and prevent related co-morbidities. 1. IFG (impaired fasting glucose) - ICD9: 790.21, ICD10: R73.01 (primary diagnosis) - Whole food balanced protein low-carb nutrition - PHENTERMINE 37.5 MG TABLET 2. Elevated LDL cholesterol level - ICD9: 272.0, ICD10: E78.00 - Whole food balanced protein low-carb nutrition - PHENTERMINE 37.5 MG TABLET 3. Arthralgia of both lower legs - ICD9: 719.46, ICD10: M25.561, M25.562 - benefits of weight loss - Whole food balanced protein low-carb nutrition 4. Overweight (BMI 25.0-29.9) - ICD9: 278.02, ICD10: E66.3 - BMI 26.01 - 10 % weight loss. Congratulated and given information on health benefits. - PHENTERMINE 37.5 MG TABLET The patient is currently enrolled in a diet and exercise program The patient has no known history of contraindications The patient is free from drug or ETHO abuse The patient is not or and is aware not to become while using this medication OARS was reviewed. PDMP website checked and validated. All prescriptions have been APPROPRIATELY filled. No suspicious activity was identified. - Continue Whole food balanced protein low-carb nutrition. Given updated snack idea list and discussed whole food options for snacking. - increase exercise and activity with a goal of 200 minutes/week. Add resistance training. Prescription instructions reviewed with patient as applicable. Potential red flag symptoms discussed with the patient. Reviewed appropriate action plan to take ifred flag symptoms occur. Patient agreeable to treatment plan. Follow up in 3 months Didi Jacques CNP Advanced Education from the Obesity [employer] Association Medical Decision Making: Problems: Moderate: 1+ chronic illnesses with change Risk: Moderate: Drug management and Moderate risk from testing/treatment Medical Decision Making Level: 4 - Moderate documented in this encounterC[facility] NoteHNO ID: [id number] Author: DIDI JACQUES APRN.CNP Service: ? Author Type: Nurse Practitioner Type: Progress Notes Filed: 03/15/2024 11:07 Note Text: Some documentation from previous visit of 01/13/2024 was copied and pasted, documentation has been reviewed and edited as necessary for today's visit. Patient Summary: Christine is a 58 year old Female who presents for follow-up evaluation of obesity/weight management to treat and prevent related co-morbidities. In our previous visits we have discussed lifestyle intervention including a nutrition recommendations and physical activity optimization. Her last office visit was 2 months ago. Assessment/plan from last visit: Whole food balanced protein low-carb nutrition Phentermine 37.5 mg at 07 Interval History PT specifies the following items as new or significant updates since the last appointment: Feeling good but wishes she would lose weight faster Set-point for 3 weeks Weight loss since last visit 4 lbs for total of 16 lbs 03/15/2024 148 lb BMI 26.01 Loss of 10% 01/13/2024 152 lb BMI 26.71 12/15/2023 161 lb BMI 28.44 phentermine 37.5 mg 07/01/2023 164 lb BMI 28.82 WC 35.75 in [place] body weight: 116 lb 12.6 oz (53 kg) Adjusted ideal body weight: 130 lb 14 oz (59.4 kg) Weight promoting medications: None AOM med Phentermine 37.5 mg Benefit: decreased hunger and increased fullness SE: wakes up sometimes during the night, dry mouth Previous Diet (initial appointment): Awake - 0600 0630 [place] green tea plain B - skip S - none L - 1200 16 oz coconut milk with protein shake mix or Chobani SF yogurt with berries S - after school 1600 [...] lemon, SF sparkling water Bedtime - 2300 Dietary changes: Awake - 0600 0630 [place] green tea plain B - 8-9 am 30 gm protein shake S - none L - 1 pm - meat/cheese sometimes in low-carb wrap or lettuce and watermelon eating over 1-2 hours S - none D - 6-8 pm protein, veg - asparagus, broccoli or salad with oil and vinegar dressing S - popcorn or pistachios Fluids - all SF Bedtime - 2300 Current Barriers:salty crunchy craving, snack in evenings Exercise: stable walks - walks 4 miles a day or classes Stress: increased, 2 kids getting next year, one in [place] and one in [place] ; 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 CrCl cannot be calculated (Patient's most recent lab result is older than the maximum 180 days allowed.). PAST MEDICAL HISTORY Diagnosis Date Arthralgia of both lower legs 12/15/2023 Elevated LDL cholesterol level 12/15/2023 Family history of malignant neoplasm of colon 03/24/2023 IFG (impaired fasting glucose) 12/15/2023 Segmental and somatic dysfunction 07/01/2023 Current Outpatient Medications Medication Sig Dispense Refill VITAMIN B COMPLEX ORAL Take by mouth. No current facility-administered medications for this visit. 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 Results: recent labs reviewed with the patient. Latest Ref Rng AND Units 07/02/2023 CMP Sodium 136 - 144 mmol/L 138 Potassium 3.7 - 5.1 mmol/L 4.1 Chloride 97 - 105 mmol/L 106 CO2 22 - 30 mmol/L 24 Glucose 74 - 99 mg/dL 100 BUN 7 - 21 mg/dL 23 Creatinine 0.58 - 0.96 mg/dL 0.77 EGFR >=60 mL/min/1.73m? 91 Protein, Total 6.3 - 8.0 g/dL 6.4 Albumin 3.9 - 4.9 g/dL 4.3 Calcium 8.5 - 10.2 mg/dL 9.1 Bilirubin, Total 0.2 - 1.3 mg/dL 0.2 AST 13 - 35 U/L 13 ALT 7 - 38 U/L 11 Alkaline Phosphatase 34 - 123 U/L 82 Latest Ref Rng AND Units 07/02/2023 CBC WBC 3.70 - 11.00 k/uL 5.33 RBC 3.90 - 5.20 m/uL 4.46 Hemoglobin 11.5 - 15.5 g/dL 12.9 Hematocrit 36.0 - 46.0 % 38.3 MCV 80.0 - 100.0 fL 85.9 MCH 26.0 - 34.0 pg 28.9 MCHC 30.5 - 36.0 g/dL 33.7 RDW-CV 11.5 - 15.0 % 12.2 Platelet Count 150 - 400 k/uL 267 MPV 9.0 - 12.7 fL 8.5 Cholesterol, Total (mg/dL) Date Value 07/02/2023 188 03/26/2016 188 HDL Cholesterol (mg/dL) Date Value 07/02/2023 71 03/26/2016 75 LDL Cholesterol (mg/dL) Date Value 07/02/2023 108 03/26/2016 102 Triglyceride (mg/dL) Date Value 07/02/2023 43 03/26/2016 55 CrCl cannot be calculated (Patient's most recent lab result is older than the maximum 180 days allowed.). Hemoglobin A1C (%) Date Value 07/02/2023 5.3 FIB-4 Calculation: 0.81 at 07/02/2023 7:30 AM Calculated from: SGOT/AST: 13 U/L at 07/02/2023 7:30 AM SGPT/ALT: 11 U/L at 07/02/2023 7:30 AM Pl (more content not included)...[facility]05-02-2024 Instructions* Patient Instructions* Didi Jacques APRN.SPLITTING MACHINE OPERATOR - 01/13/2024 4:40 PM EDT Protein needs for weight loss - 83-103 gm/day - Whole food low-carb diet with 30 g of protein 3 times a day and up to 30 g of carbs at lunch and dinner only. Meals - protein is a goal and carbohydrates are a limit Snacks - all protein or more protein than carbs B - skip or 30 gm protein shake S - none L - [id number] - 30 gm protein shake or veg and Ranch and cheese stick could add yogurt, beef sticks, HB eggs S - none S - 4 pm meat stick or cheese D - 6-8 pm 4 oz protein, veg - asparagus, broccoli or salad with oil and vinegar dressing S - none Protein - no carbs Egg 1 large - 6g Egg white 1 large 3.6g 3 oz is approximately the size of a deck of cards and equals 21 g protein so 4 oz is 28 gm protein Beef, Chicken, Pruden, Pork, Lock 1 oz 7g Fish, Tuna Fish 1 oz 7g (Starkist tuna packet 2.6 oz 17 gm protein) Seafood (Crabmeat, Shrimp, Lobster) 1 oz 6g Protein shakes (read labels) Premier Protein or generic [employer] Equate, [employer] High Performance- 30g protein & 1g [...] protein & 2 carb Protein AND carbs Beef/Pruden Jerky 1 oz dried 10-15g protein - check carb count, can be high if sugar added Slim Vin - 6 gm protein and 4 net carb Great Value original turkey sausage sticks - 7 gm protein and 2 gm carb Javier (at [facility]) Original smoked sausage sticks - 8 gm protein and 0 carb Imitation Crab Meat 1 oz - 2g protein & 4g carb Milk, skim 2% or 1% 8 oz - 8g protein & 12g carb Surinamese yogurt Full Fat Surinamese Yogurt 1 cup - 20.4g protein & 9.1g carb 2% Surinamese Yogurt 1 cup - 22.7g protein & 9.1g carb 0% (fat-free) Surinamese Yogurt - 1 cup 24g protein & 9.3g carb :ratio, KETO Friendly Dairy Snack 1 single svg - 15g protein & 2g carb :ratio Protein 1 single svg - 25g protein & 8g carb Dannon Light + Fit 1 single csvg - 12g protein & 9g carb Two Good Lowfat Surinamese Yogurt, Peterson, Lower Sugar - 12g protein & 2g carb Oikos Triple Zero Surinamese Nonfat Yogurt 1 single svg - 15g protein & 7g carb Oikos Pro 20 gm protein Aldi Protein Surinamese yogurt 15g protein & 7g carb Cheese each oz Brie 5.9g protein & 0.1g carb Cheddar Cheese 7g protein & 0.4g carb Mozzarella Cheese 6.3g protein & 0.6g carb Hong Cheese 6.7g protein & 0.7g carb Parmesan Cheese 10g protein & 0.9g carb Cream Cheese 1.7g protein & 1.2g carb Feta 4g protein & 1.2g carb Australian Cheese 7.6g protein & 1.5g carb Tyler s Low Fat Cottage Cheese 1/2cup 12g protein & 4g carb Legumes Lentils cup 9g protein & 20g carb Devine beans cup 7g protein & 20g carb Kidney, Black, [place], Cannellini beans cup 8g protein & 20g carb Soybeans 1/2 c 14g complete protein & 8.5g carb Peanut butter, natural 2 Tbsp 7-8g protein & 4g net carbs, 190 calories PB2 powder 2 Tbsp 6g protein & 5g carb [place] milk, unsweetened 8 oz 1g protein & 2g carb Soy milk 8 oz 3.5g protein & 1.6g carb Tofu 1/2 cup 10g protein & 2.3g carb Nuts and Seeds per oz Pumpkin Seeds - 6.9g protein & 5g carb Almonds - 5.9g protein & 6.1g carb [place] Seeds - 5.8g protein & 5.6g carb Pistachios - 5.8g protein & 7.8g carb Cashews - 5.1g protein & 9.2g carb Walnuts - 4.3g protein & 3.8g carb Hazelnuts - 4.2g protein & 4.7g carb [place] Nuts - 4.0g protein & 3.4g carb Pecans - 2.6g protein & 3.9g carb Peanuts - 7g protein & 4.6g carb Hemp seeds 3 T/30 gms - 9.5 gm complete protein and 2.5 gm carb documented in this encounterC[facility] History of Present illness Narrative* Didi Jacques APRN.BETTINA - 01/12/2024 3:25 PM EDT Images from the original note were not included. Some documentation from previous visit of 12/15/2023 was copied and pasted, documentation has been reviewed and edited as necessary for today's visit. Patient Summary: Christine is a 58 year old Female who presents for follow-up evaluation of obesity/weight management to treat and prevent related co- morbidities. In our previous visits we have discussedlifestyle intervention including a nutrition recommendations and physical activity optimization. Her last office visit was 1 month ago. Assessment/plan from last visit: Whole food balanced protein low-carb nutrition Phentermine 37.5 mg Interval History PT specifies the following items as new or significant updates since the last appointment: Feeling good Weight loss since last visit 9 lbs for total of 12 lbs 01/13/2024 152 lb BMI 26.71 12/15/2023 161 lb BMI 28.44 phentermine 37.5 mg 07/01/2023- 164 lb BMI 28.82 WC 35.75 in [place] body weight: 116 lb 12.6 oz (53 kg) Adjusted ideal body weight: 130 lb 14 oz (59.4 kg) Weight promoting medications: None AOM med Phentermine 37.5 mg Benefit: decreased hunger and increased fullness SE: wakes up sometimes during the night, dry mouth Previous Diet (initial appointment): Awake - 0600 0630 [place] green tea plain B - skip S - none L - 1200 16 oz coconut milk with protein shake mix or Chobani SF yogurt with berries S - after school 1600 [...] lemon, SF sparkling water Bedtime - 2300 Dietary changes: Awake - 0600 0630 [place] green tea plain B - skip or 30 gm protein shake S - none L - [id number] - 30 gm protein shake or veg and dip and cheese stick S - none S - 4 pm meat stick or cheese D - 6-8 pm protein, veg - asparagus, broccoli or salad with oil and vinegar dressing S - none Fluids - all SF Bedtime - 2300 Current Barriers:none Exercise: stable walks - walks 4 miles a day or classes Stress: stable Work - trying to decide if she wants to retire Sleep: Duration: 6-7 hours. CrCl cannot be calculated (Patient's most recent lab result is older than the maximum 180 days allowed.). PAST MEDICAL HISTORY Diagnosis Date Arthralgia of both lower legs 12/15/2023 Elevated LDL cholesterol level 12/15/2023 Family history of malignant neoplasm of colon 03/24/2023 IFG (impaired fasting glucose) 12/15/2023 Segmental and somatic dysfunction 07/01/2023 Current Outpatient Medications Medication Sig Dispense Refill VITAMIN B COMPLEX ORAL Take by mouth. Phentermine HCl 37.5 mg tablet Take 1 tablet by mouth daily before breakfast for 30 days. 30 tablet0 No current facility-administered medications for this visit. 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 Latest Ref Rng & Units 07/02/2023 CMP Sodium 136 - 144 mmol/L 138 Potassium 3.7 - 5.1 mmol/L 4.1 Chloride 97 - 105 mmol/L 106 CO2 22 - 30 mmol/L 24 Glucose 74 - 99 mg/dL 100 BUN 7 - 21 mg/dL 23 Creatinine 0.58 - 0.96 mg/dL 0.77 EGFR >=60 mL/min/1.73m 91 Protein, Total 6.3 - 8.0 g/dL 6.4 Albumin 3.9 - 4.9 g/dL 4.3 Calcium 8.5 - 10.2 mg/dL 9.1 Bilirubin, Total 0.2 - 1.3 mg/dL 0.2 AST 13 - 35 U/L 13 ALT 7 - 38 U/L 11 Alkaline Phosphatase 34 - 123 U/L 82 Latest Ref Rng & Units 07/02/2023 CBC WBC 3.70 - 11.00 k/uL 5.33 RBC 3.90 - 5.20 m/uL 4.46 Hemoglobin 11.5 - 15.5 g/dL 12.9 Hematocrit 36.0 - 46.0 % 38.3 MCV 80.0 - 100.0 fL 85.9 MCH 26.0 - 34.0 pg 28.9 MCHC 30.5 - 36.0 g/dL 33.7 RDW-CV 11.5 - 15.0 % 12.2 Platelet Count 150 - 400 k/uL 267 MPV 9.0 - 12.7 fL 8.5 Cholesterol, Total (mg/dL) Date Value 07/02/2023 188 03/26/2016 188 HDL Cholesterol (mg/dL) Date Value 07/02/2023 71 03/26/2016 75 LDL Cholesterol (mg/dL) Date Value 07/02/2023 108 03/26/2016 102 Triglyceride (mg/dL) Date Value 07/02/2023 43 03/26/2016 55 CrCl cannot be calculated (Patient's most recent lab result is older than the maximum 180 days allowed.). Hemoglobin A1C (%) Date Value 07/02/2023 5.3 FIB-4 Calculation: 0.81 at 07/02/2023 7:30 AM Calculated from: SGOT/AST: 13 U/L at 07/02/2023 7:30 AM SGPT/ALT: 11 U/L at 07/02/2023 7:30 AM Platelets: 267 k/uL at 07/02/2023 7:30 AM Age: 57 years Assessment/Plan: Christine Rachel is a 58 year old yo with Overweight (Pre-obesity) who presented today for follow up for supervised weight loss to treat and prevent related co-morbidities. ASSESSMENT/PLAN: 1. IFG (impaired fasting glucose) - ICD9: 790.21, ICD10: R73.01 (primary diagnosis) - Whole food balanced protein low-carb nutrition - PHENTERMINE 37.5 MG TABLET 2. Elevated LDL cholesterol level - ICD9: 272.0, ICD10: E78.00 - Whole food balanced protein low-carb nutrition - PHENTERMINE 37.5 MG TABLET 3. Arthralgia of both lower legs - ICD9: 719.46, ICD10: M25.561, M25.562 - benefits of weight loss discussed - Whole food balanced protein low-carb nutrition 4. Overweight (BMI 25.0-29.9) - ICD9: 278.02, ICD10: E66.3 - BMI 28.44 - PHENTERMINE 37.5 MG TABLET The patient is currently enrolled in a diet and exercise program The patient has no known history of contraindications The patient is free from drug or ETHO abuse The patient is not or and is aware not to become while using this medication OARS was reviewed. PDMP website checked and validated. All prescriptions have been APPROPRIATELY filled. No suspicious activity was identified. - Continue Whole food balanced protein low-carb nutrition - increase exercise and activity with a goal of 200 minutes/week. Add resistance training. Prescription instructions reviewed with patient as applicable. Potential red flag symptoms discussed with the patient. Reviewed appropriate action plan to take ifred flag symptoms occur. Patient agreeable to treatment plan. Follow up in 2 months Didi Jacques CNP Advanced Education from the Obesity Medicine Association Medical Decision Making: Problems: Moderate: 1+ chronic illnesses with change Risk: Moderate: Drug management and Moderate risk from testing/treatment Medical Decision Making Level: 4 - Moderate documented in this encounterC[facility] Instructions* Patient Instructions* Didi Jacques APRN.CNP - 12/15/2023 10:17 AM EDT Images from the original note were not included. PHENTERMINE -- Please take tablet or capsule as directed. May need to decrease dose or stop if uncontrolled BP or sustained elevated pulse. -- Please monitor your blood pressure (either purchase BP cuff, or go to pharmacy to check your BP at a local pharmacy). Please avoid any stimulants (in the form of caffeinated beverages like coffee,tea, sports drinks) and caution with decongestants. We will require an updated blood pressure and heart rate at follow up visits (this includes virtual visits). -- Please monitor for , if at any point you become please stop the medication. THIS IS A SUMMARY OF OUR DISCUSSION ABOUT THIS MEDICATION. PLEASE READ IT IS IMPORTANT FOR YOUR WEIGHT LOSS PLAN Per updated [place] state rules, initially, a one month supply of phentermine is prescribed. You will need to be seen every month for the first 3 months for follow-up and to assess effectiveness with a total 5% weight loss in that 3 month period. If the phentermine is effective for you, treatment with phentermine can continue with a one month supply of phentermine prescribed at a time with 2 refills. You, the patient, are responsible for making an appointment to see a provider within 12 weeks in order to get a refill of this medication. It is imperative that you get this (and future) phentermine prescriptions within 7 days as pharmacists will NOT refill prescriptions outside this 7 day window per State law. Phentermine can only be prescribed for a 3 month interval at a time. You are aware of the following statements per the [facility] pharmacy board rules. 1. Timely refills are required 2. Every 12 weeks office visits are required. 3. ALL prescriptions need to be filled within 7 days of the written prescription 4. Refills need to be done EVEN IF there is medication still available ? Phentermine (fen ter meen) What are the common names? Adipex-P, Ionamin Why is this medication prescribed? Phentermine was approved by the FDA in 1959 for short term weight loss. It works by decreasing appetite. Phentermine is absorbed by the body and travels to the appetite center of the brain. It works by helping you feel less hungry, less driven to eat, more satisfied with less food. I ve heard about fen-phen. Will phentermine affect my heart? The two drug combination fenfluramine/phentermine, usually called fen-phen, became popular in the early as a diet pill. However, it was withdrawn by the FDA in late 1996 after studies which showed that fenfluramine can cause fatal pulmonary hypertension and heart valve problems. Phentermine is not a combination medication and does not contain the compound fenfluramine. What special precautions should I follow? Before having phentermine prescribed, tell your doctor and pharmacist: If you have allergies to any component of phentermine If you are , plan to become , are breast-feeding, or if you become while taking phentermine What are the absolute contraindications? Stroke or Transient Ischemic Attacks Cardiac arrhythmias or Atrial fibrillation Coronary artery disease Seizure Disorder Uncontrolled blood pressure Angina Congestive Heart Failure Valvular Heart Disease or primary pulmonary hypertension Drug interactions. Use of monamine oxidase inhibitors (MAOI s) What are the side effects of phentermine? Immediately discontinue the medicine and seek medical help if you have severe symptoms such as chest pain, shortness of breath, feeling faint, ability to think clearly, eye pain or other visual symptoms: Palpitations (strong or rapid heartbeat) Difficulty sleeping or falling asleep Elevated blood pressure Dry mouth Anxiety or agitation Getting a stimulant/or hyper effect or jitteriness-(Usually goes away after a few days or weeks) Glaucoma In case of emergency/overdose In case of overdose, call your local poison control center at or call local emergency services at 178. What other information should I know? Keep all appointments with your doctor and the laboratory. Do not let anyone else take your medication. Phentermine is a controlled substance. It is FDA approved for up to 3 months. Prescriptions may be refilled only a limited number of times. Keep a written list of all of your prescription and nonprescription ([id number]) medicines, in addition to vitamins, minerals, or other dietary supplements. If you are taking the extended-release (long-acting) tablets, do not split, chew, or crush them tablet. There are some tablets that can be crushed and mixed with food Alcohol can make the side effects of phentermine worse How should I monitor while on this medication? Please check your blood pressure (BP) and resting pulse weekly (twice a week in the first 2 weeks).If the BP is over 140/90 (either one), or if the resting pulse is over 96 per minute (count for 10 seconds and multiply by 6), then stop the medication and call your doctor. Continue to improve your dietary and physical activity habits as the combination works best while on this medication. Start out by taking the medication in the morning at least 30 minutes prior to meals. If the effectseems to wear off by dinner time, try taking it later in the morning, but taking too late may result in trouble falling asleep. Be sure to eat regular meals. Less hunger does not make it appropriate to skip meals. Monitor your caffeine intake and use of decongestants as they may worsen the effects of phentermine Make sure to have an eye exam, including the pressure in your eyes (intra-ocular pressure), once a year. What should I do if I forget a dose? Skip the missed dose and continue your regular dosing schedule the next day. Do not take a double dose to make up for a missed one. Sources [facility] Consumer Medication Info: http://www.ncbi.nlm.nih.gov/pubmedhealth/VFN6980163/ AMA patient handouts: http://www.amaassn.org/ama1/pub/upload/mm/433/phrxsurgery.pdf Drugs.com: http://www.drugs.com/pro/phentermine.html B - skip S - none L - [id number] - 30 gm protein shake 5 eggs or 2 eggs with meat and cheese S - 2 pm - protein bar IQ bar S - 4 pm cheese, leftovers picks at accessible foods D - 6-8 pm protein, 1-2 veg, occasional potato or rice S - 8 pm - 3-4/7 - Whole food low-carb diet with 30 g of protein 3 times a day and up to 30 g of carbs at lunch and dinner only. Meals - protein is a goal and carbohydrates are a limit Snacks - all protein or more protein than carbs Use tracking log as a worksheet and bring with you to your next appointment. Protein - no carbs Egg 1 large - 6g Egg white 1 large 3.6g 3 oz is approximately the size of a deck of cards and equals 21 g protein Beef, Chicken, Pruden, Pork, Lock 1 oz 7g Fish, Tuna Fish 1 oz 7g (Starkist tuna packet 2.6 oz 17 gm protein) Seafood (Crabmeat, Shrimp, Lobster) 1 oz 6g Protein shakes (read labels) Premier Protein or generic [employer] Equate, Nellyjer High Performance- 30g protein & 1g carb [...] protein & 2 carb Protein AND carbs Beef/Pruden Jerky 1 oz dried 10-15g protein - check carb count, can be high if sugar added Slim Vin - 6 gm protein and 4 net carb Great Value original turkey sausage sticks - 7 gm protein and 2 gm carb Ruddy & Neri (at [employer]) Original smoked sausage sticks - 8 gm protein and 0 carb Imitation Crab Meat 1 oz - 2g protein & 4g carb Milk, skim 2% or 1% 8 oz - 8g protein & 12g carb Surinamese yogurt Full Fat Sur[place]amese Yogurt 1 cup - 20.4g protein & 9.1g carb 2% Sur[place]amese Yogurt 1 cup - 22.7g protein & 9.1g carb 0% (fat-free) [place]amese Yogurt - 1 cup 24g protein & 9.3g carb :ratio, KETO Friendly Dairy Snack 1 single svg - 15g protein & 2g carb :ratio Protein 1 single svg - 25g protein & 8g carb Dannon Light + Fit 1 single csvg - 12g protein & 9g carb Two Good Lowfat [place]e Yogurt, Peterson, Lower Sugar - 12g protein & 2g carb Oikos Triple Zero Sur[place]amese Nonfat Yogurt 1 single svg - 15g protein & 7g carb Aldi Protein [place]e yogurt 15g protein & 7g carb Cheese each oz Brie 5.9g protein & 0.1g carb Cheddar Cheese 7g protein & 0.4g carb Mozzarella Cheese 6.3g protein & 0.6g carb Hnog Cheese 6.7g protein & 0.7g carb Parmesan Cheese 10g protein & 0.9g carb Cream Cheese 1.7g protein & 1.2g carb Feta 4g protein & 1.2g carb Australian Cheese 7.6g protein & 1.5g carb Tyler s Low Fat Cottage Cheese 1/2cup 12g protein & 4g carb Legumes Lentils cup 9g protein & 20g carb Devine beans cup 7g protein & 20g carb Kidney, Black, [place], Cannellini beans cup 8g protein & 20g carb Soybeans 1/2 c 14g protein & 8.5g carb Peanut butter, natural 2 Tbsp 7-8g protein & 4g net carbs, 190 calories PB2 powder 2 Tbsp 6g protein & 5g carb [place] milk, unsweetened 8 oz 1g protein & 2g carb Soy milk 8 oz 3.5g protein & 1.6g carb Tofu 1/2 cup 10g protein & 2.3g carb Nuts and Seeds per oz Pumpkin Seeds - 6.9g protein & 5g carb Almonds - 5.9g protein & 6.1g carb Hendry Seeds - 5.8g protein & 5.6g carb Pistachios - 5.8g protein & 7.8g carb Cashews - 5.1g protein & 9.2g carb Walnuts - 4.3g protein & 3.8g carb Hazelnuts - 4.2g protein & 4.7g carb Wellington Nuts - 4.0g protein & 3.4g carb [...] Cabbage Spinach Peppers Green beans Carrots Tomato [place] Posey sprouts Cauliflower Lettuce Snap peas Broccoli Eggplant Zucchini Turnips Spaghetti squash Brussel sprouts 15 gram carb vegetable options cup cooked [...] cup baked beans 4 tablespoons nut butter Grains Brown rice 1/2 c 5.5g protein 24 carb White long-grain rice 1/2 c 2g protein 22.5 carb Quinoa 1/2 c 4 gm complete protein 25 carb Oatmeal, old fashioned 1/2 c 5g protein 27g carb 30 High Protein Snack Ideas 1. Jerky 2. Whiting mix without dried fruit 3. Pruden roll-ups 4. Surinamese yogurt 5. Veggies and yogurt dip 6. Tuna 7. Hard-boiled eggs 8. Peanut butter with celery 9. Cheese slices/ Cheese Stick 10. Handful of almonds, peanuts or walnuts 11. Cottage Cheese 12. Beef sticks 13. Protein bars 14. Canned Nitro 15. Pumpkin seeds 16. Nut butter 17. Protein shakes 18. Avocado and chicken salad 19. Egg muffins 20. Leftover protein or lunch meat 21. 1/2 c blended cottage cheese with 1 Tbsp sugar-free dry cheesecake pudding mix 12g protein 10 carb documented in this encounterC[facility] History of Present illness Narrative* Didi Jacques APRN.SPLITTING MACHINE OPERATOR - 12/15/2023 9:30 AM EDT Some documentation from previous visit of 07/01/2023 was copied and pasted, documentation has been reviewed and edited as necessary for today's visit. Patient Summary: Christine is a 58 year old Female who presents for follow-up evaluation of obesity/weight management to treat and prevent related co- morbidities. In our previous visits we have discussedlifestyle intervention including a nutrition recommendations and physical activity optimization. Her last office visit was 5 months ago. Assessment/plan from last visit: Whole food balanced protein low-carb nutrition Interval History PT specifies the following items as new or significant updates since the last appointment: Busy with had knee replacement and vacation. Loses a couple of pounds and then can gain it back on a weekend Weight loss since last vist: 3 lbs 12/15/2023 161 lb BMI 28.44 07/01/2023- 164 lb BMI 28.82 WC 35.75 in Weight promoting medications: none Previous Diet (initial appointment): Awake - 0600 0630 [place] green tea [...] lemon, SF sparkling water Bedtime - 2300 Dietary changes: Awake - 0600 0630 [place] green tea plain sometimes adds almond milk later in day B - skip S - none L - [id number] - 30 gm protein shake S - 2 pm - protein bar IQ bar S - 4 pm cheese, occasional apple, leftovers picks at accessible foods D - 6-8 pm protein, 1-2 veg, occasional potato or rice S - 8 pm - 3-4/7 popcorn or pretzels Fluids - all SF Bedtime - 2300 Current Barriers: grazing/irregular meal patterns Exercise: stable walks - walks 4 miles a day or classes Stress: increased Work - trying to decide if she wants to retire Sleep: Duration: 6-7 hours. Estimated Creatinine Clearance: 78.8 mL/min (based on SCr of 0.77 mg/dL). PAST MEDICAL HISTORY Diagnosis Date NEGATIVE MEDICAL HISTORY Current Outpatient Medications Medication Sig Dispense Refill VITAMIN B COMPLEX ORAL Take by mouth. No current facility-administered medications for this visit. 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 Glucose (mg/dL) Date Value 07/02/2023 100 Potassium (mmol/L) Date Value 07/02/2023 4.1 Sodium (mmol/L) Date Value 07/02/2023 138 Chloride (mmol/L) Date Value 07/02/2023 106 CO2 (mmol/L) Date Value 07/02/2023 24 Creatinine (mg/dL) Date Value 07/02/2023 0.77 BUN (mg/dL) Date Value 07/02/2023 23 Anion Gap (mmol/L) Date Value 07/02/2023 8 Calcium, Total (mg/dL) Date Value 07/02/2023 9.1 Protein, Total (g/dL) Date Value 07/02/2023 6.4 Albumin (g/dL) Date Value 07/02/2023 4.3 Bilirubin, Total (mg/dL) Date Value 07/02/2023 0.2 Alkaline Phosphatase (U/L) Date Value 07/02/2023 82 AST (U/L) Date Value 07/02/2023 13 ALT (U/L) Date Value 07/02/2023 11 WBC (k/uL) Date Value 07/02/2023 5.33 RBC (m/uL) Date Value 07/02/2023 4.46 Hemoglobin (g/dL) Date Value 07/02/2023 12.9 Hematocrit (%) Date Value 07/02/2023 38.3 MCV (fL) Date Value 07/02/2023 85.9 MCH (pg) Date Value 07/02/2023 28.9 MCHC (g/dL) Date Value 07/02/2023 33.7 RDW-CV (%) Date Value 07/02/2023 12.2 Platelet Count (k/uL) Date Value 07/02/2023 267 MPV (fL) Date Value 07/02/2023 8.5 (L) Cholesterol, Total (mg/dL) Date Value 07/02/2023 188 03/26/2016 188 HDL Cholesterol (mg/dL) Date Value 07/02/2023 71 03/26/2016 75 LDL Cholesterol (mg/dL) Date Value 07/02/2023 108 03/26/2016 102 Triglyceride (mg/dL) Date Value 07/02/2023 43 03/26/2016 55 Estimated Creatinine Clearance: 78.8 mL/min (based on SCr of 0.77 mg/dL). Hemoglobin A1C (%) Date Value 07/02/2023 5.3 FIB-4 Calculation: 0.81 at 07/02/2023 7:30 AM Calculated from: SGOT/AST: 13 U/L at 07/02/2023 7:30 AM SGPT/ALT: 11 U/L at 07/02/2023 7:30 AM Platelets: 267 k/uL at 07/02/2023 7:30 AM Age: 57 years Assessment/Plan: Christine Rachel is a 58 year old yo with Overweight (Pre-obesity) who presented today for follow up for supervised weight loss to treat and prevent related co-morbidities. ASSESSMENT/PLAN: 1. IFG (impaired fasting glucose) - ICD9: 790.21, ICD10: R73.01 (primary diagnosis) - benefits of weight loss discussed - Whole food balanced protein low-carb nutrition - PHENTERMINE 37.5 MG TABLET 2. Elevated LDL cholesterol level - ICD9: 272.0, ICD10: E78.00 - benefits of weight loss discussed - Whole food balanced protein low-carb nutrition - PHENTERMINE 37.5 MG TABLET 3. Arthralgia of both lower legs - ICD9: 719.46, ICD10: M25.561, M25.562 - benefits of weight loss discussed - Whole food balanced protein low-carb nutrition 4. Overweight (BMI 25.0-29.9) - ICD9: 278.02, ICD10: E66.3 - BMI 28.44 - PHENTERMINE 37.5 MG TABLET - treatment of co-morbidities with weight loss and suspected sluggish metabolism Phentermine. Risk/benefits discussed at length including potential side effects of increased anxiety, insomnia, increased heart rate, and increased blood pressure. I have asked the patient to monitorblood pressure and avoid any stimulants (in the form of caffeinated beverages like coffee, tea, sports drinks) initially. Patient denies history of arrhythmias, coronary artery disease (atherosclerosis), heart failure, pulmonary hypertension, stroke, valvular heart disease (prolapse, regurgitation,stenosis). The patient is currently enrolled in a diet and exercise program The patient has no known history of contraindications The patient is free from drug or ETHO abuse The patient is not or and is aware not to become while using this medication OARS was reviewed. PDMP website checked and validated. All prescriptions have been APPROPRIATELY filled. No suspicious activity was identified. - Whole food low-carb diet with 30 g of protein 3 times a day and up to 30 g of carbs at lunch and dinner only. Meals - protein is a goal and carbohydrates are a limit Snacks - all protein or more protein than carbs Use tracking log as a worksheet and bring with you to your next appointment. - increase exercise and activity with a goal of 200 minutes/week. Add resistance training. Prescription instructions reviewed with patient as applicable. Potential red flag symptoms discussed with the patient. Reviewed appropriate action plan to take ifred flag symptoms occur. Patient agreeable to treatment plan. Follow up in 4 weeks Didi Jacques CNP Advanced Education from the Obesity [employer] Association I spent a total of 74 minutes on the date of the service which included preparing to see the patient, [id number] patient care, completing clinical documentation, obtaining and/or reviewing separately obtained history, performing a medically appropriate examination, counseling and educating the pat ient/family/caregiver, and ordering medications, tests, or procedures. documented in this encounterC[facility]01-[facility] NotePap Smear Specimen AdequacyJanuary 2023 11:47amComment.Satisfactory for evaluation. Endocervical and/or squamous metaplasticcells (endocervical component)are present.[facility] INTERFACED A#[id number] Va Medical CenterComment on above: Satisfactory for evaluation. Endocervical and/or squamous metaplasticcells (endocervical component)are present.10-13-2023 NotePap Smear Specimen Adequacy October 13, 2023 12:47pmComment.Satisfactory for evaluation. Endocervical and/or squamous metaplasticcells (endocervical component)are present.[facility] INTERFACED A#[id number] Va Medical CenterComment on above:Satisfactory for evaluation. Endocervical and/or squamous metaplasticcells (endocervical component)are present.07-01-2023 History of Present illness Narrative* Didi Jacques APRN.SPLITTING MACHINE OPERATOR - 07/01/2023 8:00 AM EDT Images from the original note were not included. Christine Rachel is a 57 year old female with obesity who presents for an initial evaluation of overweight/obesity to treat and prevent co-morbidities and is interested in behavioral . Motivation for seeking treatment for the disease of overweight/obesity : wants to feel better aboutself and health. Can not lose weight since menopause despite exercise modifying diet Goal weight: 140-145 Lowest recall weight: 140 Highest recall weight: 165 Patient identified barriers to weight loss: none Weight History: She reports no family history of obesity and late adulthood weight gain. She states her weight gainis related to the following factors, including onset [...] of diet:Structured, evening snacking, and skip meals. 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 The date to complete this order is 07-01-2023 The Jessica program is: NIGHT CLERK AUDITOR [facility] WHAT TO EXPECT AT YOUR APPOINTMENT The patient access code to view the Jessica program is: [id number] To view the Jessica program go to: [email or web address] Impression: Christine Rachel is a 57 year [...] severity and resistance of the obesity/overweight with co- morbidities, I believe a behavioral intervention is the best and most appropriate long-term therapeutic option. -- We discussed several strategies [...] training and cardiovascular exercise is the best salvage determiner plan. An overall goal of 150-200 minutes per week of exercise has been effective in weight loss and maintenance. -- Reviewed that monitoring weight daily and food intake can have a positive impact on overall weight loss and maintenance of weight loss. Activity tracking can be used to stay on target for exercisehowever should not be used to reward oneself -- follow-up visit in 4 weeks for management of above interventions Didi Jacques APRN.SPLITTING MACHINE OPERATOR I spent a total of 75 minutes on the date of the service which included preparing to see the patient, [id number] patient care, completing clinical documentation, obtaining and/or reviewing separately obtained history, performing a medically appropriate examination, counseling and educating the pat ient/family/caregiver, and ordering medications, tests, or procedures. documented in this encounterC[facility]10-19-[facility] Instructions* Patient Instructions* Didi Jacques APRN.CNP - 07/01/2023 7:49 AM [...] time you will have triumphs, setbacks and plateaus-your body will fight against you but we [...] it adds only a little benefit for salvage determiner weight loss success. However, exercise can have many other benefits including improving mental health and cardiovascular health. Do not feel overwhelmed- we will discuss this moreat your visits. Our time will be limited with each visit but we will try to touch on factors that are important to you and to your overall goals. We will try to set a goal at the end of each visit and then decide onwhat we want to accomplish with your upcoming [...] factor. There are medications that work well forsome and not for others- so it may [...] that affects nearly one-third of the adult [place] population (approximately 60 million). The number of overweight and obese Americans has continued to increase since 1959, a trend that is not slowing down. Today, 64.5 percent of adult Americans (about 127 million) are categorized as being overweight or obese. Each year, obesity causes at least 300,000 excess deaths in the [place] and healthcare costs of [place] adults with obesity amount to approximately $100 [...] many calories while not getting enough exercise) andpsychological components. It is the second leading cause of preventable in the [place] Behavioral changes brought on by economic development, modernization and urbanization have been linked to therise in global obesity. Calculating BMI Body Mass [...] found to increase concurrently with higher BMI. Prematuredeath, a 20-year shorter life span, has also [...] the gallbladder, breast, uterus, cervix, or ovaries [email or web address]-[email or web address]-[email or web address] ducation Nutrition - Eat primarily whole foods. Limit carbs, especially processed carbs. - Do not drink your calories - 30 grams of protein for breakfast decreases your hunger during the day by up to 40 % Premier Protein or generic 30 gm protein 1 gm sugar - Walk for 15 minutes immediately a meal. Sincerely, Ngozi Caicedo, MD, FACOG & Didi Jacques CNP - Whole food low-carb diet with 30 g of protein 3 times a day and 30 g of carbs at lunch and dinneronly. Meals - protein is a goal and [...] and equals 21 g protein Beef, Chicken, Pruden, Pork, Lock 1 oz 7g Fish, Tuna Fish 1 oz 7g Seafood (Crabmeat, Shrimp, Lobster) 1 oz 6g Protein shakes (read labels) Premier Protein or generic [employer] Equate, Aldi Elevate, [employer] High Performance- 30g protein &1g carb - meal replacement Premier Protein plant [...] protein & 2 carb Protein AND carbs Beef/Pruden Jerky 1 oz dried 10-15g protein - [...] oz - 8g protein & 12g carb Surinamese yogurt Full Fat Surinamese Yogurt 1 cup - 20.4g protein & 9.1g carb 2% [place]e Yogurt 1 cup - 22.7g protein & 9.1g carb 0% (fat-free) [place]e Yogurt - 1 cup 24g protein & 9.3g carb :ratio, KETO Friendly Dairy Snack 1 single svg - 15g protein & 2g carb :ratio Protein 1 single svg - 25g protein & 8g carb Dannon Light + Fit 1 single csvg - 12g protein & 9g carb Two Good Lowfat [place] Yogurt, Peterson, Lower Sugar - 12g protein & 2g carb Oikos Triple Zero [place]e Nonfat Yogurt 1 single svg - 15g protein & 7g carb Cheese each oz Brie 5.9g protein & 0.1g carb Cheddar Cheese 7g protein & 0.4g carb Mozzarella Cheese 6.3g protein & 0.6g carb Hong Cheese 6.7g protein & 0.7g carb Parmesan Cheese 10g protein & 0.9g carb Cream Cheese 1.7g protein & 1.2g carb Feta 4g protein & 1.2g carb Australian Cheese 7.6g protein & 1.5g carb Tyler s Low Fat Cottage Cheese 1/2cup 12g protein & 4g carb Legumes Lentils cup 9g protein & 20g carb Devine beans cup 7g protein & 20g carb Kidney, Black, [place], Cannellini beans cup 8g protein & 20g carb Soybeans 1/2 c 14g protein & 8.5g carb Peanut butter, natural 2 Tbsp 7-8g protein & 4g net carbs, 190 calories [place] milk, unsweetened 8 oz 1g protein & 2g carb Soy milk 8 oz 3.5g protein & 1.6g carb Tofu 1/2 cup 10g protein & 2.3g carb Nuts and Seeds per oz Pumpkin Seeds - 6.9g protein & 5g carb Almonds - 5.9g protein & 6.1g carb Hendry Seeds - 5.8g protein & 5.6g carb Pistachios - 5.8g protein & 7.8g carb Cashews - 5.1g protein & 9.2g carb Walnuts - 4.3g protein & 3.8g carb Hazelnuts - 4.2g protein & 4.7g carb [place] Nuts - 4.0g protein & 3.4g carb [...] Cabbage Spinach Peppers Green beans Carrots Tomato [place] Posey sprouts Cauliflower Lettuce Snap peas Broccoli [...] High Protein Snack Ideas 1. Jerky 2. Whiting mix without or minimal dried fruit 3. Pruden roll-ups 4. Surinamese yogurt 5. Veggies and yogurt dip 6. Tuna 7. Hard-boiled eggs 8. Peanut butter celery sticks 9. No-bake energy bites 10. Cheese slices/ Cheese Stick 11. Handful of almonds 12. Roasted chickpeas 13. Hummus and veggies 14. Cottage Cheese 15. Celery/fruit with peanut butter 16. Beef sticks (Grass-fed, natural ingredients) 17. Protein bars 18. Canned Nitro 19. Alexandro pudding 20. Homemade granola - rolled oats, nuts, and a little sweetener - 1/4 cup serving 21. Pumpkin seeds 22. Nut butter 23. Protein shakes 24. Edamame 25. Avocado and chicken salad 26. Fruit and nut bars - natural ingredients without added sugar. 27. Lentil salad 28. Overnight oatmeal 29. Egg muffins 30. Leftover protein or lunch meat [facility] noteNo assessment information availableWCleveland Clinic [facility] Work Phone: Evaluation note* Diagnosis Malaise and fatigue- Primary Other malaise and fatigue Arthralgia of both lower legs Encounter for vitamin deficiency screening Screening for other and unspecified endocrine, nutritional, metabolic, and immunity disorders Screening for diabetes mellitus Screening for deficiency anemia Screening for other and unspecified deficiency anemia Screening cholesterol level Screening for lipoid disorders Screening for thyroid disorder Overweight (BMI 25.0-29.9) Overweight documented in this encounter [facility] note* Diagnosis Onset Date Resolution Status Atrophic vaginitis acute Varicose veins of left lower leg acute Encounter for routine gynecological examination noneactive [facility] Work Phone: evaluation note* Diagnosis Onset Date Resolution Status Atrophic vaginitis acute Varicose veins of left lower leg acute Encounter for routine gynecological examination noneactive Varicose veins of left lower leg acute Venous insufficiency acute [facility] Work Phone: Evaluation note* Diagnosis IFG (impaired fasting glucose)- Primary Impaired fasting glucose Elevated LDL cholesterol level Pure hypercholesterolemia Arthralgia of both lower legs Overweight (BMI 25.0-29.9) Overweight documented in this encounter [facility] note* Diagnosis IFG (impaired fasting glucose)- Primary Impaired fasting glucose Elevated LDL cholesterol level Pure hypercholesterolemia Arthralgia of both lower legs Overweight (BMI 25.0-29.9) Overweight documented in this encounter [facility] note* Diagnosis IFG (impaired fasting glucose)- Primary Impaired fasting glucose Elevated LDL cholesterol level Pure hypercholesterolemia Arthralgia of both lower legs Overweight (BMI 25.0-29.9) Overweight documented in this encounter [facility] note* Diagnosis IFG (impaired fasting glucose)- Primary Impaired fasting glucose Elevated LDL cholesterol level Pure hypercholesterolemia Arthralgia of both lower legs Overweight (BMI 25.0-29.9) Overweight documented in this encounter [facility] note* Diagnosis Body mass index (BMI) of 28.0-28.9 in adult- Primary Body Mass Index 28.0-28.9, adult IFG (impaired fasting glucose) Impaired fasting glucose Elevated LDL cholesterol level Pure hypercholesterolemia Overweight (BMI 25.0-29.9) Overweight documented in this encounter [facility] note* Diagnosis IFG (impaired fasting glucose)- Primary Impaired fasting glucose Elevated LDL cholesterol level Pure hypercholesterolemia Arthralgia of both lower legs Overweight (BMI 25.0-29.9) Overweight documented in this encounter [facility] note* Diagnosis IFG (impaired fasting glucose)- Primary Impaired fasting glucose Elevated LDL cholesterol level Pure hypercholesterolemia Arthralgia of both lower legs Overweight (BMI 25.0-29.9) Overweight documented in this encounter [facility] note* Diagnosis IFG (impaired fasting glucose)- Primary Impaired fasting glucose Elevated LDL cholesterol level Pure hypercholesterolemia Arthralgia of both lower legs Overweight (BMI 25.0-29.9) Overweight documented in this encounter 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) SCREENING CONSULT-VARICOSE VEINS Reason for Visit Atrophic vaginitis Varicose veins of left lower leg Encounter for routine gynecological examination Varicose veins of left lower leg Venous insufficiency Chief Complaint 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) SCREENING CONSULT-VARICOSE VEINS Venous insufficiency (chronic) (peripheral) Reason for Visit Atrophic vaginitis Varicose veins of left lower leg Encounter for routine gynecological examination Varicose veins of left lower leg Venous insufficiency Chief Complaint Admit Date 1 Y FU March 06, 2025 2:32 pm Chief Complaint Admit Date 1 Y FU March 06, 2025 2:32 pm breast cancer screening March 12, 2025 1:41pm Reason for Visit Admit Date Varicose veins of left lower extremity w ith pain March 06, 2025 2:32pm Family History No Family History Records Found Relationship Condition Age at Onset Recorded Date/T adolfo Not Specified Malignant neoplasm Unknown Asthma Unknown father Malignant neoplasm of colon Unknown grandfather Malignant neoplasm of colon Unknown Relationship Condition Age at Onset Recorded Date/T adolfo father Malignant neoplasm of colon Unknown grandfather Malignant neoplasm of colon Unknown Advance Directives No Advanced Directives Records Found Advance Directive Response Recorded Date/ Time Living Will No February 24, 2023 8:07am Power of Welder Setter Resistance Machine No February 24 8:07am Advance Directive Response Recorded Date/ Time Living Will No February 24, 2023 9:07am Power of Welder Setter Resistance Machine No February 24 9:07am Reason for Referral Specialty Diagnoses / Procedures Referred By Contac t Referred To Contact Diagnoses IFG (impaired fasting glucose) Overweight (BMI 25.0-29.9) Elevated LDL cholesterol level Didi Jacques APRN.SPLITTING MACHINE OPERATOR [address] [place] [address] Referral ID Status Reason Start Date Expiration Date Visits Re quested Visits Authorized [id number] Closed 1 1 Specialty Diagnoses / Procedures Referred By Contac t Referred To Contact Diagnoses IFG (impaired fasting glucose) Elevated LDL cholesterol level Overweight (BMI 25.0-29.9) Didi Jacques APRN.SPLITTING MACHINE OPERATOR [address] [place] [address] Referral ID Status Reason Start Date Expiration Date Visits Re quested Visits Authorized [id number] Closed 1 1 Summary Purpose Additional Source Comments Source Comments (unrecognize d section and content) In the event this informatio n is protected by the Federal Confidentiality of Alcohol and Drug Abuse Patient Records regulations: The Federal rules restrict any use of the information to criminally investigate or prosecute any alcohol or drug abuse patient.[facility] RehabilitationIn the event this information is protected by the Federal Confidentiality of Alcohol and Drug Abuse Patient Records regulations: The Federal rules restrict any use of the information to criminally investigate or prosecute any alcohol or drug abuse patient.[facility] RehabilitationIn the event this information is protected by the Federal Confidentiality of Alcohol and Drug Abuse Patient Records regulations: The Federal rules restrict any use of the information to criminally investigate or prosecute any alcohol or drug abuse patient.[facility] RehabilitationIn the event this information is protected by the Federal Confidentiality of Alcohol and Drug Abuse Patient Records regulations: The Federal rules restrict any use of the information to criminally investigate or prosecute any alcohol or drug abuse patient.[facility] RehabilitationIn the event this information is protected by the Federal Confidentiality of Alcohol and Drug Abuse Patient Records regulations: The Federal rules restrict any use of the information to criminally investigate or prosecute any alcohol or drug abuse patient.[facility] RehabilitationIn the event this information is protected by the Federal Confidentiality of Alcohol and Drug Abuse Patient Records regulations: The Federal rules restrict any use of the information to criminally investigate or prosecute any alcohol or drug abuse patient.[facility] RehabilitationIn the event this information is protected by the Federal Confidentiality of Alcohol and Drug Abuse Patient Records regulations: The Federal rules restrict any use of the information to criminally investigate or prosecute any alcohol or drug abuse patient.[facility] RehabilitationIn the event this information is protected by the Federal Confidentiality of Alcohol and Drug Abuse Patient Records regulations: The Federal rules restrict any use of the information to criminally investigate or prosecute any alcohol or drug abuse patient.[facility] RehabilitationIn the event this information is protected by the Federal Confidentiality of Alcohol and Drug Abuse Patient Records regulations: The Federal rules restrict any use of the information to criminally investigate or prosecute any alcohol or drug abuse patient.[facility] Reason for Visit (unrecogniz ed section and content) Reason Onset Date Comments Weight Management 07/01/2023 Reason Comments Weight Management Reason Comments Weight Management Follow Up Reason Comments Weight Management Reason Comments Weight Check BP Check Care Teams (unrecognized sec tion and content) Team Status: Active Member Role Status Dates Dr. Didi Cueto MD Family Provider Active Dr. Didi Cueto MD Primary Care Provider Active Team Status: Inactive Member Role Status Dates Dr. Didi Cueto MD Primary Care Provider, Referrin g Provider Active Tere Hong DIRECTOR LIFE SALES, DIRECTOR LIFE SALES-C Attending Provider Active Team Status: Inactive Member Role Status Dates Dr. Didi Cueto MD Primary Care Provider Active Tere Hong DIRECTOR LIFE SALES, DIRECTOR LIFE SALES-C Attending Provider, Referring Provider Active Team Status: Inactive Member Role Status Dates Dr. Didi Cueto MD Primary Care Provider, Referrin g Provider Active CHAN Anderson Attending Provider Active Team Status: Active Member Role Status Dates Dr. Didi Cueto MD Primary Care Provider Active Dr. Brett White MD Attending Provider Active Team Status: Inactive Member Role Status Dates Dr. 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 Start Date End Date Didi Cueto [address] [facility] [address] [place] [address] PCP - General Family Medicine 01/13/24 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 Relationship 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 Didi Cueto MD Primary Care Provider Active Start: March 06, 2025 End: March 06, 2025 Dr. 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 Didi Cueto MD Primary Care Provider Active Team Status: Inactive Member Role/Relationship Status Dates Dr. Didi Cueto MD Primary Care Provider Active Start: March 06, 2025 End: March 06, 2025 Dr. Didi Cueto MD Referring Provider Active Start: March 06, 2025 End: March 06, 2025 CHAN Anderson Attending Provider Active Star t: March 06, 2025 End: March 06, 2025 Team Status: Inactive Member Role/Relationship Status Dates Dr. Didi Cueto MD Primary Care Provider Active Start: March 12, 2025 End: March 12, 2025 Tere Hong DIRECTOR LIFE SALES, DIRECTOR LIFE SALES-C Attending Provider Active Start: March 12, 2025 End: March 12, 2025 Tere Hong NP, DIRECTOR LIFE SALES-C Referring Provider Active Start: March 12, 2025 End: March 12, 2025 INFORMATION SOURCE (unrecogn ized section and content) DATE CREATED AUTHOR 03/09/2025 [facility] DATE CREATED AUTHOR AUTHOR'S TITO JAIME 04/04/2025 [facility] FOR RECORDS PERTAINING TO PATIENTS WHO ARE [...] BE BASED ON THE PRIMARY CLINICAL RECORDS. [facility]. provides no warranty or guarantee of the accuracy or completeness of information in this document.
--- NOTE | 2025-04-19 14:53 | OP.PCM_ITS ---
Operative Report (Standard) Operative Information Date of Procedure: 04/19/25 Pre-Operative Diagnosis: Varicose veins with pain of the left lower extremity Post-Operative Diagnosis: Same Surgery/Procedure Performed: Chemical ablation left great saphenous vein nurse private duty: No Type of Anesthesia: Local and Sedation,Conscious Procedure Start Time: 10:55 Procedure Stop Time: 11:20 Select all DRAINS/GRAFTS/IMPLANTS that apply: None Estimated Blood Loss: 2 Specimen collected: No Description of surgery: HPI: Patient is a 59-year-old female with painful varicose veins of the left lower extremity which are refractory to compression garments. She had venous reflux studies which revealed incompetent veins from the great saphenous vein at the saphenofemoral junction to the calf where significant varicosities were present. She is taken now for chemical ablation of the great saphenous vein. Description of procedure: Upon obtaining informed consent and verification correct patient procedure site the patient was taken to the Skip Loader where she was positioned prepped and draped in usual sterile fashion. Time was performed consultation administered Versed and fentanyl. Ultrasound was used to evaluate the great saphenous vein from the ankle or to the saphenofemoral junction. There was a section within the mid calf which was very small caliber with large torturous varicosities originate inferior to this and then joining with the vessel at the location what return to normal caliber. Otherwise a great saphenous vein was normal in caliber from this location to the junction. It was felt that the ablation guide and catheter would not traverse this small caliber section so skin overlying the great saphenous vein at the confluence with the varicosity was anesthetized 1% lidocaine the vessel accessed under ultrasound guidance with a micropuncture needle wire. This then exchanged for a 7 Latvian ablation sheath which was advanced without resistance. Through the sheath the ablation guide was advanced and positioned 5 cm inferior to the saphenofemoral junction. Next the ablation catheter was prepped per certified ethical hacker's instructions and advanced through the guide and positioned 5 cm inferior to the saphenofemoral junction. Chemical ablation adhesive was then deposited beginning at this position per certified ethical hacker's instructions down to the sheath. Upon completion the guide and catheter withdrawn followed by manual pressure and removal of the 7 Latvian sheath and access site pressure until hemostasis was observed. The saphenofemoral junction and common femoral vein were then inspected with ultrasound and found to be patent with no evidence of extension into the deep system. Dry sterile dressing and Prosper wrap were then applied the patient was taken to recovery area with plan discharged to home. Surgical Findings: See above Complications Complications: No
== END 2025-04-19 12:30 | disposition home or self-care (01) ==
PROVIDERS: Referring Provider Surgery Trauma Surgery; Visit Provider Surgery Trauma Surgery
DX: I83.812 Varicose veins of left lower extremity with pain (principal); Z79.899 Other long term (current) drug therapy
CPT/HCPCS: 36415; 36482; 80048; 85027; 99152; 99153; C1894

== ENCOUNTER → 2025-04-25 | Outpatient (CLI) | payer OTHER, SELFPAY ==
--- NOTE | 2025-04-25 10:06 | VDLE_ITS ---
Reason For Study Reason For Study: S/P ablation RIGHT LEFT CFV is compressible, spontaneous, phasic, competent CFV is compressible, spontaneous, phasic, competent, and demonstrates normal augmentation. and demonstrates normal augmentation. Procedure FV is compressible, spontaneous, phasic, competent and This is a venous duplex using B-mode, color flow and demonstrates normal augmentation. spectral Doppler. POP V is compressible, spontaneous, phasic, competent Exam performed in department. and demonstrates normal augmentation. A preliminary report was called and/or faxed to Laura T/P Trunk is compressible. BRIM AND CROWN PRESSER. PTV is compressible. LT PerV is compressible. GSV is occluded from junction to knee s/p Venaseal ablation 04/19/2025. SFJ is partially NONCOMPRESSIBLE, thrombus extends 0.57 cm into CFV. VL/Venous Duplex US, Unilateral Interpretation Summary Left great saphenous vein occluded consistent with recent ablation. Thrombus extension into common femroal vein, 5.7 mm, less than 50%. Ordering Physician: Pauline Vo Performed By: Ana Laura Grey RVT
--- OUTSIDE RECORDS SUMMARY | 2025-04-25 18:34 | XMS RPT_ITS | CCD ---
Author Organization [facility] CliniSynv Care Team Providers Care Elevator Erector Name Role Phone Unavailable Primary Care Provider Unavailabl e Dr. Didi Cueto Primary Care Provider Dr. Didi Cueto Referring Provider Hal DIRECTOR OF FOOD AND BEVERAGE SERVICES, DIRECTOR OF FOOD AND BEVERAGE SERVICES-C Tere Attending Provider CHAN Vo Attending Provider [phone] Didi Cueto Primary Care Provider Dr. Didi Cueto Referring Provider Hal DIRECTOR OF FOOD AND BEVERAGE SERVICES, DIRECTOR OF FOOD AND BEVERAGE SERVICES-C Tere Attending Provider CHAN Vo Attending Provider [phone] Brett White Attending Provider [phone] Didi Cueto Primary Care Provider Dr. Didi Cueto MD Primary Care Provider Dr. Didi Cueto MD Referring Provider Pauline Nagy Attending Provider [phone] JOLLIFFDIDI Primary Care Unavailable JACQUES, DIDI Referring Unavailable [...] Unavailable JACQUES, DIDI Attending Unavailable Hal DIRECTOR OF FOOD AND BEVERAGE SERVICES-C, Tere Attending Provider Hal DIRECTOR OF FOOD AND BEVERAGE SERVICES-CTere Referring Provider Cindy HUTCHISON, Dr. West Attending Provider Cindy HUTCHISON, Dr. West Referring Provider Care Physician, No Primary Primary Care Provider Unavailable Dr. Brett White MD Other Provider Brett White Attending Unavailable Brett White Referring Unavailable Care Physician, No Primary Primary Care Unava ilable Hal DIRECTOR OF FOOD AND BEVERAGE SERVICES, Tere Referring Unavailable Jolliff, Didi S Primary Care Unavailable Hal DIRECTOR OF FOOD AND BEVERAGE SERVICES, Tere Attending Unavailable Vo, Pauline Attending Unavailable Vo, Pauline Referring Unavailable Jolliff, Didi S Primary Care Unavailable Vo, Pauline Attending Unavailable Jolliff, Didi S Primary Care Unavailable Jolliff, Didi S Referring Unavailable Brett White Consulting Unavailable Brett White Attending Unavailable Brett White Referring Unavailable Care Physician, No Primary Primary Care Unava ilable Medications Current Medications Medication Drug Class(es) Dates Sig (Normalized) Sig (Original) ascorbic acid 500 mg oral tablet (3 sources) Vitamin C Start: 03-06-2025 take 1 tablet by mouth once daily Ascorbic Acid (Vitamin C) 500 mg tablet Active 500 mg PO daily March 06, 2025 12:00am ascorbic acid/vit B12/zinc (VITAMIN C-VITAMIN [id number] ORAL) (4 sources) ascorbic acid/vi t B12/zinc (VITAMIN C-VITAMIN [id number] ORAL) Take by mouth once daily. Active cholecalciferol 0.125 mg oral capsule (8 sources) Vitamin D Start: 03-06-2025 take 1 capsule by mouth once daily Cholecalciferol (Vitamin D3) 125 mcg (5,000 unit) capsule Active 125 ug PO daily March 06, 2025 12:00am Cholecalciferol, Vitamin D3, (VITAMIN D-3) 50 mcg (2,000 unit) cap Take by mouth. Active Multivitamin preparation (3 sources) Start: 12-15-2022 take 1 tablet by mouth once daily Multivitamin Active 1 TABLET PO DAILY December 15, 2022 12:00am Start: 12-15-2022 take 1 tablet by erick once daily Multivitamin Active 1 TABLET PO DAILY December 14, 2022 11:00pm Multivitamin tablet (3 sources) Start: 12-15-2022 Multivitamin tablet Active 1 {tbl} PO DAILY December 15, 2022 12:00am phentermine hydrochloride 37.5 mg oral capsule (15 sources) Sympathomimetic Amine Anorectic Start: 03-06-2025 take 1 capsule by mouth once daily 30 minutes after breakfast Phentermine 37.5 mg capsule Active 37.5 mg PO daily March 06, 2025 [...] 0 03/15/2024 06/13/2024 Active Start: 12-15-2023 End: 03-13-2024 take 1 tablet by mouth once daily before breakfast Phentermine HCl 37.5 mg tablet Indications: IFG (impaired fasting glucose) , Elevated LDL cholesterol level , Overweight (BMI 25.0-29.9) Take 1 tablet by mouth daily before breakfast for 60 days. 60 tablet 0 01/13/2024 03/13/2024 Active Comment on above: Take 1 tablet by erick th daily before breakfast for 30 days. Turmeric extract (10 sources) Start: 02-24-2023 take 1 capsule by [...] Take by mouth. Vitamin B Complex Tablet (3 sources) Start: 02-24-2023 Vitamin B Comp abelino Tablet Active 1 {tbl} PO DAILY February 24, 2023 12:00am Completed/Discontinued Medications Medication Drug Class(es) Dates Sig (Normalized) Sig (Original) sulfamethoxazole 800 mg / trimethoprim 160 mg oral tablet (6 sources) Dihydrofolate Reductase Inhibitor Antibacterial, Sulfonamide Antimicrobial Start: 11-02-2017 End: 11-07-2017 Sulfamethoxazole- Trimethoprim 800-160 mg tablet Discontinued 1 {tbl} PO [...] Translations: [Other malaise] 07-01-2023 Episodic Menopausal disorders (9 sources) Atrophic vaginitis; Translations: [Postmenopausal atrophic vaginitis] 10-13-2023 Chronic Comment on above: denies SX Other aftercare (3 sources) Surgical follow-up; Translations: [Encounter for surgical aftercare following surgery on the circulatory system] 12-21-2023 Episodic Other bone disease and musculoskeletal deformities (20 sources) Segmental and somatic dysfunction; Translations: [Segmental and somatic dysfunction of lumbar region] Onset: 07-01-2023 07-01-2023 Episodic Other diseases of veins and lymphatics (5 sources) Vascular insufficiency; Translations: [Venous insufficiency (chronic) [...] conditions (not mental disorders or infectious disease) (18 sources) Patient encounter status; Translations: [Encounter for screening for nutritional disorder] Onset: 03-14-2025 07-01-2023 Episodic Other upper respiratory infections (6 sources) Acute pharyngitis; Translations: [Acute pharyngitis, unspecified] 10-30-2022 Episodic Residual codes; unclassified (16 sources) Family history of cancer of colon; Translations: [Family history of malignant neoplasm of digestive organs] Onset: 03-24-2023 07-01-2023 Episodic Comment on above: negative Empower david ting Spondylosis; intervertebral disc disorders; other back problems (7 sources) Lumbar radiculitis; Translations: [Radiculopathy, lumbar region] 07-12-2018 Episodic Varicose veins of lower extremity (16 sources) Asymptomatic varicose veins of left lower extremity; Translations: [Varicose veins of left lower leg] Onset: 04-19-2025 10-13-2023 Episodic Past or Other Problems Problem [...] Test Name Value Interpretation Reference Range Facility Anion gap in Serum or Plasma Ordered By: Brett White on 04-19-2025 Anion gap [Moles/Vol] 8 mmol/L 5-15 [facility] BUN/creatinine ratioOrdered By: Brett White on 04-19-2025 Urea nitrogen/Creatinine [Mass ratio] 27.0 mg/mg [facility] Basic Metabolic Profile (BMP )on 04-19-2025 BUN/CRE 27.0 RATIO [facility] Comment on above: Performed By: #### L 500.2500, L100.0500 #### [facility] [address] [place], [address] Calcium [Mass/Vol] 9.3 mg/dL Normal 7.6-11.0 [facility] Comment on above: Performed By: #### L 500.2500, L100.0500 #### [facility] [address] [place], [address] Chloride [Moles/Vol] 107 mmol/L Normal 98-108 [facility] Comment on above: Performed By: #### L 500.2500, L100.0500 #### [facility] [address] [place], [address] CO2 [Moles/Vol] 26.0 mmol/L Normal 21.0-32.0 [facility] Comment on above: Performed By: #### L 500.2500, L100.0500 #### [facility] [address] [place], [address] Creatinine [Mass/Vol] 0.80 mg/dL Normal 0.70-1.20 [facility] Comment on above: Performed By: #### L 500.2500, L100.0500 #### [facility] [address] [place], [address] ECRCL 72.06 ml/min Normal 50-250 [facility] Comment on above: Performed By: #### L 500.2500, L100.0500 #### [facility] [address] [place], [address] GAP 8 Normal 5-15 [facility] Comment on above: Performed By: #### L 500.2500, L100.0500 #### [facility] [address] [place], [address] GFR/1.73 sq M.predicted among non-blacks MDRD (S/P/Bld) [Vol rate/Area] 87 mL/min/{1.73_m2} Normal >60 [facility] Comment on above: Result Comment: mL/m in/1.73m2 CKD-EPI Creatinine Equation (2020) Performed By: #### L 500.2500, L100.0500 #### [facility] [address] [place], [address] Glucose [Mass/Vol] 97 mg/dL Normal 70-99 [facility] Comment on above: Performed By: #### L 500.2500, L100.0500 #### [facility] [address] [place], [address] Potassium [Moles/Vol] 4.3 mmol/L Normal 3.3-5.1 [facility] Comment on above: Performed By: #### L 500.2500, L100.0500 #### [facility] [address] [place], [address] Sodium [Moles/Vol] 141 mmol/L Normal 133-145 [facility] Comment on above: Performed By: #### L 500.2500, L100.0500 #### [facility] [address] [place], [address] Urea nitrogen [Mass/Vol] 22 mg/dL High 4-19 [facility] Comment on above: Performed By: #### L 500.2500, L100.0500 #### [facility] [address] [place], [address] CBC-Complete Blood Cnt No ffon 04-19-2025 Erythrocyte distribution width (RBC) [Ratio] 12.5 % Normal 11.6-14.6 [facility] Comment on above: Performed By: #### L 500.2500, L100.0500 #### [facility] [address] [place], [address] Hematocrit (Bld) [Volume fraction] 38.8 % Normal 37-47 [facility] Comment on above: Performed By: #### L 500.2500, L100.0500 #### [facility] [address] [place], [address] Hemoglobin (Bld) [Mass/Vol] 12.9 g/dL Normal 12.0-15.0 [facility] Comment on above: Performed By: #### L 500.2500, L100.0500 #### [facility] [address] [place], [address] MCH (RBC) [Entitic mass] 29.2 pg Normal 27.0-32.0 [facility] Comment on above: Performed By: #### L 500.2500, L100.0500 #### [facility] [address] [place], [address] MCHC (RBC) [Mass/Vol] 33.2 g/dL Normal 32-36 [facility] Comment on above: Performed By: #### L 500.2500, L100.0500 #### [facility] [address] [place], [address] MCV (RBC) [Entitic vol] 87.8 fL Normal 81-99 [facility] Comment on above: Performed By: #### L 500.2500, L100.0500 #### [facility] [address] [place], [address] Platelet mean volume (Bld) [Entitic vol] 8.3 fL Normal 6.2-12.0 [facility] Comment on above: Performed By: #### L 500.2500, L100.0500 #### [facility] [address] [place], [address] Platelets (Bld) [#/Vol] 287 10*3/uL Normal 150-450 [facility] Comment on above: Performed By: #### L 500.2500, L100.0500 #### [facility] [address] [place], [address] RBC (Bld) [#/Vol] 4.42 10*6/uL Normal 4.2-5.4 [facility] Comment on above: Performed By: #### L 500.2500, L100.0500 #### [facility] [address] [place], [address] RDW SD 40.1 fl Normal 35.1-43.9 [facility] Comment on above: Performed By: #### L 500.2500, L100.0500 #### [facility] [address] [place], [address] WBC (Bld) [#/Vol] 5.6 10*3/uL Normal 4.4-11.0 [facility] Comment on above: Performed By: #### L 500.2500, L100.0500 #### [facility] [address] [place], [address] Carbon dioxide, total [Moles /volume] in Central venous bloodOrdered By: Brett White on 04-19-2025 CO2 [Moles/Vol] 26.0 mmol/L 21.0-32.0 [facility] Chloride assayOrdered By: Arash White on 04-19-2025 Chloride [Moles/Vol] 107 mmol/L 98-108 [facility] Erythrocyte distribution wid th ratioOrdered By: Brett White on 04-19-2025 Erythrocyte distribution width (RBC) [Ratio] 12.5 % 11.6-14.6 [facility] Erythrocyte distribution wid th standard deviationOrdered By: Brett White on 04-19-2025 Erythrocyte distribution width (RBC) [Ratio] 40.1 fl 35.1-43.9 [facility] Glomerular filtration rate ( GFR) estimation/1.73 sq m using serum, plasma, or whole bOrdered By: Brett White on 04-19-2025 GFR/1.73 sq M.predicted among non-blacks MDRD (S/P/Bld) [Vol rate/Area] 87 mL/min/{1.73_m2} >60 [facility] Comment on above: mL/min/1.73m2 CKD-EP I Creatinine Equation (2020) Hematocrit Auto (Bld) [Volum e fraction]Ordered By: Brett White on 04-19-2025 Hematocrit (Bld) [Volume fraction] 38.8 % 37-47 [facility] Hemoglobin measurementOrdere d By: Brett White on 04-19-2025 Hemoglobin (Bld) [Mass/Vol] 12.9 g/dL 12.0-15.0 [facility] MCV (mean corpuscular volume ) determinationOrdered By: Brett White on 04-19-2025 MCV (RBC) [Entitic vol] 87.8 fL 81-99 [facility] Mean corpuscular hemoglobin (MCH) determinationOrdered By: Brett White on 04-19-2025 MCH (RBC) [Entitic mass] 29.2 pg 27.0-32.0 [facility] Mean corpuscular hemoglobin concentration (MCHC) determinationOrdered By: Brett White on 04-19-2025 MCHC (RBC) [Mass/Vol] 33.2 g/dL 32-36 [facility] Mean platelet volume determi nationOrdered By: Brett White on 04-19-2025 Platelet mean volume (Bld) [Entitic vol] 8.3 fL 6.2-12.0 [facility] Operative Reporton 5 Operative Report [facility] Medical Records Department [address] [place] [address] Operative Report 04/19/25 1453 MR#: [id number] Acct: [id number] Name: CHRISTINE RACHEL Rep #: [id number] : 1965 59 From: Brett White MD PCP: Care Physician,No Primary Status:[facility] Location: [facility] Operative Report (Standard) Operative Information Date of Procedure: 04/19/25 Pre-Operative Diagnosis: Varicose veins with pain of the left lower extremity Post-Operative Diagnosis: Same Surgery/Procedure Performed: Chemical ablation left great saphenous vein automotive buyer: No Type of Anesthesia: Local and Sedation,Conscious Procedure Start Time: 10:55 Procedure Stop Time: 11:20 Select all DRAINS/GRAFTS/IMPLAN TS that apply: None Estimated Blood Loss: 2 Specimen collected: No Description of surgery: HPI: Patient is a 59-year-old female with painful varicose veins of the left lower extremity which are refractory to compression garments. She had venous reflux studies which revealed incompetent veins from the great saphenous vein at the saphenofemoral junction to the calf where significant varicosities were present. She is taken now for chemical ablation of the great saphenous vein. Description of procedure: Upon obtaining informed consent and verification correct patient procedure site the patient was taken to the Super[employer] where she was positioned prepped and draped in usual sterile fashion. Time was performed consultation administered Versed and fentanyl. Ultrasound was used to evaluate the great saphenous vein from the ankle or to the saphenofemoral junction. There was a section within the mid calf which was very small caliber with large torturous varicosities originate inferior to this and then joining with the vessel at the location what return to normal caliber. Otherwise a great saphenous vein was normal in caliber from this location to the junction. It was felt that the ablation guide and catheter would not traverse this small caliber section so skin overlying the great saphenous vein at the confluence with the varicosity was anesthetized 1% lidocaine the vessel accessed under ultrasound guidance with a micropuncture needle wire. This then exchanged for a 7 Turkmen ablation sheath which was advanced without resistance. Through the sheath the ablation guide was advanced and positioned 5 cm inferior to the saphenofemoral junction. Next the ablation catheter was prepped per tuber machine operator helper's instructions and advanced through the guide and positioned 5 cm inferior to the saphenofemoral junction. Chemical ablation adhesive was then deposited beginning at this position per tuber machine operator helper's instructions down to the sheath. Upon completion the guide and catheter withdrawn followed by manual pressure and removal of the 7 Turkmen sheath and access site pressure until hemostasis was observed. The saphenofemoral junction and common femoral vein were then inspected with ultrasound and found to be patent with no evidence of extension into the deep system. Dry sterile dressing and Prosper wrap were then applied the patient was taken to recovery area with plan discharged to home. Surgical Findings: See above Complications Complications: No 04/19/25 2298 Cosigner Signature (if applicable): CC: Dr. Brett White MD; No Primary Care Physician Signed Normal [facility] Platelet countOrdered By: Arash White on 04-19-2025 Platelets (Bld) [#/Vol] 287 10*3/uL 150-450 [facility] Potassium measurement (mass/ volume)Ordered By: Brett White on 04-19-2025 Potassium (Unsp spec) [Mass/Vol] 4.3 mmol/L 3.3-5.1 [facility] RBC Auto (Bld) [#/Vol]Ordere d By: Brett White on 04-19-2025 RBC (Bld) [#/Vol] 4.42 10*6/uL 4.2-5.4 [facility] Serum creatinine measurement (mass/volume)Ordered By: Brett White on 04-19-2025 Creatinine [Mass/Vol] 0.80 mg/dL 0.70-1.20 [facility] Serum glucose measurement (m ass/volume)Ordered By: Brett White on 04-19-2025 Glucose [Mass/Vol] 97 mg/dL 70-99 [facility] Serum or plasma calcium andressa urement (mass/volume)Ordered By: Brett White on 04-19-2025 Calcium [Mass/Vol] 9.3 mg/dL 7.6-11.0 [facility] Serum or plasma urea nitroge n measurement (mass/volume)Ordered By: Brett White on 04-19-2025 Urea nitrogen [Mass/Vol] 22 mg/dL High 4-19 [facility] Sodium levelOrdered By: Brettmargaret White on 04-19-2025 Sodium [Moles/Vol] 141 mmol/L 133-145 [facility] White blood cell (WBC) count Ordered By: Brett White on 04-19-2025 WBC (Bld) [#/Vol] 5.6 10*3/uL 4.4-11.0 [facility] Breast imaging reportOrdered By: Devora Urias on 03-12-2025 Study report [facility] Imaging Services [address] [place], [place] [id number] SCRN MAMM (CAD)W/DINA BILAT MR#: [id number] Acct: [id number] Name: CHRISTINE RACHEL Rep #: [id number] : 1965 F 59 From: Karin Urias MD PCP: Dr. Didi Cueto MD Status: [facility] CLI Study:SCRN MAMM (CAD)W/DINA BILAT Date of Exa m: 03/12/25 Exam# [id number] Ordering Dr: Tere Hong DIRECTOR OF FOOD AND BEVERAGE SERVICES DIRECTOR OF FOOD AND BEVERAGE SERVICES-C EXAM: SCRN MAMM (CAD)W/DINA BILAT DATE: 03/12/2025 [...] be mailed to the patient. Reading Location: [id number] CC: DIRECTOR OF FOOD AND BEVERAGE SERVICES-Kathy Hong; Dr. Didi Cueto MD ~ [employer] Arc: Signed [facility] SCRN MAMM (CAD)W/DINA BILATo n 03-12-2025 SCRN MAMM (CAD)W/DINA BILAT [facility] Imaging Services [address] [place] [id number] SCRN MAMM (CAD)W/DINA BILAT MR#: [id number] Acct: [id number] Name: CHRISTINE RACHEL Rep #: [id number] : 1965 F 59 From: Devora Urias MD PCP: Dr. Didi Cueto MD Status: [facility] Study: SCRN MAMM (CAD)W/DINA BILAT Date of Exam: 02/13 Exam# [id number] Ordering Dr: Tere Hong NP DIRECTOR OF FOOD AND BEVERAGE SERVICES -C EXAM: SCRN MAMM (CAD)W/DINA BILAT DATE: [...] be mailed to the patient. Reading Location: [id number] CC: STACEY Hong; Dr. Didi Cueto MD [employer]: Signed Normal [facility] CNOVon 03-08-2025 [facility] Office Visit (OBGYWM) CHRISTINE RACHEL ([id number]) 1965 F Date Time Provider Department 03/08/25 11:00 AM DIDI JACQUES During your visit today, we recorded the following information about you: Pulse Blood pressure Weight 90/minute 102/76 67.1 kg Didi Jacques APRN.[facility] 03/08/2025 11:47 AM Addendum - Continue [...] = 10 g complete protein) - Keep [id number] proteins in your fridge--hard-boiled eggs, cottage cheese, [...] protein AND 2g carb Two Good Lowfat Brazilian Yogurt, Lower Sugar - 12g protein AND [...] oz is 28 gm protein Beef, Chicken, [place], Pork, Lock 1 oz 7g Fish, Tuna [...] (not a meal replacement) Protein AND carbs Beef/[place] Jerky 1 oz dried 10-15g protein - check carb count, can be high if sugar added Slim Vin - 6 gm protein and 4 net carb Great Value original turkey sausage sticks - 7 gm protein and 2 gm carb Ruddy AND Neri (at [employer]) Original smoked sausage sticks - 8 gm protein and 0 carb Imitation Crab Meat 1 oz - 2g protein AND 4g carb Milk, skim 2% or 1% 8 oz - 8g protein AND 12g carb Fairlife 2% milk 8 oz -13g protein AND 6g carb Brazilian yogurt Full Fat Brazilian Yogurt 1 cup - 20.4g protein AND 9.1g carb 2% Brazilian Yogurt 1 cup - 22.7g protein AND 9.1g carb 0% (fat-free) Brazilian Yogurt - 1 cup 24g protein AND 9.3g carb Aldi Protein Brazilian yogurt single svg - 13/g15g protein AND 7g carb Chobani Zero Sugar single svg: - 12g protein AND 5g carb Dannon Brazilian Light + Fit 1 single svg - 12g protein AND 9g carb Oikos Pro single svg - 20g protein AND 8g carb Oikos Triple Zero Brazilian Nonfat Yogurt 1 single svg - 15g protein AND 7g carb :ratio, KETO Friendly Dairy Snack 1 single svg - 15g protein AND 2g carb :ratio Protein 1 single svg - 25g protein AND 8g carb Two Good Lowfat Brazilian Yogurt, [place], Lower Sugar - 12g protein AND 2g carb Yoplait Protein (more content not included)... Normal [facility] MR/BMSGiovanni 03-06-2025 MR/BMS.BVS [facility] Vascular Surgery [address] [place] [address] OFFICE VISIT Date of Service: 03/06/25 MR#: [id number] Acct: [id number] Name: CHRISTINE RACHEL Rep #: [id number] : 1965 Provider: CHAN Anderson Age/Sex: 59/F Location: [facility].BVS Status: Signed Intake Vital Signs 10/13/23 09:08 [...] safe at home: Yes additional social history: [facility] HPI HPI: CHRISTINE RACHEL, is a 59 [...] No lack (more content not included)... Normal [facility] Comprehensive metabolic 2000 panelOrdered By: Lorene Loyola on 03-05-2025 Albumin [Mass/Vol] 4.3 g/dL 3.9 - 4.9 g/dL [facility] ALP [Catalytic activity/Vol] 80 U/L 34 - 123 U/L [facility] ALT [Catalytic activity/Vol] 11 U/L 7 - 38 U/L [facility] Anion gap [Moles/Vol] 13 mmol/L 8 - 15 mmol/L [facility] AST [Catalytic activity/Vol] 15 U/L 13 - 35 U/L [facility] Bilirubin [Mass/Vol] 0.4 mg/dL 0.2 - 1 .3 mg/dL [facility] Calcium [Mass/Vol] 9.4 mg/dL 8.5 - 10. 2 mg/dL [facility] Chloride [Moles/Vol] 105 mmol/L 98 - 10 7 mmol/L [facility] CO2 [Moles/Vol] 23 mmol/L 22 - 30 mmol/L [facility] Creatinine [Mass/Vol] 0.78 mg/dL 0.58 - 0.96 mg/dL [facility] GFR/1.73 sq M.predicted among non-blacks MDRD (S/P/Bld) [Vol rate/Area] 89 mL/min/{1.73_m2} - PINF [facility] Comment on above: Estimated Glomerular Filtration Rate [...] [Mass/Vol] 93 mg/dL 74 - 99 mg/dL [facility] Comment on above: The [place] Diabete s Association (ADA) provides guidance for [...] Standards of Medical Care in Diabetes 2016, [place] Diabetes Association. Diabetes Care. 2016.39(Suppl 1). Interpretation and review of laboratory results Abnormal [facility] Potassium [Moles/Vol] 4.4 mmol/L 3.7 - 5.1 mmol/L [facility] Protein [Mass/Vol] 7 g/dL 6.3 - 8.0 g/dL [facility] Sodium [Moles/Vol] 141 mmol/L 136 - 144 mmol/L [facility] Urea nitrogen [Mass/Vol] 25 mg/dL High 7 - 21 mg/d L [facility] Comprehensive metabolic 2000 panelon 03-05-2025 Albumin [Mass/Vol] 4.3 g/dL Normal 3.9-4.9 [facility] Comment on above: Order Comment: Speci men Type: BLOOD SPECIMENOrdering Facility: [facility] Address: [address] [place] [address] Performed By: #### 2 4323-8 ####[facility] [id number] [place] [address] [place] ALP [Catalytic activity/Vol] 80 U/L Normal 34-123 [facility] Comment on above: Order Comment: Speci men Type: BLOOD SPECIMENOrdering Facility: [facility] Address: [address] [place] [address] Performed By: #### 2 4323-8 ####[facility] [id number] [place] [address] [place] ALT [Catalytic activity/Vol] 11 U/L Normal 7-38 [facility] Comment on above: Order Comment: Speci men Type: BLOOD SPECIMENOrdering Facility: [facility] Address: [address] [place] [address] Performed By: #### 2 4323-8 ####[facility]WNCLIA [id number] [place] [address] [place] Anion gap [Moles/Vol] 13 mmol/L Normal 8-15 [facility] Comment on above: Order Comment: Speci men Type: BLOOD SPECIMENOrdering Facility: [facility] Address: [address] [place] [address] Performed By: #### 2 4323-8 ####[facility] [id number] [place] [address] [place] AST [Catalytic activity/Vol] 15 U/L Normal 13-35 [facility] Comment on above: Order Comment: Speci men Type: BLOOD SPECIMENOrdering Facility: [facility] Address: [address] [place] [address] Performed By: #### 2 4323-8 ####[facility] [id number] [place] [address] [place] Bilirubin [Mass/Vol] 0.4 mg/dL Normal 0.2-1.3 [facility] Comment on above: Order Comment: Speci men Type: BLOOD SPECIMENOrdering Facility: [facility] Address: [address] [place] [address] Performed By: #### 2 4323-8 ####[facility] FLORIDANCLIA [id number] [place] [address] [place] Calcium [Mass/Vol] 9.4 mg/dL Normal 8.5-10.2 [facility] Comment on above: Order Comment: Speci men Type: BLOOD SPECIMENOrdering Facility: [facility] Address: [address] [place] [address] Performed By: #### 2 4323-8 ####[facility] FLORIDANCLIA [id number] [place] [address] [place] Chloride [Moles/Vol] 105 mmol/L Normal 98-107 [facility] Comment on above: Order Comment: Speci men Type: BLOOD SPECIMENOrdering Facility: [facility] Address: [address] [place] [address] Performed By: #### 2 4323-8 ####[facility] [id number] [place] [address] [place] CO2 [Moles/Vol] 23 mmol/L Normal 22-30 [facility] Comment on above: Order Comment: Speci men Type: BLOOD SPECIMENOrdering Facility: [facility] Address: [address] [place] [address] Performed By: #### 2 4323-8 ####[facility] [id number] [place] [address] [place] Creatinine [Mass/Vol] 0.78 mg/dL Normal 0.58-0.96 [facility] Comment on above: Order Comment: Speci men Type: BLOOD SPECIMENOrdering Facility: [facility] Address: [address] [place] [address] Performed By: #### 2 4323-8 ####[facility] [id number] [address] Creatinine and Glomerular filtration rate.predicted panel (S/P/Bld) 89 mL/min/1.73m??? Normal >=60 [facility] Comment on above: Order Comment: Speci men Type: BLOOD SPECIMENOrdering Facility: [facility] Address: [address] [place] [address] Result Comment: Elodia mated Glomerular Filtration Rate [...] actual GFR. Performed By: #### 2 4323-8 ####[facility]ENTERWNCLIZoila [id number] [place] [address] [place] Glucose [Mass/Vol] 93 mg/dL Normal 74-99 [facility] Comment on above: Order Comment: Mann christensen Type: BLOOD SPECIMENOrdering Facility: [facility] Address: [address] [place] [address] Result Comment: The [place] Diabetes Association (ADA) provides guidance for cutoff [...] Standards of Medical Care in Diabetes 2016, [place] [employer] Association. Diabetes Care. 2016.39(Suppl 1). Performed By: #### 2 4323-8 ####[facility] FLORIDANCLIA [id number] [place] [address] [place] Potassium [Moles/Vol] 4.4 mmol/L Normal 3.7-5.1 [facility] Comment on above: Order Comment: Mann christensen Type: BLOOD SPECIMENOrdering Facility: [facility] Address: [address] [id number] Performed By: #### 2 4323-8 ####[facility] FLORIDANCLIA [id number] [place] [address] [place] Protein [Mass/Vol] 7.0 g/dL Normal 6.3-8.0 [facility] Comment on above: Order Comment: Speci men Type: BLOOD SPECIMENOrdering Facility: [facility] Address: [address] [place] [address] Performed By: #### 2 4323-8 ####[facility] [id number] [place] [address] [place] Sodium [Moles/Vol] 141 mmol/L Normal 136-144 [facility] Comment on above: Order Comment: Speci men Type: BLOOD SPECIMENOrdering Facility: [facility] Address: [address] [place] [address] Performed By: #### 2 4323-8 ####[facility] [id number] [place] [address] [place] Urea nitrogen [Mass/Vol] 25 mg/dL High 7-21 [facility] Comment on above: Order Comment: Speci men Type: BLOOD SPECIMENOrdering Facility: [facility] Address: [address] [place] [address] Performed By: #### 2 4323-8 ####[facility] [id number] [address] [facility] CNOVon 11-30-2024 CNOV Office Visit (OBGYWKimmie) CHRISTINE RACHEL ([id number]) 1965 F Date Time Provider Department 11/30/24 3:30 PM DIDI JACQUES During your visit today, we recorded the following information about you: Pulse Blood pressure Weight 76/minute 121/79 67.6 kg Didi Jacques APRN.TANGLED YARN WORKER 11/30/2024 7:41 PM Signed Some documentation from [...] 07/01/2023 164 lb 28.82 WC 35.75 in [place] body weight: 116 lb 12.6 oz (53 kg) Adjusted ideal body weight: 130 lb 14 oz (59.4 kg) Weight promoting medications: None AOM med Phentermine 37.5 mg Benefit: decreased hunger and increased fullness SE: wakes up sometimes during the night, dry mouth Previous Diet (initial appointment): Awake - 599 629 [place] green tea plain B - skip [...] 2 kids getting next year, one in [place] and one in [place] ; 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 Phentermine HCl 37.5 mg tablet Take 1 tablet by mouth daily before breakfast for 90 days. 90 tablet 0 TURMERIC ORAL Take by mouth once daily. Cholecalciferol, Vitamin D3, (VITAMIN D-3) 50 mcg (2,000 unit) cap Take by mouth. VITAMIN B COMPLEX ORAL Take by mouth. No current facility-administere d medications for this visit. ROS/Fam Hx pertaining [...] 15.5 g (more content not included)... Normal [facility] CNOVon 10-24-2024 CNOV Office Visit (TAMIA) CHRISTINE RACHEL ([id number]) 1965 F Date Time Provider Department 10/24/24 4:00 PM DIDI JACQUES During your visit today, we recorded the following information about you: Pulse Blood pressure Weight 82/minute 120/81 68.5 kg Didi Jacques APRN.CNP 10/24/2024 5:07 PM Signed Some documentation from [...] - /2 am and 09/14 around 10 Interval History PT specifies the following items as new or significant updates since the last appointment: Fell off a little around Janes with holiday eating - weight 152 lbs after Janes. Able to get back to balanced protein eating plan easily but unable to lose weight. 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 Phentermine HCl 37.5 mg tablet Take 1 tablet by mouth daily before breakfast for 90 days. 90 tablet 0 TURMERIC ORAL Take by mouth once daily. Cholecalciferol, Vitamin D3, (VITAMIN D-3) 50 mcg (2,000 unit) cap Take by mouth. VITAMIN B COMPLEX ORAL Take by mouth. No current facility-administere d medications for this visit. ROS/Fam Hx pertaining [...] 123 U/ (more content not included)... Normal [facility] CNNURSEon 09-12-2024 CNNURSE Nurse Visit (OBGYWM) CHRISTINE RACHEL ([id number]) 1965 F Date Time Provider Department 09/12/24 11:00 AM NURSE INDEPENDENT CONTRACTOR [facility] OBGYWM During your visit today, we [...] Allergies) Date Reviewed: 09/12/2024 Reviewed by: Val Guadalupe, KEDAR - Fully Assessed Reason for Visit: Weight [...] 09/12/2024 - ascorbic acid/vit B12/zinc (VITAMIN C-VITAMIN J15-OUVQ ORAL) Take by mouth once daily. - [...] breakfast for 90 days. Encounter Status:Closed by NGOIZ CAICEDO on 09/12/24 [facility] CNOValexandra 06-15-2024 CNOV Office Visit (OBGYWM) CHRISTINE RACHEL ([id number]) 1965 F Date Time Provider Department 06/15/24 [...] a couple of pounds when she started [employer] classes again - Hungrier in the evenings Weight loss since last visit 1 lbs for total of 17 lbs Date: Weight: BMI: 06/15/2024 147 lb 25.83 03/15/2024 148 lb 26.01 Loss of 10% 01/13/2024 152 lb 26.71 12/15/2023 161 lb 28.44 phentermine 37.5 mg 07/01/2023 164 lb 28.82 WC 35.75 in [place] body weight: 116 lb 12.6 oz (53 [...] 4 miles a day or classes, 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 No current facility-administere d medications for this visit. ROS/Fam Hx pertaining [...] 07/02/2023 1 (more content not included)... Normal [facility] CNOVon 03-15-2024 CNOV Office Visit (TAMIA) CHRISTINE RACHEL ([id number]) 1965 F Date Time Provider Department 03/15/24 [...] 164 lb BMI 28.82 WC 35.75 in [place] body weight: 116 lb 12.6 oz (53 [...] 2 kids getting next year, one in [place] and one in [place] ; Work - plans to retire after [...] COMPLEX ORAL Take by mouth. No current facility-administere d medications for this visit. ROS/Fam Hx pertaining [...] than the (more content not included)... Normal [facility] Cervical or vaginal specimen microscopic examination by liquid based cytology (reportOrdered By: Tere Hong on 10-13-2023 Cytology report Cyto stain.thin prep Doc (Cvx/Vag) Comment . [facility] Comment on above: Criteria not met, HP V Genotype not performed.Performed at: [facility] Cyto [id number] [place], [place] [id number] Director: Serg Escamilla MD, Phone: [phone] at: [facility] [id number] Director: Veronica Garcia MD, Phone: [phone] at: =[facility] [id number] Director: Veronica Garcia MD, Phone: [phone] Cervical or vagninal specime n microscopic examination by cytology stain (reported asOrdered By: Tere Hong on 10-13-2023 Cytology report Cyto stain Doc (Cvx/Vag) Comment . [facility] Comment on above: The Pap smear is [...] 33,Ordered By: Tere Hong on 10-13-2023 HPV 16+18+31+33+35+39+45+51+ 52+56+58+59+66+68 DNA Probe+sig amp Ql (Cvx) Negative Negative [facility] Comment on above: This nucleic acid am plification test detects fourteen high-risk HPV types (16,18,31,33,35,39,45,51,52,56,58,59,66,68)without differentiation. Laboratory - CytologyOrdered By: Tere Hong on 10-13-2023 Documentation Designer Cyto stain Nom (Cvx/Vag) [ID] Comment . [facility] Comment on above: Concepcion Simon, Cytotec hnologist (ASCP) Laboratory - Miscellaneous t estsOrdered By: Tere Hong on 10-13-2023 Service comment (Unsp spec) [Interp] . . [facility] No Panel InformationOrdered By: Tere Hong on 10-13-2023 Pap Smear QC Review Comment . [facility] Comment on above: Dank Albarado totechnologist (ASCP) Thin prep Papanicolaou smear with manual screeningOrdered By: Tere Hong on 10-13-2023 Thin prep Papanicolaou smear with manual screening Comment . [facility] Comment on above: NEGATIVE FOR INTRAEP ITHELIAL LESION OR MALIGNANCY.THIS SPECIMEN WAS RESCREENED PART OF OUR COLLECTIONS TECHNICIAN PROGRAM. This liquid based Th inPrep(R) pap test was screened withthe use of an image guided system. Basophil percentageon 2021 Chloride [Moles/Vol] 107 mmol/L 98-107 [facility] Work Phone: Cholesterol [Mass/Vol] 209 mg/dL <200 [facility] Work Phone: Comment on above: <200 mg/dL Desirable 200-240 mg/dL Borderline >240 mg/dL High Risk Glucose [Mass/Vol] 89 mg/dL 74-106 [facility] Work Phone: Potassium [Moles/Vol] 4.1 mmol/L 3.5-5.1 [facility] Work Phone: Sodium [Moles/Vol] 140 mmol/L 136-145 [facility] Work Phone: Triglyceride [Mass/Vol] 53 mg/dL [facility] Work Phone: Comment on above: The drugs N-Acetylcy steine and Metamizole may falsely depress this assay.Serum Triglycerides Reference Interval Normal <150 mg/dL Borderline high 150 - 199 mg/dL High 200 - 499 mg/dL Very High > or = 500 mg/dL Laboratory - Chemistry and C hemistry - challengeon 02-11-2022 CO2 [Moles/Vol] 26.0 mmol/L 21.0-32.0 [facility] Work Phone: Urea nitrogen/Creatinine [Mass ratio] 25.4 mg/mg 10-20 [facility] Work Phone: No Panel Informationon 02-11 Estimated GFR (MDRD) Amer 92 mL/min >60 [facility] Work Phone: Comment on above: GFR Calc Estimated GFR (MDRD) Non-Af Amer 76 mL/min >60 [facility] Work Phone: Comment on above: Non- GFR Calc Thyroid Stimulating Hormone (TSH) 0.75 uIU/mL 0.358-3.74 [facility] Work Phone: Vitamin D 25-Hydroxy 33.3 ng/mL [facility] Work Phone: Comment on above: Vitamin D 25(OH) Sta tus Range Deficiency <20 ng/mL (50nmol/L) Insufficiency 20 - 30 ng/mL (50 - 75 nmol/L) Sufficiency 30 - 100 ng/mL (75 - 250 nmol/L) Toxicity >100 ng/mL (>250 nmol/L) Serum or plasma calcium andressa urement (mass/volume)on 02-11-2022 Calcium [Mass/Vol] 9.2 mg/dL 8.5-10.1 [facility] Work Phone: Serum or plasma cholesterol in HDL measurement (mass/volume)on 02-11-2022 Cholesterol in HDL [Mass/Vol] 74 mg/dL [facility] Work Phone: Comment on above: The drugs N-Acetylcy steine and Metamizole may falsely depress this assay. Reference Range HDL <40 mg/dL Low HDL Cholesterol HDL >or= 60 mg/dL High HDL Cholesterol Serum or plasma cholesterol in VLDL measurement (mass/volume)on 02-11-2022 Cholesterol in VLDL [Mass/Vol] 11 mg/dL 5-40 [facility] Work Phone: Serum or plasma creatinine m easurement (mass/volume)on 02-11-2022 Creatinine [Mass/Vol] 0.83 mg/dL 0.55-1.02 [facility] Work Phone: Comment on above: The validity of the calculated GFR & GFRAA in patients over 70 years has not been determined. Clinical correlation is essential. Serum or plasma low density lipoprotein (LDL) cholesterol measurement (mass/volume)on 02-11-2022 Cholesterol in LDL [Mass/Vol] 124 mg/dL 0-130 [facility] Work Phone: Serum or plasma urea nitroge n measurement (mass/volume)on 02-11-2022 Urea nitrogen [Mass/Vol] 21 mg/dL 7-18 [facility] Work Phone: Thin prep Papanicolaou smear with manual screeningon 02-11-2022 Thin prep Papanicolaou smear with manual screening 7 5-15 [facility] Work Phone: Vital Signs Date Time Vital Sign Value Performing Clinician James dawson 04-19-2025 10:00-0400 Body height 160.[address] Didi Cueto MD Work Phone: [facility] 04-19-2025 10:00-0400 Body weight 68.[address] Didi Cueto MD Work Phone: [facility] 04-18-2025 11:55-0400 Body mass index (BMI) [Ratio] 26.7 kg/m2 Dr. Didi Cueto MD Work Phone: [facility] 03-08-2025 10:54-0400 Body mass index (BMI) [Ratio] 26.01 kg/m2 Didi Jacques APRN.TANGLED YARN WORKER Work Phone: [facility] 03-08-2025 10:54-0400 Body weight 67.13 kg Didi Jacques APRN.TANGLED YARN WORKER Work Phone: [facility] 03-08-2025 10:54-0400 Diastolic blood pressure 76 mm[Hg] Didi Jacques APRN.TANGLED YARN WORKER Work Phone: [facility] 03-08-2025 10:54-0400 Heart rate 90 /min Didi Jacques APRN.TANGLED YARN WORKER Work Phone: [facility] 03-08-2025 10:54-0400 SaO2% (BldA) [Mass fraction] 98 % Didi Jacques APRN.TANGLED YARN WORKER Work Phone: [facility] 03-08-2025 10:54-0400 Systolic blood pressure 102 mm[Hg] Didi Jacques APRN.TANGLED YARN WORKER Work Phone: [facility] 03-06-2025 14:51-0400 Body temperature 98.6 [degF] Dr. Didi Cueto MD Work Phone: [facility] 03-06-2025 14:51-0400 Body weight 68.[address] Didi Cueto MD Work Phone: [facility] 03-06-2025 14:51-0400 Diastolic blood pressure 77 mm[Hg] Dr. Didi Cueto MD Work Phone: [facility] 03-06-2025 14:51-0400 Heart rate 77 /min Dr. Didi Cueto MD Work Phone: [facility] 03-06-2025 14:51-0400 Respiratory rate 16 /min Dr. Didi Cueto MD Work Phone: [facility] 03-06-2025 14:51-0400 SaO2% (BldA) [Mass fraction] 99 % Dr. Didi Cueto MD Work Phone: [facility] 03-06-2025 14:51-0400 Systolic blood pressure 116 mm[Hg] Dr. Didi Cueto MD Work Phone: [facility] 11-30-2024 15:39-0400 Body mass index (BMI) [Ratio] 26.19 kg/m2 Didi Jacques APRN.TANGLED YARN WORKER Work Phone: [facility] 11-30-2024 15:39-0400 Body weight 67.59 kg Didi Jacques APRN.TANGLED YARN WORKER Work Phone: [facility] 11-30-2024 15:39-0400 Diastolic blood pressure 79 mm[Hg] Didi Jacques APRN.TANGLED YARN WORKER Work Phone: [facility] 11-30-2024 15:39-0400 Heart rate 76 /min Didi Jacques APRN.TANGLED YARN WORKER Work Phone: [facility] 11-30-2024 15:39-0400 SaO2% (BldA) [Mass fraction] 98 % Didi Jacques APRN.TANGLED YARN WORKER Work Phone: [facility] 11-30-2024 15:39-0400 Systolic blood pressure 121 mm[Hg] Didi Jacques APRN.TANGLED YARN WORKER Work Phone: [facility] 10-24-2024 15:55-0500 Body mass index (BMI) [Ratio] 26.54 kg/m2 Didi Jacques APRN.TANGLED YARN WORKER Work Phone: [facility] 10-24-2024 15:55-0500 Body weight 68.49 kg Didi Jacques APRN.TANGLED YARN WORKER Work Phone: [facility] 10-24-2024 15:55-0500 Diastolic blood pressure 81 mm[Hg] Didi Jacques WOOD CABINET FINISHER.TANGLED YARN WORKER Work Phone: [facility] 10-24-2024 15:55-0500 Heart rate 82 /min Didi Jacques APRN.TANGLED YARN WORKER Work Phone: [facility] 10-24-2024 15:55-0500 SaO2% (BldA) [Mass fraction] 99 % Didi Jacques APRN.TANGLED YARN WORKER Work Phone: [facility] 10-24-2024 15:55-0500 Systolic blood pressure 120 mm[Hg] Didi Jacques APRN.TANGLED YARN WORKER Work Phone: [facility] 09-12-2024 11:11-0500 Body mass index (BMI) [Ratio] 26.89 kg/m2 Nurse Wstr Work Phone: [facility] 09-12-2024 11:11-0500 Body weight 69.4 kg Nurse Wstr Work Phone: [facility] 09-12-2024 11:11-0500 Diastolic blood pressure 74 mm[Hg] Nurse Wstr Work Phone: [facility] 09-12-2024 11:11-0500 Heart rate 90 /min Nurse Wstr Work Phone: [facility] 09-12-2024 11:11-0500 SaO2% (BldA) [Mass fraction] 97 % Nurse Wstr Work Phone: [facility] 09-12-2024 11:11-0500 Systolic blood pressure 114 mm[Hg] Nurse Wstr Work Phone: [facility] 06-15-2024 15:56-0400 Body mass index (BMI) [Ratio] 25.83 kg/m2 Didi Jacques APRN.TANGLED YARN WORKER Work Phone: [facility] 06-15-2024 15:56-0400 Body weight 66.68 kg Didi Jacques APRN.TANGLED YARN WORKER Work Phone: [facility] 06-15-2024 15:56-0400 Diastolic blood pressure 64 mm[Hg] Didi Jacques APRN.TANGLED YARN WORKER Work Phone: [facility] 06-15-2024 15:56-0400 Heart rate 89 /min Didi Jacques APRN.TANGLED YARN WORKER Work Phone: [facility] 06-15-2024 15:56-0400 Respiratory rate 16 /min Didi Jacques APRN.TANGLED YARN WORKER Work Phone: [facility] 06-15-2024 15:56-0400 SaO2% (BldA) [Mass fraction] 97 % Didi Jacques APRN.TANGLED YARN WORKER Work Phone: [facility] 06-15-2024 15:56-0400 Systolic blood pressure 128 mm[Hg] Didi Jacques APRN.TANGLED YARN WORKER Work Phone: [facility] 03-15-2024 09:32-0400 Body mass index (BMI) [Ratio] 26.01 kg/m2 Didi Jacques APRN.TANGLED YARN WORKER Work Phone: [facility] 03-15-2024 09:32-0400 Body weight 67.13 kg Didi Jacques APRN.TANGLED YARN WORKER Work Phone: [facility] 03-15-2024 09:32-0400 Diastolic blood pressure 60 mm[Hg] Didi Jacques APRN.TANGLED YARN WORKER Work Phone: [facility] 03-15-2024 09:32-0400 Heart rate 83 /min Didi Jacques APRN.TANGLED YARN WORKER Work Phone: [facility] 03-15-2024 09:32-0400 SaO2% (BldA) [Mass fraction] 97 % Didi Jacques APRN.TANGLED YARN WORKER Work Phone: [facility] 03-15-2024 09:32-0400 Systolic blood pressure 100 mm[Hg] Didi Jacques APRN.TANGLED YARN WORKER Work Phone: [facility] 01-13-2024 16:02-0400 Body mass index (BMI) [Ratio] 26.71 kg/m2 Didi Jacques APRN.TANGLED YARN WORKER Work Phone: [facility] 01-13-2024 16:02-0400 Body weight 68.95 kg Didi Jacques APRN.TANGLED YARN WORKER Work Phone: [facility] 01-13-2024 16:02-0400 Diastolic blood pressure 70 mm[Hg] Didi Jacques APRN.TANGLED YARN WORKER Work Phone: [facility] 01-13-2024 16:02-0400 Heart rate 72 /min Didi Jacques APRN.TANGLED YARN WORKER Work Phone: [facility] 01-13-2024 16:02-0400 SaO2% (BldA) [Mass fraction] 96 % Didi Jacques APRN.TANGLED YARN WORKER Work Phone: [facility] 01-13-2024 16:02-0400 Systolic blood pressure 92 mm[Hg] Didi Jacques APRN.TANGLED YARN WORKER Work Phone: [facility] 12-15-2023 09:34-0400 Body weight 73.39 kg Didi Jacques APRN.TANGLED YARN WORKER Work Phone: [facility] 12-15-2023 09:34-0400 Diastolic blood pressure 82 mm[Hg] Didi Jacques APRN.TANGLED YARN WORKER Work Phone: [facility] 12-15-2023 09:34-0400 Heart rate 70 /min Didi Jacques APRN.TANGLED YARN WORKER Work Phone: [facility] 12-15-2023 09:34-0400 SaO2% (BldA) [Mass fraction] 96 % Didi Jacques APRN.TANGLED YARN WORKER Work Phone: [facility] 12-15-2023 09:34-0400 Systolic blood pressure 120 mm[Hg] Didi Jacques APRN.TANGLED YARN WORKER Work Phone: [facility] 11-02-2023 15:19-0500 Body temperature 98.4 [degF] Dr. Didi Cueto Work Phone: [facility] 11-02-2023 15:19-0500 Body weight 75.[address] Didi Cueto Work Phone: [facility] 11-02-2023 15:19-0500 Diastolic blood pressure 74 mm[Hg] Dr. Didi Cueto Work Phone: [facility] 11-02-2023 15:19-0500 Heart rate 82 /min Dr. Didi Cueto Work Phone: [facility] 11-02-2023 15:19-0500 Respiratory rate 16 /min Dr. Didi Cueto Work Phone: [facility] 11-02-2023 15:19-0500 SaO2% (BldA) [Mass fraction] 96 % Dr. Didi Cueto Work Phone: [facility] 11-02-2023 15:19-0500 Systolic blood pressure 110 mm[Hg] Dr. Didi Cueto Work Phone: [facility] 10-13-2023 09:08-0500 Body height 160.[address] Didi Cueto Work Phone: [facility] 10-13-2023 09:02-0500 Body mass index (BMI) [Ratio] 29 kg/m2 Dr. Didi Cueto Work Phone: [facility] 10-13-2023 09:02-0500 Body weight 74.[address] Didi Cueto Work Phone: [facility] 10-13-2023 09:02-0500 Diastolic blood pressure 72 mm[Hg] Dr. Didi Cueto Work Phone: [facility] 10-13-2023 09:02-0500 Systolic blood pressure 112 mm[Hg] Dr. Didi Cueto Work Phone: [facility] 07-01-2023 08:00-0400 Body height 160.7 cm Didi Jacques APRN.TANGLED YARN WORKER Work Phone: [facility] 07-01-2023 08:00-0400 Body weight 74.39 kg Didi Jacques APRN.TANGLED YARN WORKER Work Phone: [facility] 07-01-2023 08:00-0400 Diastolic blood pressure 75 mm[Hg] Didi Jacques APRN.TANGLED YARN WORKER Work Phone: [facility] 07-01-2023 08:00-0400 Heart rate 75 /min Didi Jacques APRN.TANGLED YARN WORKER Work Phone: [facility] 07-01-2023 08:00-0400 Respiratory rate 16 /min Didi Jacques APRN.TANGLED YARN WORKER Work Phone: [facility] 07-01-2023 08:00-0400 SaO2% (BldA) [Mass fraction] 98 % Didi Jacques APRN.TANGLED YARN WORKER Work Phone: [facility] 07-01-2023 08:00-0400 Systolic blood pressure 110 mm[Hg] Didi Jacques APRN.TANGLED YARN WORKER Work Phone: [facility] Encounters Encounter Date Encounter Type Care Provider Facility Start: 04-25-2025 ambulatory [facility] Facility:[facility] Start: 04-19-2025 Non-patient / Non-visit Dr. Brett saunders MD -[facility] Start: 04-19-2025 End: 04-19-2025 Admission to same day surgery center Dr. Brett White MD -Supervisor [employer]/Special Procedures Work Phone: Start: 04-19-2025 End: 04-19-[address] Didi Cueto MD Work Phone: -Supervisor [employer]/Special Procedures Start: 03-12-2025 End: 03-12-[address] Didi Cueto MD Work Phone: -Outpatient Breast Imaging Start: 03-12-2025 End: 03-12-2025 Patient encounter procedure Tere Hong DIRECTOR OF FOOD AND BEVERAGE SERVICES-C -Outpatient Breast Imaging Work Phone: Start: 03-12-2025 End: 03-12-2025 ambulatory Tere Hong NP Facility:[facility] Start: 03-08-2025 End: 03-08-2025 Patient encounter procedure Didi Jacques APRN.TANGLED YARN WORKER Work Phone: OB/Gynecology Comment on above: IFG (impaired fastin g glucose) (Primary Dx); Elevated LDL cholesterol level; Arthralgia of both lower legs; Overweight (BMI 25.0-29.9) Start: 03-08-2025 End: 03-08-2025 ambulatory DIDI CUETO Facility:[facility] Start: 03-06-2025 End: 03-06-2025 Patient encounter procedure Pauline GILES -[facility] Work Phone: Start: 03-06-2025 End: 03-06-[address] Didi Cueto MD Work Phone: [facility] Work Phone: Start: 03-05-2025 End: 03-05-2025 ambulatory DIDI CUETO Facility:[facility] Start: 11-30-2024 End: 11-30-2024 ambulatory DIDI JACQUES Facility:[facility] Start: 11-30-2024 End: 11-30-2024 Patient encounter procedure Didi Jacques APRN.TANGLED YARN WORKER Work Phone: OB/Gynecology Comment on above: IFG (impaired fastin g glucose) (Primary Dx); Elevated LDL cholesterol level; Arthralgia of both lower legs; Overweight (BMI 25.0-29.9) Start: 10-24-2024 End: 10-24-2024 ambulatory DIDI JACQUES Facility:[facility] Start: 10-24-2024 End: 10-24-2024 Patient encounter procedure Didi Jacques APRN.TANGLED YARN WORKER Work Phone: OB/Gynecology Comment on above: IFG (impaired fastin g glucose) (Primary Dx); Elevated LDL cholesterol level; Arthralgia of both lower legs; Overweight (BMI 25.0-29.9) Start: 09-12-2024 End: 09-12-2024 ambulatory DIDI CUETO Facility:[facility] Start: 09-12-2024 End: 09-12-2024 Nursing evaluation of patient and report Nurse Account Receivable Clerk [facility] Work Phone: OB/Gynecology Comment on above: Body mass index (BMI ) of 28.0-28.9 in adult (Primary Dx); IFG (impaired fasting glucose); Elevated LDL cholesterol level; Overweight (BMI 25.0-29.9) Start: 06-15-2024 End: 06-15-2024 ambulatory DIDI JACQUES Facility:[facility] Start: 06-15-2024 End: 06-15-2024 Patient encounter procedure Didi Jacques APRN.CNP Work Phone: OB/Gynecology Comment on above: IFG (impaired fastin g glucose) (Primary Dx); Elevated LDL cholesterol level; Arthralgia of both lower legs; Overweight (BMI 25.0-29.9) Start: 03-15-2024 End: 03-15-2024 ambulatory DIDI JACQUES Facility:[facility] Start: 03-15-2024 End: 03-15-2024 Office outpatient visit [...] / Non-visit Dr. Adonis Cueto Work Phone: [facility] Start: 11-29-2023 End: 11-29-[address] Didi Cueto Work Phone: [facility] Work Phone: Start: 11-29-2023 End: 11-29-[address] [facility]: Start: 11-02-2023 End: 11-02-[address] Didi Cueto Work Phone: [facility] Work Phone: Start: 10-29-2023 End: 10-29-[address] Didi Cueto Work Phone: [facility] Work Phone: Start: 10-29-2023 End: 10-29-[address] Didi Cueto Work Phone: [facility]-Outpatient Breast Imaging Work Phone: Start: 10-13-2023 End: 10-13-[address] Didi Cueto Work Phone: [facility] Work Phone: Start: 10-13-2023 End: 10-13-[address] Didi Cueto Work Phone: [facility]-Laboratory, Specimen Work Phone: Start: 10-13-2023 End: 10-13-[address] Didi Cueto Work Phone: [facility] Work Phone: Start: 07-01-2023 End: 07-01-2023 Patient encounter procedure Didi Jacques APRN.TANGLED YARN WORKER Work Phone: OB/Gynecology Comment on above: Malaise and fatigue (Primary Dx); Arthralgia of both lower legs; Encounter for vitamin deficiency screening; Screening for diabetes mellitus; Screening for deficiency anemia; Screening cholesterol level; Screening for thyroid disorder; Overweight (BMI 25.0-29.9) Start: 02-13-2022 End: 02-13-2022 Patient encounter procedure [facility]-Outpatient Breast Imaging Start: 02-11-2022 End: 02-11-2022 Patient encounter procedure [facility] [place] Procedures Date Procedure Procedure Detail Performing Clinician Start: 04-19-[address] Didi Cueto MD Work Phone: Start: 03-12-2025 Screening mammography Cuba Cueto MD Work Phone: Start: 10-29-2023 Screening mammography Cuba Cueto Work Phone: Start: 07-02-2023 Lipid 1996 panel - S sulaiman or Plasma Didi Jacques APRN.TANGLED YARN WORKER Work Phone: Start: 02-13-2022 Screening mammography Start: 03-26-2016 Lipid 1996 panel - S sulaiman or Plasma Didi Jacques APRN.TANGLED YARN WORKER Work Phone: Plan of Treatment Date Care Activity Detail Author Start: 07-02-2028 Lipid panel Lipid Screening [facility] Start: 03-05-2028 Diabetes Screening Diabetes [facility] Start: 07-02-2026 Diabetes Screening Diabetes [facility] Start: 06-08-2025 End: 06-08-2025 Patient encounter procedure 06/08/2025 11:00 AM EDT Office Visit OB/Gynecology [address] [place] [address] Didi Jacques APRN.TANGLED YARN WORKER [address] [place], [place] [id number] WT MGT OB/Gynecology Comment on above: WT MGT Start: 05-14-2025 Influenza vaccination Influenz a Vaccine (Season Ended) [facility] Start: 04-19-2025 [facility] Start: 03-08-2025 End: 03-08-2025 Patient encounter procedure 03/08/2025 11:00 AM EDT Office Visit OB/Gynecology [address] [place] [address] Didi Jacques APRN.TANGLED YARN WORKER [address] [place] [place] [address] WT MGT 3 MONTH FOLLOW UP OB/Gynecology Comment on above: WT MGT 3 MONTH FOLLO W UP Start: 11-30-2024 End: 11-30-2024 Patient encounter procedure 11/30/2024 3:30 PM EDT Office Visit OB/Gynecology [address] [place] [address] Didi Jacques APRN.TANGLED YARN WORKER [address] [place] [address] WT MGMT f/up OB/Gynecology Comment on above: WT MGMT f/up Start: 10-24-2024 End: 10-24-2024 Patient encounter procedure 10/24/2024 4:00 PM EST Office Visit OB/Gynecology [address] [place] [id number] Didi Jacques APRN.TANGLED YARN WORKER [address] [place] [address] WT MGMT f/up OB/Gynecology Comment on above: WT MGMT f/up Start: 10-24-2024 End: 01-23-2025 Comprehensive metabolic 2000 panel - Serum or Plasma COMPREHENSIVE METABOLIC PANEL Lab Routine IFG (impaired fasting glucose) Overweight (BMI 25.0-29.9) Expected: 10/24/2024, Expires: 01/23/2025 [facility] Work Phone: Comment on above: Expected: 10/24/2024 , Expires: 01/23/2025 Start: 09-07-2024 End: 09-07-2024 Nursing evaluation of patient and report 09/07/2024 9:00 AM EST Nurse Visit OB/Gynecology [address] [place] [address] Wstr, Nurse Account Receivable Clerk [facility] [address] [place] [id number] [facility] OB/Gynecology Comment on above: Phenterm[facility] Start: 06-15-2024 End: 06-15-2024 Patient encounter procedure 06/15/2024 4:00 PM EDT Office Visit OB/Gynecology [address] [place] [address] Didi Jacques, KALLIE.TANGLED YARN WORKER [address] [place] [address] wt mgmt f/u OB/Gynecology Comment on above: wt mgmt f/u Start: 05-14-2024 Covid-19 Vaccine ( season) Covid-19 Vaccine () [facility] Start: 05-14-2024 Influenza vaccination [facility] Start: 03-15-2024 End: 03-15-2024 Patient encounter procedure 03/15/2024 9:30 AM EDT Office Visit OB/Gynecology [address] [place] [address] Didi Jacques, WOOD CABINET FINISHER.TANGLED YARN WORKER [address] [place] [address] 2 month follow up OB/Gynecology Comment on above: 2 month follow up Start: 10-13-2023 Patient referral [facility] Work Phone: Start: 10-13-2023 Liquid based cervica l cytology screening [facility] Start: 09-13-2023 Behavioral Health Screening Behavioral Health Screening [facility] Start: 07-01-2023 End: 09-30-2023 25-hydroxyvitamin D3 [Mass/volume] in Serum or Plasma VITAMIN D 25 HYDROXY Lab Routine Encounter for vitamin deficiency screening Overweight (BMI 25.0-29.9) Malaise and fatigue Expected: 07/01/2023, Expires: 09/30/2023 [facility] Work Phone: Comment on above: Expected: 07/01/2023 , Expires: 09/30/2023 Start: 07-01-2023 End: 09-30-2023 CBC panel - Blood by Automated count CBC Lab Routine Screening for deficiency anemia Overweight (BMI 25.0-29.9) Malaise and fatigue Arthralgia of both lower legs Expected: 07/01/2023, Expires: 09/30/2023 [facility] Work Phone: Comment on above: Expected: 07/01/2023 , Expires: 09/30/2023 Start: 07-01-2023 End: 09-30-2023 Comprehensive metabolic 2000 panel - Serum or Plasma COMP METABOLIC PANEL Lab Routine Screening for deficiency anemia Overweight (BMI 25.0-29.9) Arthralgia of both lower legs Expected: 07/01/2023, Expires: 09/30/2023 [facility] Work Phone: Comment on above: Expected: 07/01/2023 , Expires: 09/30/2023 Start: 07-01-2023 End: 09-30-2023 Hemoglobin A1c in Blood HGB A1C Lab Routine Screening for diabetes mellitus Overweight (BMI 25.0-29.9) Expected: 07/01/2023, Expires: 09/30/2023 [facility] Work Phone: Comment on above: Expected: 07/01/2023 , Expires: 09/30/2023 Start: 07-01-2023 End: 09-30-2023 Insulin [Units/volume] in Serum or Plasma INSULIN ASSAY BLOOD Lab Routine Screening for diabetes mellitus Overweight (BMI 25.0-29.9) Expected: 07/01/2023, Expires: 09/30/2023 [facility] Work Phone: Comment on above: Expected: 07/01/2023 , Expires: 09/30/2023 Start: 07-01-2023 End: 09-30-2023 Lipid 1996 panel - Serum or Plasma LIPID PANEL BASIC Lab Routine Screening cholesterol level Overweight (BMI 25.0-29.9) Expected: 07/01/2023, Expires: 09/30/2023 [facility] Work Phone: Comment on above: Expected: 07/01/2023 , Expires: 09/30/2023 Start: 07-01-2023 End: 09-30-2023 Thyrotropin [Units/volume] in Serum or Plasma TSH BLD Lab Routine Screening for thyroid disorder Overweight (BMI 25.0-29.9) Malaise and fatigue Expected: 07/01/2023, Expires: 09/30/2023 [facility] Work Phone: Comment on above: Expected: 07/01/2023 , Expires: 09/30/2023 Start: 05-14-2023 Covid-19 Vaccine ( season) Covid-19 Vaccine ( season) [facility] Start: 05-14-2023 Influenza vaccination Influenza Vacc ine (#1) [facility] Start: 09-13-2022 Depression Assessment Depression Ass essment [facility] Start: 03-26-2021 Lipid 1996 panel - S sulaiman or Plasma Lipid Screening [facility] Start: 03-26-2019 Diabetes Screening Diabetes Screenin g [facility] Start: 03-23-2019 HPV Testing HPV Testing [facility] Start: 03-23-2019 Pap Testing Pap Testing [facility] Start: 03-23-2019 Screening for malign ant neoplasm of cervix [facility] Start: 11-15-2017 Pneumococcal Vaccine : 50+ (1 of 1 - PCV) Pneumococcal Vaccine: 50+ (1 of 1 - PCV) [facility] Start: 11-15-2017 Shingrix Vaccine (1 of 2) Shingrix Vaccine (1 of 2) [facility] Start: 03-26-2017 Mammography Mammogram Screening [facility] Start: 03-26-2017 Screening for malign ant neoplasm of breast Mammogram Screening [facility] Start: 11-15-2012 Cologuard (FIT-DNA) Cologuard (FIT-D NA) [facility] Start: 11-15-2012 Colonoscopy Colonoscopy [facility] Start: 11-15-2012 Colorectal Cancer Screening Colorectal Cancer Screening [facility] Start: 11-15-[address] Colonography [facility] Start: 11-15-2012 Fecal Occult Blood Fecal Occult Bloo d [facility] Start: 11-15-2012 Screening for malign ant neoplasm of colon [facility] Start: 11-15-2012 Sigmoidoscopy Sigmoidoscopy [facility] Start: 11-15-1986 Hepatitis B Vaccine (1 of 3 - 19+ 3-dose series) Hepatitis B Vaccine (1 of 3 - 19+ 3-dose series) [facility] Start: 11-15-1986 Urine microalbumin profile DTaP,Tdap,Td Vaccine (1 - Tdap) [facility] Start: 11-15-1985 Anxiety Screening Anxiety Screening [facility] Start: 11-15-1985 Depression Screening Depression Scre ening [facility] Start: 11-15-1985 Hepatitis C Screening Hepatitis C [facility] Start: 11-15-1985 Hepatitis C screening Hepatitis C [facility] Start: 11-15-1985 HIV Screening HIV Screening [facility] Start: 11-15-1985 HIV screening HIV Screening [facility] Start: 05-18-1968 Covid-19 Vaccine (#1) Covid-19 Vacci ne (#1) [facility] Start: 1965 Hepatitis B Vaccine (1 of 3 - 3-dose series) Hepatitis B Vaccine (1 of 3 - 3-dose series) [facility] MG Breast - bilatera l Screening [facility] Path report.final Dx Spec [facility] Patient referral [facility] Work Phone: US.doppler Lower extremity vein [facility] US.doppler Lower extremity vessels [facility] Payers Date Payer Category Payer Self-pay [id number] 2025 Private Health Insurance MMO SUP ERMED PPO Member Subscriber Plan / Payer (Effective 2025-Present) Name: Christine Rachel Relation to Subscriber: Self Name: Christine Rachel Payer ID: Not on file Type: PPO Address: [place] [id number] 2025 Unknown [id number] 2023 Blue Cross Blue Shield BLUE ACCE SS PPO [id number] 2023 Unknown NIGHAT ELIZABETH PPO [id number] 2023-Present [phone] [address] [place] [address] PPO [id number] 2023 Unknown [id number] Private Health Insurance 0 Unknown SELF PAY INSURANCE [id number] Unknown [id number] Unknown [id number] Unknown [id number] Unknown [id number] Unknown [id number] Social History Date Type Detail Facility Start: 05-27-2020 End: 11-02-2023 Tobacco smoking status MOIS Unknown if ever smoked [facility] Start: 1965 Sex Assigned At Female W [facility] Start: 03-23-2014 End: 04-19-2025 Tobacco smoking status NHIS Never smoked tobacco [facility] Work Phone: Start: 03-23-2014 Tobacco use and exposure Smokeless tobacco non-user [facility] Work Phone: Start: 07-01-2023 End: 03-08-2025 Alcohol intake Current non-drinker of alcohol (finding) [facility] Start: 07-01-2023 End: 12-15-2023 History of Social function [facility] Start: 07-01-2023 End: 12-15-2023 Tobacco use panel [facility] Start: 1965 Sex Assigned At Not on file [facility] National Score (1-100), lower number is lower risk 61 [facility] Goals Date Patient Goal Desired Activity /State Functional Status Date Assessment Result Facility 03-23-2014 Are you deaf, or do you have serious difficulty hearing No 03/23/2014 1:56 PM Deborah Miller Ma [facility] 03-23-2014 Are you blind, or do you have serious difficulty seeing, even when wearing glasses No 03/23/2014 1:56 PM Deborah Miller Ma [facility] 03-23-2014 Do you have serious difficulty walking or climbing stairs No 03/23/2014 1:56 PM Deborah Miller Ma [facility] 03-23-2014 Do you have difficul ty dressing or bathing No 03/23/2014 1:56 PM Deborah Miller Ma [facility] 03-23-2014 Because of a physica l, mental, or emotional condition, do you have difficulty doing errands alone such as visiting a physician's office or shopping No 03/23/2014 1:56 PM Deborah Miller Ma [facility] Mental Status Date Assessment Result Facility 03-23-2014 Because of a physica l, mental, or emotional condition, do you have serious difficulty concentrating, remembering, or making decisions No 03/23/2014 1:56 PM Deborah Miller Ma [facility] Clinical Notes 07-01-2023 to 04-19-2025 Note Date & Type Note Facility 04-19-2025 History and physi nick note Note Date/Time April 19, 2025 10:40[facility] Medical Records Department [address] [place] [address] History & Physical Exam 04/19/25 1028 MR#: [id number] Acct: [id number] Name: CHRISTINE RACHEL Rep #:[id number] 2 : 1965 59 From: Brett White MD PCP: Care Physician,No Primary [facility] HPI - General HPI Narrative CHRISTINE RACHEL, is a 59 F who presents with painful left lower extremity varicose veins. She has had these left lower extremity varicose veins for a little over 30 years. She notes they started during one of her pregnancies and then just have continued to worsen over the years. The most prominent varicosity is on the medial lower leg and she states she has persistent aching and burning pain through this area. She also notes lower extremity edema in the left leg which is particularly bad at the end of the day and worse on warm days. 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 She has tried nonmeasured compression in the past without much benefit. She has never had any prior venous interventions. She denies any known VTE. She does not have any bothersome varicosities on the right leg, just some spider veins. She denies any pelvic, abdominal, buttock or varicosities, hematuria, dyspareunia. Otherwise, she has no significant medical history. [facility] Medical History Post-menopausal Smoker Non-smoker Encounter for screening for malignant neoplasm of stomach Home Medications ?Medication ?Instructions ?Recorded ?Last Taken ?Type multivitamin 1 tab PO DAILY 12/15/22 Unkn own History turmeric 400 mg capsule 400 mg PO DAILY 02/24/23 Unk nown History vitamin B complex 1 tab PO DAILY 02/24/23 Unkn own History ascorbic acid (vitamin C) 500 mg 500 mg PO QDAY Unknown History tablet cholecalciferol (vitamin D3) 125 125 mcg PO QDAY 03/06 Unknown History mcg (5,000 unit) capsule phentermine 37.5 mg capsule 37.5 mg PO QDAY 03/06/25 U nknown History Allergy/AdvReac Type Severity Reaction Status Date / Time No Known Allergies Allergy Verified 03/06/25 14:52 Family History Father Colon cancer Grandfather Colon cancer Other Asthma Cancer Surgical History History of meniscectomy of right knee Social History Smoking Status: Never smoker alcohol intake: never substance use type: does not use caffeine: Yes what type of physical activity do you participate in: walking frequency: 1-2 times per week seatbelt use: always do you feel safe at home: Yes additional social history: [employer] Constitutional Constitutional: Denies chills, fever(s), frequent falls, lethargy or weakness Eyes Eyes: Denies blind spots, change in vision or loss of vision ENT HEENT: Denies bleeding gums, hoarseness or sore throat Cardiovascular Cardiovascular: Denies abdominal pain, bluish discoloration of hand/feet, chest pain with activity, claudication, cold extremities, cyanosis, dyspnea on exertion, erythema on extremities, irregular heart rhythm, leg edema, leg ulcers, numbness in extremities or weakness in extremities Respiratory/Chest Respiratory/Chest: Denies cough, excessive phlegm production, shortness of breath at rest, shortness of breath with exertion or wheezing Gastrointestinal Gastrointestinal: Denies anorexia, change in stool character, constipation, diarrhea, melena or rectal bleeding Genitourinary Genitourinary: Denies dysuria or hematuria Musculoskeletal Musculoskeletal: Denies abnormal gait Integumentary Integumentary: Reports other Details: ; Denies erythema, non-healing lesions or wounds Neurologic Neurologic: Denies abnormal speech, focal weakness, headache(s), loss of vision,numbness, paresthesias or sensory deficit Hematologic/Lymphatic Hematologic/Lymphatic: Denies easy bleeding, easy bruising or lymphadenopathy Vital Signs Vital Signs Vital Signs: Weight Weight: 151 lb Body Mass Index (BMI) 26.7 Physical Exam Const alert, oriented x3, no apparent distress and healthy appearing General Appearance: cooperative; Negative for combative or lethargic Orientation / Consciousness: awake Exam Limitations: no limitations HEENT Head and Scalp: normocephalic and atraumatic Eyes EOMs intact bilaterally General Eye: normal appearance of both eyes Neck full ROM General: trachea midline Resp normal respiratory effort and no use of accessory muscles Effort and Inspection: Negative for labored, stridor or audible wheezes Cardio regular rate and regular rhythm Back/Spine Cervical Spine: cervical ROM normal Extremity full ROM, normal capillary refill and no clubbing, cyanosis or edema Skin no rashes or lesions noted and no wounds Neuro oriented x3, CN's II-XII intact bilaterally, no focal motor deficits and no sensory deficits noted Psych thought process normal, cooperative, affect normal, speech normal and activity/motor behavior normal Results Lab / Micro Data 04/19/25 09:34 04/19/25 09:34 Labs: Laboratory Results - last 24 hr 04/19/25 09:34: WBC 5.6, RBC 4.42, Hgb 12.9, Hct 38.8, MCV 87.8, MCH 29.2, MCHC 33.2, RDW Std Deviation 40.1, RDW Coeff of Karyn 12.5, Plt Count 287, MPV 8.3 Assessment & Plan Assessment/Plan (1) Varicose veins of left lower extremity with pain: PLAN: -GSV chemical ablation 04/19/25 1040 <Electronically signed by Brett White MD> Cosigner Signature (if applicable): CC: Dr. Brett White MD; No Primary Care Physician~ Signed [facility] Work Phone: 1(356) 245-652908-07-2025 History and physical note [facility] Medical Records Department [address] [place] [address] History & Physical Exam 04/19/25 1028 MR#: [id number] Acct: [id number] Name: CHRISTINE RACHEL Rep #:[id number] 2 : 1965 59 From: Brett White MD PCP: Care Physician,No Primary [facility] [place] Location: [facility] HPI - General HPI Narrative CHRISTINE RACHEL, is a 59 F who presents with painful left lower extremity varicose veins. She has had these left lower extremity varicose veins for a little over 30 years. She notes they started during one of her pregnancies and then just have continued to worsen over the years. The most prominent varicosity is on the medial lower leg and she states she has persistent aching and burningpain through this area. She also notes lower extremity edema in the left leg which is particularly bad at the end of the day and worse on warm days. 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 She has tried nonmeasured compression in the past without much benefit. She has never had any prior venous interventions. She denies any known VTE. She does not have any bothersome varicosities on the right leg, just some spider veins. She denies any pelvic, abdominal, buttock or varicosities, hematuria, dyspareunia. Otherwise, she has no significant medical history. [facility] Medical History Post-menopausal Smoker Non-smoker Encounter for screening for malignant neoplasm of stomach Home Medications ?Medication ?Instructions ?Recorded ?Last Taken ?Type multivitamin 1 tab PO DAILY 12/15/22 Unkn own History turmeric 400 mg capsule 400 mg PO DAILY 02/24/23 Unk nown History vitamin B complex 1 tab PO DAILY 02/24/23 Unkn own History ascorbic acid (vitamin C) 500 mg 500 mg PO QDAY Unknown History tablet cholecalciferol (vitamin D3) 125 125 mcg PO QDAY 03/06 Unknown History mcg (5,000 unit) capsule phentermine 37.5 mg capsule 37.5 mg PO QDAY 03/06/25 U nknown History Allergy/AdvReac Type Severity Reaction Status Date / Time No Known Allergies Allergy Verified 03/06/25 14:52 Family History Father Colon cancer Grandfather Colon cancer Other Asthma Cancer Surgical History History of meniscectomy of right knee Social History Smoking Status: Never smoker alcohol intake: never substance use type: does not use caffeine: Yes what type of physical activity do you participate in: walking frequency: 1-2 times per week seatbelt use: always do you feel safe at home: Yes additional social history: [employer] Constitutional Constitutional: Denies chills, fever(s), frequent falls, lethargy or weakness Eyes Eyes: Denies blind spots, change in vision or loss of vision ENT HEENT: Denies bleeding gums, hoarseness or sore throat Cardiovascular Cardiovascular: Denies abdominal pain, bluish discoloration of hand/feet, chest pain with activity,claudication, cold extremities, cyanosis, dyspnea on exertion, erythema on extremities, irregular heart rhythm, leg edema, leg ulcers, numbness in extremities or weakness in extremities Respiratory/Chest Respiratory/Chest: Denies cough, excessive phlegm production, shortness of breath at rest, shortness of breath with exertion or wheezing Gastrointestinal Gastrointestinal: Denies anorexia, change in stool character, constipation, diarrhea, melena or rectal bleeding Genitourinary Genitourinary: Denies dysuria or hematuria Musculoskeletal Musculoskeletal: Denies abnormal gait Integumentary Integumentary: Reports other Details: ; Denies erythema, non-healing lesions or wounds Neurologic Neurologic: Denies abnormal speech, focal weakness, headache(s), loss of vision,numbness, paresthesias or sensory deficit Hematologic/Lymphatic Hematologic/Lymphatic: Denies easy bleeding, easy bruising or lymphadenopathy Vital Signs Vital Signs Vital Signs: Weight Weight: 151 lb Body Mass Index (BMI) 26.7 Physical Exam Const alert, oriented x3, no apparent distress and healthy appearing General Appearance: cooperative; Negative for combative or lethargic Orientation / Consciousness: awake Exam Limitations: no limitations HEENT Head and Scalp: normocephalic and atraumatic Eyes EOMs intact bilaterally General Eye: normal appearance of both eyes Neck full ROM General: trachea midline Resp normal respiratory effort and no use of accessory muscles Effort and Inspection: Negative for labored, stridor or audible wheezes Cardio regular rate and regular rhythm Back/Spine Cervical Spine: cervical ROM normal Extremity full ROM, normal capillary refill and no clubbing, cyanosis or edema Skin no rashes or lesions noted and no wounds Neuro oriented x3, CN's II-XII intact bilaterally, no focal motor deficits and no sensory deficits noted Psych thought process normal, cooperative, affect normal, speech normal and activity/motor behavior normal Results Lab / Micro Data 04/19/25 09:34 04/19/25 09:34 Labs: Laboratory Results - last 24 hr 04/19/25 09:34: WBC 5.6, RBC 4.42, Hgb 12.9, Hct 38.8, MCV 87.8, MCH 29.2, MCHC 33.2, RDW Std Deviation 40.1, RDW Coeff of Karyn 12.5, Plt Count 287, MPV 8.3 Assessment & Plan Assessment/Plan (1) Varicose veins of left lower extremity with pain: PLAN: -GSV chemical ablation 04/19/25 1040 Cosigner Signature (if applicable): CC: Dr. Brett White MD; No Primary Care Physician~ Signed [facility]08-07-2025 [facility] Medical Records Department [address] [place] [address] History Physical Exam 04/19/25 1028 MR#: [id number] Acct: [id number] Name: CHRISTINE RACHEL Rep #: [id number] : 1965 59 From: Brett White MD PCP: Care Physician,No Primary [place] HPI - General HPI Narrative CHRISTINE RACHEL, is a 59 F who presents with painful left lower extremity varicose veins. She has had these left lower extremity varicose veins for a little over 30 years. She notes they started during one of her pregnancies and then just have continued to worsen over the years. The most prominent varicosity is on the medial lower leg and she states she has persistent aching and burning pain through this area. She also notes lower extremity edema in the left leg which is particularly bad at the end of the day and worse on warm days. 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 She has tried nonmeasured compression in the past without much benefit. She has never had any prior venous interventions. She denies any known VTE. She does not have any bothersome varicosities on the right leg, just some spider veins. She denies any pelvic, abdominal, buttock or varicosities, hematuria, dyspareunia. Otherwise, she has no significant medical history. [facility] Medical History Post-menopausal Smoker Non-smoker Encounter for screening for malignant neoplasm of stomach Home Medications ???Medication ???Instructions ???Recorded ???Last Taken ???Type multivitamin 1 tab PO DAILY 12/15/22 Unknown Hi story turmeric 400 mg capsule 400 mg PO DAILY 02/24/23 Unknown H istory vitamin B complex 1 tab PO DAILY 02/24/23 Unknown Hi story ascorbic acid (vitamin C) 500 mg 500 mg PO QDAY 03/06/25 Unknown Hi story tablet cholecalciferol (vitamin D3) 125 125 mcg PO QDAY 03/06/25 Unknown H istory mcg (5,000 unit) capsule phentermine 37.5 mg capsule 37.5 mg PO QDAY 03/06/25 Unknown H istory Allergy/AdvReac Type Severity Reaction Status Date / Time No Known Allergies Allergy Verified 03/06/25 14:52 Family History Father Colon cancer Grandfather Colon cancer Other Asthma Cancer Surgical History History of meniscectomy of right knee Social History Smoking Status: Never smoker alcohol intake: never substance use type: does not use caffeine: Yes what type of physical activity do you participate in: walking frequency: 1-2 times per week seatbelt use: always do you feel safe at home: Yes additional [facility] Constitutional Constitutional: Denies chills, fever(s), frequent falls, lethargy or weakness Eyes Eyes: Denies blind spots, change in vision or loss of vision ENT HEENT: Denies bleeding gums, hoarseness or sore throat Cardiovascular Cardiovascular: Denies abdominal pain, bluish discoloration of hand/feet, chest pain with activity, claudication, cold extremities, cyanosis, dyspnea on exertion, erythema on extremities, irregular heart rhythm, leg edema, leg ulcers, numbness in extremities or weakness in extremities Respiratory/Chest Respiratory/Chest: Denies cough, excessive phlegm production, shortness of breath at rest, shortness of breath with exertion or wheezing Gastrointestinal Gastrointestinal: Denies anorexia, change in stool character, constipation, diarrhea, melena or rectal bleeding Genitourinary Genitourinary: Denies dysuria or hematuria Musculoskeletal Musculoskeletal: Denies abnormal gait Integumentary Integumentary: Reports other Details: ; Denies erythema, non-healing lesions or wounds Neurologic Neurologic: Denies abnormal speech, focal weakness, headache(s), loss of vision, numbness, paresthesias or sensory deficit Hematologic/Lymphatic Hematologic/Lymphatic: Denies easy bleeding, easy bruising or lymphadenopathy Vital Signs Vital Signs Vital Signs: Weight Weight: 151 lb Body Mass Index (BMI) 26.7 Physical Exam Const alert, oriented x3, no apparent distress and healthy appearing General Appearance: cooperative; Negative for combative or lethargic Orientation / Consciousness: awake Exam Limitations: no limitations HEENT Head and Scalp: normocephalic and atraumatic Eyes EOMs intact bilaterally General Eye: normal appearance of both eyes Neck full ROM General: trachea midline Resp normal respiratory effort and no use of accessory muscles Effort and Inspection: Negative for labored, stridor or audible wheezes Cardio regular rate and regular rhythm Back/Spine Cervical Spine: cervical ROM normal (more content not included)...[facility]06-26-2025 History of Present illness Narrative* Didi Jacques APRN.TANGLED YARN WORKER - 03/08/2025 11:00 AM EDT Images from the original note [...] 07/01/2023 164 lb 28.82 WC 35.75 in [place] body weight: 116 lb 12.6 oz (53 [...] 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 TURMERIC [...] (%) Date Value 07/02/2023 5.3 Assessment/Plan: Christine Rachel is a 59 year [...] topiramate to decrease thoughts of food if late- night cravings persist; will consider after next visit [...] that continued use is off label for care home management of weight control. The patient is [...] Level: 4 - Moderate documented in [facility] NoteHNO ID: [id number] Author: DIDI JACQUES APRN.CNP Service: ? Author [...] 07/01/2023 164 lb 28.82 WC 35.75 in [place] body weight: 116 lb 12.6 oz (53 [...] and hoeing. 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 TURMERIC ORAL Take by mouth once daily. Cholecalciferol, Vitamin D3, (VITAMIN D-3) 50 mcg (2,000 unit) cap Take by mouth. VITAMIN B COMPLEX ORAL Take by mouth. No (more content not included)...[facility]06-25-2025 Instructions* Patient Instructions* Didi Jacques APRN.TANGLED YARN WORKER - 03/07/2025 8:06 PM EDT - Continue [...] = 10 g complete protein) - Keep buxyl-wo-manm proteins in your fridge--hard-boiled eggs, cottage cheese, high-protein yogurts, cheese sticks, or cube cheese. - Continue your morning routine: walking 4 miles at least 5 days a week and drinking your matcha-protein shake breakfast to stay full. - Plan to resume kettlebell or other strength/resistance training soon to help maintain muscle massas you age. - Drink plenty of water throughout the day--especially when working outside--to stay well hydrated. - Aim for at least 7 hours of sleep each night. - Labs and vital signs reviewed: 03/05 fasting labs: glucose 93 mg/dL, BUN 25 mg/dL (likely from dehydration), creatinine 0.78 mg/dL,eGFR 89 mL/min Today s blood pressure 102/76 [...] protein & 2g carb Two Good Lowfat Brazilian Yogurt, Lower Sugar - 12g protein & [...] oz is 28 gm protein Beef, Chicken, [place], Pork, Lock 1 oz 7g Fish, Tuna [...] (not a meal replacement) Protein AND carbs Beef/[place] Jerky 1 oz dried 10-15g protein - [...] 8 oz -13g protein & 6g carb Brazilian yogurt Full Fat Brazilian Yogurt 1 cup - 20.4g protein & 9.1g carb 2% Brazilian Yogurt 1 cup - 22.7g protein & 9.1g carb 0% (fat-free) Brazilian Yogurt - 1 cup 24g protein & 9.3g carb Aldi Protein Brazilian yogurt single svg - 13/g15g protein & 7g carb Chobani Zero Sugar single svg: - 12g protein & 5g carb Dannon Brazilian Light + Fit 1 single svg - 12g protein & 9g carb Oikos Pro single svg - 20g protein & 8g carb Oikos Triple Zero Brazilian Nonfat Yogurt 1 single svg - 15g protein & 7g carb :ratio, KETO Friendly Dairy Snack 1 single svg - 15g protein & 2g carb :ratio Protein 1 single svg - 25g protein & 8g carb Two Good Lowfat Brazilian Yogurt, [place], Lower Sugar - 12g protein & 2g carb Yoplait Protein 1 single svg 15g protein & 5g carb Dairy Free - [place] unsweetened Brazilian almond/soy 15g protein & 3g carb Dairy Free - True Goodness by Meiabril coconut-based yogurt alternative 1 g protein 1 [...] Cream Cheese 1.7g protein & 1.2g carb [employer] whipped Brazilian cream cheese (WM) 2 T 3g protein 2g carb Feta 4g protein & 1.2g carb Mozzarella 6.3g protein & 0.6g carb Parmesan 10g protein & 0.9g carb Hungarian 7.6g protein & 1.5g carb Cottage Cheese 1/2 c [place] 2% 13g protein 7g carb Whitney 2% 13g protein 5 g carb Good Culture 2% 14g protein 3g carb Lactaid 13g protein 5g carb Tyler s Low Fat 12g protein & 4g carb Legumes Lentils cup 9g protein & 20g carb Devine beans cup 7g protein & 20g carb Kidney, Black, [place], Cannellini beans cup 8g protein & 20g carb Chickpeas 1/2 c 6g protein & 15g carb Soybeans 1/2 c 14g complete protein & 8.5g carb [place] milk, unsweetened 8 oz 1g protein & 2g carb Soy milk 8 oz 3.5g protein & 1.6g carb Tofu 1/2 cup 10g protein & 2.3g carb Peanut butter, natural 2 Tbsp 7-8g protein & 4g net carbs, 190 calories PB2 powder 2 Tbsp 6g protein & 5g carb Nuts and Seeds per oz Almonds - 5.9g protein & 6.1g carb [place] Nuts - 4.0g protein & 3.4g carb [...] Seeds - 6.9g protein & 5g carb [place] Seeds - 5.8g protein & 5.6g carb Walnuts - 4.3g protein & 3.8g carb Edamame Beans (soybean) snack 1 pack 11 gm complete protein 2 carb 5 (FIVE) gram carb vegetable options 1 cup raw OR cup cooked: Asparagus [place] sprouts Beets Broccoli Brussel sprouts Cabbage Carrots Cauliflower Celery [place] Eggplant Green beans Lettuce Peppers Snap peas [...] High Protein Snack Ideas 1. Jerky 2. [place] mix without dried fruit 3. [place] roll-ups 4. Brazilian yogurt 5. Veggies and yogurt dip 6. Tuna 7. Hard-boiled eggs 8. Peanut butter with celery 9. Cheese slices/ Cheese Stick 10. Handful of almonds, peanuts or walnuts 11. Cottage Cheese 12. Beef sticks 13. Protein bars 14. C[address] 15. Pumpkin seeds 16. Nut butter 17. Protein shake or protein bar 18. Avocado and chicken salad 19. Egg muffins 20. Leftover protein or lunch meat 21. 1/2 c blended cottage cheese or Brazilian yogurt with dry ranch/Mrs. 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 April 19, 2025 9:30am [facility] Work Phone: 1(995) 765-562603-20-2025 Instructions* Patient Instructions* Didi Jacques APRN.CNP - [...] oz is 28 gm protein Beef, Chicken, [place], Pork, Lock 1 oz 7g Fish, Tuna Fish 1 oz 7g (Starkist tuna packet 2.6 oz 17 gm protein) Seafood (Crabmeat, Shrimp, Lobster) 1 oz 6g Protein shakes (read labels) Premier Protein or generic LilyMart Ania Sanchez High Performance- 30g protein & 1g carb [...] protein & 2 carb Protein AND carbs Beef/[place] Jerky 1 oz dried 10-15g protein - check carb count, can be high if sugar added Slim Vin - 6 gm protein and 4 net carb Great Value original turkey sausage sticks - 7 gm protein and 2 gm carb Ruddy [employer] Neri (at [facility]) Original smoked sausage sticks - 8 gm protein and 0 carb Imitation Crab Meat 1 oz - 2g protein & 4g carb Milk, skim 2% or 1% 8 oz - 8g protein & 12g carb Fairlife 2% milk 8 oz -13 g protein & 6g carb Brazilian yogurt Full Fat Brazilian Yogurt 1 cup - 20.4g protein & 9.1g carb 2% Brazilian Yogurt 1 cup - 22.7g protein & 9.1g carb 0% (fat-free) Brazilian Yogurt - 1 cup 24g protein & 9.3g carb Aldi Protein Brazilian yogurt single svg - 13/g15g protein & 7g carb Chobani Zero Sugar single svg: - 12g protein & 5g carb Dannon Brazilian Light + Fit 1 single svg - 12g protein & 9g carb Oikos Pro single svg - 20g protein & 8g carb Oikos Triple Zero Brazilian Nonfat Yogurt 1 single svg - 15g protein & 7g carb Oikos Pro drinkable yogurt 1 single svg - 23 g protein & 8 g carb :ratio, KETO Friendly Dairy Snack 1 single svg - 15g protein & 2g carb :ratio Protein 1 single svg - 25g protein & 8g carb Two Good Lowfat Brazilian Yogurt, [place], Lower Sugar - 12g protein & 2g carb Yoplait Protein 1 single svg 15gm protein & 5gm carb Dairy Free - [place] unsweetened Brazilian almond/soy 15 gm protein & 3 gm carb Dairy Free - True Goodness by Ania coconut-based yogurt alternative 1 gm protein 1 gm net carb 180 nick Cheese each oz Brie 5.9g protein & 0.1g carb Cheddar 7g protein & 0.4g carb Hong 6.7g protein & 0.7g carb Cream Cheese 1.7g protein & 1.2g carb Feta 4g protein & 1.2g carb Mozzarella 6.3g protein & 0.6g carb Parmesan 10g protein & 0.9g carb Hungarian 7.6g protein & 1.5g carb Cottage Cheese 1/2 c [place] 2% 13g protein 7g carb Whitney 2% 13g protein 5 g carb Good Culture 2% 14g protein 3g carb Tyler s Low Fat 12g protein & 4g carb Legumes Lentils cup 9g protein & 20g carb Devine beans cup 7g protein & 20g carb Kidney, Black, [place], Cannellini beans cup 8g protein & 20g carb Soybeans 1/2 c 14g complete protein & 8.5g carb [place] milk, unsweetened 8 oz 1g protein & 2g carb Soy milk 8 oz 3.5g protein & 1.6g carb Tofu 1/2 cup 10g protein & 2.3g carb Peanut butter, natural 2 Tbsp 7-8g protein & 4g net carbs, 190 calories PB2 powder 2 Tbsp 6g protein & 5g carb Nuts and Seeds per oz Almonds - 5.9g protein & 6.1g carb [place] Nuts - 4.0g protein & 3.4g carb [...] Seeds - 6.9g protein & 5g carb [place] Seeds - 5.8g protein & 5.6g carb Walnuts - 4.3g protein & 3.8g carb Edamame Beans (soybean) snack 1 pack 11 gm complete protein 2 carb 5 (FIVE) gram carb vegetable options 1 cup raw OR cup cooked: Asparagus [place] sprouts Beets Broccoli Brussel sprouts Cabbage Carrots Cauliflower Celery [place] Eggplant Green beans Lettuce Peppers Snap peas [...] High Protein Snack Ideas 1. Jerky 2. [place] mix without dried fruit 3. [place] roll-ups 4. Brazilian yogurt 5. Veggies and yogurt dip 6. Tuna 7. Hard-boiled eggs 8. Peanut butter with celery 9. Cheese slices/ Cheese Stick 10. Handful of almonds, peanuts or walnuts 11. Cottage Cheese 12. Beef sticks 13. Protein bars 14. [address] 15. Pumpkin seeds 16. Nut butter 17. Protein shakes 18. Avocado and chicken salad 19. Egg muffins 20. Leftover protein or lunch meat 21. 1/2 c blended cottage cheese or Brazilian yogurt with dry ranch/Mrs. 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 Phentermine [...] that continued use is off label for care home management of weight control. The patient is [...] Level: 4 - Moderate documented in this encounterChillic[facility]03-20-2025 NoteHNO ID: [id number] Author: DIDI JACQUES APRN.CNP Service: ? 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 Phentermine [...] 8.5 Cholesterol, Total (mg/ (more content not included)...[facility] 10-24-2024 Instructions* Patient Instructions* Didi Jacques APRN.TANGLED YARN WORKER - 10/24/2024 4:30 PM EST [place] Protein [...] oz is 28 gm protein Beef, Chicken, [place], Pork, Lock 1 oz 7g Fish, Tuna [...] protein & 2 carb Protein AND carbs Beef/[place] Jerky 1 oz dried 10-15g protein - [...] oz -13 g protein & 6g carb Brazilian yogurt Full Fat Brazilian Yogurt 1 cup - 20.4g protein & 9.1g carb 2% Brazilian Yogurt 1 cup - 22.7g protein & 9.1g carb 0% (fat-free) Brazilian Yogurt - 1 cup 24g protein & 9.3g carb Aldi Protein Brazilian yogurt single svg - 15g protein & 7g carb Chobani Zero Sugar single svg: - 12g protein & 5g carb Dannon Brazilian Light + Fit 1 single svg - 12g protein & 9g carb Oikos Pro single svg - 20g protein & 8g carb Oikos Triple Zero Brazilian Nonfat Yogurt 1 single svg - 15g protein & 7g carb :ratio, KETO Friendly Dairy Snack 1 single svg - 15g protein & 2g carb :ratio Protein 1 single svg - 25g protein & 8g carb Two Good Lowfat Brazilian Yogurt, [place], Lower Sugar - 12g protein & 2g carb Yoplait Protein 1 single svg 15gm protein & 5gm carb Dairy Free - [place] unsweetened Brazilian almond/soy 15 gm protein & 3 gm carb Dairy Free - True Goodness by Meiabril coconut-based yogurt alternative 1 gm protein 1 gm net carb 180 nick Cheese each oz Brie 5.9g protein & 0.1g carb Cheddar 7g protein & 0.4g carb Hong 6.7g protein & 0.7g carb Cream Cheese 1.7g protein & 1.2g carb Feta 4g protein & 1.2g carb Mozzarella 6.3g protein & 0.6g carb Parmesan 10g protein & 0.9g carb Hungarian 7.6g protein & 1.5g carb Cottage Cheese 1/2 c [place] 2% 13g protein 7g carb Whitney 2% 13g protein 5 g carb Good Culture 2% 14g protein 3g carb Tyler s Low Fat 12g protein & 4g carb Legumes Lentils cup 9g protein & 20g carb Devine beans cup 7g protein & 20g carb Kidney, Black, [place], Cannellini beans cup 8g protein & 20g carb Soybeans 1/2 c 14g complete protein & 8.5g carb [place] milk, unsweetened 8 oz 1g protein & 2g carb Soy milk 8 oz 3.5g protein & 1.6g carb Tofu 1/2 cup 10g protein & 2.3g carb Peanut butter, natural 2 Tbsp 7-8g protein & 4g net carbs, 190 calories PB2 powder 2 Tbsp 6g protein & 5g carb Nuts and Seeds per oz Almonds - 5.9g protein & 6.1g carb [place] Nuts - 4.0g protein & 3.4g carb [...] Seeds - 6.9g protein & 5g carb [place] Seeds - 5.8g protein & 5.6g carb Walnuts - 4.3g protein & 3.8g carb Edamame Beans (soybean) snack 1 pack 11 gm complete protein 2 carb 5 (FIVE) gram carb vegetable options 1 cup raw OR cup cooked: Asparagus [place] sprouts Beets Broccoli Brussel sprouts Cabbage Carrots Cauliflower Celery [place] Eggplant Green beans Lettuce Peppers Snap peas [...] High Protein Snack Ideas 1. Jerky 2. [place] mix without dried fruit 3. [place] roll-ups 4. Brazilian yogurt 5. Veggies and yogurt dip 6. Tuna 7. Hard-boiled eggs 8. Peanut butter with celery 9. Cheese slices/ Cheese Stick 10. Handful of almonds, peanuts or walnuts 11. Cottage Cheese 12. Beef sticks 13. Protein bars 14. Canned [address] 15. Pumpkin seeds 16. Nut butter 17. Protein shakes 18. Avocado and chicken salad 19. Egg muffins 20. Leftover protein or lunch meat 21. 1/2 c blended cottage cheese or Brazilian yogurt with dry ranch/Mrs. Dash/herb seasoning mix [...] crushed nuts and freeze documented in this encounterCh[facility]02-11-[facility]25 History of Present illness Narrative* Didi Jacques [...] last appointment: Fell off a little around [place] with holiday eating - weight 152 lbs after Janes. Able to get back to balanced protein eating plan easily but unable to lose weight. 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 Phentermine [...] that continued use is off label for care home management of weight control. The patient is [...] Level: 4 - Moderate documented in this encounterChillicothe Hospital02-11-2025 NoteHNO ID: [id number] Author: DIDI JACQUES APRN.CNP Service: ? Author [...] last appointment: Fell off a little around [place] with holiday eating - weight 152 lbs after . Able to get back to balanced protein eating plan easily but unable to lose weight. 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 Phentermine [...] pg 28.9 MCHC 30. (more content not included)...[facility]12-31-2024 Note HNO ID: [id number] Author: NGOZI MAYO MD Service: ? Author Type: Physician Type: Progress Notes Filed: 09/12/2024 12:57 Note Text: Pt has met requirement to stay on phentermine. Pt to follow up with AG upon her return.[facility]12-31-20[facility] History of Present illness Narrative * Ngozi [...] 10/24/24. Val Guadalupe RN documented in this encounterChillicothe Hospital12-31-2024 NoteHNO ID: [id number] Author: VAL GUADALUPE RN Service: ? Author Type: Registered Nurse Type: Progress Notes Filed: 09/12/2024 12:57 Note Text: Patient presents for weight and BP check for Phentermine refill. See vital tab for results. Denies any unwanted side effects. Next weight management appointment is on 10/24/24. Val Guadalupe [facility]NS[facility] Instructions* Patient Instructions* Didi Jacques APRN.TANGLED YARN WORKER - 06/15/2024 4:46 PM EDT - Whole [...] oz is 28 gm protein Beef, Chicken, [place], Pork, Lock 1 oz 7g Fish, Tuna [...] protein & 2 carb Protein AND carbs Beef/[place] Jerky 1 oz dried 10-15g protein - check carb count, can be high if sugar added Slim Vin - 6 gm protein and 4 net carb Great Value original turkey sausage sticks - 7 gm protein and 2 gm carb Ruddy [employer] Neri (at [facility]) Original smoked sausage sticks - 8 gm protein and 0 carb Imitation Crab Meat 1 oz - 2g protein & 4g carb Milk, skim 2% or 1% 8 oz - 8g protein & 12g carb Brazilian yogurt Full Fat Brazilian Yogurt 1 cup - 20.4g protein & 9.1g carb 2% Brazilian Yogurt 1 cup - 22.7g protein & 9.1g carb 0% (fat-free) Brazilian Yogurt - 1 cup 24g protein & 9.3g carb Aldi Protein Brazilian yogurt single svg - 15g protein & 7g carb Chobani Zero Sugar single svg: - 12g protein & 5g carb Dannon Brazilian Light + Fit 1 single svg - 12g protein & 9g carb Oikos Pro single svg - 20g protein & 8g carb Oikos Triple Zero Brazilian Nonfat Yogurt 1 single svg - 15g protein & 7g carb :ratio, KETO Friendly Dairy Snack 1 single svg - 15g protein & 2g carb :ratio Protein 1 single svg - 25g protein & 8g carb Two Good Lowfat Brazilian Yogurt, [place], Lower Sugar - 12g protein & 2g carb Yoplait Protein 1 single svg 15gm protein & 5gm carb Dairy Free - [facility] unsweetened Brazilian almond/soy 15 gm protein & 3 gm carb Cheese each oz Brie 5.9g protein & 0.1g carb Cheddar 7g protein & 0.4g carb Hong 6.7g protein & 0.7g carb Cream Cheese 1.7g protein & 1.2g carb Feta 4g protein & 1.2g carb Mozzarella 6.3g protein & 0.6g carb Parmesan 10g protein & 0.9g carb Hungarian 7.6g protein & 1.5g carb Cottage Cheese 1/2 c [place] 2% 13g protein 7g carb Whitney 2% 13g protein 5 g carb Good Culture 2% 14g protein 3g carb Tyler s Low Fat 12g protein & 4g carb Legumes Lentils cup 9g protein & 20g carb Devine beans cup 7g protein & 20g carb Kidney, Black, [place], Cannellini beans cup 8g protein & 20g carb Soybeans 1/2 c 14g complete protein & 8.5g carb [place] milk, unsweetened 8 oz 1g protein & 2g carb Soy milk 8 oz 3.5g protein & 1.6g carb Tofu 1/2 cup 10g protein & 2.3g carb Peanut butter, natural 2 Tbsp 7-8g protein & 4g net carbs, 190 calories PB2 powder 2 Tbsp 6g protein & 5g carb Nuts and Seeds per oz Almonds - 5.9g protein & 6.1g carb [place] Nuts - 4.0g protein & 3.4g carb [...] Seeds - 6.9g protein & 5g carb [place] Seeds - 5.8g protein & 5.6g carb [...] Broccoli Brussel sprouts Cabbage Carrots Cauliflower Celery [place] Eggplant Green beans Lettuce Peppers Snap peas [...] High Protein Snack Ideas 1. Jerky 2. [place] mix without dried fruit 3. [place] roll-ups 4. Brazilian yogurt 5. Veggies and yogurt dip 6. Tuna 7. Hard-boiled eggs 8. Peanut butter with celery 9. Cheese slices/ Cheese Stick 10. Handful of almonds, peanuts or walnuts 11. Cottage Cheese 12. Beef sticks 13. Protein bars 14. [address] 15. Pumpkin seeds 16. Nut butter 17. Protein shakes 18. Avocado and chicken salad 19. Egg muffins 20. Leftover protein or lunch meat 21. 1/2 c blended cottage cheese or Brazilian yogurt with dry ranch/Mrs. Dash/herb seasoning mix [...] nuts and freeze none documented in this encounterChillicothe Hospital10-03-2024 History of Present illness Narrative* Didi Jacques [...] a couple of pounds when she started [employer] classes again - Hungrier in the evenings Weight loss since last visit 1 lbs for total of 17 lbs Date: Weight: BMI: 06/15/2024 147 lb 25.83 03/15/2024 148 lb 26.01 Loss of 10% 01/13/2024 152 lb 26.71 12/15/2023 161 lb 28.44 phentermine 37.5 mg 07/01/2023 164 lb 28.82 WC 35.75 in [place] body weight: 116 lb 12.6 oz (53 [...] 4 miles a day or classes, started [employer] classes again 2 days/wk Stress: increased, 2 kids getting next year, one in [place] and one in [place] ; Work -plans to retire after next [...] that 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 The patient is [...] Level: 4 - Moderate documented in this encounterChillicothe Hospital10-03-2024 NoteHNO ID: [id number] Author: DIDI JACQUES APRN.CNP Service: ? Author [...] a couple of pounds when she started [employer] classes again - Hungrier in the evenings Weight loss since last visit 1 lbs for total of 17 lbs Date: Weight: BMI: 06/15/2024 147 lb 25.83 03/15/2024 148 lb 26.01 Loss of 10% 01/13/2024 152 lb 26.71 12/15/2023 161 lb 28.44 phentermine 37.5 mg 07/01/2023 164 lb 28.82 WC 35.75 in [place] body weight: 116 lb 12.6 oz (53 [...] 4 miles a day or classes, started [employer] classes again 2 days/wk Stress: increased, 2 kids getting next year, one in [place] and one in [place] ; Work - plans to retire after [...] CrCl cannot be calculate (more content not included)...[facility]07-03-2024 Instructions* Patient Instructions* Didi Jacques APRN.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 Jerky 2. [place] mix without dried fruit 3. [place] roll-ups 4. Brazilian yogurt 5. Veggies and yogurt dip 6. Tuna 7. Hard-boiled eggs 8. Peanut butter with celery 9. Cheese slices/ Cheese Stick 10. Handful of almonds, peanuts or walnuts 11. Cottage Cheese 12. Beef sticks 13. Protein bars 14. C[address] 15. Pumpkin seeds 16. Nut butter 17. [...] protein, 5 [place] svg documented in this encounterChillicothe Hospital07-03-2024 History of Present illness Narrative* Didi Jacques APRN.CNP - 03/15/2024 9:30 AM EDT Images from [...] 164 lb BMI 28.82 WC 35.75 in [place] body weight: 116 lb 12.6 oz (53 [...] 2 kids getting next year, one in [place] and one in [place] ; Work -plans to retire after next [...] Level: 4 - Moderate documented in this encounterChillicothe Hospital07-03-2024 NoteHNO ID: [id number] Author: DIDI JACQUES APRN.CNP Service: ? 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 - 01/13/2024 4:40 PM EDT Protein needs [...] protein shake S - none L - 4029-3510 - 30 gm protein shake or veg [...] oz is 28 gm protein Beef, Chicken, [place], Pork, Lock 1 oz 7g Fish, Tuna [...] protein & 2 carb Protein AND carbs Beef/[place] Jerky 1 oz dried 10-15g protein - [...] oz - 8g protein & 12g carb Brazilian yogurt Full Fat Brazilian Yogurt 1 cup - 20.4g protein & 9.1g carb 2% Brazilian Yogurt 1 cup - 22.7g protein & 9.1g carb 0% (fat-free) Brazilian Yogurt - 1 cup 24g protein & 9.3g carb :ratio, KETO Friendly Dairy Snack 1 single svg - 15g protein & 2g carb :ratio Protein 1 single svg - 25g protein & 8g carb Dannon Light + Fit 1 single csvg - 12g protein & 9g carb Two Good Lowfat Brazilian Yogurt, [place], Lower Sugar - 12g protein & 2g carb Oikos Triple Zero Brazilian Nonfat Yogurt 1 single svg - 15g protein & 7g carb Oikos Pro 20 gm protein Aldi Protein Brazilian yogurt 15g protein & 7g carb Cheese each oz Brie 5.9g protein & 0.1g carb Cheddar Cheese 7g protein & 0.4g carb Mozzarella Cheese 6.3g protein & 0.6g carb Hong Cheese 6.7g protein & 0.7g carb Parmesan Cheese 10g protein & 0.9g carb Cream Cheese 1.7g protein & 1.2g carb Feta 4g protein & 1.2g carb Hungarian Cheese 7.6g protein & 1.5g carb Tyler s Low Fat Cottage Cheese 1/2cup 12g protein & 4g carb Legumes Lentils cup 9g protein & 20g carb Devine beans cup 7g protein & 20g carb Kidney, Black, [place], Cannellini beans cup 8g protein & 20g carb Soybeans 1/2 c 14g complete protein & 8.5g carb Peanut butter, natural 2 Tbsp 7-8g protein & 4g net carbs, 190 calories PB2 powder 2 Tbsp 6g protein & 5g carb [place] milk, unsweetened 8 oz 1g protein & 2g carb Soy milk 8 oz 3.5g protein & 1.6g carb Tofu 1/2 cup 10g protein & 2.3g carb Nuts and Seeds per oz Pumpkin Seeds - 6.9g protein & 5g carb Almonds - 5.9g protein & 6.1g carb [place] Seeds - 5.8g protein & 5.6g carb Pistachios - 5.8g protein & 7.8g carb Cashews - 5.1g protein & 9.2g carb Walnuts - 4.3g protein & 3.8g carb Hazelnuts - 4.2g protein & 4.7g carb [place] Nuts - 4.0g protein & 3.4g carb Pecans - 2.6g protein & 3.9g carb Peanuts - 7g protein & 4.6g carb Hemp seeds 3 T/30 gms - 9.5 gm complete protein and 2.5 gm carb documented in this encounterChillicothe Hospital05-01-2024 History of Present illness Narrative* Didi Jacques APRN.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 1. Timely refills are [...] Phentermine was approved by the FDA in 1958 for short term weight loss. It works [...] at or call local emergency services at 068. What other information should I know? Keep all appointments with your doctor and the laboratory. Do not let anyone else take your medication. Phentermine is a controlled substance. It is FDA approved for up to 3 months. Prescriptions may be refilled only a limited number of times. Keep a written list of all of your prescription and nonprescription ([id number]) medicines, in addition to vitamins, minerals, or [...] make up for a missed one. Sources [facility] Consumer Medication Info: http://www.ncbi.nlm.nih.gov/pubmedhealth/FYZ7023656/ AMA patient handouts: http://www.amaassn.org/ama1/pub/upload/mm/433/phrxsurgery.pdf Drugs.com: http://www.drugs.com/pro/phentermine.html B - skip S - none L - 3119-4791 - 30 gm protein shake 5 eggs [...] and equals 21 g protein Beef, Chicken, [place], Pork, Lock 1 oz 7g Fish, Tuna [...] protein & 2 carb Protein AND carbs Beef/[place] Jerky 1 oz dried 10-15g protein - check carb count, can be high if sugar added Slim Vin - 6 gm protein and 4 net carb Great Value original turkey sausage sticks - 7 gm protein and 2 gm carb [facility]dy [employer] [facility] (at [facility]) Original smoked sausage sticks - 8 gm protein and 0 carb Imitation Crab Meat 1 oz - 2g protein & 4g carb Milk, skim 2% or 1% 8 oz - 8g protein & 12g carb Brazilian yogurt Full Fat Brazilian Yogurt 1 cup - 20.4g protein & 9.1g carb 2% Brazilian Yogurt 1 cup - 22.7g protein & 9.1g carb 0% (fat-free) Brazilian Yogurt - 1 cup 24g protein & 9.3g carb :ratio, KETO Friendly Dairy Snack 1 single svg - 15g protein & 2g carb :ratio Protein 1 single svg - 25g protein & 8g carb Dannon Light + Fit 1 single csvg - 12g protein & 9g carb Two Good Lowfat Brazilian Yogurt, [place], Lower Sugar - 12g protein & 2g carb Oikos Triple Zero Brazilian Nonfat Yogurt 1 single svg - 15g protein & 7g carb Aldi Protein Brazilian yogurt 15g protein & 7g carb Cheese each oz Brie 5.9g protein & 0.1g carb Cheddar Cheese 7g protein & 0.4g carb Mozzarella Cheese 6.3g protein & 0.6g carb Hong Cheese 6.7g protein & 0.7g carb Parmesan Cheese 10g protein & 0.9g carb Cream Cheese 1.7g protein & 1.2g carb Feta 4g protein & 1.2g carb Hungarian Cheese 7.6g protein & 1.5g carb Tyler s Low Fat Cottage Cheese 1/2cup 12g protein & 4g carb Legumes Lentils cup 9g protein & 20g carb Devine beans cup 7g protein & 20g carb Kidney, Black, [place], Cannellini beans cup 8g protein & 20g carb Soybeans 1/2 c 14g protein & 8.5g carb Peanut butter, natural 2 Tbsp 7-8g protein & 4g net carbs, 190 calories PB2 powder 2 Tbsp 6g protein & 5g carb [place] milk, unsweetened 8 oz 1g protein & 2g carb Soy milk 8 oz 3.5g protein & 1.6g carb Tofu 1/2 cup 10g protein & 2.3g carb Nuts and Seeds per oz Pumpkin Seeds - 6.9g protein & 5g carb Almonds - 5.9g protein & 6.1g carb [place] Seeds - 5.8g protein & 5.6g carb Pistachios - 5.8g protein & 7.8g carb Cashews - 5.1g protein & 9.2g carb Walnuts - 4.3g protein & 3.8g carb Hazelnuts - 4.2g protein & 4.7g carb [place] Nuts - 4.0g protein & 3.4g carb [...] Cabbage Spinach Peppers Green beans Carrots Tomato [place] Posey sprouts Cauliflower Lettuce Snap peas Broccoli [...] High Protein Snack Ideas 1. Jerky 2. [place] mix without dried fruit 3. [place] roll-ups 4. Brazilian yogurt 5. Veggies and yogurt dip 6. Tuna 7. Hard-boiled eggs 8. Peanut butter with celery 9. Cheese slices/ Cheese Stick 10. Handful of almonds, peanuts or walnuts 11. Cottage Cheese 12. Beef sticks 13. Protein bars 14. [address] 15. Pumpkin seeds 16. Nut butter 17. Protein shakes 18. Avocado and chicken salad 19. Egg muffins 20. Leftover protein or lunch meat 21. 1/2 c blended cottage cheese with 1 Tbsp sugar-free dry cheesecake pudding mix 12g protein 10 carb documented in this encounterChillicothe Hospital04-03-2024 History of Present illness Narrative* Didi Jacques APRN.CNP - 12/15/2023 9:30 AM EDT Some documentation [...] - skip S - none L - 7766-0479 - 30 gm protein shake S - [...] which included preparing to see the patient, [id number] patient care, completing clinical documentation, obtaining and/or reviewing separately obtained history, performing a medically appropriate examination, counseling and educating the pat ient/family/caregiver, and ordering medications, tests, or procedures. documented in this encounterChillicothe Hospital01-31-2024 NotePap Smear Specimen AdequacyJan2023 11:47amComment.Satisfactory for evaluation. Endocervical and/or squamous metaplasticcells (endocervical component)are present.[facility] INTERFACED A#[id number] HospitalComment on above: Satisfactory for evaluation. Endocervical and/or squamous metaplasticcells (endocervical component)are present.10-13-2023 NotePap Smear Specimen Adequacy October 13, 2023 12:47pmComment.Satisfactory for evaluation. Endocervical and/or squamous metaplasticcells (endocervical component)are present.[facility] INTERFACED A#[id number] HospitalComharbor beach community hospital on above:Satisfactory for evaluation. Endocervical and/or squamous metaplasticcells (endocervical component)are present.07-01-2023 History of Present illness Narrative* Didi Jacques APRN.[facility] - 07/01/2023 8:00 AM EDT Images from [...] of diet:Structured, evening snacking, and skip meals. 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 The date to complete this order is 07-01-2023 The Jessica program is: [facility] WHAT TO EXPECT AT YOUR APPOINTMENT The patient access code to view the Jessica program is: [id number] To view the Jessica program go to: [email or web address] Impression: Christine Rachel is a 57 year [...] intervention is the best and most appropriate care home therapeutic option. -- We discussed several strategies [...] training and cardiovascular exercise is the best customer support technician plan. An overall goal of 150-200 minutes [...] for management of above interventions Didi Jacques APRN.CNP I spent a total of 75 minutes on the date of the service which included preparing to see the patient, [id number] patient care, completing clinical documentation, obtaining and/or reviewing separately obtained history, performing a medically appropriate examination, counseling and educating the pat ient/family/caregiver, and ordering medications, tests, or procedures. documented in this encounterChillicothe Hospital10-19-2023 Instructions* Patient Instructions* Didi Jacques APRN.CNP - [...] it adds only a little benefit for care home weight loss success. However, exercise can have [...] that affects nearly one-third of the adult [place] population (approximately 60 million). The number of overweight and obese Americans has continued to increase since 1959, a trend that is not slowing down. Today, 64.5 percent of adult Americans (about 127 million) are categorized as being overweight or obese. Each year, obesity causes at least 300,000 excess deaths in the [place] and healthcare costs of [place] adults with obesity amount to approximately $100 [...] the gallbladder, breast, uterus, cervix, or ovaries [email or web address].[email or web address]/health/diseases/08589-wwagzh-ttogvylwxl-srsfojr-z ducation Nutrition - Eat primarily whole foods. Limit carbs, especially processed carbs. - Do not drink your calories - 30 grams of protein for breakfast decreases your hunger during the day by up to 40 % Premier Protein or generic 30 gm protein 1 gm sugar - Walk for 15 minutes immediately a meal. Sincerely, Ngozi Caicedo MD, FACOG & Didi Jacques CNP - [...] and equals 21 g protein Beef, Chicken, [place], Pork, Lock 1 oz 7g Fish, Tuna [...] protein & 2 carb Protein AND carbs Beef/[place] Jerky 1 oz dried 10-15g protein - [...] oz - 8g protein & 12g carb Brazilian yogurt Full Fat Brazilian Yogurt 1 cup - 20.4g protein & 9.1g carb 2% Brazilian Yogurt 1 cup - 22.7g protein & 9.1g carb 0% (fat-free) Brazilian Yogurt - 1 cup 24g protein & 9.3g carb :ratio, KETO Friendly Dairy Snack 1 single svg - 15g protein & 2g carb :ratio Protein 1 single svg - 25g protein & 8g carb Dannon Light + Fit 1 single csvg - 12g protein & 9g carb Two Good Lowfat Brazilian Yogurt, [place], Lower Sugar - 12g protein & 2g carb Oikos Triple Zero Brazilian Nonfat Yogurt 1 single svg - 15g protein & 7g carb Cheese each oz Brie 5.9g protein & 0.1g carb Cheddar Cheese 7g protein & 0.4g carb Mozzarella Cheese 6.3g protein & 0.6g carb Hong Cheese 6.7g protein & 0.7g carb Parmesan Cheese 10g protein & 0.9g carb Cream Cheese 1.7g protein & 1.2g carb Feta 4g protein & 1.2g carb Hungarian Cheese 7.6g protein & 1.5g carb Tyler s Low Fat Cottage Cheese 1/2cup 12g protein & 4g carb Legumes Lentils cup 9g protein & 20g carb Devine beans cup 7g protein & 20g carb Kidney, Black, [place], Cannellini beans cup 8g protein & 20g carb Soybeans 1/2 c 14g protein & 8.5g carb Peanut butter, natural 2 Tbsp 7-8g protein & 4g net carbs, 190 calories [place] milk, unsweetened 8 oz 1g protein & 2g carb Soy milk 8 oz 3.5g protein & 1.6g carb Tofu 1/2 cup 10g protein & 2.3g carb Nuts and Seeds per oz Pumpkin Seeds - 6.9g protein & 5g carb Almonds - 5.9g protein & 6.1g carb [place] Seeds - 5.8g protein & 5.6g carb Pistachios - 5.8g protein & 7.8g carb Cashews - 5.1g protein & 9.2g carb Walnuts - 4.3g protein & 3.8g carb Hazelnuts - 4.2g protein & 4.7g carb [place] Nuts - 4.0g protein & 3.4g carb [...] Cabbage Spinach Peppers Green beans Carrots Tomato [place] Posey sprouts Cauliflower Lettuce Snap peas Broccoli [...] High Protein Snack Ideas 1. Jerky 2. [place] mix without or minimal dried fruit 3. [place] roll-ups 4. Brazilian yogurt 5. Veggies and yogurt dip 6. Tuna 7. Hard-boiled eggs 8. Peanut butter celery sticks 9. No-bake energy bites 10. Cheese slices/ Cheese Stick 11. Handful of almonds 12. Roasted chickpeas 13. Hummus and veggies 14. Cottage Cheese 15. Celery/fruit with peanut butter 16. Beef sticks (Grass-fed, natural ingredients) 17. Protein bars 18. Canned Lane 19. Alexandro pudding 20. Homemade granola - rolled oats, nuts, and a little sweetener - 1/4 cup serving 21. Pumpkin seeds 22. Nut butter 23. Protein shakes 24. Edamame 25. Avocado and chicken salad 26. Fruit and nut bars - natural ingredients without added sugar. 27. Lentil salad 28. Overnight oatmeal 29. Egg muffins 30. Leftover protein or lunch meat documented in this encounterRulo ClinicEvaluation noteNo assessment information availableWOhioHealth Berger Hospital Work Phone: Evaluation note* Diagnosis Malaise [...] (BMI 25.0-29.9) Overweight documented in this encounter [facility]* Diagnosis Onset Date Resolution Status Atrophic vaginitis acute Varicose veins of left lower leg acute Encounter for routine gynecological examination noneactive [facility] Work Phone: Evaluation note* Diagnosis Onset Date Resolution Status Atrophic vaginitis acute Varicose veins of left lower leg acute Encounter for routine gynecological examination noneactive Varicose veins of left lower leg acute Venous insufficiency acute [facility] Work Phone: Evaluation note* Diagnosis IFG (impaired fasting glucose)- Primary Impaired fasting glucose Elevated LDL cholesterol level Pure hypercholesterolemia Arthralgia of both lower legs Overweight (BMI 25.0-29.9) [facility] Diagnosis IFG (impaired fasting glucose)- Primary Impaired fasting glucose Elevated LDL cholesterol level Pure hypercholesterolemia Arthralgia of both lower legs Overweight (BMI 25.0-29.9) Overweight documented in this encounter [facility] note* Diagnosis IFG (impaired fasting glucose)- Primary Impaired fasting glucose Elevated LDL cholesterol level Pure hypercholesterolemia Arthralgia of both lower legs Overweight (BMI 25.0-29.9) [facility] Diagnosis IFG (impaired fasting glucose)- Primary Impaired fasting glucose Elevated LDL cholesterol level Pure hypercholesterolemia Arthralgia of both lower legs Overweight (BMI 25.0-29.9) Overweight documented in this encounter [facility] note* Diagnosis Body mass index (BMI) of 28.0-28.9 in adult- Primary Body Mass Index 28.0-28.9, adult IFG (impaired fasting glucose) Impaired fasting glucose Elevated LDL cholesterol level Pure hypercholesterolemia Overweight (BMI 25.0-29.9) Overweight documented in this encounter [facility] note* Diagnosis IFG (impaired fasting glucose)- Primary Impaired fasting glucose Elevated LDL cholesterol level Pure hypercholesterolemia Arthralgia of both lower legs Overweight (BMI 25.0-29.9) Overweight documented in this encounter [facility] note* Diagnosis IFG (impaired fasting glucose)- Primary Impaired fasting glucose Elevated LDL cholesterol level Pure hypercholesterolemia Arthralgia of both lower legs Overweight (BMI 25.0-29.9) [facility] Diagnosis IFG (impaired fasting glucose)- Primary Impaired fasting glucose Elevated LDL cholesterol level Pure hypercholesterolemia Arthralgia of both lower legs Overweight (BMI 25.0-29.9) Overweight [facility]ative)No reason for referral information availableJohnson Medical Services Work Phone: Chief Complaint and Reason for Visit Chief Complaint SCREENING 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) Reason for Visit Atrophic vaginitis Varicose veins of left lower leg Encounter for routine gynecological examination 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) 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 CONSULT-VARICOSE VEINS Reason for Visit Atrophic vaginitis Varicose veins of left lower leg Encounter for routine gynecological examination Varicose veins of left lower leg Venous insufficiency 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) SCREENING CONSULT-VARICOSE VEINS Venous insufficiency (chronic) (peripheral) [...] w ith pain March 06, 2025 2:32pm Chief Complaint Admit Date 1 Y FU March 06, 2025 2:32 pm breast cancer screening March 12, 2025 1:41pm Varicose veins of left lower extremity w ith pain April 19, 2025 9:30am Varicose veins of left lower extremity w ith pain April 19, 2025 10:28am Reason for Visit Admit Date Varicose veins of left lower extremity w ith pain March 06, 2025 2:32pm Varicose veins of left lower extremity w ith pain April 19, 2025 9:30am Family History No Family History Records Found [...] No February 24, 2023 8:07am Power of Fire Management Specialist No February 24 8:07am Advance Directive Response Recorded Date/ Time Living Will No February 24, 2023 9:07am Power of Fire Management Specialist No February 24 9:07am Advance Directive Response Recorded Date/ Time Advance Directives on File No Vivek lares 2024 10:00am Living Will Yes April 19, 2025 10:00am Do you have a Healthcare Pow er of Fire Management Specialist? Yes April 19, 2025 10:00am Name of Medical Power of Fire Management Specialist Luciano (Spou ) April 19, 2025 10:00am Advance Directives Yes April 19 10:00am Reason for Referral Specialty Diagnoses / Procedures Referred By Contac t Referred To Contact Diagnoses IFG (impaired fasting glucose) Overweight (BMI 25.0-29.9) Elevated LDL cholesterol level Didi Jacques APRN.[employer]ARN WORKER [address] [place] [address] Referral ID Status Reason Start Date Expiration Date Visits Re quested Visits Authorized [id number] Closed 1 1 Specialty Diagnoses / Procedures Referred By Contdonald t Referred To Contact Diagnoses IFG (impaired fasting glucose) Elevated LDL cholesterol level Overweight (BMI 25.0-29.9) Didi Jacques APRN.[employer] YARN WORKER [address] [place] [address] Referral ID Status Reason Start Date Expiration Date Visits Re quested Visits Authorized [id number] Closed 1 1 Summary Purpose Additional Source Comments Source Comments (unrecognize d section and content) In the event this informatio n is protected by the Federal Confidentiality of Alcohol and Drug Abuse Patient Records regulations: The Federal rules restrict any use of the information to criminally investigate or prosecute any alcohol or drug abuse patient.[facility] the event this information is protected by the Federal Confidentiality of Alcohol and Drug Abuse Patient Records regulations: The Federal rules restrict any use of the information to criminally investigate or prosecute any alcohol or drug abuse patient.[facility] the event this information is protected by the Federal Confidentiality of Alcohol and Drug Abuse Patient Records regulations: The Federal rules restrict any use of the information to criminally investigate or prosecute any alcohol or drug abuse patient.[facility] the event this information is protected by the Federal Confidentiality of Alcohol and Drug Abuse Patient Records regulations: The Federal rules restrict any use of the information to criminally investigate or prosecute any alcohol or drug abuse patient.[facility] the event this information is protected by the Federal Confidentiality of Alcohol and Drug Abuse Patient Records regulations: The Federal rules restrict any use of the information to criminally investigate or prosecute any alcohol or drug abuse patient.[facility] the event this information is protected by the Federal Confidentiality of Alcohol and Drug Abuse Patient Records regulations: The Federal rules restrict any use of the information to criminally investigate or prosecute any alcohol or drug abuse patient.[facility] the event this information is protected by the Federal Confidentiality of Alcohol and Drug Abuse Patient Records regulations: The Federal rules restrict any use of the information to criminally investigate or prosecute any alcohol or drug abuse patient.[facility] the event this information is protected by the Federal Confidentiality of Alcohol and Drug Abuse Patient Records regulations: The Federal rules restrict any use of the information to criminally investigate or prosecute any alcohol or drug abuse patient.[facility] the event this information is protected by the Federal Confidentiality of Alcohol and Drug Abuse Patient Records regulations: The Federal rules restrict any use of the information to criminally investigate or prosecute any alcohol or drug abuse patient.[facility] Reason for Visit (unrecogniz ed section and [...] Referrin g Provider Active Tere Hong DIRECTOR OF FOOD AND BEVERAGE SERVICES, DIRECTOR OF FOOD AND BEVERAGE SERVICES-C Attending Provider Active Team Status: Inactive Member Role Status Dates Dr. Didi Cueto MD Primary Care Provider Active Tere Hong DIRECTOR OF FOOD AND BEVERAGE SERVICES, DIRECTOR OF FOOD AND BEVERAGE SERVICES-C Attending Provider, Referring Provider Active Team Status: [...] Anderson Attending Provider, Referring Provid er Active Elevator Erector Relationship Specialty Start Date End Date Didi Cueto [address] [facility] [address] [place] [address] PCP - General Family Medicine 01/13/24 Elevator Erector Relationship Specialty Start Date End Date Didi Cueto [address] [facility] [address] [place], [place] [id number] PCP - General Family Medicine 01/13/24 Elevator Erector Relationship Specialty Start Date End Date Didi Cueto [address] [facility] [address] [place], [place] [address] PCP - General Family Medicine 01/13/24 Elevator Erector Relationship Specialty Start Date End Date Didi Cueto [address] [place] [address] PCP - General Family Medicine 01/13/24 Elevator Erector Relationship Specialty Start Date End Date Didi Cueto [address] 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 Didi Cueto MD Primary Care Provider Active Start: March 06, 2025 End: March 06, 2025 Dr. 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 Relationship Specialty Start Date End Date NoryDidi [address] [facility] [address] [place], [place] [id number] PCP - General Family Medicine 01/13/24 Team [...] End: March 12, 2025 Tere Hong DIRECTOR OF FOOD AND BEVERAGE SERVICES, DIRECTOR OF FOOD AND BEVERAGE SERVICES-C Attending Provider Active Start: March 12, 2025 End: March 12, 2025 Tere Hong DIRECTOR OF FOOD AND BEVERAGE SERVICES, DIRECTOR OF FOOD AND BEVERAGE SERVICES-C Referring Provider Active Start: March 12, 2025 End: March 12, 2025 Team Status: Active Member Role/Relationship Status Dates No Primary Care Physician Primary Care Provider Active Team Status: Inactive Member Role/Relationship Status Dates Dr. Brett White MD Attending Provider Active S tart: April 19, 2025 End: April 19, 2025 Dr. Brett White MD Referring Provider Active S tart: April 19, 2025 End: April 19, 2025 No Primary Care Physician Primary Care Provider Active Start: April 19, 2025 End: April 19, 2025 Team Status: Active Member Role/Relationship Status Dates Dr. Brett White MD Attending Provider Active S tart: April 19, 2025 Dr. Brett White MD Referring Provider Active S tart: April 19, 2025 Dr. Brett White MD Other Provider Active Start : April 19, 2025 No Primary Care Physician Primary Care Provider Active Start: April 19, 2025 INFORMATION SOURCE (unrecogn ized section and content) DATE CREATED AUTHOR 03/09/2025 [facility] DATE CREATED AUTHOR AUTHOR'S TITO JAIME 04/19/2025 [facility] FOR RECORDS PERTAINING TO PATIENTS WHO ARE [...] BE BASED ON THE PRIMARY CLINICAL RECORDS. [employer] provides no warranty or guarantee of the accuracy or completeness of information in this document.
== END | disposition home or self-care (01) ==
PROVIDERS: Referring Provider Physician Assistant; Visit Provider Physician Assistant
DX: Z48.812 Encounter for surgical aftercare following surgery on the circulatory system (principal); I83.812 Varicose veins of left lower extremity with pain
CPT/HCPCS: 93971

== ENCOUNTER → 2025-05-10 | Outpatient (CLI) | payer OTHER, SELFPAY ==
--- NOTE | 2025-05-10 10:13 | VDLE_ITS ---
Reason For Study Reason For Study: DVT S/P Ablation RIGHT LEFT CFV is compressible, spontaneous, phasic, competent CFV is compressible, spontaneous, phasic, competent, and demonstrates normal augmentation. and demonstrates normal augmentation. Procedure FV is compressible, spontaneous, phasic, competent This is a venous duplex using B-mode, color flow and and demonstrates normal augmentation. spectral Doppler. POP V is compressible, spontaneous, phasic, competent Exam performed in department. and demonstrates normal augmentation. T/P Trunk is compressible. PTV is compressible. LT PerV is compressible. GSV is occluded from junction to knee s/p Venaseal ablation 04/19/2025. VL/Venous Duplex US, Unilateral Interpretation Summary Deep veins of the left lower extremity are patent and compressible segmentally. There is no evidence of left lower extremity deep vein thrombosis. Left great saphenous vein occluded consistent with recent ablation. Ordering Physician: Pauline Vo Performed By: Suyapa Emanuel RVT
== END | disposition home or self-care (01) ==
LOC: CVS 10:11
PROVIDERS: Referring Provider Physician Assistant; Visit Provider Physician Assistant
DX: Z48.812 Encounter for surgical aftercare following surgery on the circulatory system (principal); I87.2 Venous insufficiency (chronic) (peripheral)
CPT/HCPCS: 93971